=== PATIENT | female | born 1935 | race Caucasian/White ===

== ENCOUNTER 2017-04-28 17:24 | Inpatient (IN) | payer MEDICARE ==
[2017-04-28] MEDS ORDERED: SODIUM CHLORIDE 0.9% 1,000 ML IV ONE (17:28)
--- NOTE | 2017-04-28 17:32 | ED ---
General Adult HPI - General Stated complaint: altered mental status Time Seen by Provider: 04/28/17 17:25 Source: RN notes reviewed - History of Present Illness Initial comments: This is an 82-year-old female whose son found her unresponsive when he came to the house today. Son knows nothing about her past medical history except that she has not had any prescribed medications that she has not seen a doctor in many years. Son states she spoke to him on Tuesday but he has not spoken to or since. He arrived at the house and found her unresponsive state called EMS immediately. According to the project administrator the patient did not speak or respond to anything they were saying to her. When I saw the patient she looked at me and she was able to answer yes or no questions very quietly she stated she was not in any pain she denied any difficulty breathing she denied a headache and she denied knowing why she was in the hospital. Patient denied any injury or trauma. - Related Data Home Medications Medication Instructions Recorded Confirmed No Known Home Medications [No 04/28/17 04/28/17 Known Home Medications] Allergies Allergy/AdvReac Type Severity Reaction Status Date / Time Unable to Assess Allergy Verified 04/28/17 17:57 Review of Systems ROS Statement: Those systems with pertinent positive or pertinent negative responses have been documented in the HPI. ROS Other: All systems not noted in ROS Statement are negative. General Exam - General Exam Comments Initial Comments: GENERAL: She has cachectic looking. Patient speaks extremely softly and very slow to move very lethargic ENT: Neck is soft and supple. No significant lymphadenopathy is noted. Oropharynx is clear. Dry mucous membranes. Neck has full range of motion without eliciting any pain. There is no thyroid enlargement and no masses were felt. EYES: The sclera were anicteric and conjunctiva were pink and moist. Extraocular movements were intact and pupils were equal round and reactive to light. Eyelids were unremarkable. PULMONARY: Unlabored respirations. Good breath sounds bilaterally. No audible rales rhonchi or wheezing was noted. CARDIOVASCULAR: There is a regular rate and rhythm without any murmurs gallops or rubs. ABDOMEN: Soft and nontender with normal bowel sounds. No palpable organomegaly was noted. There is no palpable pulsatile mass. SKIN: Skin is clear with no lesions or rashes and otherwise unremarkable. NEUROLOGIC: Patient is alert and oriented x3. Cranial nerves II through XII are grossly intact. Motor and sensory are also intact. Normal speech, volume and content. Symmetrical smile. Cerebellar exam grossly intact. MUSCULOSKELETAL: Normal extremities with adequate strength and full range of motion. LYMPHATICS: No significant lymphadenopathy is noted PSYCHIATRIC: Unable to assess at this time Course Vital Signs 04/28/17 04/28/17 04/28/17 17:43 18:05 18:41 Temperature 96.8 F L Pulse Rate 107 H 109 H 107 H Respiratory 16 18 Rate Blood Pressure 143/73 157/81 O2 Sat by Pulse 98 Oximetry 04/28/17 04/28/17 19:00 20:00 Temperature 96.8 F L Pulse Rate 105 H 110 H Respiratory 16 Rate Blood Pressure 155/77 O2 Sat by Pulse 99 99 Oximetry Medical Decision Making - Medical Decision Making EKG shows sinus tachycardia at 109 bpm MO interval 226 QRS is 108 QT interval is 276 QTC is 371. Patient shows significant ST segment depression in leads II , III, and F aVF as well as leads V3 V4 V5 and V6 CT of the head shows no acute abnormality. Chest x-ray shows no acute normalities. I spoke with Dr. Waldron she agreed to admit the patient I spoke to the ICU doctor and he agreed to admit the patient as well I wrote admitting orders. I gave the patient potassium because of the low potassium I hydrated the patient with a liter fluid. - Lab Data Result diagrams: 04/28/17 17:55 04/28/17 19:40 Lab Results 04/28/17 04/28/17 04/28/17 Range/Units 17:30 17:30 17:55 WBC (3.8-10.6) k/uL RBC (3.80-5.40) m/uL Hgb (11.4-16.0) gm/dL Hct (34.0-46.0) % MCV (80.0-100.0) fL MCH (25.0-35.0) pg MCHC (31.0-37.0) g/dL RDW (11.5-15.5) % Plt Count (150-450) k/uL Neutrophils % % Lymphocytes % % Monocytes % % Eosinophils % % Basophils % % Neutrophils # (1.3-7.7) k/uL Lymphocytes # (1.0-4.8) k/uL Monocytes # (0-1.0) k/uL Eosinophils # (0-0.7) k/uL Basophils # (0-0.2) k/uL Manual Slide Review Hypochromasia Poikilocytosis Macrocytosis Crenated Cell Fragmented RBCs PT (9.0-12.0) sec INR (<1.2) APTT (22.0-30.0) sec Sample Site ABG pH (7.35-7.45) ABG pCO2 (35-45) mmHg ABG pO2 (83-108) mmHg ABG HCO3 (21-25) mmol/L ABG Total CO2 (19-24) mmol/L ABG O2 Saturation (94-97) % ABG Base Excess mmol/L FiO2 % Sodium (137-145) mmol/L Potassium (3.5-5.1) mmol/L Chloride (98-107) mmol/L Carbon Dioxide (22-30) mmol/L Anion Gap mmol/L BUN (7-17) mg/dL Creatinine (0.52-1.04) mg/dL Est GFR (MDRD) Af Amer (>60 ml/min/1.73 sqM) Est GFR (MDRD) Non-Af (>60 ml/min/1.73 sqM) Glucose (74-99) mg/dL POC Glucose (mg/dL) (75-99) mg/dL POC Glu Garland Maker ID Plasma Lactic Acid Surjit (0.7-2.0) mmol/L Calcium (8.4-10.2) mg/dL Total Bilirubin (0.2-1.3) mg/dL AST (14-36) U/L ALT (9-52) U/L Alkaline Phosphatase (38-126) U/L Total Creatine Kinase 532 H (30-135) U/L CK-MB (CK-2) 11.0 H* (0.0-2.4) ng/mL CK-MB (CK-2) Rel Index 2.1 Troponin I 0.053 H* (0.000-0.034) ng/mL Total Protein (6.3-8.2) g/dL Albumin (3.5-5.0) g/dL Urine Color Light Yellow Urine Appearance Cloudy H (Clear) Urine pH 5.5 (5.0-8.0) Ur Specific [place] 1.009 (1.001-1.035) Urine Protein 2+ H (Negative) Urine Glucose (UA) 2+ H (Negative) Urine Ketones Negative (Negative) Urine Blood Moderate H (Negative) Urine Nitrite Negative (Negative) Urine Bilirubin Negative (Negative) Urine Urobilinogen <2.0 (<2.0) mg/dL Ur Leukocyte Esterase Negative (Negative) Urine Opiates Screen Not Detected (NotDetected) Ur Oxycodone Screen Not Detected (NotDetected) Urine Methadone Screen Not Detected (NotDetected) Ur Propoxyphene Screen Not Detected (NotDetected) Ur Barbiturates Screen Not Detected (NotDetected) U Tricyclic Antidepress Not Detected (NotDetected) Ur Phencyclidine Scrn Not Detected (NotDetected) Ur Amphetamines Screen Not Detected (NotDetected) U Methamphetamines Scrn Not Detected (NotDetected) U Benzodiazepines Scrn Not Detected (NotDetected) Urine Cocaine Screen Not Detected (NotDetected) U Marijuana (THC) Screen Not Detected (NotDetected) 04/28/17 04/28/17 04/28/17 Range/Units 17:55 17:55 17:55 WBC 18.9 H (3.8-10.6) k/uL RBC 4.67 (3.80-5.40) m/uL Hgb 16.4 H (11.4-16.0) gm/dL Hct 48.2 H (34.0-46.0) % MCV 103.4 H (80.0-100.0) fL MCH 35.0 (25.0-35.0) pg MCHC 33.9 (31.0-37.0) g/dL RDW 14.2 (11.5-15.5) % Plt Count 237 (150-450) k/uL Neutrophils % 92 % Lymphocytes % 1 % Monocytes % 5 % Eosinophils % 1 % Basophils % 0 % Neutrophils # 17.3 H (1.3-7.7) k/uL Lymphocytes # 0.3 L (1.0-4.8) k/uL Monocytes # 1.0 (0-1.0) k/uL Eosinophils # 0.2 (0-0.7) k/uL Basophils # 0.0 (0-0.2) k/uL Manual Slide Review Performed Hypochromasia Slight Poikilocytosis Slight Macrocytosis Slight Crenated Cell Present Fragmented RBCs Present PT 10.5 (9.0-12.0) sec INR 1.0 (<1.2) APTT 25.1 (22.0-30.0) sec Sample Site ABG pH (7.35-7.45) ABG pCO2 (35-45) mmHg ABG pO2 (83-108) mmHg ABG HCO3 (21-25) mmol/L ABG Total CO2 (19-24) mmol/L ABG O2 Saturation (94-97) % ABG Base Excess mmol/L FiO2 % Sodium 143 (137-145) mmol/L Potassium 2.0 L* (3.5-5.1) mmol/L Chloride 119 H (98-107) mmol/L Carbon Dioxide <5 L* (22-30) mmol/L Anion Gap mmol/L BUN 97 H* (7-17) mg/dL Creatinine 4.80 H (0.52-1.04) mg/dL Est GFR (MDRD) Af Amer 11 (>60 ml/min/1.73 sqM) Est GFR (MDRD) Non-Af 9 (>60 ml/min/1.73 sqM) Glucose 153 H (74-99) mg/dL POC Glucose (mg/dL) (75-99) mg/dL POC Glu Garland Maker ID Plasma Lactic Acid Surjit (0.7-2.0) mmol/L Calcium 14.8 H* (8.4-10.2) mg/dL Total Bilirubin 0.6 (0.2-1.3) mg/dL AST 54 H (14-36) U/L ALT 92 H (9-52) U/L Alkaline Phosphatase 134 H (38-126) U/L Total Creatine Kinase (30-135) U/L CK-MB (CK-2) (0.0-2.4) ng/mL CK-MB (CK-2) Rel Index Troponin I (0.000-0.034) ng/mL Total Protein 8.5 H (6.3-8.2) g/dL Albumin 4.8 (3.5-5.0) g/dL Urine Color Urine Appearance (Clear) Urine pH (5.0-8.0) Ur Specific [place] (1.001-1.035) Urine Protein (Negative) Urine Glucose (UA) (Negative) Urine Ketones (Negative) Urine Blood (Negative) Urine Nitrite (Negative) Urine Bilirubin (Negative) Urine Urobilinogen (<2.0) mg/dL Ur Leukocyte Esterase (Negative) Urine Opiates Screen (NotDetected) Ur Oxycodone Screen (NotDetected) Urine Methadone Screen (NotDetected) Ur Propoxyphene Screen (NotDetected) Ur Barbiturates Screen (NotDetected) U Tricyclic Antidepress (NotDetected) Ur Phencyclidine Scrn (NotDetected) Ur Amphetamines Screen (NotDetected) U Methamphetamines Scrn (NotDetected) U Benzodiazepines Scrn (NotDetected) Urine Cocaine Screen (NotDetected) U Marijuana (THC) Screen (NotDetected) 04/28/17 04/28/17 04/28/17 Range/Units 17:55 18:01 18:39 WBC (3.8-10.6) k/uL RBC (3.80-5.40) m/uL Hgb (11.4-16.0) gm/dL Hct (34.0-46.0) % MCV (80.0-100.0) fL MCH (25.0-35.0) pg MCHC (31.0-37.0) g/dL RDW (11.5-15.5) % Plt Count (150-450) k/uL Neutrophils % % Lymphocytes % % Monocytes % % Eosinophils % % Basophils % % Neutrophils # (1.3-7.7) k/uL Lymphocytes # (1.0-4.8) k/uL Monocytes # (0-1.0) k/uL Eosinophils # (0-0.7) k/uL Basophils # (0-0.2) k/uL Manual Slide Review Hypochromasia Poikilocytosis Macrocytosis Crenated Cell Fragmented RBCs PT (9.0-12.0) sec INR (<1.2) APTT (22.0-30.0) sec Sample Site rrad ABG pH 7.09 L* (7.35-7.45) ABG pCO2 20 L* (35-45) mmHg ABG pO2 160 H (83-108) mmHg ABG HCO3 6 L* (21-25) mmol/L ABG Total CO2 6 L (19-24) mmol/L ABG O2 Saturation 99.0 H (94-97) % ABG Base Excess -22.0 mmol/L FiO2 28 % Sodium (137-145) mmol/L Potassium (3.5-5.1) mmol/L Chloride (98-107) mmol/L Carbon Dioxide (22-30) mmol/L Anion Gap mmol/L BUN (7-17) mg/dL Creatinine (0.52-1.04) mg/dL Est GFR (MDRD) Af Amer (>60 ml/min/1.73 sqM) Est GFR (MDRD) Non-Af (>60 ml/min/1.73 sqM) Glucose (74-99) mg/dL POC Glucose (mg/dL) 134 H (75-99) mg/dL POC Glu Garland Maker ID [place] Plasma Lactic Acid Surjit 1.8 (0.7-2.0) mmol/L Calcium (8.4-10.2) mg/dL Total Bilirubin (0.2-1.3) mg/dL AST (14-36) U/L ALT (9-52) U/L Alkaline Phosphatase (38-126) U/L Total Creatine Kinase (30-135) U/L CK-MB (CK-2) (0.0-2.4) ng/mL CK-MB (CK-2) Rel Index Troponin I (0.000-0.034) ng/mL Total Protein (6.3-8.2) g/dL Albumin (3.5-5.0) g/dL Urine Color Urine Appearance (Clear) Urine pH (5.0-8.0) Ur Specific [place] (1.001-1.035) Urine Protein (Negative) Urine Glucose (UA) (Negative) Urine Ketones (Negative) Urine Blood (Negative) Urine Nitrite (Negative) Urine Bilirubin (Negative) Urine Urobilinogen (<2.0) mg/dL Ur Leukocyte Esterase (Negative) Urine Opiates Screen (NotDetected) Ur Oxycodone Screen (NotDetected) Urine Methadone Screen (NotDetected) Ur Propoxyphene Screen (NotDetected) Ur Barbiturates Screen (NotDetected) U Tricyclic Antidepress (NotDetected) Ur Phencyclidine Scrn (NotDetected) Ur Amphetamines Screen (NotDetected) U Methamphetamines Scrn (NotDetected) U Benzodiazepines Scrn (NotDetected) Urine Cocaine Screen (NotDetected) U Marijuana (THC) Screen (NotDetected) 04/28/17 Range/Units 19:40 WBC (3.8-10.6) k/uL RBC (3.80-5.40) m/uL Hgb (11.4-16.0) gm/dL Hct (34.0-46.0) % MCV (80.0-100.0) fL MCH (25.0-35.0) pg MCHC (31.0-37.0) g/dL RDW (11.5-15.5) % Plt Count (150-450) k/uL Neutrophils % % Lymphocytes % % Monocytes % % Eosinophils % % Basophils % % Neutrophils # (1.3-7.7) k/uL Lymphocytes # (1.0-4.8) k/uL Monocytes # (0-1.0) k/uL Eosinophils # (0-0.7) k/uL Basophils # (0-0.2) k/uL Manual Slide Review Hypochromasia Poikilocytosis Macrocytosis Crenated Cell Fragmented RBCs PT (9.0-12.0) sec INR (<1.2) APTT (22.0-30.0) sec Sample Site ABG pH (7.35-7.45) ABG pCO2 (35-45) mmHg ABG pO2 (83-108) mmHg ABG HCO3 (21-25) mmol/L ABG Total CO2 (19-24) mmol/L ABG O2 Saturation (94-97) % ABG Base Excess mmol/L FiO2 % Sodium 144 (137-145) mmol/L Potassium 2.0 L* (3.5-5.1) mmol/L Chloride 122 H* (98-107) mmol/L Carbon Dioxide <5 L* (22-30) mmol/L Anion Gap mmol/L BUN 94 H* (7-17) mg/dL Creatinine 5.10 H* (0.52-1.04) mg/dL Est GFR (MDRD) Af Amer 10 (>60 ml/min/1.73 sqM) Est GFR (MDRD) Non-Af 8 (>60 ml/min/1.73 sqM) Glucose 143 H (74-99) mg/dL POC Glucose (mg/dL) (75-99) mg/dL POC Glu Garland Maker ID Plasma Lactic Acid Surjit (0.7-2.0) mmol/L Calcium 13.6 H* (8.4-10.2) mg/dL Total Bilirubin 0.4 (0.2-1.3) mg/dL AST 56 H (14-36) U/L ALT 83 H (9-52) U/L Alkaline Phosphatase 127 H (38-126) U/L Total Creatine Kinase (30-135) U/L CK-MB (CK-2) (0.0-2.4) ng/mL CK-MB (CK-2) Rel Index Troponin I (0.000-0.034) ng/mL Total Protein 7.7 (6.3-8.2) g/dL Albumin 4.3 (3.5-5.0) g/dL Urine Color Urine Appearance (Clear) Urine pH (5.0-8.0) Ur Specific [place] (1.001-1.035) Urine Protein (Negative) Urine Glucose (UA) (Negative) Urine Ketones (Negative) Urine Blood (Negative) Urine Nitrite (Negative) Urine Bilirubin (Negative) Urine Urobilinogen (<2.0) mg/dL Ur Leukocyte Esterase (Negative) Urine Opiates Screen (NotDetected) Ur Oxycodone Screen (NotDetected) Urine Methadone Screen (NotDetected) Ur Propoxyphene Screen (NotDetected) Ur Barbiturates Screen (NotDetected) U Tricyclic Antidepress (NotDetected) Ur Phencyclidine Scrn (NotDetected) Ur Amphetamines Screen (NotDetected) U Methamphetamines Scrn (NotDetected) U Benzodiazepines Scrn (NotDetected) Urine Cocaine Screen (NotDetected) U Marijuana (THC) Screen (NotDetected) Critical Care Time Critical Care Time: Yes Total Critical Care Time: 35 Disposition Clinical Impression: Altered mental status, Acute renal failure, Hypokalemia, Hypercalcemia, Elevated troponin Disposition: ADMITTED IP TO THIS HOSP Referrals: None,Stated [Primary Care Provider] - 1-2 days Time of Disposition: 20:31
[2017-04-28 18:08] LABS: Basophils % (A) 0 %; CH 33.3; CHCM 32.5; Eosinophils # (A) 0.2 k/uL (0-0.7); Eosinophils % (A) 1 %; HCT 48.2 % (34.0-46.0); HDW 3.43; HGB 16.4 gm/dL (11.4-16.0); Hypochromasia Slight; Luc # (Auto) 0.16; Luc % (Auto) 1; Lymphocytes # (A) 0.3 k/uL (1.0-4.8); Lymphocytes % (A) 1 %; MCHC 33.9 g/dL (31.0-37.0); MCV 103.4 fL (80.0-100.0); Macrocytosis Slight; Mean Platelet Volume 7.9; Monocytes % (A) 5 %; Neutrophils # (A) 17.3 k/uL (1.3-7.7); Neutrophils % (A) 92 %; Poikilocytosis Slight; RBC 4.67 m/uL (3.80-5.40); RDW 14.2 % (11.5-15.5); WBC 18.9 k/uL (3.8-10.6); WBC (Perox) 20.71
[2017-04-28 18:14] LABS: ALT 92 U/L (9-52); AST 54 U/L (14-36); Alkaline Phosphatase 134 U/L (38-126); Chloride 119 mmol/L (98-107); Glucose 153 mg/dL (74-99); Sodium 143 mmol/L (137-145); Total Bilirubin 0.6 mg/dL (0.2-1.3); Total Protein 8.5 g/dL (6.3-8.2)
[2017-04-28 18:19] LABS: Appearance,Urine Cloudy (Clear); Bilirubin,Urine Negative (Negative); Glucose,Urine (UA) 2+ (Negative); Ketones,Urine Negative (Negative); Leukocyte Esterase,Urine Negative (Negative); Nitrite,Urine Negative (Negative); PH, Urine 5.5 (5.0-8.0); Particle Count 8893; Protein,Urine 2+ (Negative); Specific Gravity,Urine 1.009 (1.001-1.035); UA Billing (MACRO vs. MICRO) MICRO; Urobilinogen,Urine <2.0 mg/dL (<2.0)
[2017-04-28 18:22] LABS: Glucose,Whole Blood 134 mg/dL (75-99)
[2017-04-28 18:25] LABS: Non-African American GFR(MDRD) 9 (>60 ml/min/1.73 sqM)
[2017-04-28 18:29] LABS: Blood Urea Nitrogen 97 mg/dL (7-17); Carbon Dioxide <5 mmol/L (22-30)
--- NOTE | 2017-04-28 18:36 | CT ---
EXAMINATION TYPE: CT brain wo con DATE OF EXAM: 04/28/2017 COMPARISON: NONE HISTORY: Patient poor historian. Altered mental status. CT DLP: 790.5 mGycm Automated exposure control for dose reduction was used. FINDINGS: There is some cerebral cortical atrophy. There is no mass effect nor midline shift. There is no sign of intracranial hemorrhage. The calvarium is intact. IMPRESSION: MILD ATROPHY. NO ACUTE INTRACRANIAL ABNORMALITY.
--- NOTE | 2017-04-28 18:37 | XR ---
EXAMINATION TYPE: XR chest 2V DATE OF EXAM: 04/28/2017 COMPARISON: NONE HISTORY: Altered mental status TECHNIQUE: Frontal and lateral views of the chest are obtained. FINDINGS: There is no heart failure nor confluent pneumonic infiltrate. There are no hilar masses. C ostophrenic angles are clear. Heart size is normal. There is osteopenia. 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 IMPRESSION: No active cardiopulmonary disease.
[2017-04-28 18:42] LABS: Partial Thromboplastin Time 25.1 sec (22.0-30.0); Prothrombin Time 10.5 sec (9.0-12.0)
[2017-04-28 18:45] LABS: Calcium 14.8 mg/dL (8.4-10.2)
[2017-04-28 18:54] LABS: Troponin I 0.053 ng/mL (0.000-0.034)
[2017-04-28 19:08] LABS: ABG PH 7.09 (7.35-7.45)
[2017-04-28 19:09] LABS: ABG HCO3 6 mmol/L (21-25); ABG PCO2 20 mmHg (35-45); ABG PO2 160 mmHg (83-108); ABG TCO2 6 mmol/L (19-24)
[2017-04-28 19:12] LABS: Crenated RBC Present; Manual Review Performed
[2017-04-28] MEDS ORDERED: LEVOFLOXACIN 750MG-D5W PMX 750 MG in DEXTROSE/WATER 1 150ML.BAG IVPB STA (19:16)
[2017-04-28] MEDS ORDERED: LEVOFLOXACIN 750MG-D5W PMX 750 MG in DEXTROSE/WATER 1 150ML.BAG IVPB SCH (19:30)
[2017-04-28] MEDS: POTASSIUM CHLORIDE 10 MEQ, LIDOCAINE 2% INJ 10 MG in SODIUM CHLORIDE 0.9% 100 ML IVPB SCH ×2 (19:50→21:21)
[2017-04-28] MEDS ORDERED: NALOXONE 0.4 MG/ML 1 ML VIAL IV PRN (19:56)
[2017-04-28 20:17] LABS: ALT 83 U/L (9-52); AST 56 U/L (14-36); Alkaline Phosphatase 127 U/L (38-126); Glucose 143 mg/dL (74-99); Sodium 144 mmol/L (137-145); Total Bilirubin 0.4 mg/dL (0.2-1.3); Total Protein 7.7 g/dL (6.3-8.2)
[2017-04-28 20:19] LABS: Non-African American GFR(MDRD) 8 (>60 ml/min/1.73 sqM)
[2017-04-28 20:21] LABS: Carbon Dioxide <5 mmol/L (22-30); Chloride 122 mmol/L (98-107)
[2017-04-28 20:22] LABS: Blood Urea Nitrogen 94 mg/dL (7-17); Calcium 13.6 mg/dL (8.4-10.2)
[2017-04-28] MEDS ORDERED: SODIUM CHLORIDE 0.9% 1,000 ML IV SCH (20:30)
[2017-04-28 21:03] LABS: Magnesium 3.4 mg/dL (1.6-2.3); Phosphorus 2.8 mg/dL (2.5-4.5)
[2017-04-28 21:08] LABS: Glucose,Whole Blood 142 mg/dL (75-99)
[2017-04-28 21:09] LABS: Basophils % (A) 0 %; CH 33.7; CHCM 33.5; Eosinophils % (A) 0 %; HCT 52.3 % (34.0-46.0); HDW 3.43; HGB 16.8 gm/dL (11.4-16.0); Luc # (Auto) 0.18; Luc % (Auto) 1; Lymphocytes # (A) 0.3 k/uL (1.0-4.8); Lymphocytes % (A) 1 %; MCH 32.6 pg (25.0-35.0); MCHC 32.1 g/dL (31.0-37.0); MCV 101.7 fL (80.0-100.0); Macrocytosis Slight; Mean Platelet Volume 7.9; Monocytes # (A) 1.4 k/uL (0-1.0); Monocytes % (A) 6 %; Neutrophils # (A) 22.1 k/uL (1.3-7.7); Neutrophils % (A) 92 %; Poikilocytosis Slight; RBC 5.14 m/uL (3.80-5.40); RDW 14.6 % (11.5-15.5); WBC (Perox) 25.92
[2017-04-28 21:38] LABS: Crenated RBC Present; Manual Review Performed
--- NOTE | 2017-04-28 22:15 | P.HPIM ---
History of Present Illness H&P Date: 04/28/17 Chief Complaint: Change in mental status 82-year-old female doesn't believe in medicine, does not have a medical doctor and not on any medication but takes many supplements presented to emergency department brought by her son because of severe weakness and change in her mental status. The patient normally lives by herself and able to take care of herself and do all of her activities of daily living but over the past week she has not been eating and drinking well, feeling very weak. Patient denied having any pain when asked. No shortness of breath. No nausea, vomiting or diarrhea. No fevers or chills. Patient takes many many supplements and has been doing that over the last several years. I reviewed the bag of supplements that she takes and I was able to count about 50 bottles of different chemicals and substances including present illness, minerals, vitamins, pancreatic enzymes and many other substances unknown to me. In the emergency department patient was found to have a creatinine of 4.8, potassium of 2. Mentally she was very slow to respond but able to answer most questions. Review of Systems 12 point ROS performed, negative except HPI. Past Medical History Past Medical History: Unable to Obtain Additional Past Medical History / Comment(s): Pt self medicates with homeopathic remedies and vitamins per Son. History of Any Multi-Drug Resistant Organisms: Unobtainable Past Surgical History: Unable to Obtain Past Psychological History: Unable to Obtain Smoking Status: Unknown if ever smoked Past Alcohol Use History: Unable to Obtain Past Drug Use History: Unable to Obtain Medications and Allergies Home Medications Medication Instructions Recorded Confirmed Type Adrenatran 1 tab PO DAILY 04/28/17 04/28/17 History Allerase 1 tab PO DAILY 04/28/17 04/28/17 History B-Cell Formula 1 tab PO DAILY 04/28/17 04/28/17 History Bio-Fcts 1 tab PO DAILY 04/28/17 04/28/17 History Bioavailable Iron 5mg 5 mg PO DAILY 04/28/17 04/28/17 History Biocitrate-Multi Mineral 1 tab PO DAILY 04/28/17 04/28/17 History Bone-Chiara 1 tab PO DAILY 04/28/17 04/28/17 History Yao/Mag 1:1 1 tab PO DAILY 04/28/17 04/28/17 History Cataplex F 1 tab PO DAILY 04/28/17 04/28/17 History Colostrum 1 tab PO DAILY 04/28/17 04/28/17 History Dandelion 1 tab PO DAILY 04/28/17 04/28/17 History Dopa Boost 1 tab PO DAILY 04/28/17 04/28/17 History Glycine 500mg 500 mg PO DAILY 04/28/17 04/28/17 History Grape Seed 1 tab PO DAILY 04/28/17 04/28/17 History Graviola 1 tab PO DAILY 04/28/17 04/28/17 History Hepagen 1 tab PO DAILY 04/28/17 04/28/17 History Hepatropin Pmg 1 tab PO DAILY 04/28/17 04/28/17 History Horse Buxton 1 tab PO DAILY 04/28/17 04/28/17 History Inosine 500mg 500 mg PO DAILY 04/28/17 04/28/17 History L-Citrulline 500mg 500 mg PO DAILY 04/28/17 04/28/17 History L-Glutamin 400mg 400 mg PO DAILY 04/28/17 04/28/17 History L-Glutathione 1 tab PO DAILY 04/28/17 04/28/17 History L-Histidine 500mg 500 mg PO DAILY 04/28/17 04/28/17 History Lacto 1 tab PO DAILY 04/28/17 04/28/17 History Lactoferrin 100mg 100 mg PO DAILY 04/28/17 04/28/17 History Liver Blend Sp-13 1 tab PO DAILY 04/28/17 04/28/17 History Liver Cleanse 1 tab PO DAILY 04/28/17 04/28/17 History Methylsulfonylmethane [MSM] 1,000 mg PO DAILY 04/28/17 04/28/17 History Molybdenum 1 tab PO DAILY 04/28/17 04/28/17 History Monolaurin 300mg 300 mg PO DAILY 04/28/17 04/28/17 History Multi-Gland 1 tab PO DAILY 04/28/17 04/28/17 History Natto-Serrazime 1 tab PO DAILY 04/28/17 04/28/17 History Norival 1 tab PO DAILY 04/28/17 04/28/17 History Nutricillin 1 tab PO DAILY 04/28/17 04/28/17 History Paracidin 1 tab PO DAILY 04/28/17 04/28/17 History Potassium Citrate 99mg 99 mg PO DAILY 04/28/17 04/28/17 History Psorex 120mg 120 mg PO DAILY 04/28/17 04/28/17 History Refluxin 1 tab PO DAILY 04/28/17 04/28/17 History Rna/Dna 100/100 1 tab PO DAILY 04/28/17 04/28/17 History Squarlene 1 tab PO DAILY 04/28/17 04/28/17 History Anny 1 tab PO DAILY 04/28/17 04/28/17 History Tendofit 1 tab PO DAILY 04/28/17 04/28/17 History Thymex 1 tab PO DAILY 04/28/17 04/28/17 History Uristatin 1 tab PO DAILY 04/28/17 04/28/17 History Vitamin B Complex 1 cap PO DAILY 04/28/17 04/28/17 History White Margie Bark 1 tab PO DAILY 04/28/17 04/28/17 History Wobenzym N 1 tab PO DAILY 04/28/17 04/28/17 History [place] 1 tab PO DAILY 04/28/17 04/28/17 History Zinc Picolinate 1 tab PO DAILY 04/28/17 04/28/17 History Allergies Allergy/AdvReac Type Severity Reaction Status Date / Time No Known Allergies Allergy Verified 04/28/17 20:36 Physical Exam Vitals: Vital Signs Temp Pulse Resp BP Pulse Ox 04/28/17 20:00 110 H 99 04/28/17 19:00 96.8 F L 105 H 16 155/77 99 04/28/17 18:41 107 H 18 157/81 04/28/17 18:05 109 H 04/28/17 17:43 96.8 F L 107 H 16 143/73 98 Intake and Output 04/28/17 04/28/17 04/28/17 06:59 14:59 22:59 Intake Total 1000 Balance 1000 Intake: Amount of Fluid Infused ( 1000 ml) Other: Weight 31.751 kg Patient Weight 04/29/17 06:59 Weight 31.751 kg Constitutional: mentally slow, barely conversant,. Eyes: Anicteric sclerae, moist conjunctiva, no lid-lag, PERRLA, ENMT: Extremely dry mucous membranes, Oropharynx clear, no erythema, exudates Neck: Supple, FROM, no masses, or JVD, No carotid bruits, No thyromegaly Lungs: Clear to auscultation, Clear to percussion, Normal respiratory effort, no accessory muscle use Cardiovascular: Heart regular in rate and rhythm, No murmurs, gallops, or rubs, No peripheral edema Abdominal: Soft, tender all over, no guarding, rebound or rigidity, Normoactive bowel sounds, No hepatomegaly, No splenomegaly, No palpable mass Skin: Normal temperature, tone, texture, increased skin turgor, no induration, No subcutaneous nodules, No rash, lesions, No ulcers Extremities: No digital cyanosis, No clubbing, Pedal pulses intact and symmetrical, Radial pulses intact and symmetrical, No calf tenderness Psychiatric: Lethargic but oriented to person, place and time, appropriate affect, intact judgement Neuro: Generally weak, Sensation to light touch grossly present throughout, Cranial nerves II-XII grossly intact, no focal sensory deficits Results CBC & Chem 7: 04/28/17 19:40 04/28/17 19:40 Labs: Abnormal Lab Results - Last 24 Hours (Table) 04/28/17 04/28/17 04/28/17 Range/Units 17:30 17:55 17:55 WBC 18.9 H (3.8-10.6) k/uL Hgb 16.4 H (11.4-16.0) gm/dL Hct 48.2 H (34.0-46.0) % MCV 103.4 H (80.0-100.0) fL Neutrophils # 17.3 H (1.3-7.7) k/uL Lymphocytes # 0.3 L (1.0-4.8) k/uL Monocytes # (0-1.0) k/uL ABG pH (7.35-7.45) ABG pCO2 (35-45) mmHg ABG pO2 (83-108) mmHg ABG HCO3 (21-25) mmol/L ABG Total CO2 (19-24) mmol/L ABG O2 Saturation (94-97) % Potassium (3.5-5.1) mmol/L Chloride (98-107) mmol/L Carbon Dioxide (22-30) mmol/L BUN (7-17) mg/dL Creatinine (0.52-1.04) mg/dL Glucose (74-99) mg/dL POC Glucose (mg/dL) (75-99) mg/dL Calcium (8.4-10.2) mg/dL Magnesium (1.6-2.3) mg/dL AST (14-36) U/L ALT (9-52) U/L Alkaline Phosphatase (38-126) U/L Total Creatine Kinase 532 H (30-135) U/L CK-MB (CK-2) 11.0 H* (0.0-2.4) ng/mL Troponin I 0.053 H* (0.000-0.034) ng/mL Total Protein (6.3-8.2) g/dL Urine Appearance Cloudy H (Clear) Urine Protein 2+ H (Negative) Urine Glucose (UA) 2+ H (Negative) Urine Blood Moderate H (Negative) 04/28/17 04/28/17 04/28/17 Range/Units 17:55 18:01 18:39 WBC (3.8-10.6) k/uL Hgb (11.4-16.0) gm/dL Hct (34.0-46.0) % MCV (80.0-100.0) fL Neutrophils # (1.3-7.7) k/uL Lymphocytes # (1.0-4.8) k/uL Monocytes # (0-1.0) k/uL ABG pH 7.09 L* (7.35-7.45) ABG pCO2 20 L* (35-45) mmHg ABG pO2 160 H (83-108) mmHg ABG HCO3 6 L* (21-25) mmol/L ABG Total CO2 6 L (19-24) mmol/L ABG O2 Saturation 99.0 H (94-97) % Potassium 2.0 L* (3.5-5.1) mmol/L Chloride 119 H (98-107) mmol/L Carbon Dioxide <5 L* (22-30) mmol/L BUN 97 H* (7-17) mg/dL Creatinine 4.80 H (0.52-1.04) mg/dL Glucose 153 H (74-99) mg/dL POC Glucose (mg/dL) 134 H (75-99) mg/dL Calcium 14.8 H* (8.4-10.2) mg/dL Magnesium (1.6-2.3) mg/dL AST 54 H (14-36) U/L ALT 92 H (9-52) U/L Alkaline Phosphatase 134 H (38-126) U/L Total Creatine Kinase (30-135) U/L CK-MB (CK-2) (0.0-2.4) ng/mL Troponin I (0.000-0.034) ng/mL Total Protein 8.5 H (6.3-8.2) g/dL Urine Appearance (Clear) Urine Protein (Negative) Urine Glucose (UA) (Negative) Urine Blood (Negative) 04/28/17 04/28/17 04/28/17 Range/Units 19:40 19:40 21:05 WBC 24.0 H (3.8-10.6) k/uL Hgb 16.8 H (11.4-16.0) gm/dL Hct 52.3 H (34.0-46.0) % MCV 101.7 H (80.0-100.0) fL Neutrophils # 22.1 H (1.3-7.7) k/uL Lymphocytes # 0.3 L (1.0-4.8) k/uL Monocytes # 1.4 H (0-1.0) k/uL ABG pH (7.35-7.45) ABG pCO2 (35-45) mmHg ABG pO2 (83-108) mmHg ABG HCO3 (21-25) mmol/L ABG Total CO2 (19-24) mmol/L ABG O2 Saturation (94-97) % Potassium 2.0 L* (3.5-5.1) mmol/L Chloride 122 H* (98-107) mmol/L Carbon Dioxide <5 L* (22-30) mmol/L BUN 94 H* (7-17) mg/dL Creatinine 5.10 H* (0.52-1.04) mg/dL Glucose 143 H (74-99) mg/dL POC Glucose (mg/dL) 142 H (75-99) mg/dL Calcium 13.6 H* (8.4-10.2) mg/dL Magnesium 3.4 H (1.6-2.3) mg/dL AST 56 H (14-36) U/L ALT 83 H (9-52) U/L Alkaline Phosphatase 127 H (38-126) U/L Total Creatine Kinase (30-135) U/L CK-MB (CK-2) (0.0-2.4) ng/mL Troponin I (0.000-0.034) ng/mL Total Protein (6.3-8.2) g/dL Urine Appearance (Clear) Urine Protein (Negative) Urine Glucose (UA) (Negative) Urine Blood (Negative) Assessment and Plan Plan: #1 Acute renal failure/acute severe metabolic acidosis/acute severe hypokalemia: Likely secondary to toxicity from calcium, vitamin D and many other supplements Discussed with nephrology Dr. Magallanes Stat dialysis, discussed with Dr. Posadas Bicarbonate drip. [place] cath insertion, monitor urine output Hold all supplements and nephrotoxic medications Monitor electrolytes and creatinine frequently #2 leukocytosis No evidence of infection but she will be started on empiric coverage with Levaquin 750 mg IV daily #3 High troponins: Likely secondary to renal failure. Will cycle EKG with no acute changes. #4 DVT prophylaxis: Subcutaneous heparin and SCDs
[2017-04-28] MEDS: DEXTROSE 5% IN WATER 1,000 ML with SODIUM BICARB (1 MEQ/ML) 150 ML IV SCH (22:30)
[2017-04-28 23:21] LABS: Amorphous Sediment,Urine Occasional /hpf; Appearance,Urine Turbid (Clear); Bilirubin,Urine Negative (Negative); Glucose,Urine (UA) 2+ (Negative); Ketones,Urine Negative (Negative); Leukocyte Esterase,Urine Negative (Negative); Nitrite,Urine Negative (Negative); PH, Urine 5.5 (5.0-8.0); Particle Count 30545; Protein,Urine 2+ (Negative); RBC,Urine 2 /hpf (0-5); Specific Gravity,Urine 1.011 (1.001-1.035); Squamous Epithelial Cell,Urine 4 /hpf (0-4); UA Billing (MACRO vs. MICRO) MICRO; Urobilinogen,Urine <2.0 mg/dL (<2.0); WBC,Urine 44 /hpf (0-5)
[2017-04-29] MEDS ORDERED: POTASSIUM CHLORIDE 10 MEQ in WATER FOR INJECTION 1 100ML.BAG IVPB ONE (02:00)
[2017-04-29] MEDS: POTASSIUM CHLORIDE 10 MEQ, LIDOCAINE 2% INJ 10 MG in SODIUM CHLORIDE 0.9% 100 ML IVPB SCH ×2 (02:26→08:54)
[2017-04-29] MEDS: HEPARIN SODIUM,PORCINE 5,000 UNIT/ML 1 ML VIAL SQ SCH ×3 (02:28→16:10)
[2017-04-29 03:23] LABS: Glucose,Whole Blood 147 mg/dL (75-99)
[2017-04-29 03:37] LABS: Basophils % (A) 0 %; CH 34.7; CHCM 36.9; Eosinophils % (A) 0 %; HCT 31.6 % (34.0-46.0); HDW 3.35; Hyperchromasia Slight; Luc % (Auto) 1; Lymphocytes # (A) 0.4 k/uL (1.0-4.8); Lymphocytes % (A) 2 %; MCH 33.5 pg (25.0-35.0); MCHC 35.3 g/dL (31.0-37.0); Mean Platelet Volume 7.6; Monocytes % (A) 5 %; Neutrophils % (A) 92 %; RBC 3.33 m/uL (3.80-5.40); RDW 14.1 % (11.5-15.5); WBC 20.5 k/uL (3.8-10.6); WBC (Perox) 21.79
[2017-04-29 03:41] LABS: HGB 11.2 gm/dL (11.4-16.0)
[2017-04-29 04:34] LABS: Calcium 10.5 mg/dL (8.4-10.2); Magnesium 2.2 mg/dL (1.6-2.3)
[2017-04-29 04:45] LABS: Ionized Calcium 6.2 mg/dL (4.5-5.3)
[2017-04-29 04:46] LABS: Potassium 2.2 mmol/L (3.5-5.1)
[2017-04-29] MEDS ORDERED: POTASSIUM CHLORIDE 10 MEQ in WATER FOR INJECTION 1 100ML.BAG IVPB STA (04:54)
[2017-04-29] MEDS: DEXTROSE 5% IN WATER 1,000 ML with SODIUM BICARB (1 MEQ/ML) 150 ML IV SCH ×2 (07:09→15:45)
[2017-04-29 07:29] LABS: MCV 94.8 fL (80.0-100.0)
--- NOTE | 2017-04-29 08:07 | P.CNPUL ---
History of Present Illness Consult date: 04/29/17 Chief complaint: Mentation, severe dehydration, acute kidney injury History of present illness: This is a 82-year-old female patient, who was brought in to the emergency department by her son after she was found unresponsive at home. Apparently the patient's in February 2017. Since that she's been doing poorly. She hasn't been taking care of herself nor she has been eating appropriately. Her son lives in [facility] came in to check on her and he found unresponsive and he brought her to the hospital. The patient was extremely dehydrated, cachectic,/on bone, with a deep tissue injury and her coccyx probably from laying around and she has chronic ulceration of lower extremities bilaterally. The patient was unresponsive. The patient was hypothermic with a temperature of 92. She had severe metabolic derangement and based on the labs a sodium 140 for a potassium of 2 bicarb of less than 5 BUN of 94 creatinine 5.1 a calcium level of 13.6, she does severely acidotic with a pH of 7.09 with a pCO2 of 20 and pO2 of 160. She was not making any urine output. Lactic acid level is at 1.8. The patient remained actually taking well with a pulse ox of 8% to liters of oxygen nasal cannula. CAT scan of the brain was negative and showed mild atrophy and the chest x-ray showed no acute cardio pulmonary process. The [place] catheter was inserted. A total of 3 80 mL was obtained initially and since then she has produced only 35 mL by mouth overnight the dialysis catheter was inserted and the patient was dialyzed to correct her severe metabolic derangement. She was also warmed externally. She received potassium in order of 60 mEq in her follow-up electrodes from this morning show a potassium up to 2.2, a bicarb up to 17 with anion gap of 11. Creatinine is down to 2.4. Her calcium level is down to 10.5. Right second isn 't elevated at 24. She is more awake yet she is still very somnolent and lethargic. She is and I unable to hold a conversation yet. She is currently on a bicarb drip which is running at 1 50 mL an hour of D5 with 3 A and she has received more than 3 to IV fluids. Troponins were negative with a troponin maxed at 0.053. CPKs at 532. No nausea. No vomiting. No emesis. No bleeding rectally. No hematemesis. Neurologic exam is nonfocal. The patient is moving all 4 extremities without any limitation. Review of Systems The patient is in a very poor status with no medical follow-up at all. She is very cachectic and malnourished and she came in severely dehydrated. She also had the severe metabolic derangement as mentioned above. Apparently she is self remedies herself with homeopathic medications. ROS unobtainable: due to mental status Past Medical History Past Medical History: Unable to Obtain Additional Past Medical History / Comment(s): Pt self medicates with homeopathic remedies and vitamins per Son. History of Any Multi-Drug Resistant Organisms: Unobtainable Past Surgical History: Unable to Obtain Past Psychological History: Unable to Obtain Smoking Status: Unknown if ever smoked Past Alcohol Use History: Unable to Obtain Past Drug Use History: Unable to Obtain Medications and Allergies Home Medications Medication Instructions Recorded Confirmed Type Adrenatran 1 tab PO DAILY 04/28/17 04/28/17 History Allerase 1 tab PO DAILY 04/28/17 04/28/17 History B-Cell Formula 1 tab PO DAILY 04/28/17 04/28/17 History Bio-Fcts 1 tab PO DAILY 04/28/17 04/28/17 History Bioavailable Iron 5mg 5 mg PO DAILY 04/28/17 04/28/17 History Biocitrate-Multi Mineral 1 tab PO DAILY 04/28/17 04/28/17 History Bone-Chiara 1 tab PO DAILY 04/28/17 04/28/17 History Yao/Mag 1:1 1 tab PO DAILY 04/28/17 04/28/17 History Cataplex F 1 tab PO DAILY 04/28/17 04/28/17 History Colostrum 1 tab PO DAILY 04/28/17 04/28/17 History Dandelion 1 tab PO DAILY 04/28/17 04/28/17 History Dopa Boost 1 tab PO DAILY 04/28/17 04/28/17 History Glycine 500mg 500 mg PO DAILY 04/28/17 04/28/17 History Grape Seed 1 tab PO DAILY 04/28/17 04/28/17 History Graviola 1 tab PO DAILY 04/28/17 04/28/17 History Hepagen 1 tab PO DAILY 04/28/17 04/28/17 History Hepatropin Pmg 1 tab PO DAILY 04/28/17 04/28/17 History Horse Gans 1 tab PO DAILY 04/28/17 04/28/17 History Inosine 500mg 500 mg PO DAILY 04/28/17 04/28/17 History L-Citrulline 500mg 500 mg PO DAILY 04/28/17 04/28/17 History L-Glutamin 400mg 400 mg PO DAILY 04/28/17 04/28/17 History L-Glutathione 1 tab PO DAILY 04/28/17 04/28/17 History L-Histidine 500mg 500 mg PO DAILY 04/28/17 04/28/17 History Lacto 1 tab PO DAILY 04/28/17 04/28/17 History Lactoferrin 100mg 100 mg PO DAILY 04/28/17 04/28/17 History Liver Blend Sp-13 1 tab PO DAILY 04/28/17 04/28/17 History Liver Cleanse 1 tab PO DAILY 04/28/17 04/28/17 History Methylsulfonylmethane [MSM] 1,000 mg PO DAILY 04/28/17 04/28/17 History Molybdenum 1 tab PO DAILY 04/28/17 04/28/17 History Monolaurin 300mg 300 mg PO DAILY 04/28/17 04/28/17 History Multi-Gland 1 tab PO DAILY 04/28/17 04/28/17 History Natto-Serrazime 1 tab PO DAILY 04/28/17 04/28/17 History Norival 1 tab PO DAILY 04/28/17 04/28/17 History Nutricillin 1 tab PO DAILY 04/28/17 04/28/17 History Paracidin 1 tab PO DAILY 04/28/17 04/28/17 History Potassium Citrate 99mg 99 mg PO DAILY 04/28/17 04/28/17 History Psorex 120mg 120 mg PO DAILY 04/28/17 04/28/17 History Refluxin 1 tab PO DAILY 04/28/17 04/28/17 History Rna/Dna 100/100 1 tab PO DAILY 04/28/17 04/28/17 History Squarlene 1 tab PO DAILY 04/28/17 04/28/17 History Anny 1 tab PO DAILY 04/28/17 04/28/17 History Tendofit 1 tab PO DAILY 04/28/17 04/28/17 History Thymex 1 tab PO DAILY 04/28/17 04/28/17 History Uristatin 1 tab PO DAILY 04/28/17 04/28/17 History Vitamin B Complex 1 cap PO DAILY 04/28/17 04/28/17 History [place] 1 tab PO DAILY 04/28/17 04/28/17 History Wobenzym N 1 tab PO DAILY 04/28/17 04/28/17 History [place] 1 tab PO DAILY 04/28/17 04/28/17 History Zinc Picolinate 1 tab PO DAILY 04/28/17 04/28/17 History Allergies Allergy/AdvReac Type Severity Reaction Status Date / Time No Known Allergies Allergy Verified 04/28/17 20:36 Physical Exam Vitals: Vital Signs Temp Pulse Resp BP Pulse Ox 04/29/17 06:00 100.3 F H 108 H 18 132/54 99 04/29/17 05:30 113 H 20 133/53 98 04/29/17 05:00 118 H 22 119/53 98 04/29/17 04:30 115 H 24 129/53 98 04/29/17 04:00 100.7 F H 114 H 17 122/60 98 04/29/17 03:45 118 H 14 98 04/29/17 03:30 131 H 22 100/55 98 04/29/17 03:15 126 H 19 106/52 98 04/29/17 03:00 124 H 20 100/49 99 04/29/17 02:45 118 H 14 100/49 98 04/29/17 02:30 131 H 23 121/49 96 04/29/17 02:15 123 H 18 136/63 100 04/29/17 02:00 115 H 14 116/57 100 04/29/17 01:45 127 H 17 101/57 100 04/29/17 01:30 123 H 18 105/58 95 04/29/17 01:15 120 H 13 114/61 99 04/29/17 01:00 121 H 12 111/62 99 04/29/17 00:45 119 H 13 99/55 95 04/29/17 00:30 117 H 14 122/64 98 04/29/17 00:15 108 H 16 134/66 100 04/29/17 00:00 111 H 12 140/64 98 04/28/17 23:45 104 H 30 H 136/62 94 L 04/28/17 23:30 105 H 13 140/62 99 04/28/17 23:15 105 H 21 99/66 100 04/28/17 23:00 104 H 28 H 99/48 98 04/28/17 22:45 116 H 21 148/68 99 04/28/17 22:30 107 H 32 H 148/68 99 04/28/17 22:17 109 H 21 144/68 99 04/28/17 22:15 105 H 26 H 100 04/28/17 22:00 104 H 32 H 149/66 100 04/28/17 21:45 92.7 F L 104 H 25 H 100 04/28/17 21:30 112 H 36 H 135/66 100 04/28/17 21:15 104 H 24 100 04/28/17 20:25 98 04/28/17 20:00 110 H 99 04/28/17 19:00 96.8 F L 105 H 16 155/77 99 04/28/17 18:41 107 H 18 157/81 04/28/17 18:05 109 H 04/28/17 17:43 96.8 F L 107 H 16 143/73 98 Intake and Output 04/28/17 04/29/17 04/29/17 22:59 06:59 14:59 Intake Total 1500 1700 Output Total 380 35 Balance 1120 1665 Intake: IV 500 1600 Dextrose 5% in Water 1, 1200 000 ml @ 150 mls/hr IV . Q7H40M ALEJANDRA with Sodium Bicarb (1 Meq/ml) 150 ml Rx#:[id number] Fluid bolus by dialysis 200 tech Potassium Chloride 10 meq 200 200 In Water For Injection 1 100ml.bag @ 100 mls/hr IVPB ONCE ONE Rx#: [id number] Sodium Chloride 0.9% 1, 300 000 ml @ 150 mls/hr IV . Q6H40M ALEJANDRA Rx#:[id number] Amount of Fluid Infused ( 1000 ml) Intake, IV Titration 100 Amount Potassium Chloride 10 meq 100 In Water For Injection 1 100ml.bag @ 100 mls/hr IVPB ONCE STA Rx#: [id number] Output: Urine 380 35 Other: Weight 40 kg 40.3 kg This is a very thin cachectic female patient who carries a body mass index of 16.3. She weighs a total of 40 kg. She is opening her eyes spontaneously at this point. She is moving all 4 extremities. She occasionally moans and mumbles a few words yet she is not communicating at. Head is atraumatic normocephalic. There is extensive temporal wasting. Neck is supple there is no JVDs no goiter or neck masses. Mucous membranes are extremely dry. No thrush. Lungs sounds are diminished bilaterally. Her chest and rib cage is very much exposed due to her severe muscle atrophy in absence of any subcutaneous fat. Breath sounds are equal and symmetrical. No wheezes or rhonchi.Cardiac exam revealed the PMI to be normally situated and sized. The rhythm was regular and no extrasystoles were noted during several minutes of auscultation. The first and second heart sounds were normal and physiologic splitting of the second heart sound was noted. There were no murmurs, rubs, clicks, or gallops. The patient had a systolic ejection murmur grade 2/6 systolic the precordium.Abdominal exam revealed normal bowel sounds. The abdomen was soft, non-tender, and without masses, organomegaly, or appreciable enlargement of the abdominal aorta. Extremities show chronic ulceration lower extremities bilaterally at that is no open wounds or sores. Lungs are diminished bilaterally. Coccyx show a deep tissue injury which is unstageable at this point. There is erythema on the surface with some limited necrosis at the edges. The area is quite large probably in order of 7 x 5 cm in size. Neurologically, the patient has been moving all 4 extremities pH she withdraws to painful stimuli. There is no apparent cranial nerve deficits at this point. Sensory cannot be accurately assessed. Motor function cannot be assessed. speech cannot be accurately assessed. Results - Laboratory Findings CBC and BMP: 04/29/17 03:18 04/29/17 03:18 ABG ABG pH 7.09 (7.35-7.45) L* 04/28/17 18:39 ABG pCO2 20 mmHg (35-45) L* 04/28/17 18:39 ABG pO2 160 mmHg (83-108) H 04/28/17 18:39 ABG O2 Saturation 99.0 % (94-97) H 04/28/17 18:39 PT/INR, D-dimer PT 10.5 sec (9.0-12.0) 04/28/17 17:55 INR 1.0 (<1.2) 04/28/17 17:55 Abnormal lab findings: Abnormal Labs 04/28/17 04/28/17 04/28/17 17:30 17:55 17:55 WBC 18.9 H RBC Hgb 16.4 H Hct 48.2 H MCV 103.4 H Neutrophils # 17.3 H Lymphocytes # 0.3 L Monocytes # ABG pH ABG pCO2 ABG pO2 ABG HCO3 ABG Total CO2 ABG O2 Saturation Potassium Chloride Carbon Dioxide BUN Creatinine Glucose POC Glucose (mg/dL) Calcium Ionized Calcium [place] Magnesium AST ALT Alkaline Phosphatase Total Creatine Kinase 532 H CK-MB (CK-2) 11.0 H* Troponin I 0.053 H* Total Protein Urine Appearance Cloudy H Urine Protein 2+ H Urine Glucose (UA) 2+ H Urine Blood Moderate H Urine WBC Amorphous Sediment 04/28/17 04/28/17 04/28/17 17:55 18:01 18:39 WBC RBC Hgb Hct MCV Neutrophils # Lymphocytes # Monocytes # ABG pH 7.09 L* ABG pCO2 20 L* ABG pO2 160 H ABG HCO3 6 L* ABG Total CO2 6 L ABG O2 Saturation 99.0 H Potassium 2.0 L* Chloride 119 H Carbon Dioxide <5 L* BUN 97 H* Creatinine 4.80 H Glucose 153 H POC Glucose (mg/dL) 134 H Calcium 14.8 H* Ionized Calcium [place] Magnesium AST 54 H ALT 92 H Alkaline Phosphatase 134 H Total Creatine Kinase CK-MB (CK-2) Troponin I Total Protein 8.5 H Urine Appearance Urine Protein Urine Glucose (UA) Urine Blood Urine WBC Amorphous Sediment 04/28/17 04/28/17 04/28/17 19:40 19:40 21:05 WBC 24.0 H RBC Hgb 16.8 H Hct 52.3 H MCV 101.7 H Neutrophils # 22.1 H Lymphocytes # 0.3 L Monocytes # 1.4 H ABG pH ABG pCO2 ABG pO2 ABG HCO3 ABG Total CO2 ABG O2 Saturation Potassium 2.0 L* Chloride 122 H* Carbon Dioxide <5 L* BUN 94 H* Creatinine 5.10 H* Glucose 143 H POC Glucose (mg/dL) 142 H Calcium 13.6 H* Ionized Calcium [place] Magnesium 3.4 H AST 56 H ALT 83 H Alkaline Phosphatase 127 H Total Creatine Kinase CK-MB (CK-2) Troponin I Total Protein Urine Appearance Urine Protein Urine Glucose (UA) Urine Blood Urine WBC Amorphous Sediment 04/28/17 04/29/17 04/29/17 21:40 03:18 03:18 WBC 20.5 H RBC 3.33 L Hgb 11.2 L D Hct 31.6 L MCV Neutrophils # 19.0 H Lymphocytes # 0.4 L Monocytes # ABG pH ABG pCO2 ABG pO2 ABG HCO3 ABG Total CO2 ABG O2 Saturation Potassium 2.2 L* Chloride 111 H Carbon Dioxide 17 L BUN 49 H Creatinine 2.40 H Glucose 146 H POC Glucose (mg/dL) Calcium 10.5 H Ionized Calcium [place] 6.2 H* Magnesium AST ALT Alkaline Phosphatase Total Creatine Kinase CK-MB (CK-2) Troponin I Total Protein Urine Appearance Turbid H Urine Protein 2+ H Urine Glucose (UA) 2+ H Urine Blood Moderate H Urine WBC 44 H Amorphous Sediment Occasional H 04/29/17 03:19 WBC RBC Hgb Hct MCV Neutrophils # Lymphocytes # Monocytes # ABG pH ABG pCO2 ABG pO2 ABG HCO3 ABG Total CO2 ABG O2 Saturation Potassium Chloride Carbon Dioxide BUN Creatinine Glucose POC Glucose (mg/dL) 147 H Calcium Ionized Calcium [place] Magnesium AST ALT Alkaline Phosphatase Total Creatine Kinase CK-MB (CK-2) Troponin I Total Protein Urine Appearance Urine Protein Urine Glucose (UA) Urine Blood Urine WBC Amorphous Sediment - Diagnostic Findings Chest x-ray: image reviewed Assessment and Plan Plan: Assessment 1 acute kidney injury in setting of severe dehydration and intravascular volume depletion with major metabolic disturbances. Rule out underlying septicemia in addition 2 severe hypokalemia 3 severe non-anion gap metabolic acidosis, being corrected with dialysis 4 acute hypercalcemia probably related to intravascular volume depletion. 5 rhabdomyolysis, mild 6 hypothermia, corrected 7 severe cachexia and malnutrition and anorexia 8 leukocytosis 9 suspected urine tract infection 10 Deep tissue injury to the coccyx 11 encephalopathy secondary to above Plan The patient will be kept in the ICU. Continue the D5 bicarb infusion today to 150 mL an hour. Give the patient 5% albumin/12.5 g. Give the patient on the fourth of normal saline at this point. Fortunately she has not required any pressors. Send urine cultures. blood cultures. She is on empiric antibiotic coverage with Zosyn. Replace electrolytes. Potassium remains low. The repeat potassium is being sent and the replacement be decided accordingly. Dialysis catheter inserted and the patient received her first session of dialysis yesterday. Nephrology is on the case. Monitor the neurologic progression and outcome. Continue subcu heparin. Continue IV Protonix. We'll continue to follow make further recommendation accordingly. Unfortunately her performance and functional status is very poor. Nutritional status is very poor. We'll monitor the electrodes every 4-6 hours and make appropriate adjustments. Underlying malignancy cannot be completely excluded. Time with Patient: Greater than 30
[2017-04-29] MEDS ORDERED: ALBUMIN HUMAN 5% 250 ML in EMPTY BAG 1 BAG IVPB STA (08:10)
--- NOTE | 2017-04-29 08:17 | PCN ---
PROCEDURE NOTE PREOPERATIVE DIAGNOSIS: Acute renal failure. PROCEDURE: Placement of dialysis catheter left femoral approach. This patient was seen in the intensive care unit. The right and left groin were prepped and draped in a sterile manner. 1% lidocaine was infiltrated in the right groin and a micropuncture in the right femoral vein. The micropuncture guide was passed. We could not advance the wire. Several attempts were made. Then we infiltrated 1% Lidocaine in the left groin and micropuncture introduced into the left femoral vein. Micropuncture guidewire was passed and 4 [place] dilator advanced on top of the guidewire. The regular guidewire was passed which went easily and after that, we placed a dilator on the top of the guidewire. Then we placed triple-lumen dialysis catheter. Flushed with heparin, saline and hep-locked and secured with 3-0 silk. Dressing applied. Patient tolerated the procedure well. MMODL / IJN: [id number] /
--- NOTE | 2017-04-29 08:25 | XR ---
EXAMINATION TYPE: XR chest 1V DATE OF EXAM: 04/29/2017 COMPARISON: Prior chest x-ray 04/28/2017 HISTORY: Shortness of breath TECHNIQUE: Single frontal view of the chest is obtained. FINDINGS: There is no focal air space opacity, pleural effusion, or pneumothorax seen. The cardiac silhouette size is stable, heart may be enlarged. There are prominent lung volumes possibly due to u nderlying COPD, overlying cardiac leads. Suspect spinal curvature. Marked arthropathy present within the shoulders. IMPRESSION: Suspect cardiomegaly.
[2017-04-29 08:33] LABS: ABG Base Excess -1.7 mmol/L; ABG HCO3 21 mmol/L (21-25); ABG Oxygen Saturation 99.7 % (94-97); ABG PCO2 24 mmHg (35-45); ABG PH 7.54 (7.35-7.45); ABG PO2 160 mmHg (83-108); ABG TCO2 21 mmol/L (19-24)
[2017-04-29] MEDS: PIPERACILLIN-TAZOBACTAM 3.375 GM in DEXTROSE/WATER 1 50ML.BAG IVPB SCH ×2 (08:57→21:11)
[2017-04-29 09:05] LABS: Ionized Calcium 6.2 mg/dL (4.5-5.3)
[2017-04-29 09:07] LABS: INR 1.2 (<1.2); Partial Thromboplastin Time 32.5 sec (22.0-30.0); Prothrombin Time 12.3 sec (9.0-12.0)
[2017-04-29 09:12] LABS: Magnesium 2.3 mg/dL (1.6-2.3)
--- NOTE | 2017-04-29 09:13 | P.PN ---
Subjective Progress Note Date: 04/29/17 Principal diagnosis: altered mentation Patient is an 82-year-old female with no known past medical history she has not seen a physician in years who presented to the emergency department with altered mentation. She was brought in by her son. In the emergency department she underwent an extensive evaluation. On her initial vital sign she sound be tachycardic with a heart rate of 107. Her initial laboratory analysis was significant for potassium of 2, bicarb of 5, BUN 94, creatinine greater than 90 and a creatinine of 5.1. She was also found to have an elevated calcium and elevated liver enzymes. Her ABG demonstrated a pH of 7.09. I was contacted by the emergency department and suggested starting potassium chloride replacement and IV fluids. Critical care was also consult it. The patient was admitted to ICU. She subsequently received emergent dialysis overnight on 04/28. Patient seen and examined at bedside. She is pleasantly confused. She does not know what she is in the hospital, she is aware that this 2017. She denies any pain, chest pain, shortness breath, or nausea. Objective - Vital Signs Vital signs: Vital Signs Temp 98.1 F 04/29/17 08:00 Pulse 103 H 04/29/17 08:30 Resp 24 04/29/17 08:30 BP 125/52 04/29/17 08:30 Pulse Ox 100 04/29/17 08:30 Intake & Output 04/28/17 04/29/17 04/29/17 18:59 06:59 18:59 Intake Total 3200 1300 Output Total 415 0 Balance 2785 1300 Weight 31.751 kg 40.3 kg Intake: IV 2100 1300 0.9 NACL bolus 1000 Dextrose 5% in Water 1, 1200 300 000 ml @ 150 mls/hr IV . Q7H40M ALEJANDRA with Sodium Bicarb (1 Meq/ml) 150 ml Rx#:[id number] Fluid bolus by dialysis 200 tech Potassium Chloride 10 meq 400 In Water For Injection 1 100ml.bag @ 100 mls/hr IVPB ONCE ONE Rx#: [id number] Sodium Chloride 0.9% 1, 300 000 ml @ 150 mls/hr IV . Q6H40M ALEJANDRA Rx#:[id number] Amount of Fluid Infused ( 1000 ml) Intake, IV Titration 100 Amount Potassium Chloride 10 meq 100 In Water For Injection 1 100ml.bag @ 100 mls/hr IVPB ONCE STA Rx#: [id number] Output: Urine 415 0 - Exam General: Ill appearing, mild distress, appears older than stated age, cachectic, Derm: Bilateral lower extremities with scale and no rashes, no lesions Head: atraumatic, normocephalic, symmetric Eyes: EOMI, no lid lag, anicteric sclera ENT: no post nasal drip, no thrush Mouth: no lip lesion, mucus membranes moist Cardiovascular: S1S2 reg, no murmur, positive posterior tibial pulse bilateral, Lungs: decreased breath sounds bilateral bases, no rhonchi, no rales , no accessory muscle use Abdominal: soft, nontender to palpation, no guarding, no appreciable organomegaly, very dark minimal amounts of urine in [place] catheter bag, left femoral catheter in place Ext: no gross muscle atrophy, no edema, no contractures Neuro: CN II-XI grossly intact, no focal neuro deficits Psych: Awake, pleasantly confused, flat affect - Labs CBC & Chem 7: 04/29/17 03:18 04/29/17 03:18 Labs: Abnormal Lab Results - Last 24 Hours (Table) 04/28/17 04/28/17 04/28/17 Range/Units 17:30 17:55 17:55 WBC 18.9 H (3.8-10.6) k/uL RBC (3.80-5.40) m/uL Hgb 16.4 H (11.4-16.0) gm/dL Hct 48.2 H (34.0-46.0) % MCV 103.4 H (80.0-100.0) fL Neutrophils # 17.3 H (1.3-7.7) k/uL Lymphocytes # 0.3 L (1.0-4.8) k/uL Monocytes # (0-1.0) k/uL PT (9.0-12.0) sec INR (<1.2) APTT (22.0-30.0) sec ABG pH (7.35-7.45) ABG pCO2 (35-45) mmHg ABG pO2 (83-108) mmHg ABG HCO3 (21-25) mmol/L ABG Total CO2 (19-24) mmol/L ABG O2 Saturation (94-97) % Potassium (3.5-5.1) mmol/L Chloride (98-107) mmol/L Carbon Dioxide (22-30) mmol/L BUN (7-17) mg/dL Creatinine (0.52-1.04) mg/dL Glucose (74-99) mg/dL POC Glucose (mg/dL) (75-99) mg/dL Calcium (8.4-10.2) mg/dL Ionized Calcium Carson (4.5-5.3) mg/dL Magnesium (1.6-2.3) mg/dL AST (14-36) U/L ALT (9-52) U/L Alkaline Phosphatase (38-126) U/L Total Creatine Kinase 532 H (30-135) U/L CK-MB (CK-2) 11.0 H* (0.0-2.4) ng/mL Troponin I 0.053 H* (0.000-0.034) ng/mL Total Protein (6.3-8.2) g/dL Urine Appearance Cloudy H (Clear) Urine Protein 2+ H (Negative) Urine Glucose (UA) 2+ H (Negative) Urine Blood Moderate H (Negative) Urine WBC (0-5) /hpf Amorphous Sediment (None) /hpf 04/28/17 04/28/17 04/28/17 Range/Units 17:55 18:01 18:39 WBC (3.8-10.6) k/uL RBC (3.80-5.40) m/uL Hgb (11.4-16.0) gm/dL Hct (34.0-46.0) % MCV (80.0-100.0) fL Neutrophils # (1.3-7.7) k/uL Lymphocytes # (1.0-4.8) k/uL Monocytes # (0-1.0) k/uL PT (9.0-12.0) sec INR (<1.2) APTT (22.0-30.0) sec ABG pH 7.09 L* (7.35-7.45) ABG pCO2 20 L* (35-45) mmHg ABG pO2 160 H (83-108) mmHg ABG HCO3 6 L* (21-25) mmol/L ABG Total CO2 6 L (19-24) mmol/L ABG O2 Saturation 99.0 H (94-97) % Potassium 2.0 L* (3.5-5.1) mmol/L Chloride 119 H (98-107) mmol/L Carbon Dioxide <5 L* (22-30) mmol/L BUN 97 H* (7-17) mg/dL Creatinine 4.80 H (0.52-1.04) mg/dL Glucose 153 H (74-99) mg/dL POC Glucose (mg/dL) 134 H (75-99) mg/dL Calcium 14.8 H* (8.4-10.2) mg/dL Ionized Calcium Carson (4.5-5.3) mg/dL Magnesium (1.6-2.3) mg/dL AST 54 H (14-36) U/L ALT 92 H (9-52) U/L Alkaline Phosphatase 134 H (38-126) U/L Total Creatine Kinase (30-135) U/L CK-MB (CK-2) (0.0-2.4) ng/mL Troponin I (0.000-0.034) ng/mL Total Protein 8.5 H (6.3-8.2) g/dL Urine Appearance (Clear) Urine Protein (Negative) Urine Glucose (UA) (Negative) Urine Blood (Negative) Urine WBC (0-5) /hpf Amorphous Sediment (None) /hpf 04/28/17 04/28/17 04/28/17 Range/Units 19:40 19:40 21:05 WBC 24.0 H (3.8-10.6) k/uL RBC (3.80-5.40) m/uL Hgb 16.8 H (11.4-16.0) gm/dL Hct 52.3 H (34.0-46.0) % MCV 101.7 H (80.0-100.0) fL Neutrophils # 22.1 H (1.3-7.7) k/uL Lymphocytes # 0.3 L (1.0-4.8) k/uL Monocytes # 1.4 H (0-1.0) k/uL PT (9.0-12.0) sec INR (<1.2) APTT (22.0-30.0) sec ABG pH (7.35-7.45) ABG pCO2 (35-45) mmHg ABG pO2 (83-108) mmHg ABG HCO3 (21-25) mmol/L ABG Total CO2 (19-24) mmol/L ABG O2 Saturation (94-97) % Potassium 2.0 L* (3.5-5.1) mmol/L Chloride 122 H* (98-107) mmol/L Carbon Dioxide <5 L* (22-30) mmol/L BUN 94 H* (7-17) mg/dL Creatinine 5.10 H* (0.52-1.04) mg/dL Glucose 143 H (74-99) mg/dL POC Glucose (mg/dL) 142 H (75-99) mg/dL Calcium 13.6 H* (8.4-10.2) mg/dL Ionized Calcium Carson (4.5-5.3) mg/dL Magnesium 3.4 H (1.6-2.3) mg/dL AST 56 H (14-36) U/L ALT 83 H (9-52) U/L Alkaline Phosphatase 127 H (38-126) U/L Total Creatine Kinase (30-135) U/L CK-MB (CK-2) (0.0-2.4) ng/mL Troponin I (0.000-0.034) ng/mL Total Protein (6.3-8.2) g/dL Urine Appearance (Clear) Urine Protein (Negative) Urine Glucose (UA) (Negative) Urine Blood (Negative) Urine WBC (0-5) /hpf Amorphous Sediment (None) /hpf 04/28/17 04/29/17 04/29/17 Range/Units 21:40 03:18 03:18 WBC 20.5 H (3.8-10.6) k/uL RBC 3.33 L (3.80-5.40) m/uL Hgb 11.2 L D (11.4-16.0) gm/dL Hct 31.6 L (34.0-46.0) % MCV (80.0-100.0) fL Neutrophils # 19.0 H (1.3-7.7) k/uL Lymphocytes # 0.4 L (1.0-4.8) k/uL Monocytes # (0-1.0) k/uL PT (9.0-12.0) sec INR (<1.2) APTT (22.0-30.0) sec ABG pH (7.35-7.45) ABG pCO2 (35-45) mmHg ABG pO2 (83-108) mmHg ABG HCO3 (21-25) mmol/L ABG Total CO2 (19-24) mmol/L ABG O2 Saturation (94-97) % Potassium 2.2 L* (3.5-5.1) mmol/L Chloride 111 H (98-107) mmol/L Carbon Dioxide 17 L (22-30) mmol/L BUN 49 H (7-17) mg/dL Creatinine 2.40 H (0.52-1.04) mg/dL Glucose 146 H (74-99) mg/dL POC Glucose (mg/dL) (75-99) mg/dL Calcium 10.5 H (8.4-10.2) mg/dL Ionized Calcium [place] 6.2 H* (4.5-5.3) mg/dL Magnesium (1.6-2.3) mg/dL AST (14-36) U/L ALT (9-52) U/L Alkaline Phosphatase (38-126) U/L Total Creatine Kinase (30-135) U/L CK-MB (CK-2) (0.0-2.4) ng/mL Troponin I (0.000-0.034) ng/mL Total Protein (6.3-8.2) g/dL Urine Appearance Turbid H (Clear) Urine Protein 2+ H (Negative) Urine Glucose (UA) 2+ H (Negative) Urine Blood Moderate H (Negative) Urine WBC 44 H (0-5) /hpf Amorphous Sediment Occasional H (None) /hpf 04/29/17 04/29/17 04/29/17 Range/Units 03:19 08:01 08:01 WBC (3.8-10.6) k/uL RBC (3.80-5.40) m/uL Hgb (11.4-16.0) gm/dL Hct (34.0-46.0) % MCV (80.0-100.0) fL Neutrophils # (1.3-7.7) k/uL Lymphocytes # (1.0-4.8) k/uL Monocytes # (0-1.0) k/uL PT 12.3 H (9.0-12.0) sec INR 1.2 H (<1.2) APTT 32.5 H (22.0-30.0) sec ABG pH (7.35-7.45) ABG pCO2 (35-45) mmHg ABG pO2 (83-108) mmHg ABG HCO3 (21-25) mmol/L ABG Total CO2 (19-24) mmol/L ABG O2 Saturation (94-97) % Potassium (3.5-5.1) mmol/L Chloride (98-107) mmol/L Carbon Dioxide (22-30) mmol/L BUN (7-17) mg/dL Creatinine (0.52-1.04) mg/dL Glucose (74-99) mg/dL POC Glucose (mg/dL) 147 H (75-99) mg/dL Calcium (8.4-10.2) mg/dL Ionized Calcium [place] 6.2 H* (4.5-5.3) mg/dL Magnesium (1.6-2.3) mg/dL AST (14-36) U/L ALT (9-52) U/L Alkaline Phosphatase (38-126) U/L Total Creatine Kinase (30-135) U/L CK-MB (CK-2) (0.0-2.4) ng/mL Troponin I (0.000-0.034) ng/mL Total Protein (6.3-8.2) g/dL Urine Appearance (Clear) Urine Protein (Negative) Urine Glucose (UA) (Negative) Urine Blood (Negative) Urine WBC (0-5) /hpf Amorphous Sediment (None) /hpf 04/29/17 04/29/17 Range/Units 08:01 08:20 WBC (3.8-10.6) k/uL RBC (3.80-5.40) m/uL Hgb (11.4-16.0) gm/dL Hct (34.0-46.0) % MCV (80.0-100.0) fL Neutrophils # (1.3-7.7) k/uL Lymphocytes # (1.0-4.8) k/uL Monocytes # (0-1.0) k/uL PT (9.0-12.0) sec INR (<1.2) APTT (22.0-30.0) sec ABG pH 7.54 H (7.35-7.45) ABG pCO2 24 L (35-45) mmHg ABG pO2 160 H (83-108) mmHg ABG HCO3 (21-25) mmol/L ABG Total CO2 (19-24) mmol/L ABG O2 Saturation 99.7 H (94-97) % Potassium (3.5-5.1) mmol/L Chloride (98-107) mmol/L Carbon Dioxide (22-30) mmol/L BUN (7-17) mg/dL Creatinine (0.52-1.04) mg/dL Glucose (74-99) mg/dL POC Glucose (mg/dL) (75-99) mg/dL Calcium (8.4-10.2) mg/dL Ionized Calcium Carson (4.5-5.3) mg/dL Magnesium (1.6-2.3) mg/dL AST (14-36) U/L ALT (9-52) U/L Alkaline Phosphatase (38-126) U/L Total Creatine Kinase (30-135) U/L CK-MB (CK-2) (0.0-2.4) ng/mL Troponin I 0.096 H* (0.000-0.034) ng/mL Total Protein (6.3-8.2) g/dL Urine Appearance (Clear) Urine Protein (Negative) Urine Glucose (UA) (Negative) Urine Blood (Negative) Urine WBC (0-5) /hpf Amorphous Sediment (None) /hpf Assessment and Plan Plan: Life-threatening hypokalemia -Status post recent placement and emergent dialysis -Await repeat potassium levels -Continue with telemetry Acute renal failure, unknown baseline creatinine -Creatinine greatly improved from yesterday -Status post emergent dialysis -Nephrology recommendations -IV fluids -Avoid additional nephrotoxic agents -Renal ultrasound Non-anion gap metabolic acidosis -Continue with sodium bicarb drip -Likely related to acute renal failure -Repeat ABG reviewed and does show improvement bicarb and overall pH Hypercalcemia -Likely secondary to dehydration, renal failure, and exogenous supplementation -IV fluids -Follow calcium levels -This may be adding to her altered mentation Toxic metabolic encephalopathy secondary to listed above -Supportive care -Treatment as listed above Elevated troponin, likely secondary to acute renal failure -Trend is flat -Check echocardiogram Elevated liver enzymes, likely relating to renal failure versus supplements -Follow CMP -If does not improve in a.m. then consider liver ultrasound SIRS criteria -Undetermined etiology -Chest x-ray appears negative -Urine with possible urinary tract infection, on empiric Zosyn -Urine and blood cultures pending Deep tissue injury to toxic -Frequent turns Severe cachexia and malnutrition -Currently nothing by mouth due to level of confusion -Consult dietitian 1 able to eat again Normocytic anemia -Check B12, iron levels, folic acid DVT prophylaxis: Heparin Discussed with: Nursing, critical care Anticipated discharge: [address]: Likely will need SNF A total of 45 minutes was spent on the care of this complex patient more than 50 % of the time was spent in counseling and care coordination.
[2017-04-29 09:32] LABS: Phosphorus 0.6 mg/dL (2.5-4.5)
[2017-04-29] MEDS: PANTOPRAZOLE 40 MG/10 ML VIAL IV SCH (10:00)
[2017-04-29] MEDS: AMMONIUM LACTATE 12% LOTION 225 GM BTL TOPICAL SCH ×2 (10:00→21:12)
[2017-04-29 10:18] LABS: Calcium 10.4 mg/dL (8.4-10.2); Total Bilirubin 0.7 mg/dL (0.2-1.3); Total Protein 5.2 g/dL (6.3-8.2)
[2017-04-29] MEDS ORDERED: LORazepam 2 MG/ML INJ IV PRN (10:26)
[2017-04-29] MEDS ORDERED: Phosphorus Replacement Protoco 1 EACH MISC MISCELLANE PRN ×2 (10:28→20:07)
[2017-04-29] MEDS: POTASSIUM PHOSPHATE 10 MMOL in SODIUM CHLORIDE 0.9% 100 ML IV SCH ×5 (11:35→22:18)
--- NOTE | 2017-04-29 12:08 | P.NPCON ---
History of Present Illness - Reason for Consult acute renal failure - History of Present Illness Reason for consultation: Acute kidney injury History of present illness: Patient is a 82-year-old female seen in renal consultation for acute kidney injury and electrolyte imbalance. Patient has not seen a physician for several years and does not believe and allopathic medicine. Patient was found unresponsive by her son and was subsequently brought to the hospital. She did lose her in February to see her and has been somewhat depressed. Her oral intake has been poor according to the records. Patient was quite confused and extremely acidotic with a bicarbonate level of less than 5. She was also noted to be extremely hypokalemic and hyper calcemic. Her creatinine was up to 5.1. Unknown as to what her baseline renal function is. She underwent emergent hemodialysis last night for uremia and metabolic control. She is oliguric. She is currently resting in bed. She does not provide much history. She is maintained on isotonic sodium bicarbonate drip running at 150 mL an hour. Hemodynamically she's been stable without the need for vasopressors. In terms of the home medications she was on over 20 different herbal supplements. Vital signs are stable. General: The patient appears lethargic and malnourished. HEENT: Head exam is unremarkable. Neck is without jugular venous distension. LUNGS: Lungs are clear to auscultation and percussion. Breath sounds decreased. HEART: Rate and Rhythm are regular. First and second heart sounds normal. No murmurs, rubs or gallops. ABDOMEN: Abdominal exam reveals normal bowel sounds. Non-tender and non- distended. No evidence of peritonitis. EXTREMITITES: No clubbing, cyanosis, or edema. Past Medical History Past Medical History: Unable to Obtain Additional Past Medical History / Comment(s): Pt self medicates with homeopathic remedies and vitamins per Son. History of Any Multi-Drug Resistant Organisms: Unobtainable Past Surgical History: Unable to Obtain Past Psychological History: Unable to Obtain Smoking Status: Unknown if ever smoked Past Alcohol Use History: Unable to Obtain Past Drug Use History: Unable to Obtain Medications and Allergies Home Medications Medication Instructions Recorded Confirmed Type Adrenatran 1 tab PO DAILY 04/28/17 04/28/17 History Allerase 1 tab PO DAILY 04/28/17 04/28/17 History B-Cell Formula 1 tab PO DAILY 04/28/17 04/28/17 History Bio-Fcts 1 tab PO DAILY 04/28/17 04/28/17 History Bioavailable Iron 5mg 5 mg PO DAILY 04/28/17 04/28/17 History Biocitrate-Multi Mineral 1 tab PO DAILY 04/28/17 04/28/17 History Bone-Chiara 1 tab PO DAILY 04/28/17 04/28/17 History Yao/Mag 1:1 1 tab PO DAILY 04/28/17 04/28/17 History Cataplex F 1 tab PO DAILY 04/28/17 04/28/17 History Colostrum 1 tab PO DAILY 04/28/17 04/28/17 History Dandelion 1 tab PO DAILY 04/28/17 04/28/17 History Dopa Boost 1 tab PO DAILY 04/28/17 04/28/17 History Glycine 500mg 500 mg PO DAILY 04/28/17 04/28/17 History Grape Seed 1 tab PO DAILY 04/28/17 04/28/17 History Graviola 1 tab PO DAILY 04/28/17 04/28/17 History Hepagen 1 tab PO DAILY 04/28/17 04/28/17 History Hepatropin Pmg 1 tab PO DAILY 04/28/17 04/28/17 History Horse [place] 1 tab PO DAILY 04/28/17 04/28/17 History Inosine 500mg 500 mg PO DAILY 04/28/17 04/28/17 History L-Citrulline 500mg 500 mg PO DAILY 04/28/17 04/28/17 History L-Glutamin 400mg 400 mg PO DAILY 04/28/17 04/28/17 History L-Glutathione 1 tab PO DAILY 04/28/17 04/28/17 History L-Histidine 500mg 500 mg PO DAILY 04/28/17 04/28/17 History Lacto 1 tab PO DAILY 04/28/17 04/28/17 History Lactoferrin 100mg 100 mg PO DAILY 04/28/17 04/28/17 History Liver Blend Sp-13 1 tab PO DAILY 04/28/17 04/28/17 History Liver Cleanse 1 tab PO DAILY 04/28/17 04/28/17 History Methylsulfonylmethane [MSM] 1,000 mg PO DAILY 04/28/17 04/28/17 History Molybdenum 1 tab PO DAILY 04/28/17 04/28/17 History Monolaurin 300mg 300 mg PO DAILY 04/28/17 04/28/17 History Multi-Gland 1 tab PO DAILY 04/28/17 04/28/17 History Natto-Serrazime 1 tab PO DAILY 04/28/17 04/28/17 History Norival 1 tab PO DAILY 04/28/17 04/28/17 History Nutricillin 1 tab PO DAILY 04/28/17 04/28/17 History Paracidin 1 tab PO DAILY 04/28/17 04/28/17 History Potassium Citrate 99mg 99 mg PO DAILY 04/28/17 04/28/17 History Psorex 120mg 120 mg PO DAILY 04/28/17 04/28/17 History Refluxin 1 tab PO DAILY 04/28/17 04/28/17 History Rna/Dna 100/100 1 tab PO DAILY 04/28/17 04/28/17 History Squarlene 1 tab PO DAILY 04/28/17 04/28/17 History Anny 1 tab PO DAILY 04/28/17 04/28/17 History Tendofit 1 tab PO DAILY 04/28/17 04/28/17 History Thymex 1 tab PO DAILY 04/28/17 04/28/17 History Uristatin 1 tab PO DAILY 04/28/17 04/28/17 History Vitamin B Complex 1 cap PO DAILY 04/28/17 04/28/17 History [place] 1 tab PO DAILY 04/28/17 04/28/17 History Wobenzym N 1 tab PO DAILY 04/28/17 04/28/17 History [place] 1 tab PO DAILY 04/28/17 04/28/17 History Zinc Picolinate 1 tab PO DAILY 04/28/17 04/28/17 History Allergies Allergy/AdvReac Type Severity Reaction Status Date / Time No Known Allergies Allergy Verified 04/28/17 20:36 Physical Exam Vitals: Vital Signs Temp Pulse Resp BP Pulse Ox 04/29/17 11:30 94 18 120/53 100 04/29/17 11:00 97 23 130/57 99 04/29/17 10:30 88 28 H 129/53 99 04/29/17 10:00 99 21 140/57 100 04/29/17 09:30 98 23 144/54 100 04/29/17 09:00 92 26 H 134/59 100 04/29/17 08:30 103 H 24 125/52 100 04/29/17 08:00 98.1 F 101 H 21 121/56 100 04/29/17 07:30 104 H 19 109/52 100 04/29/17 07:00 104 H 14 124/55 97 04/29/17 06:30 115 H 19 136/55 100 04/29/17 06:00 100.3 F H 108 H 18 132/54 99 04/29/17 05:30 113 H 20 133/53 98 04/29/17 05:00 118 H 22 119/53 98 04/29/17 04:30 115 H 24 129/53 98 04/29/17 04:00 100.7 F H 114 H 17 122/60 98 04/29/17 03:45 118 H 14 98 04/29/17 03:30 131 H 22 100/55 98 04/29/17 03:15 126 H 19 106/52 98 04/29/17 03:00 124 H 20 100/49 99 04/29/17 02:45 118 H 14 100/49 98 04/29/17 02:30 131 H 23 121/49 96 04/29/17 02:15 123 H 18 136/63 100 04/29/17 02:00 115 H 14 116/57 100 04/29/17 01:45 127 H 17 101/57 100 04/29/17 01:30 123 H 18 105/58 95 04/29/17 01:15 120 H 13 114/61 99 04/29/17 01:00 121 H 12 111/62 99 04/29/17 00:45 119 H 13 99/55 95 04/29/17 00:30 117 H 14 122/64 98 04/29/17 00:15 108 H 16 134/66 100 04/29/17 00:00 111 H 12 140/64 98 04/28/17 23:45 104 H 30 H 136/62 94 L 04/28/17 23:30 105 H 13 140/62 99 04/28/17 23:15 105 H 21 99/66 100 04/28/17 23:00 104 H 28 H 99/48 98 04/28/17 22:45 116 H 21 148/68 99 04/28/17 22:30 107 H 32 H 148/68 99 04/28/17 22:17 109 H 21 144/68 99 04/28/17 22:15 105 H 26 H 100 04/28/17 22:00 104 H 32 H 149/66 100 04/28/17 21:45 92.7 F L 104 H 25 H 100 04/28/17 21:30 112 H 36 H 135/66 100 04/28/17 21:15 104 H 24 100 04/28/17 20:25 98 04/28/17 20:00 110 H 99 04/28/17 19:00 96.8 F L 105 H 16 155/77 99 04/28/17 18:41 107 H 18 157/81 04/28/17 18:05 109 H 04/28/17 17:43 96.8 F L 107 H 16 143/73 98 Intake and Output 04/28/17 04/29/17 04/29/17 22:59 06:59 14:59 Intake Total 1500 1700 2000 Output Total 380 35 75 Balance 1120 1665 1925 Intake: IV 500 1600 2000 0.9 NACL bolus 1000 Dextrose 5% in Water 1, 1200 750 000 ml @ 150 mls/hr IV . Q7H40M ALEJANDRA with Sodium Bicarb (1 Meq/ml) 150 ml Rx#:[id number] Fluid bolus by dialysis 200 tech Potassium Chloride 10 meq 200 200 In Water For Injection 1 100ml.bag @ 100 mls/hr IVPB ONCE ONE Rx#: [id number] Sodium Chloride 0.9% 1, 300 000 ml @ 150 mls/hr IV . Q6H40M ALEJANDRA Rx#:[id number] albumin 5% 250 Amount of Fluid Infused ( 1000 ml) Intake, IV Titration 100 Amount Potassium Chloride 10 meq 100 In Water For Injection 1 100ml.bag @ 100 mls/hr IVPB ONCE STA Rx#: [id number] Output: Urine 380 35 75 Other: Weight 40 kg 40.3 kg Results - Lab Results Most recent lab results ABG pH 7.54 (7.35-7.45) H 04/29/17 08:20 ABG pCO2 24 mmHg (35-45) L 04/29/17 08:20 ABG pO2 160 mmHg (83-108) H 04/29/17 08:20 ABG HCO3 21 mmol/L (21-25) 04/29/17 08:20 ABG O2 Saturation 99.7 % (94-97) H 04/29/17 08:20 Calcium 10.4 mg/dL (8.4-10.2) H 04/29/17 08:01 Phosphorus 0.6 mg/dL (2.5-4.5) L* 04/29/17 08:01 Magnesium 2.3 mg/dL (1.6-2.3) 04/29/17 08:01 04/29/17 03:18 04/29/17 08:01 Assessment and Plan Plan: Assessment: #1. Oliguric acute kidney injury secondary to hypercalcemia-induced ATN further worsened with hemodynamic instability and poor oral intake. Rule out interstitial nephritis. Unclear as to what her baseline renal function is. Creatinine was 4.8 on admission and peaked at 5.1. She underwent first treatment of hemodialysis last night. #2. Severe hypokalemia from poor oral intake. Magnesium and replete. #3. Severe hypophosphatemia, again from poor nutritional intake. #4. Severe metabolic acidosis secondary to acute kidney injury. Improved postdialysis. #5. Hypercalcemia secondary to supplementation as well as severe intravascular volume depletion. Rule out primary hyperparathyroidism, MM, vitamin D toxicity. Also possible underlying malignancy. Patient has not seen a physician for several years. Plan: Second treatment of hemodialysis today. Continue with potassium and phosphorus replacement. She is receiving IV potassium phosphate. Continue to monitor renal function and urine output. Avoid nephrotoxic agents and hypotensive episodes. Check urine eosinophils. Check kidney ultrasound. Repeat electrolytes every 4-6 hours. Check PTH, 25 OH vitamin D, 125 vitamin D3, electrophoresis studies and immunofixation. Thank you for the consultation. I will continue to follow the patient with you during her hospital stay.
--- NOTE | 2017-04-29 12:50 | ECHOF ---
Referral Reason:elevated troponin MEASUREMENTS -------- HEIGHT: 157.5 cm WEIGHT: 39.9 kg BP: 128/56 RVIDd: 2.6 cm (< 3.3) IVSd: 1.1 cm (0.6 - 1.1) LVIDd: 2.5 cm (3.9 - 5.3) LVPWd: 1.2 cm (0.6 - 1.1) IVSs: 1.4 cm LVIDs: 1.4 cm LVPWs: 1.3 cm LA Diam: 2.8 cm (2.7 - 3.8) LAESV Index (A-L): 14.17 ml/m Ao Diam: 2.9 cm (2.0 - 3.7) AV Cusp: 2.1 cm (1.5 - 2.6) MV EXCURSION: 15.748 mm (> 18.000) MV EF SLOPE: 22 mm/s (70 - 150) EPSS: 0.3 cm MV E Praveen: 0.77 m/s MV DecT: 252 ms MV A Praveen: 0.83 m/s MV E/A Ratio: 0.93 AV maxP.32 mmHg AV meanP.14 mmHg RAP: 5.00 mmHg RVSP: 28.98 mmHg FINDINGS -------- Sinus rhythm. This was a technically good study. The left ventricular size is normal. Left ventricular wall thickness is normal. Overall left ventricular systolic function is normal with, an EF between 55 - 60 %. The diastolic filling pattern is normal for the age of the patient 8.52. The right ventricle is normal in size and function. Normal LA size by volume 22+/-6 ml/m2. The right atrium is normal in size. There is mild aortic valve sclerosis. There is mild aortic regurgitation. There is trace to mild mitral regurgitation. Mild tricuspid regurgitation present. Right ventricular systolic pressure is normal at < 35 mmHg. The pulmonic valve was not well visualized. The aortic root size is normal. The inferior vena cava is mildly dilated. There is no pericardial effusion. Small Pleural Effusion. CONCLUSIONS -------- 1. Sinus rhythm. 2. There is mild aortic valve sclerosis. 3. There is mild aortic regurgitation. 4. There is trace to mild mitral regurgitation. 5. Mild tricuspid regurgitation present. 6. Right ventricular systolic pressure is normal at < 35 mmHg. 7. The pulmonic valve was not well visualized. 8. The aortic root size is normal. 9. The inferior vena cava is mildly dilated. 10. There is no pericardial effusion. 11. Small Pleural Effusion. 12. This was a technically good study. 13. The left ventricular size is normal. 14. Left ventricular wall thickness is normal. 15. Overall left ventricular systolic function is normal with, an EF between 55 - 60 %. 16. The diastolic filling pattern is normal for the age of the patient 8.52 17. The right ventricle is normal in size and function. 18. Normal LA size by volume 22+/-6 ml/m2. 19. The right atrium is normal in size. S[employer]IOR [employer] LOAN PROCESSOR: Riya Jimenes RDCS
--- NOTE | 2017-04-29 13:26 | US ---
EXAMINATION TYPE: US kidneys/renal and bladder DATE OF EXAM: 04/29/2017 COMPARISON: NONE CLINICAL HISTORY: SHERLYN on CKD. Difficult/limited exam- ICU patient done at bedside. Patient unable to move or roll to assist with exam EXAM MEASUREMENTS: Right Kidney: 11.3 x 4.4 x 5.1 cm Left Kidney: 12.6 x 5.4 x 5.4 cm Prominent renal pyramids are seen bilaterally. Right Kidney: No hydronephrosis or masses seen . No nephrolithiasis. Left Kidney: No hydronephrosis or masses seen . No nephrolithiasis. Bladder: Not visualized-patient has aguirre IMPRESSION: No evidence of hydronephrosis or nephrolithiasis. Unremarkable renal ultrasound. Nondistended urinary bladder secondary to for catheter placement.
--- NOTE | 2017-04-29 15:07 | CDI ---
In responding to this query, please exercise your independent professional judgment. The [facility] Coding Staff and Clinical Documentation Specialists appreciate your assistance in clarifying documentation, maintaining compliance with coding guidelines, accurately documenting patients condition and capturing severity of illness. The fact that a question is asked does not imply that any particular answer is desired or expected. Communication forms are a method of clarifying documentation and are not made part of the Legal Health Record. Thank you in advance for your clarification. Last Revision, May 2015 Kermit Jim [address] [facility] [place] [address] Documentation Clarification Form Date: 04/29/2017 2:56:00 PM From: Cecille Adams RN, CCDS Admit Date: 04/28/2017 7:56:00 PM Patient Name: Keren Elias Visit Number: [id number] Dr. Lilly Waldron Malnutrition has been documented in Pulmonary Consult and Attending progress note . History/Risk Factors: Acute renal failure, toxic metabolic encephalopathy, SIRS, Deep tissue Injury to coccyx, Anemia Clinical Indicators: 04/29 Attending Progress Note: "Severe cachexia and malnutrition" Labs: Albumin: 4.3/27 Total Protein: 7.7/5.2 Current BMI: 16.3 Insufficient energy intake: NPO d/t altered mental status Loss of subcutaneous fat: Dietary Consult: "emaciated underweight" Loss of muscle mass: Dietary Consutl: "visible miscle and fat wasing Treatment: Dietary Consult: Completed 04/29 Supplements: TF recommendations made with caution for re-feeding syndrome Lab monitoring: Daily In your professional opinion, can you please clarify if these findings signify one of the following conditions? Mild Protein-Calorie Malnutrition Moderate Protein-Calorie Malnutrition Severe Protein-Calorie Malnutrition Other condition, please specify Unable to determine Please document in your progress notes and discharge summary in order to capture severity of illness and risk of mortality. Include clinical findings that support your diagnosis. FYI: Press F11 to launch patient chart. REECE
[2017-04-29] MEDS ORDERED: HEPARIN SODIUM 1,000 UN/ML (10ML VL) ONE (17:45)
[2017-04-29] MEDS ORDERED: HEPARIN SODIUM,PORCINE 5,000 UNIT/ML 1 ML VIAL ONE (17:45)
[2017-04-29] MEDS ORDERED: LIDOCAINE 1% INJ 10MG/ML (20 ML MDV) ONE (17:45)
[2017-04-29] MEDS ORDERED: LIDOCAINE/EPINEPHR/TETRACAINE 5 ML BOTTLE TOPICAL ONE (18:44)
[2017-04-29 19:01] LABS: Magnesium 1.7 mg/dL (1.6-2.3); Phosphorus 1.5 mg/dL (2.5-4.5)
[2017-04-29 19:03] LABS: Potassium 2.4 mmol/L (3.5-5.1)
[2017-04-29 19:58] LABS: CH 33.4; CHCM 37.2; HCT 27.3 % (34.0-46.0); HDW 3.32; Hyperchromasia Slight; MCH 31.7 pg (25.0-35.0); MCV 90.5 fL (80.0-100.0); Mean Platelet Volume 6.9; RBC 3.02 m/uL (3.80-5.40); RDW 13.2 % (11.5-15.5); WBC 14.9 k/uL (3.8-10.6)
[2017-04-29 20:00] LABS: HGB 9.6 gm/dL (11.4-16.0)
[2017-04-29] MEDS: OXYMETAZOLINE 0.05% NASL SPRAY 1 SPRAY BOTTLE NASAL SCH (21:05)
[2017-04-29] MEDS: SODIUM CHLORIDE 0.9% 1,000 ML IV SCH (21:08)
[2017-04-30] MEDS: HEPARIN SODIUM,PORCINE 5,000 UNIT/ML 1 ML VIAL SQ SCH ×3 (00:10→16:33)
[2017-04-30] MEDS: POTASSIUM PHOSPHATE 10 MMOL in SODIUM CHLORIDE 0.9% 100 ML IV SCH (00:10)
[2017-04-30] MEDS: POTASSIUM CHLORIDE 20 MEQ in WATER FOR INJECTION 1 100ML.BAG IVPB SCH ×2 (03:10→05:00)
[2017-04-30 05:28] LABS: Basophils % (A) 0 %; CH 33.2; CHCM 36.7; Eosinophils # (A) 0.1 k/uL (0-0.7); Eosinophils % (A) 1 %; HCT 25.5 % (34.0-46.0); HGB 8.9 gm/dL (11.4-16.0); Hyperchromasia Slight; Luc # (Auto) 0.09; Luc % (Auto) 1; Lymphocytes # (A) 0.6 k/uL (1.0-4.8); Lymphocytes % (A) 5 %; MCH 31.8 pg (25.0-35.0); MCV 90.8 fL (80.0-100.0); Mean Platelet Volume 7.2; Monocytes # (A) 0.7 k/uL (0-1.0); Monocytes % (A) 6 %; Neutrophils # (A) 9.4 k/uL (1.3-7.7); Neutrophils % (A) 87 %; RBC 2.81 m/uL (3.80-5.40); RDW 13.2 % (11.5-15.5); WBC 10.8 k/uL (3.8-10.6); WBC (Perox) 10.82
[2017-04-30 05:42] LABS: INR 1.3 (<1.2); Partial Thromboplastin Time 37.4 sec (22.0-30.0); Prothrombin Time 12.4 sec (9.0-12.0)
[2017-04-30] MEDS: SODIUM CHLORIDE 0.9% 1,000 ML IV SCH ×2 (06:21→17:34)
[2017-04-30] MEDS: MAGNESIUM SULFATE-D5W PMX 1 GM in DEXTROSE/WATER 1 100ML.BAG IVPB SCH ×2 (06:21→07:56)
--- NOTE | 2017-04-30 06:58 | XR ---
EXAMINATION TYPE: XR chest 1V DATE OF EXAM: 04/30/2017 HISTORY: Shortness of breath. REFERENCE: Previous study dated 04/29/2017. FINDINGS: Lung volumes are prominent. The heart is enlarged. There are senescent changes in the lungs . There is no pneumonia or edema. Pleural spaces are clear. IMPRESSION: 1. COPD. 2. CARDIOMEGALY.
[2017-04-30 07:14] LABS: Glucose,Whole Blood 115 mg/dL (75-99)
--- NOTE | 2017-04-30 08:31 | P.PN ---
Subjective Progress Note Date: 04/30/17 This is a 82-year-old female patient, who was brought in to the emergency department by her son after she was found unresponsive at home. Apparently the patient's in February 2017. Since that she's been doing poorly. She hasn't been taking care of herself nor she has been eating appropriately. Her son lives in [facility] came in to check on her and he found unresponsive and he brought her to the hospital. The patient was extremely dehydrated, cachectic,/on bone, with a deep tissue injury and her coccyx probably from laying around and she has chronic ulceration of lower extremities bilaterally. The patient was unresponsive. The patient was hypothermic with a temperature of 92. She had severe metabolic derangement and based on the labs a sodium 140 for a potassium of 2 bicarb of less than 5 BUN of 94 creatinine 5.1 a calcium level of 13.6, she does severely acidotic with a pH of 7.09 with a pCO2 of 20 and pO2 of 160. She was not making any urine output. Lactic acid level is at 1.8. The patient remained actually taking well with a pulse ox of 8% to liters of oxygen nasal cannula. CAT scan of the brain was negative and showed mild atrophy and the chest x-ray showed no acute cardio pulmonary process. The Trujillo catheter was inserted. A total of 3 80 mL was obtained initially and since then she has produced only 35 mL by mouth overnight the dialysis catheter was inserted and the patient was dialyzed to correct her severe metabolic derangement. She was also warmed externally. She received potassium in order of 60 mEq in her follow-up electrodes from this morning show a potassium up to 2.2, a bicarb up to 17 with anion gap of 11. Creatinine is down to 2.4. Her calcium level is down to 10.5. Right second isn 't elevated at 24. She is more awake yet she is still very somnolent and lethargic. She is and I unable to hold a conversation yet. She is currently on a bicarb drip which is running at 1 50 mL an hour of D5 with 3 A and she has received more than 3 to IV fluids. Troponins were negative with a troponin maxed at 0.053. CPKs at 532. No nausea. No vomiting. No emesis. No bleeding rectally. No hematemesis. Neurologic exam is nonfocal. The patient is moving all 4 extremities without any limitation. On 04/30/2017 the patient is being seen in the follow-up in the intensive care unit. The patient was aggressively resuscitated IV fluids and currently she is well resuscitated. Her renal function continues to improve in the creatinine is down to 2.9. She is producing adequate urine output at this point. Electrodes imbalance is also being managed. The patient is being replaced with potassium and magnesium in the most recent potassium level is up to 2.4 and a phosphorus at 1.5 and magnesium is at 1.7. The metabolic acidosis completely recovered and the patient's bicarb level is up to 28 and anion gap is at 6. She is moving all 4 extremities without any limitation. No altered mentation. She is also requesting for her breakfast to be provided to her. Significant drop in hemoglobin from 16 down to 8.9. This is essentially dilutional. Note that the patient also had some epistaxis yesterday after an attempted NG tube insertion. Currently she is not having any acute bleeding. Objective - Vital Signs Vital signs: Vital Signs Temp 99.6 F 04/30/17 04:00 Pulse 106 H 04/30/17 07:00 Resp 17 04/30/17 07:00 BP 111/67 04/30/17 07:00 Pulse Ox 97 04/30/17 07:00 Intake & Output 04/29/17 04/30/17 04/30/17 18:59 06:59 18:59 Intake Total 3350 1750 200 Output Total 190 490 Balance 3160 1260 200 Weight 40.3 kg 47 kg Intake: IV 3350 1250 100 0.9 NACL bolus 1000 Dextrose 5% in Water 1, 1800 150 000 ml @ 150 mls/hr IV . Q7H40M ALEJANDRA with Sodium Bicarb (1 Meq/ml) 150 ml Rx#:[id number] Sodium Chloride 0.9% 1, 1100 100 000 ml @ 100 mls/hr IV . Q10H ALEJANDRA Rx#:[id number] albumin 5% 250 potassium phophate 300 Intake, IV Titration 500 100 Amount Magnesium Sulfate-D5w Pmx 100 1 gm In Dextrose/Water 1 100ml.bag @ 100 mls/hr IVPB Q1H ALEJANDRA Rx#: [id number] Potassium Chloride 20 meq 200 In Water For Injection 1 100ml.bag @ 50 mls/hr IVPB Q2HR ALEJANDRA Rx#: [id number] Potassium Phosphate 10 300 mmol In Sodium Chloride 0 .9% 100 ml @ 50 mls/hr IV Q2H ALEJANDRA Rx#:[id number] Output: Urine 190 490 Other: Voiding Method Indwelling Catheter Indwelling Catheter - Exam This is a very thin cachectic female patient who carries a body mass index of 16.3. She weighs a total of 40 kg. She is opening her eyes spontaneously at this point. She is moving all 4 extremities. She occasionally moans and mumbles a few words yet she is not communicating at. Head is atraumatic normocephalic. There is extensive temporal wasting. Neck is supple there is no JVDs no goiter or neck masses. Mucous membranes are extremely dry. No thrush. Lungs sounds are diminished bilaterally. Her chest and rib cage is very much exposed due to her severe muscle atrophy in absence of any subcutaneous fat. Breath sounds are equal and symmetrical. No wheezes or rhonchi.Cardiac exam revealed the PMI to be normally situated and sized. The rhythm was regular and no extrasystoles were noted during several minutes of auscultation. The first and second heart sounds were normal and physiologic splitting of the second heart sound was noted. There were no murmurs, rubs, clicks, or gallops. The patient had a systolic ejection murmur grade 2/6 systolic the precordium.Abdominal exam revealed normal bowel sounds. The abdomen was soft, non-tender, and without masses, organomegaly, or appreciable enlargement of the abdominal aorta. Extremities show chronic ulceration lower extremities bilaterally at that is no open wounds or sores. Lungs are diminished bilaterally. Coccyx show a deep tissue injury which is unstageable at this point. There is erythema on the surface with some limited necrosis at the edges. The area is quite large probably in order of 7 x 5 cm in size. Neurologically, the patient has been moving all 4 extremities pH she withdraws to painful stimuli. There is no apparent cranial nerve deficits at this point. Sensory cannot be accurately assessed. Motor function cannot be assessed. speech cannot be accurately assessed. - Labs CBC & Chem 7: 04/30/17 05:20 04/29/17 18:30 Labs: Abnormal Lab Results - Last 24 Hours (Table) 04/29/17 04/29/17 04/29/17 Range/Units 08:01 08:01 08:01 WBC (3.8-10.6) k/uL RBC (3.80-5.40) m/uL Hgb (11.4-16.0) gm/dL Hct (34.0-46.0) % Plt Count (150-450) k/uL Neutrophils # (1.3-7.7) k/uL Lymphocytes # (1.0-4.8) k/uL PT 12.3 H (9.0-12.0) sec INR 1.2 H (<1.2) APTT 32.5 H (22.0-30.0) sec ABG pH (7.35-7.45) ABG pCO2 (35-45) mmHg ABG pO2 (83-108) mmHg ABG O2 Saturation (94-97) % Potassium (3.5-5.1) mmol/L Chloride (98-107) mmol/L Carbon Dioxide (22-30) mmol/L BUN (7-17) mg/dL Creatinine (0.52-1.04) mg/dL Glucose (74-99) mg/dL POC Glucose (mg/dL) (75-99) mg/dL Calcium (8.4-10.2) mg/dL Ionized Calcium Carson 6.2 H* (4.5-5.3) mg/dL Phosphorus 0.6 L* (2.5-4.5) mg/dL AST (14-36) U/L ALT (9-52) U/L Troponin I 0.096 H* (0.000-0.034) ng/mL Total Protein (6.3-8.2) g/dL Albumin (3.5-5.0) g/dL 04/29/17 04/29/17 04/29/17 Range/Units 08:01 08:20 18:30 WBC (3.8-10.6) k/uL RBC (3.80-5.40) m/uL Hgb (11.4-16.0) gm/dL Hct (34.0-46.0) % Plt Count (150-450) k/uL Neutrophils # (1.3-7.7) k/uL Lymphocytes # (1.0-4.8) k/uL PT (9.0-12.0) sec INR (<1.2) APTT (22.0-30.0) sec ABG pH 7.54 H (7.35-7.45) ABG pCO2 24 L (35-45) mmHg ABG pO2 160 H (83-108) mmHg ABG O2 Saturation 99.7 H (94-97) % Potassium 2.0 L* 2.4 L* (3.5-5.1) mmol/L Chloride 110 H (98-107) mmol/L Carbon Dioxide 20 L (22-30) mmol/L BUN 54 H (7-17) mg/dL Creatinine 2.91 H (0.52-1.04) mg/dL Glucose 122 H (74-99) mg/dL POC Glucose (mg/dL) (75-99) mg/dL Calcium 10.4 H (8.4-10.2) mg/dL Ionized Calcium Carson (4.5-5.3) mg/dL Phosphorus 1.5 L (2.5-4.5) mg/dL AST 72 H (14-36) U/L ALT 61 H (9-52) U/L Troponin I (0.000-0.034) ng/mL Total Protein 5.2 L (6.3-8.2) g/dL Albumin 2.7 L (3.5-5.0) g/dL 04/29/17 04/30/17 04/30/17 Range/Units 19:25 05:20 05:20 WBC 14.9 H 10.8 H (3.8-10.6) k/uL RBC 3.02 L 2.81 L (3.80-5.40) m/uL Hgb 9.6 L D 8.9 L (11.4-16.0) gm/dL Hct 27.3 L 25.5 L (34.0-46.0) % Plt Count 137 L 119 L (150-450) k/uL Neutrophils # 9.4 H (1.3-7.7) k/uL Lymphocytes # 0.6 L (1.0-4.8) k/uL PT 12.4 H (9.0-12.0) sec INR 1.3 H (<1.2) APTT 37.4 H (22.0-30.0) sec ABG pH (7.35-7.45) ABG pCO2 (35-45) mmHg ABG pO2 (83-108) mmHg ABG O2 Saturation (94-97) % Potassium (3.5-5.1) mmol/L Chloride (98-107) mmol/L Carbon Dioxide (22-30) mmol/L BUN (7-17) mg/dL Creatinine (0.52-1.04) mg/dL Glucose (74-99) mg/dL POC Glucose (mg/dL) (75-99) mg/dL Calcium (8.4-10.2) mg/dL Ionized Calcium Carson (4.5-5.3) mg/dL Phosphorus (2.5-4.5) mg/dL AST (14-36) U/L ALT (9-52) U/L Troponin I (0.000-0.034) ng/mL Total Protein (6.3-8.2) g/dL Albumin (3.5-5.0) g/dL 04/30/17 Range/Units 07:13 WBC (3.8-10.6) k/uL RBC (3.80-5.40) m/uL Hgb (11.4-16.0) gm/dL Hct (34.0-46.0) % Plt Count (150-450) k/uL Neutrophils # (1.3-7.7) k/uL Lymphocytes # (1.0-4.8) k/uL PT (9.0-12.0) sec INR (<1.2) APTT (22.0-30.0) sec ABG pH (7.35-7.45) ABG pCO2 (35-45) mmHg ABG pO2 (83-108) mmHg ABG O2 Saturation (94-97) % Potassium (3.5-5.1) mmol/L Chloride (98-107) mmol/L Carbon Dioxide (22-30) mmol/L BUN (7-17) mg/dL Creatinine (0.52-1.04) mg/dL Glucose (74-99) mg/dL POC Glucose (mg/dL) 115 H (75-99) mg/dL Calcium (8.4-10.2) mg/dL Ionized Calcium Carson (4.5-5.3) mg/dL Phosphorus (2.5-4.5) mg/dL AST (14-36) U/L ALT (9-52) U/L Troponin I (0.000-0.034) ng/mL Total Protein (6.3-8.2) g/dL Albumin (3.5-5.0) g/dL Microbiology - Last 24 Hours (Table) 04/28/17 21:40 Urine Culture - Preliminary Urine,Catheterized Assessment and Plan Plan: Assessment 1 acute kidney injury in setting of severe dehydration and intravascular volume depletion with major metabolic disturbances. There is improving and the patient 's creatinine is down to 2.9 and she is producing adequate amount of urine output. She is on normal saline at the rate of 100 mL an hour. 2 severe hypokalemia, replace and the potassium level is up to 2.4 3 severe non-anion gap metabolic acidosis, being corrected with dialysis, recovered and the patient's bicarb is up to 28 4 acute hypercalcemia probably related to intravascular volume depletion. 5 rhabdomyolysis, mild 6 hypothermia, corrected 7 severe cachexia and malnutrition and anorexia 8 leukocytosis, improved 9 suspected urine tract infection 10 Deep tissue injury to the coccyx 11 encephalopathy secondary to above 12 significant drop in hemoglobin, dilutional and there is no evidence of any external bleeding other than some limited epistaxis. Plan The patient will be kept in the ICU. Continue the normal saline infusion. The patient potassium. Replace magnesium. Replace phosphorus. Monitor urine output. No need for dialysis. Advance diet as tolerated. Monitor hemoglobin. We'll continue to follow.
[2017-04-30] MEDS ORDERED: POTASSIUM CHLORIDE ER 20 MEQ TAB.ER PO STA (08:37)
[2017-04-30] MEDS: PANTOPRAZOLE 40 MG/10 ML VIAL IV SCH (08:44)
[2017-04-30] MEDS: AMMONIUM LACTATE 12% LOTION 225 GM BTL TOPICAL SCH ×2 (08:44→21:27)
[2017-04-30] MEDS: PIPERACILLIN-TAZOBACTAM 3.375 GM in DEXTROSE/WATER 1 50ML.BAG IVPB SCH ×2 (09:05→22:46)
--- NOTE | 2017-04-30 09:06 | P.PN ---
Subjective Progress Note Date: 04/30/17 Objective - Vital Signs Vital signs: Vital Signs Temp 99.6 F 04/30/17 04:00 Pulse 106 H 04/30/17 07:00 Resp 17 04/30/17 07:00 BP 111/67 04/30/17 07:00 Pulse Ox 97 04/30/17 07:00 Intake & Output 04/29/17 04/30/17 04/30/17 18:59 06:59 18:59 Intake Total 3350 1750 200 Output Total 190 490 Balance 3160 1260 200 Weight 40.3 kg 47 kg Intake: IV 3350 1250 100 0.9 NACL bolus 1000 Dextrose 5% in Water 1, 1800 150 000 ml @ 150 mls/hr IV . Q7H40M ALEJANDRA with Sodium Bicarb (1 Meq/ml) 150 ml Rx#:[id number] Sodium Chloride 0.9% 1, 1100 100 000 ml @ 100 mls/hr IV . Q10H ALEJANDRA Rx#:[id number] albumin 5% 250 potassium phophate 300 Intake, IV Titration 500 100 Amount Magnesium Sulfate-D5w Pmx 100 1 gm In Dextrose/Water 1 100ml.bag @ 100 mls/hr IVPB Q1H ALEJANDRA Rx#: [id number] Potassium Chloride 20 meq 200 In Water For Injection 1 100ml.bag @ 50 mls/hr IVPB Q2HR ALEJANDRA Rx#: [id number] Potassium Phosphate 10 300 mmol In Sodium Chloride 0 .9% 100 ml @ 50 mls/hr IV Q2H ALEJANDRA Rx#:[id number] Output: Urine 190 490 Other: Voiding Method Indwelling Catheter Indwelling Catheter - Labs CBC & Chem 7: 04/30/17 05:20 04/30/17 10:58 Labs: Abnormal Lab Results - Last 24 Hours (Table) 04/29/17 04/29/17 04/29/17 Range/Units 08:01 08:01 08:01 WBC (3.8-10.6) k/uL RBC (3.80-5.40) m/uL Hgb (11.4-16.0) gm/dL Hct (34.0-46.0) % Plt Count (150-450) k/uL Neutrophils # (1.3-7.7) k/uL Lymphocytes # (1.0-4.8) k/uL PT 12.3 H (9.0-12.0) sec INR 1.2 H (<1.2) APTT 32.5 H (22.0-30.0) sec Potassium 2.0 L* (3.5-5.1) mmol/L Chloride 110 H (98-107) mmol/L Carbon Dioxide 20 L (22-30) mmol/L BUN 54 H (7-17) mg/dL Creatinine 2.91 H (0.52-1.04) mg/dL Glucose 122 H (74-99) mg/dL POC Glucose (mg/dL) (75-99) mg/dL Calcium 10.4 H (8.4-10.2) mg/dL Phosphorus 0.6 L* (2.5-4.5) mg/dL AST 72 H (14-36) U/L ALT 61 H (9-52) U/L Total Protein 5.2 L (6.3-8.2) g/dL Albumin 2.7 L (3.5-5.0) g/dL 04/29/17 04/29/17 04/30/17 Range/Units 18:30 19:25 05:20 WBC 14.9 H 10.8 H (3.8-10.6) k/uL RBC 3.02 L 2.81 L (3.80-5.40) m/uL Hgb 9.6 L D 8.9 L (11.4-16.0) gm/dL Hct 27.3 L 25.5 L (34.0-46.0) % Plt Count 137 L 119 L (150-450) k/uL Neutrophils # 9.4 H (1.3-7.7) k/uL Lymphocytes # 0.6 L (1.0-4.8) k/uL PT (9.0-12.0) sec INR (<1.2) APTT (22.0-30.0) sec Potassium 2.4 L* (3.5-5.1) mmol/L Chloride (98-107) mmol/L Carbon Dioxide (22-30) mmol/L BUN (7-17) mg/dL Creatinine (0.52-1.04) mg/dL Glucose (74-99) mg/dL POC Glucose (mg/dL) (75-99) mg/dL Calcium (8.4-10.2) mg/dL Phosphorus 1.5 L (2.5-4.5) mg/dL AST (14-36) U/L ALT (9-52) U/L Total Protein (6.3-8.2) g/dL Albumin (3.5-5.0) g/dL 04/30/17 04/30/17 Range/Units 05:20 07:13 WBC (3.8-10.6) k/uL RBC (3.80-5.40) m/uL Hgb (11.4-16.0) gm/dL Hct (34.0-46.0) % Plt Count (150-450) k/uL Neutrophils # (1.3-7.7) k/uL Lymphocytes # (1.0-4.8) k/uL PT 12.4 H (9.0-12.0) sec INR 1.3 H (<1.2) APTT 37.4 H (22.0-30.0) sec Potassium (3.5-5.1) mmol/L Chloride (98-107) mmol/L Carbon Dioxide (22-30) mmol/L BUN (7-17) mg/dL Creatinine (0.52-1.04) mg/dL Glucose (74-99) mg/dL POC Glucose (mg/dL) 115 H (75-99) mg/dL Calcium (8.4-10.2) mg/dL Phosphorus (2.5-4.5) mg/dL AST (14-36) U/L ALT (9-52) U/L Total Protein (6.3-8.2) g/dL Albumin (3.5-5.0) g/dL Microbiology - Last 24 Hours (Table) 04/28/17 21:40 Urine Culture - Preliminary Urine,Catheterized
[2017-04-30] MEDS: OXYMETAZOLINE 0.05% NASL SPRAY 1 SPRAY BOTTLE NASAL SCH ×3 (09:18→21:40)
--- NOTE | 2017-04-30 10:29 | P.PN ---
Subjective Patient is seen in follow-up for acute kidney injury. Unclear as to what her baseline renal function is. Creatinine peaked at 5.1 this admission and patient was quite uremic. She was started on hemodialysis and has undergone 2 treatments so far. Her urine output is now in the range of 40-60 mL an hour. She is more awake and alert this morning. She will be started on oral feeds this morning. Denies chest pain or shortness of breath. Vital signs are stable. General: The patient appeared well nourished and normally developed. HEENT: Head exam is unremarkable. Neck is without jugular venous distension. LUNGS: Lungs are clear to auscultation and percussion. Breath sounds decreased. HEART: Rate and Rhythm are regular. First and second heart sounds normal. No murmurs, rubs or gallops. ABDOMEN: Abdominal exam reveals normal bowel sounds. Non-tender and non- distended. No evidence of peritonitis. EXTREMITITES: No clubbing, cyanosis, or edema. Objective - Vital Signs Vital signs: Vital Signs Temp 99.6 F 04/30/17 04:00 Pulse 106 H 04/30/17 07:00 Resp 17 04/30/17 07:00 BP 111/67 04/30/17 07:00 Pulse Ox 97 04/30/17 07:00 Intake & Output 04/29/17 04/30/17 04/30/17 18:59 06:59 18:59 Intake Total 3350 1750 200 Output Total 190 490 Balance 3160 1260 200 Weight 40.3 kg 47 kg Intake: IV 3350 1250 100 0.9 NACL bolus 1000 Dextrose 5% in Water 1, 1800 150 000 ml @ 150 mls/hr IV . Q7H40M ALEJANDRA with Sodium Bicarb (1 Meq/ml) 150 ml Rx#:[id number] Sodium Chloride 0.9% 1, 1100 100 000 ml @ 100 mls/hr IV . Q10H ALEJANDRA Rx#:[id number] albumin 5% 250 potassium phophate 300 Intake, IV Titration 500 100 Amount Magnesium Sulfate-D5w Pmx 100 1 gm In Dextrose/Water 1 100ml.bag @ 100 mls/hr IVPB Q1H ALEJANDRA Rx#: [id number] Potassium Chloride 20 meq 200 In Water For Injection 1 100ml.bag @ 50 mls/hr IVPB Q2HR ALEJANDRA Rx#: [id number] Potassium Phosphate 10 300 mmol In Sodium Chloride 0 .9% 100 ml @ 50 mls/hr IV Q2H [facility] Rx#:[id number] Output: Urine 190 490 Other: Voiding Method Indwelling Catheter Indwelling Catheter - Labs CBC & Chem 7: 04/30/17 05:20 04/29/17 18:30 Labs: Abnormal Lab Results - Last 24 Hours (Table) 04/29/17 04/29/17 04/29/17 Range/Units 08:01 18:30 19:25 WBC 14.9 H (3.8-10.6) k/uL RBC 3.02 L (3.80-5.40) m/uL Hgb 9.6 L D (11.4-16.0) gm/dL Hct 27.3 L (34.0-46.0) % Plt Count 137 L (150-450) k/uL Neutrophils # (1.3-7.7) k/uL Lymphocytes # (1.0-4.8) k/uL PT (9.0-12.0) sec INR (<1.2) APTT (22.0-30.0) sec Potassium 2.0 L* 2.4 L* (3.5-5.1) mmol/L Chloride 110 H (98-107) mmol/L Carbon Dioxide 20 L (22-30) mmol/L BUN 54 H (7-17) mg/dL Creatinine 2.91 H (0.52-1.04) mg/dL Glucose 122 H (74-99) mg/dL POC Glucose (mg/dL) (75-99) mg/dL Calcium 10.4 H (8.4-10.2) mg/dL Phosphorus 1.5 L (2.5-4.5) mg/dL AST 72 H (14-36) U/L ALT 61 H (9-52) U/L Total Protein 5.2 L (6.3-8.2) g/dL Albumin 2.7 L (3.5-5.0) g/dL 04/30/17 04/30/17 04/30/17 Range/Units 05:20 05:20 07:13 WBC 10.8 H (3.8-10.6) k/uL RBC 2.81 L (3.80-5.40) m/uL Hgb 8.9 L (11.4-16.0) gm/dL Hct 25.5 L (34.0-46.0) % Plt Count 119 L (150-450) k/uL Neutrophils # 9.4 H (1.3-7.7) k/uL Lymphocytes # 0.6 L (1.0-4.8) k/uL PT 12.4 H (9.0-12.0) sec INR 1.3 H (<1.2) APTT 37.4 H (22.0-30.0) sec Potassium (3.5-5.1) mmol/L Chloride (98-107) mmol/L Carbon Dioxide (22-30) mmol/L BUN (7-17) mg/dL Creatinine (0.52-1.04) mg/dL Glucose (74-99) mg/dL POC Glucose (mg/dL) 115 H (75-99) mg/dL Calcium (8.4-10.2) mg/dL Phosphorus (2.5-4.5) mg/dL AST (14-36) U/L ALT (9-52) U/L Total Protein (6.3-8.2) g/dL Albumin (3.5-5.0) g/dL Microbiology - Last 24 Hours (Table) 04/29/17 08:01 Blood Culture - Preliminary Blood No Growth after 24 hours 04/28/17 21:40 Urine Culture - Preliminary Urine,Catheterized Assessment and Plan Plan: Assessment: #1. Oliguric - now nonoliguric - acute kidney injury secondary to hypercalcemia -induced ATN further worsened with hemodynamic instability and poor oral intake. Rule out interstitial nephritis - urine eosinophils negative. Unclear as to what her baseline renal function is. Creatinine was 4.8 on admission and peaked at 5.1. No evidence of hydronephrosis.She underwent second treatment of hemodialysis yesterday. #2. Severe hypokalemia from poor oral intake. status post replacement.Magnesium replete. #3. Severe hypophosphatemia, again from poor nutritional intake. Status post replacement. Improved. #4. Severe metabolic acidosis secondary to acute kidney injury. Improved postdialysis. #5. Hypercalcemia secondary to supplementation as well as severe intravascular volume depletion. Rule out primary hyperparathyroidism, MM, vitamin D toxicity. Also possible underlying malignancy. Patient has not seen a physician for several years. #6. Anemia. Rule out iron deficiency. No evidence of active bleeding. Plan: Third treatment of hemodialysis today - I will plan on holding hemodialysis tomorrow and monitor renal function for recovery. Continue with potassium and phosphorus replacement. Continue to monitor renal function and urine output. Avoid nephrotoxic agents and hypotensive episodes. Repeat electrolytes pending at this time. Follow-up PTH, 25 OH vitamin D, 125 vitamin D3, electrophoresis studies and immunofixation. Check iron studies. Continue with normal saline to be run at 100 mL an hour. Encouraged oral intake.
[2017-04-30] MEDS ORDERED: HEPARIN SODIUM,PORCINE 5,000 UNIT/ML 1 ML VIAL ONE (11:45)
[2017-04-30 12:12] LABS: Calcium 7.8 mg/dL (8.4-10.2); Magnesium 2.3 mg/dL (1.6-2.3); Total Bilirubin 0.4 mg/dL (0.2-1.3); Total Protein 4.4 g/dL (6.3-8.2)
[2017-04-30] MEDS ORDERED: Potassium Replacement Protocol 1 EACH MISC MISCELLANE PRN (12:27)
[2017-04-30 12:29] LABS: Glucose,Whole Blood 108 mg/dL (75-99)
[2017-04-30] MEDS: POTASSIUM CHLORIDE ER 20 MEQ TAB.ER PO SCH ×2 (13:12→14:00)
--- NOTE | 2017-04-30 13:29 | P.PN ---
Subjective Progress Note Date: 04/30/17 Principal diagnosis: altered mentation Patient is an 82-year-old female with no known past medical history she has not seen a physician in years who presented to the emergency department with altered mentation. She was brought in by her son. In the emergency department she underwent an extensive evaluation. On her initial vital sign she sound be tachycardic with a heart rate of 107. Her initial laboratory analysis was significant for potassium of 2, bicarb of 5, BUN 94, creatinine greater than 90 and a creatinine of 5.1. She was also found to have an elevated calcium and elevated liver enzymes. Her ABG demonstrated a pH of 7.09. I was contacted by the emergency department and suggested starting potassium chloride replacement and IV fluids. Critical care was also consulted. The patient was admitted to ICU. Nephrology was contacted and she subsequently received emergent dialysis overnight on 04/28. On the morning of 04/29 she was still confused and lethargic. She had began producing minimal amounts of urine. She underwent dialysis the second time on 04/29. An NG tube was attempted to be placed was unsuccessful and the patient subsequently developed epistaxis. Was treated with aspirin, lidocaine, and adrenaline based intranasally. The morning of 04/30 the patient was much improved she was more awake, alert, and responsive. Her epistaxis had resolved. Patient seen and examined at bedside. More awake and alert today. Denies any chest pain, shortness of breath, nausea, vomiting, or diarrhea. Nurse present at bedside. Objective - Vital Signs Vital signs: Vital Signs Temp 97.9 F 04/30/17 12:00 Pulse 101 H 04/30/17 13:00 Resp 19 04/30/17 13:00 BP 127/70 04/30/17 13:00 Pulse Ox 98 04/30/17 13:00 Intake & Output 04/29/17 04/30/17 04/30/17 18:59 06:59 18:59 Intake Total 3350 1750 1070.0 Output Total 190 490 330 Balance 3160 1260 740.0 Weight 40.3 kg 47 kg Intake: IV 3350 1250 700 0.9 NACL bolus 1000 Dextrose 5% in Water 1, 1800 150 000 ml @ 150 mls/hr IV . Q7H40M [facility] with Sodium Bicarb (1 Meq/ml) 150 ml Rx#:[id number] Sodium Chloride 0.9% 1, 1100 700 000 ml @ 100 mls/hr IV . Q10H [facility] Rx#:[id number] albumin 5% 250 potassium phophate 300 Intake, IV Titration 500 150.0 Amount Magnesium Sulfate-D5w Pmx 100 1 gm In Dextrose/Water 1 100ml.bag @ 100 mls/hr IVPB Q1H [facility] Rx#: [id number] Piperacillin-Tazobactam 3 50.0 .375 gm In Dextrose/Water 1 50ml.bag @ 12.5 mls/hr IVPB Q12HR [facility] Rx#: [id number] Potassium Chloride 20 meq 200 In Water For Injection 1 100ml.bag @ 50 mls/hr IVPB Q2HR [facility] Rx#: [id number] Potassium Phosphate 10 300 mmol In Sodium Chloride 0 .9% 100 ml @ 50 mls/hr IV Q2H [facility] Rx#:[id number] Oral 220 Output: Urine 190 490 330 Other: Voiding Method Indwelling Catheter Indwelling Catheter - Exam General: Ill appearing, no distress, appears older than stated age, cachectic, Derm: Bilateral lower extremities with scale and no rashes, no lesions Head: atraumatic, normocephalic, symmetric Eyes: EOMI, no lid lag, anicteric sclera ENT: no post nasal drip, no thrush Mouth: no lip lesion, mucus membranes dry Cardiovascular: S1S2 reg, no murmur, positive posterior tibial pulse bilateral, Lungs: decreased breath sounds bilateral bases, no rhonchi, no rales , no accessory muscle use Abdominal: soft, nontender to palpation, no guarding, no appreciable organomegaly, very dark minimal amounts of urine in [place] catheter bag, left femoral catheter in place Ext: no gross muscle atrophy, no edema, no contractures Neuro: CN II-XI grossly intact, no focal neuro deficits Psych: Awake, alert, flat affect - Labs CBC & Chem 7: 04/30/17 05:20 04/30/17 10:58 Labs: Abnormal Lab Results - Last 24 Hours (Table) 04/29/17 04/29/17 04/30/17 Range/Units 18:30 19:25 05:20 WBC 14.9 H 10.8 H (3.8-10.6) k/uL RBC 3.02 L 2.81 L (3.80-5.40) m/uL Hgb 9.6 L D 8.9 L (11.4-16.0) gm/dL Hct 27.3 L 25.5 L (34.0-46.0) % Plt Count 137 L 119 L (150-450) k/uL Neutrophils # 9.4 H (1.3-7.7) k/uL Lymphocytes # 0.6 L (1.0-4.8) k/uL PT (9.0-12.0) sec INR (<1.2) APTT (22.0-30.0) sec Potassium 2.4 L* (3.5-5.1) mmol/L Chloride (98-107) mmol/L Carbon Dioxide (22-30) mmol/L BUN (7-17) mg/dL Creatinine (0.52-1.04) mg/dL Glucose (74-99) mg/dL POC Glucose (mg/dL) (75-99) mg/dL Calcium (8.4-10.2) mg/dL Phosphorus 1.5 L (2.5-4.5) mg/dL AST (14-36) U/L ALT (9-52) U/L Total Protein (6.3-8.2) g/dL Albumin (3.5-5.0) g/dL 04/30/17 04/30/17 04/30/17 Range/Units 05:20 07:13 10:58 WBC (3.8-10.6) k/uL RBC (3.80-5.40) m/uL Hgb (11.4-16.0) gm/dL Hct (34.0-46.0) % Plt Count (150-450) k/uL Neutrophils # (1.3-7.7) k/uL Lymphocytes # (1.0-4.8) k/uL PT 12.4 H (9.0-12.0) sec INR 1.3 H (<1.2) APTT 37.4 H (22.0-30.0) sec Potassium 3.0 L* (3.5-5.1) mmol/L Chloride 108 H (98-107) mmol/L Carbon Dioxide 20 L (22-30) mmol/L BUN 39 H (7-17) mg/dL Creatinine 2.40 H (0.52-1.04) mg/dL Glucose 122 H (74-99) mg/dL POC Glucose (mg/dL) 115 H (75-99) mg/dL Calcium 7.8 L (8.4-10.2) mg/dL Phosphorus (2.5-4.5) mg/dL AST 66 H (14-36) U/L ALT 58 H (9-52) U/L Total Protein 4.4 L (6.3-8.2) g/dL Albumin 2.3 L (3.5-5.0) g/dL 04/30/17 Range/Units 12:26 WBC (3.8-10.6) k/uL RBC (3.80-5.40) m/uL Hgb (11.4-16.0) gm/dL Hct (34.0-46.0) % Plt Count (150-450) k/uL Neutrophils # (1.3-7.7) k/uL Lymphocytes # (1.0-4.8) k/uL PT (9.0-12.0) sec INR (<1.2) APTT (22.0-30.0) sec Potassium (3.5-5.1) mmol/L Chloride (98-107) mmol/L Carbon Dioxide (22-30) mmol/L BUN (7-17) mg/dL Creatinine (0.52-1.04) mg/dL Glucose (74-99) mg/dL POC Glucose (mg/dL) 108 H (75-99) mg/dL Calcium (8.4-10.2) mg/dL Phosphorus (2.5-4.5) mg/dL AST (14-36) U/L ALT (9-52) U/L Total Protein (6.3-8.2) g/dL Albumin (3.5-5.0) g/dL Microbiology - Last 24 Hours (Table) 04/29/17 08:45 Blood Culture - Preliminary Blood No Growth after 24 hours 04/29/17 08:01 Blood Culture - Preliminary Blood No Growth after 24 hours 04/28/17 21:40 Urine Culture - Preliminary Urine,Catheterized Assessment and Plan Plan: Life-threatening hypokalemia, improving - replacement in progress -Await repeat potassium levels -Continue with telemetry Acute renal failure, unknown baseline creatinine -Status post HD 04/28 and 04/29 - d/w nephro plans for HD again today and then likley a holiday -IV fluids -Avoid additional nephrotoxic agents -Renal ultrasound normal Non-anion gap metabolic acidosis, improved - follow lytes Toxic metabolic encephalopathy, improved -Supportive care -Treatment as listed above Elevated troponin, likely secondary to acute renal failure -Trend is flat -echo within normal limits -no further evaluation necessary Elevated liver enzymes, likely relating to renal failure versus supplements -Follow CMP -If does not improve in a.m. then consider liver ultrasound SIRS criteria, suspect UTI with sepsis -Undetermined etiology -Chest x-ray appears negative -Urine with possible urinary tract infection, on empiric Zosyn -Urine and blood cultures pending Deep tissue injury to toxic -Frequent turns Severe cachexia and severe protein calorie malnutrition -advance diet as tolerated -dietitian recs Normocytic anemia -Check B12, iron levels, folic acid Hypercalcemia, resolved DVT prophylaxis: Heparin Discussed with: Nursing, critical care, nephro Anticipated discharge: 3-[address]: Likely will need SNF A total of 45 minutes was spent on the care of this complex patient more than 50 % of the time was spent in counseling and care coordination.
--- NOTE | 2017-04-30 13:36 | CONS ---
CONSULTATION This is an 82-year-old female. I was consulted urgently for placement of the dialysis catheter. The patient was found at home unresponsive and brought in and she was admitted to the intensive care unit. Patient is acidotic and bicarb level was 5 on arrival. She was also found to be hypercalcemic. Her creatinine was 5.1. She has not been to the doctor for a long time. PHYSICAL EXAMINATION: Patient was seen in the intensive care unit. Head was normocephalic. No jugular distention noted. Lungs were clear on auscultation. Breath sounds were decreased. First and second sounds were normal. Abdomen was soft. Femoral pulses were present. IMPRESSION: Acute on chronic kidney disease with hypercalcemia. PLAN: Placement of dialysis catheter. Risks and complication discussed. MMODL / IJN: [id number] /
[2017-04-30 18:09] LABS: Iron Saturation 17.42 (12.00-45.00)
[2017-04-30 18:17] LABS: Glucose,Whole Blood 102 mg/dL (75-99)
[2017-04-30] MEDS ORDERED: LEVOFLOXACIN 500MG-D5W PMX 500 MG in DEXTROSE/WATER 1 100ML.BAG IVPB SCH (20:00)
[2017-04-30] MEDS: POTASSIUM CHLORIDE 10 MEQ, LIDOCAINE 2% INJ 10 MG in SODIUM CHLORIDE 0.9% 100 ML IV SCH (23:37)
[2017-05-01] MEDS: POTASSIUM CHLORIDE 10 MEQ, LIDOCAINE 2% INJ 10 MG in SODIUM CHLORIDE 0.9% 100 ML IV SCH (01:25)
[2017-05-01] MEDS: HEPARIN SODIUM,PORCINE 5,000 UNIT/ML 1 ML VIAL SQ SCH ×4 (01:26→15:44)
[2017-05-01 02:09] LABS: Glucose,Whole Blood 97 mg/dL (75-99)
[2017-05-01 06:17] LABS: Glucose,Whole Blood 89 mg/dL (75-99)
[2017-05-01 06:20] LABS: Basophils % (A) 0 %; CH 32.7; CHCM 35.2; Eosinophils # (A) 0.1 k/uL (0-0.7); Eosinophils % (A) 1 %; HCT 28.4 % (34.0-46.0); HDW 3.16; HGB 9.6 gm/dL (11.4-16.0); Luc # (Auto) 0.14; Luc % (Auto) 1; Lymphocytes # (A) 0.6 k/uL (1.0-4.8); Lymphocytes % (A) 5 %; MCH 31.6 pg (25.0-35.0); MCHC 33.8 g/dL (31.0-37.0); MCV 93.6 fL (80.0-100.0); Mean Platelet Volume 7.1; Monocytes # (A) 0.8 k/uL (0-1.0); Monocytes % (A) 7 %; Neutrophils # (A) 9.9 k/uL (1.3-7.7); Neutrophils % (A) 86 %; RBC 3.03 m/uL (3.80-5.40); RDW 13.6 % (11.5-15.5); WBC 11.5 k/uL (3.8-10.6); WBC (Perox) 11.43
[2017-05-01 06:22] LABS: INR 1.1 (<1.2); Partial Thromboplastin Time 28.3 sec (22.0-30.0); Prothrombin Time 10.9 sec (9.0-12.0)
[2017-05-01 06:29] LABS: Calcium 8.2 mg/dL (8.4-10.2); Magnesium 1.8 mg/dL (1.6-2.3); Phosphorus 2.6 mg/dL (2.5-4.5); Potassium 3.3 mmol/L (3.5-5.1); Total Bilirubin 0.4 mg/dL (0.2-1.3); Total Protein 4.5 g/dL (6.3-8.2)
[2017-05-01] MEDS: SODIUM CHLORIDE 0.9% 1,000 ML IV SCH ×4 (06:29→14:26)
--- NOTE | 2017-05-01 07:37 | XR ---
EXAMINATION TYPE: XR chest 1V DATE OF EXAM: 05/01/2017 HISTORY: Shortness of breath. REFERENCE: Previous study dated 04/30/2017. FINDINGS: The heart is enlarged. There is some minimal atelectasis at the right lung base. There is m ild vascular congestion without ximena edema. There is some blunting of the left CP angle. IMPRESSION: 1. CARDIOMEGALY. 2. RIGHT BASILAR ATELECTASIS. 3. SMALL, LEFT EFFUSION. 4. VASCULAR CONGESTION WITHOUT XIMENA EDEMA.
[2017-05-01] MEDS ORDERED: POTASSIUM CHLORIDE ER 20 MEQ TAB.ER PO STA (08:58)
[2017-05-01] MEDS ORDERED: POTASSIUM CHLORIDE ER 20 MEQ TAB.ER PO ONE (09:00)
--- NOTE | 2017-05-01 09:04 | P.PN ---
Subjective Patient is seen in follow-up for acute kidney injury. Unclear as to what her baseline renal function is. Creatinine peaked at 5.1 this admission and patient was quite uremic. She was started on hemodialysis and has undergone 3 treatments so far - last treatment on 04/30. Her urine output was in the range of 40-60 mL an hour - [place] is out and she is incontinent. She is awake and alert this morning. She is tolerating oral intake. Denies chest pain or shortness of breath. Vital signs are stable. General: The patient appeared well nourished and normally developed. HEENT: Head exam is unremarkable. Neck is without jugular venous distension. LUNGS: Lungs are clear to auscultation and percussion. Breath sounds decreased. HEART: Rate and Rhythm are regular. First and second heart sounds normal. No murmurs, rubs or gallops. ABDOMEN: Abdominal exam reveals normal bowel sounds. Non-tender and non- distended. No evidence of peritonitis. EXTREMITITES: No clubbing, cyanosis, or edema. Objective - Vital Signs Vital signs: Vital Signs Temp 99.1 F 05/01/17 04:00 Pulse 108 H 05/01/17 04:00 Resp 18 05/01/17 04:00 BP 129/70 05/01/17 04:00 Pulse Ox 94 L 05/01/17 04:00 Intake & Output 04/30/17 05/01/17 05/01/17 18:59 06:59 18:59 Intake Total 1270.0 950 Output Total 830 Balance 440.0 950 Weight 45.5 kg Intake: IV 900 950 Piperacillin-Tazobactam 3 50 .375 gm In Dextrose/Water 1 50ml.bag @ 12.5 mls/hr IVPB Q12HR [facility] Rx#: [id number] Potassium Chloride 10 meq 200 Lidocaine 2% Inj 10 mg In Sodium Chloride 0.9% 100 ml @ 100 mls/hr IV Q1HR [facility] Rx#:[id number] Sodium Chloride 0.9% 1, 900 700 000 ml @ 100 mls/hr IV . Q10H [facility] Rx#:[id number] Intake, IV Titration 150.0 Amount Magnesium Sulfate-D5w Pmx 100 1 gm In Dextrose/Water 1 100ml.bag @ 100 mls/hr IVPB Q1H [facility] Rx#: [id number] Piperacillin-Tazobactam 3 50.0 .375 gm In Dextrose/Water 1 50ml.bag @ 12.5 mls/hr IVPB Q12HR [facility] Rx#: [id number] Oral 220 Output: Urine 830 Other: Voiding Method Indwelling Catheter Diaper # Voids 2 # Bowel Movements 1 - Labs CBC & Chem 7: 05/01/17 05:37 05/01/17 05:37 Labs: Abnormal Lab Results - Last 24 Hours (Table) 04/30/17 04/30/17 04/30/17 Range/Units 10:58 12:26 17:57 WBC (3.8-10.6) k/uL RBC (3.80-5.40) m/uL Hgb (11.4-16.0) gm/dL Hct (34.0-46.0) % Plt Count (150-450) k/uL Neutrophils # (1.3-7.7) k/uL Lymphocytes # (1.0-4.8) k/uL Potassium 3.0 L* (3.5-5.1) mmol/L Chloride 108 H (98-107) mmol/L Carbon Dioxide 20 L (22-30) mmol/L BUN 39 H (7-17) mg/dL Creatinine 2.40 H (0.52-1.04) mg/dL Glucose 122 H (74-99) mg/dL POC Glucose (mg/dL) 108 H 102 H (75-99) mg/dL Calcium 7.8 L (8.4-10.2) mg/dL AST 66 H (14-36) U/L ALT 58 H (9-52) U/L Total Protein 4.4 L (6.3-8.2) g/dL Albumin 2.3 L (3.5-5.0) g/dL 04/30/17 05/01/17 05/01/17 Range/Units 19:00 05:37 05:37 WBC 11.5 H (3.8-10.6) k/uL RBC 3.03 L (3.80-5.40) m/uL Hgb 9.6 L (11.4-16.0) gm/dL Hct 28.4 L (34.0-46.0) % Plt Count 117 L (150-450) k/uL Neutrophils # 9.9 H (1.3-7.7) k/uL Lymphocytes # 0.6 L (1.0-4.8) k/uL Potassium 3.4 L 3.3 L (3.5-5.1) mmol/L Chloride 111 H (98-107) mmol/L Carbon Dioxide (22-30) mmol/L BUN 20 H (7-17) mg/dL Creatinine 2.10 H (0.52-1.04) mg/dL Glucose (74-99) mg/dL POC Glucose (mg/dL) (75-99) mg/dL Calcium 8.2 L (8.4-10.2) mg/dL AST 62 H (14-36) U/L ALT 59 H (9-52) U/L Total Protein 4.5 L (6.3-8.2) g/dL Albumin 2.3 L (3.5-5.0) g/dL Microbiology - Last 24 Hours (Table) 04/28/17 21:40 Urine Culture - Final Urine,Catheterized 04/29/17 08:45 Blood Culture - Preliminary Blood No Growth after 24 hours 04/29/17 08:01 Blood Culture - Preliminary Blood No Growth after 24 hours Assessment and Plan Plan: Assessment: #1. Oliguric - now nonoliguric - acute kidney injury secondary to hypercalcemia -induced ATN further worsened with hemodynamic instability and poor oral intake. Rule out interstitial nephritis - urine eosinophils negative. Unclear as to what her baseline renal function is. Creatinine was 4.8 on admission and peaked at 5.1. No evidence of hydronephrosis. She underwent third treatment of hemodialysis 04/30. #2. Severe hypokalemia from poor oral intake. Status post replacement. Magnesium replete. Improved. #3. Severe hypophosphatemia, again from poor nutritional intake. Status post replacement. Improved. #4. Severe metabolic acidosis secondary to acute kidney injury. Improved postdialysis. #5. Hypercalcemia secondary to supplementation as well as severe intravascular volume depletion. Rule out primary hyperparathyroidism, MM, vitamin D toxicity. Also possible underlying malignancy. Patient has not seen a physician for several years. Resolved. #6. Anemia. Rule out iron deficiency. No evidence of active bleeding. Plan: I will hold hemodialysis today and monitor renal function for recovery. Continue with potassium replacement - 40 meq today. Continue to monitor renal function and urine output. Avoid nephrotoxic agents and hypotensive episodes. Follow-up PTH, 25 OH vitamin D, 125 vitamin D3, electrophoresis studies and immunofixation. F/u iron studies. Decrease normal saline rate to 75 mL an hour. Encouraged oral intake. Repeat electrolytes in AM.
--- NOTE | 2017-05-01 09:12 | P.PN ---
Subjective Progress Note Date: 05/01/17 Principal diagnosis: altered mentation Patient is an 82-year-old female with no known past medical history she has not seen a physician in years who presented to the emergency department with altered mentation. She was brought in by her son. In the emergency department she underwent an extensive evaluation. On her initial vital sign she sound be tachycardic with a heart rate of 107. Her initial laboratory analysis was significant for potassium of 2, bicarb of 5, BUN 94, creatinine greater than 90 and a creatinine of 5.1. She was also found to have an elevated calcium and elevated liver enzymes. Her ABG demonstrated a pH of 7.09. I was contacted by the emergency department and suggested starting potassium chloride replacement and IV fluids. Critical care was also consulted. The patient was admitted to ICU. Nephrology was contacted and she subsequently received emergent dialysis overnight on 04/28. On the morning of 04/29 she was still confused and lethargic. She had began producing minimal amounts of urine. She underwent dialysis the second time on 04/29. An NG tube was attempted to be placed was unsuccessful and the patient subsequently developed epistaxis. Was treated with aspirin, lidocaine, and adrenaline based intranasally. The morning of 04/30 the patient was much improved she was more awake, alert, and responsive. Her epistaxis had resolved. She began having increased diarrhea on 04/30. C. diff was checked and was negative. Patient seen and examined at bedside. Awake and alert. Complains of abdominal cramping and diarrhea. Denies any nausea, vomiting, chest pain, or shortness breath he feels like a her diarrhea is secondary to toxin " running out" of her. She reports that she has been losing strength and having difficulty ambulating at home. I told her that we will have physical therapy and occupational therapy work with her and determine what type of rehab she will need after hospitalization. She understands and is in agreement with being evaluated by them, but feels she would likely be able to return home. I told her we will have to wait for an evaluation to no more, but that it is unlikely. Nurse present at bedside. Objective - Vital Signs Vital signs: Vital Signs Temp 99.1 F 05/01/17 04:00 Pulse 108 H 05/01/17 04:00 Resp 18 05/01/17 04:00 BP 129/70 05/01/17 04:00 Pulse Ox 94 L 05/01/17 04:00 Intake & Output 04/30/17 05/01/17 05/01/17 18:59 06:59 18:59 Intake Total 1270.0 950 Output Total 830 Balance 440.0 950 Weight 45.5 kg Intake: IV 900 950 Piperacillin-Tazobactam 3 50 .375 gm In Dextrose/Water 1 50ml.bag @ 12.5 mls/hr IVPB Q12HR [facility] Rx#: [id number] Potassium Chloride 10 meq 200 Lidocaine 2% Inj 10 mg In Sodium Chloride 0.9% 100 ml @ 100 mls/hr IV Q1HR [facility] Rx#:[id number] Sodium Chloride 0.9% 1, 900 700 000 ml @ 100 mls/hr IV . Q10H [facility] Rx#:[id number] Intake, IV Titration 150.0 Amount Magnesium Sulfate-D5w Pmx 100 1 gm In Dextrose/Water 1 100ml.bag @ 100 mls/hr IVPB Q1H [facility] Rx#: [id number] Piperacillin-Tazobactam 3 50.0 .375 gm In Dextrose/Water 1 50ml.bag @ 12.5 mls/hr IVPB Q12HR [facility] Rx#: [id number] Oral 220 Output: Urine 830 Other: Voiding Method Indwelling Catheter Diaper # Voids 2 # Bowel Movements 1 - Exam General: Non toxic, no distress, appears older than stated age, cachectic, Derm: Bilateral lower extremities with scale and no rashes, no lesions Head: atraumatic, normocephalic, symmetric Eyes: EOMI, no lid lag, anicteric sclera ENT: no post nasal drip, no thrush Mouth: no lip lesion, mucus membranes moist Cardiovascular: S1S2 reg, no murmur, positive posterior tibial pulse bilateral, Lungs: decreased breath sounds bilateral bases, no rhonchi, no rales , no accessory muscle use Abdominal: soft, nontender to palpation, no guarding, no appreciable organomegaly, very dark minimal amounts of urine in [place] catheter bag, left femoral catheter in place Ext: no gross muscle atrophy, no edema, no contractures Neuro: CN II-XI grossly intact, no focal neuro deficits Psych: Awake, alert, flat affect - Labs CBC & Chem 7: 05/01/17 05:37 10/15/17 05:37 Labs: Abnormal Lab Results - Last 24 Hours (Table) 04/30/17 04/30/17 04/30/17 Range/Units 10:58 12:26 17:57 WBC (3.8-10.6) k/uL RBC (3.80-5.40) m/uL Hgb (11.4-16.0) gm/dL Hct (34.0-46.0) % Plt Count (150-450) k/uL Neutrophils # (1.3-7.7) k/uL Lymphocytes # (1.0-4.8) k/uL Potassium 3.0 L* (3.5-5.1) mmol/L Chloride 108 H (98-107) mmol/L Carbon Dioxide 20 L (22-30) mmol/L BUN 39 H (7-17) mg/dL Creatinine 2.40 H (0.52-1.04) mg/dL Glucose 122 H (74-99) mg/dL POC Glucose (mg/dL) 108 H 102 H (75-99) mg/dL Calcium 7.8 L (8.4-10.2) mg/dL AST 66 H (14-36) U/L ALT 58 H (9-52) U/L Total Protein 4.4 L (6.3-8.2) g/dL Albumin 2.3 L (3.5-5.0) g/dL 04/30/17 05/01/17 05/01/17 Range/Units 19:00 05:37 05:37 WBC 11.5 H (3.8-10.6) k/uL RBC 3.03 L (3.80-5.40) m/uL Hgb 9.6 L (11.4-16.0) gm/dL Hct 28.4 L (34.0-46.0) % Plt Count 117 L (150-450) k/uL Neutrophils # 9.9 H (1.3-7.7) k/uL Lymphocytes # 0.6 L (1.0-4.8) k/uL Potassium 3.4 L 3.3 L (3.5-5.1) mmol/L Chloride 111 H (98-107) mmol/L Carbon Dioxide (22-30) mmol/L BUN 20 H (7-17) mg/dL Creatinine 2.10 H (0.52-1.04) mg/dL Glucose (74-99) mg/dL POC Glucose (mg/dL) (75-99) mg/dL Calcium 8.2 L (8.4-10.2) mg/dL AST 62 H (14-36) U/L ALT 59 H (9-52) U/L Total Protein 4.5 L (6.3-8.2) g/dL Albumin 2.3 L (3.5-5.0) g/dL Microbiology - Last 24 Hours (Table) 04/28/17 21:40 Urine Culture - Final Urine,Catheterized 04/29/17 08:45 Blood Culture - Preliminary Blood No Growth after 24 hours 04/29/17 08:01 Blood Culture - Preliminary Blood No Growth after 24 hours Assessment and Plan Plan: Life-threatening hypokalemia, improving - Continue with replacement, following levels -Continue with telemetry Acute renal failure, unknown baseline creatinine -Status post HD 04/28, 04/29, 04/30 - HD holiday today to look for renal function improvement. - d/w nephro -IV fluids -Avoid additional nephrotoxic agents -Renal ultrasound normal Elevated troponin, likely secondary to acute renal failure -Trend is flat -echo within normal limits -no further evaluation necessary Elevated liver enzymes, likely relating to renal failure versus supplements -Follow CMP -liver ultrasound SIRS criteria - may be due to stress of dehydration - Uirine culture negative, continue abx empirically until down trending. -Chest x-ray appears negative -blood cultures negative for 48 hours. Deep tissue injury coccyx, POA - now with skin sloughing, frequent turns -Frequent turns Diarrhea - C diff negative - add probiotic Severe cachexia and severe protein calorie malnutrition -advance diet as tolerated -dietitian recs Normocytic anemia -iron studies still pending. Debility - Likley needs placement - PT/OT consults pending. Hypercalcemia, resolved Non-anion gap metabolic acidosis,resolved Epistasix, resolved Toxic metabolic encephalopathy, resolved DVT prophylaxis: Heparin Discussed with: Nursing, nephro Anticipated discharge: 2-[address]: Likely will need SNF A total of 35 minutes was spent on the care of this complex patient more than 50 % of the time was spent in counseling and care coordination.
[2017-05-01] MEDS: LACTOBACILLUS ACIDOPH & BULGAR 1 EACH PACKET PO SCH ×2 (09:57→20:29)
[2017-05-01] MEDS: PIPERACILLIN-TAZOBACTAM 3.375 GM in DEXTROSE/WATER 1 50ML.BAG IVPB SCH ×2 (09:57→20:29)
[2017-05-01] MEDS: PANTOPRAZOLE 40 MG/10 ML VIAL IV SCH ×2 (09:58→10:11)
[2017-05-01] MEDS: AMMONIUM LACTATE 12% LOTION 225 GM BTL TOPICAL SCH ×2 (09:58→20:29)
[2017-05-01 11:55] LABS: Glucose,Whole Blood 111 mg/dL (75-99)
[2017-05-01 11:56] LABS: Iron Saturation 12.64 (12.00-45.00)
--- NOTE | 2017-05-01 14:28 | P.PN ---
Subjective Progress Note Date: 05/01/17 This is a 82-year-old female patient, who was brought in to the emergency department by her son after she was found unresponsive at home. Apparently the patient's in February 2017. Since that she's been doing poorly. She hasn't been taking care of herself nor she has been eating appropriately. Her son lives in [facility] came in to check on her and he found unresponsive and he brought her to the hospital. The patient was extremely dehydrated, cachectic,/on bone, with a deep tissue injury and her coccyx probably from laying around and she has chronic ulceration of lower extremities bilaterally. The patient was unresponsive. The patient was hypothermic with a temperature of 92. She had severe metabolic derangement and based on the labs a sodium 140 for a potassium of 2 bicarb of less than 5 BUN of 94 creatinine 5.1 a calcium level of 13.6, she does severely acidotic with a pH of 7.09 with a pCO2 of 20 and pO2 of 160. She was not making any urine output. Lactic acid level is at 1.8. The patient remained actually taking well with a pulse ox of 8% to liters of oxygen nasal cannula. CAT scan of the brain was negative and showed mild atrophy and the chest x-ray showed no acute cardio pulmonary process. The [place] catheter was inserted. A total of 3 80 mL was obtained initially and since then she has produced only 35 mL by mouth overnight the dialysis catheter was inserted and the patient was dialyzed to correct her severe metabolic derangement. She was also warmed externally. She received potassium in order of 60 mEq in her follow-up electrodes from this morning show a potassium up to 2.2, a bicarb up to 17 with anion gap of 11. Creatinine is down to 2.4. Her calcium level is down to 10.5. Right second isn 't elevated at 24. She is more awake yet she is still very somnolent and lethargic. She is and I unable to hold a conversation yet. She is currently on a bicarb drip which is running at 1 50 mL an hour of D5 with 3 A and she has received more than 3 to IV fluids. Troponins were negative with a troponin maxed at 0.053. CPKs at 532. No nausea. No vomiting. No emesis. No bleeding rectally. No hematemesis. Neurologic exam is nonfocal. The patient is moving all 4 extremities without any limitation. On 04/30/2017 the patient is being seen in the follow-up in the intensive care unit. The patient was aggressively resuscitated IV fluids and currently she is well resuscitated. Her renal function continues to improve in the creatinine is down to 2.9. She is producing adequate urine output at this point. Electrodes imbalance is also being managed. The patient is being replaced with potassium and magnesium in the most recent potassium level is up to 2.4 and a phosphorus at 1.5 and magnesium is at 1.7. The metabolic acidosis completely recovered and the patient's bicarb level is up to 28 and anion gap is at 6. She is moving all 4 extremities without any limitation. No altered mentation. She is also requesting for her breakfast to be provided to her. Significant drop in hemoglobin from 16 down to 8.9. This is essentially dilutional. Note that the patient also had some epistaxis yesterday after an attempted NG tube insertion. Currently she is not having any acute bleeding. On today's evaluation of 05/01/2017 the patient got moved out of the intensive care unit and the patient is currently on a medical floor. The patient is alert and awake and much more comfortable. She is well resuscitated. She is well-hydrated. She is having occasional abdominal cramping and diarrhea. No nausea or vomiting. No chest pain or shortness of breath. She is weak. She has however much more conscious and alert. There has been significant improvement in her electrolyte balance as all of the electrodes have been replenished and the patient's renal function continues to improve. She feels that she is able to go back home and this is quite docile and she will need further pediatric social worker consultation for discharge planning. Stool for C. diff was negative. Diarrhea has been gradually subsiding. Her current potassium to 3.3. Renal function is gradually improving and is down to 2.1 from a baseline of 5.1. The metabolic acidosis completely recovered in addition. Objective - Vital Signs Vital signs: Vital Signs Temp 98.7 F 05/01/17 08:00 Pulse 108 H 05/01/17 11:45 Resp 16 05/01/17 11:45 BP 141/77 05/01/17 11:45 Pulse Ox 98 05/01/17 11:45 Intake & Output 04/30/17 05/01/1717 18:59 06:59 18:59 Intake Total 1270.0 950 Output Total 830 Balance 440.0 950 Weight 45.5 kg Intake: IV 900 950 Piperacillin-Tazobactam 3 50 .375 gm In Dextrose/Water 1 50ml.bag @ 12.5 mls/hr IVPB Q12HR ALEJANDRA Rx#: [id number] Potassium Chloride 10 meq 200 Lidocaine 2% Inj 10 mg In Sodium Chloride 0.9% 100 ml @ 100 mls/hr IV Q1HR ALEJANDRA Rx#:[id number] Sodium Chloride 0.9% 1, 900 700 000 ml @ 75 mls/hr IV . [id number] ALEJANDRA Rx#:[id number] Intake, IV Titration 150.0 Amount Magnesium Sulfate-D5w Pmx 100 1 gm In Dextrose/Water 1 100ml.bag @ 100 mls/hr IVPB Q1H ALEJANDRA Rx#: [id number] Piperacillin-Tazobactam 3 50.0 .375 gm In Dextrose/Water 1 50ml.bag @ 12.5 mls/hr IVPB Q12HR ALEJANDRA Rx#: [id number] Oral 220 Output: Urine 830 Other: Voiding Method Indwelling Catheter Diaper Diaper # Voids 2 1 # Bowel Movements 1 1 - Exam This is a very thin cachectic female patient who carries a body mass index of 16.3. She weighs a total of 40 kg. She is is awake and she is following commands and answering questions appropriately. Speech is improved and normalized. Head is atraumatic normocephalic. There is extensive temporal wasting. Neck is supple there is no JVDs no goiter or neck masses. Mucous membranes are extremely dry. No thrush. Lungs sounds are diminished bilaterally. Her chest and rib cage is very much exposed due to her severe muscle atrophy in absence of any subcutaneous fat. Breath sounds are equal and symmetrical. No wheezes or rhonchi.Cardiac exam revealed the PMI to be normally situated and sized. The rhythm was regular and no extrasystoles were noted during several minutes of auscultation. The first and second heart sounds were normal and physiologic splitting of the second heart sound was noted. There were no murmurs, rubs, clicks, or gallops. The patient had a systolic ejection murmur grade 2/6 systolic the precordium.Abdominal exam revealed normal bowel sounds. The abdomen was soft, non-tender, and without masses, organomegaly, or appreciable enlargement of the abdominal aorta. Extremities show chronic ulceration lower extremities bilaterally at that is no open wounds or sores. Lungs are diminished bilaterally. Coccyx show a deep tissue injury which is unstageable at this point. There is erythema on the surface with some limited necrosis at the edges. The area is quite large probably in order of 7 x 5 cm in size. Neurologically, awake and alert and conversing and there are no focal neurological deficits. - Labs CBC & Chem 7: 05/01/17 05:37 05/01/17 13:25 Labs: Abnormal Lab Results - Last 24 Hours (Table) 04/30/17 04/30/17 05/01/17 Range/Units 17:57 19:00 05:37 WBC 11.5 H (3.8-10.6) k/uL RBC 3.03 L (3.80-5.40) m/uL Hgb 9.6 L (11.4-16.0) gm/dL Hct 28.4 L (34.0-46.0) % Plt Count 117 L (150-450) k/uL Neutrophils # 9.9 H (1.3-7.7) k/uL Lymphocytes # 0.6 L (1.0-4.8) k/uL Potassium 3.4 L (3.5-5.1) mmol/L Chloride (98-107) mmol/L BUN (7-17) mg/dL Creatinine (0.52-1.04) mg/dL POC Glucose (mg/dL) 102 H (75-99) mg/dL Calcium (8.4-10.2) mg/dL AST (14-36) U/L ALT (9-52) U/L Total Protein (6.3-8.2) g/dL Albumin (3.5-5.0) g/dL 05/01/17 05/01/17 Range/Units 05:37 11:50 WBC (3.8-10.6) k/uL RBC (3.80-5.40) m/uL Hgb (11.4-16.0) gm/dL Hct (34.0-46.0) % Plt Count (150-450) k/uL Neutrophils # (1.3-7.7) k/uL Lymphocytes # (1.0-4.8) k/uL Potassium 3.3 L (3.5-5.1) mmol/L Chloride 111 H (98-107) mmol/L BUN 20 H (7-17) mg/dL Creatinine 2.10 H (0.52-1.04) mg/dL POC Glucose (mg/dL) 111 H (75-99) mg/dL Calcium 8.2 L (8.4-10.2) mg/dL AST 62 H (14-36) U/L ALT 59 H (9-52) U/L Total Protein 4.5 L (6.3-8.2) g/dL Albumin 2.3 L (3.5-5.0) g/dL Microbiology - Last 24 Hours (Table) 04/29/17 08:45 Blood Culture - Preliminary Blood No Growth after 48 hours 04/29/17 08:01 Blood Culture - Preliminary Blood No Growth after 48 hours 04/28/17 21:40 Urine Culture - Final Urine,Catheterized Assessment and Plan Plan: Assessment 1 acute kidney injury in setting of severe dehydration and intravascular volume depletion with major metabolic disturbances. The acute kidney injury is improving and the creatinine is around 2.1 and the electrodes have been noted admission. This is likely an ATN related to hemodynamic instability and diminished oral intake. Doubt any chronic form of renal failure. The patient underwent third dialysis treatment on 04/30/2017 and no plans for further dialysis. 2 severe hypokalemia, replace and the potassium level is up to 3.3 3 severe non-anion gap metabolic acidosis, being corrected with dialysis, recovered 4 acute hypercalcemia probably related to intravascular volume depletion. 5 rhabdomyolysis, mild 6 hypothermia, corrected 7 severe cachexia and malnutrition and anorexia 8 leukocytosis, improved 9 suspected urine tract infection 10 Deep tissue injury to the coccyx 11 encephalopathy secondary to above 12 significant drop in hemoglobin, dilutional and there is no evidence of any external bleeding other than some limited epistaxis. The hemoglobin is stable for now. Plan The patient has already moved out of the intensive care unit. Renal function is improving. Electrodes have been replenished. She has had fluid resuscitation. She is increasing her oral intake. Neurologically she is much more alert and awake. Discharge planning is in progress. Social work consultation. Likely needs placement. The os is currently on hold. Avoid nephrotoxic agents. Monitor with nephrology. We'll follow.
[2017-05-01 18:08] LABS: Glucose,Whole Blood 138 mg/dL (75-99)
[2017-05-02 00:01] LABS: Glucose,Whole Blood 130 mg/dL (75-99)
[2017-05-02 05:58] LABS: Glucose,Whole Blood 118 mg/dL (75-99)
[2017-05-02] MEDS: SODIUM CHLORIDE 0.9% 1,000 ML IV SCH ×2 (06:50→17:49)
[2017-05-02 07:33] LABS: INR 1.1 (<1.2); Partial Thromboplastin Time 25.8 sec (22.0-30.0); Prothrombin Time 10.6 sec (9.0-12.0)
[2017-05-02 07:36] LABS: Basophils % (A) 0 %; CHCM 33.8; Eosinophils # (A) 0.1 k/uL (0-0.7); Eosinophils % (A) 1 %; HDW 3.05; HGB 9.4 gm/dL (11.4-16.0); Luc # (Auto) 0.17; Luc % (Auto) 1; Lymphocytes # (A) 0.8 k/uL (1.0-4.8); Lymphocytes % (A) 6 %; MCH 32.1 pg (25.0-35.0); MCHC 33.6 g/dL (31.0-37.0); MCV 95.6 fL (80.0-100.0); Mean Platelet Volume 7.5; Monocytes # (A) 0.7 k/uL (0-1.0); Monocytes % (A) 6 %; Neutrophils # (A) 11.1 k/uL (1.3-7.7); Neutrophils % (A) 86 %; RBC 2.93 m/uL (3.80-5.40); RDW 13.8 % (11.5-15.5); WBC 12.9 k/uL (3.8-10.6); WBC (Perox) 13.06
[2017-05-02 07:40] LABS: Calcium 8.5 mg/dL (8.4-10.2); Magnesium 1.7 mg/dL (1.6-2.3); Phosphorus 2.6 mg/dL (2.5-4.5); Potassium 3.5 mmol/L (3.5-5.1); Total Bilirubin 0.3 mg/dL (0.2-1.3); Total Protein 4.6 g/dL (6.3-8.2)
[2017-05-02] MEDS ORDERED: POTASSIUM CHLORIDE ER 20 MEQ TAB.ER PO STA (08:00)
[2017-05-02] MEDS ORDERED: SODIUM FERRIC GLUCONAT-SUCROSE 125 MG in SODIUM CHLORIDE 0.9% 100 ML IVPB SCH (09:00)
[2017-05-02] MEDS: HEPARIN SODIUM,PORCINE 5,000 UNIT/ML 1 ML VIAL SQ SCH ×3 (09:12→23:23)
[2017-05-02] MEDS: LACTOBACILLUS ACIDOPH & BULGAR 1 EACH PACKET PO SCH ×2 (09:13→21:06)
[2017-05-02] MEDS: PANTOPRAZOLE 40 MG/10 ML VIAL IV SCH (09:13)
[2017-05-02] MEDS: AMMONIUM LACTATE 12% LOTION 225 GM BTL TOPICAL SCH ×2 (09:13→21:06)
[2017-05-02] MEDS: PIPERACILLIN-TAZOBACTAM 3.375 GM in DEXTROSE/WATER 1 50ML.BAG IVPB SCH ×2 (09:15→21:06)
--- NOTE | 2017-05-02 09:18 | US ---
EXAMINATION TYPE: US liver DATE OF EXAM: 05/02/2017 COMPARISON: NONE CLINICAL HISTORY: 82-year-old female elevated liver enzymes. TECHNIQUE: Multiple sonographic images of the right upper quadrant are obtained. FINDINGS: Liver Length: 13.4 cm Gallbladder Wall: 0.2 cm CBD: 0.4 cm Right Kidney: 12.3 x 5.0 x 6.2 cm Pancreas: visualized portions appear wnl Liver: Normal homogeneous echotexture. There is a lobulated cyst measuring 2.4 cm anteriorly. Gallbladder: no evidence of stones. No wall thickening or abnormal distention. Evidence for sonographic Combs's sign: no CBD: wnl Right Kidney: Slightly echogenic appearance to the cortex. No hydronephrosis. There is a right pleural effusion and mild perihepatic ascites. IMPRESSION: 1. Right pleural effusion and mild perihepatic ascites. 2. Increased cortical echogenicity. Nonspecific finding which can be seen in the setting of acute/chr onic glomerulonephritis, nephrosclerosis, and ATN. Clinically correlate. 3. Lobulated 2.4 cm cyst in the anterior liver.
--- NOTE | 2017-05-02 09:39 | P.PN ---
Subjective Patient is seen in follow-up for acute kidney injury. Unclear as to what her baseline renal function is. Creatinine peaked at 5.1 this admission and patient was quite uremic. She was started on hemodialysis and has undergone 3 treatments so far - last treatment on 04/30. Her urine output was in the range of 40-60 mL an hour - Aguirre is out and she is incontinent. She is awake and alert this morning. She is tolerating oral intake. Denies chest pain or shortness of breath. She has been requiring straight catheterization for urinary retention. Vital signs are stable. General: The patient appeared well nourished and normally developed. HEENT: Head exam is unremarkable. Neck is without jugular venous distension. LUNGS: Lungs are clear to auscultation and percussion. Breath sounds decreased. HEART: Rate and Rhythm are regular. First and second heart sounds normal. No murmurs, rubs or gallops. ABDOMEN: Abdominal exam reveals normal bowel sounds. Non-tender and non- distended. No evidence of peritonitis. EXTREMITITES: No clubbing, cyanosis, or edema. Objective - Vital Signs Vital signs: Vital Signs Temp 98.8 F 05/02/17 08:00 Pulse 110 H 05/02/17 08:00 Resp 18 05/02/17 04:00 BP 141/75 05/02/17 08:00 Pulse Ox 97 05/02/17 08:00 Intake & Output 05/01/17 05/02/17 05/02/17 18:59 06:59 18:59 Intake Total 650 Balance 650 Weight 50.5 kg Intake: IV 650 Piperacillin-Tazobactam 3 50 .375 gm In Dextrose/Water 1 50ml.bag @ 12.5 mls/hr IVPB Q12HR ALEJANDRA Rx#: [id number] Sodium Chloride 0.9% 1, 600 000 ml @ 75 mls/hr IV . [id number] ALEJANDRA Rx#:[id number] Other: Voiding Method Diaper Diaper # Voids 2 6 # Bowel Movements 1 - Labs CBC & Chem 7: 05/02/17 06:48 05/02/17 06:45 Labs: Abnormal Lab Results - Last 24 Hours (Table) 04/29/17 04/30/17 05/01/17 Range/Units 14:22 10:26 05:37 WBC (3.8-10.6) k/uL RBC (3.80-5.40) m/uL Hgb (11.4-16.0) gm/dL Hct (34.0-46.0) % Plt Count (150-450) k/uL Neutrophils # (1.3-7.7) k/uL Lymphocytes # (1.0-4.8) k/uL Chloride (98-107) mmol/L Carbon Dioxide (22-30) mmol/L BUN (7-17) mg/dL Creatinine (0.52-1.04) mg/dL POC Glucose (mg/dL) (75-99) mg/dL Iron 31 L 22 L (50-170) ug/dL TIBC 178 L 174 L (228-460) ug/dL Ferritin 349.3 H 323.0 H (10.0-291.0) ng/mL AST (14-36) U/L Total Protein (6.3-8.2) g/dL Total Protein (PEP) 4.8 L (6.2-8.2) g/dL Albumin (3.5-5.0) g/dL Vitamin D 25-Hydroxy 26.6 L (30.0-100.0) ng/mL Stool Occult Blood (Negative) 05/01/17 05/01/17 05/01/17 Range/Units 11:50 18:05 23:57 WBC (3.8-10.6) k/uL RBC (3.80-5.40) m/uL Hgb (11.4-16.0) gm/dL Hct (34.0-46.0) % Plt Count (150-450) k/uL Neutrophils # (1.3-7.7) k/uL Lymphocytes # (1.0-4.8) k/uL Chloride (98-107) mmol/L Carbon Dioxide (22-30) mmol/L BUN (7-17) mg/dL Creatinine (0.52-1.04) mg/dL POC Glucose (mg/dL) 111 H 138 H 130 H (75-99) mg/dL Iron (50-170) ug/dL TIBC (228-460) ug/dL Ferritin (10.0-291.0) ng/mL AST (14-36) U/L Total Protein (6.3-8.2) g/dL Total Protein (PEP) (6.2-8.2) g/dL Albumin (3.5-5.0) g/dL Vitamin D 25-Hydroxy (30.0-100.0) ng/mL Stool Occult Blood (Negative) 05/02/17 05/02/17 05/02/17 Range/Units 04:26 05:52 06:45 WBC (3.8-10.6) k/uL RBC (3.80-5.40) m/uL Hgb (11.4-16.0) gm/dL Hct (34.0-46.0) % Plt Count (150-450) k/uL Neutrophils # (1.3-7.7) k/uL Lymphocytes # (1.0-4.8) k/uL Chloride 113 H (98-107) mmol/L Carbon Dioxide 21 L (22-30) mmol/L BUN 30 H (7-17) mg/dL Creatinine 3.15 H (0.52-1.04) mg/dL POC Glucose (mg/dL) 118 H (75-99) mg/dL Iron (50-170) ug/dL TIBC (228-460) ug/dL Ferritin (10.0-291.0) ng/mL AST 42 H (14-36) U/L Total Protein 4.6 L (6.3-8.2) g/dL Total Protein (PEP) (6.2-8.2) g/dL Albumin 2.3 L (3.5-5.0) g/dL Vitamin D 25-Hydroxy (30.0-100.0) ng/mL Stool Occult Blood Positive H (Negative) 05/02/17 Range/Units 06:48 WBC 12.9 H (3.8-10.6) k/uL RBC 2.93 L (3.80-5.40) m/uL Hgb 9.4 L (11.4-16.0) gm/dL Hct 28.0 L (34.0-46.0) % Plt Count 109 L (150-450) k/uL Neutrophils # 11.1 H (1.3-7.7) k/uL Lymphocytes # 0.8 L (1.0-4.8) k/uL Chloride (98-107) mmol/L Carbon Dioxide (22-30) mmol/L BUN (7-17) mg/dL Creatinine (0.52-1.04) mg/dL POC Glucose (mg/dL) (75-99) mg/dL Iron (50-170) ug/dL TIBC (228-460) ug/dL Ferritin (10.0-291.0) ng/mL AST (14-36) U/L Total Protein (6.3-8.2) g/dL Total Protein (PEP) (6.2-8.2) g/dL Albumin (3.5-5.0) g/dL Vitamin D 25-Hydroxy (30.0-100.0) ng/mL Stool Occult Blood (Negative) Microbiology - Last 24 Hours (Table) 04/29/17 08:45 Blood Culture - Preliminary Blood No Growth after 48 hours 04/29/17 08:01 Blood Culture - Preliminary Blood No Growth after 48 hours Assessment and Plan Plan: Assessment: #1. Oliguric - now nonoliguric - acute kidney injury secondary to hypercalcemia -induced ATN further worsened with hemodynamic instability and poor oral intake. Rule out interstitial nephritis - urine eosinophils negative. Unclear as to what her baseline renal function is. Creatinine was 4.8 on admission and peaked at 5.1. No evidence of hydronephrosis. She underwent third treatment of hemodialysis 04/30. Creatinine today is elevated at 3.15. #2. Severe hypokalemia from poor oral intake. Status post replacement. Magnesium replete. Improved. #3. Severe hypophosphatemia, again from poor nutritional intake. Status post replacement. Improved. #4. Severe metabolic acidosis secondary to acute kidney injury. Improved postdialysis. #5. Hypercalcemia secondary to supplementation as well as severe intravascular volume depletion. Rule out primary hyperparathyroidism, MM, vitamin D toxicity. Also possible underlying malignancy. Patient has not seen a physician for several years. Resolved. Vit D 26, PTH 48. #6. Anemia. Iron deficiency noted. No evidence of active bleeding. #7. Urinary retention. Plan: I will hold hemodialysis today and monitor renal function for recovery. Continue with potassium replacement - 40 meq today. Continue to monitor renal function and urine output - insert aguirre catheter. Avoid nephrotoxic agents and hypotensive episodes. Follow-up 125 vitamin D3, electrophoresis studies and immunofixation. Ferrlicit 125 mg x 3 doses - first dose today. Decrease normal saline rate to 75 mL an hour. Encouraged oral intake. Repeat electrolytes in AM.
--- NOTE | 2017-05-02 09:56 | CONS ---
DATE OF CONSULTATION: 05/02/2017 This is an 82-year-old female, she has been admitted to intensive care unit. I was consulted for urgent placement of dialysis catheter. She came with acute renal failure with metabolic acidosis and severe hypokalemia. Patient also had a high leukocytosis and high troponin. Patient was seen in the Intensive care Unit. She was very restless. Neck is supple. Chest is clear to auscultation. Abdomen is soft, nontender. Femoral pulses were palpable. PLAN: Placement of the dialysis catheter. The risks and complications discussed. MMODL / IJN: [id number] / MTDD
--- NOTE | 2017-05-02 11:32 | P.PN ---
Subjective Progress Note Date: 05/02/17 Principal diagnosis: Acute kidney injury, intravascular volume depletion, dehydration, and major metabolic disturbances. Including hypokalemia, severe non-anion gap metabolic acidosis, and hypercalcemia. This is a 82-year-old female patient, who was brought in to the emergency department by her son after she was found unresponsive at home. Apparently the patient's in February 2017. Since that she's been doing poorly. She hasn't been taking care of herself nor she has been eating appropriately. Her son lives in [facility] [place] came in to check on her and he found unresponsive and he brought her to the hospital. The patient was extremely dehydrated, cachectic,/on bone, with a deep tissue injury and her coccyx probably from laying around and she has chronic ulceration of lower extremities bilaterally. The patient was unresponsive. The patient was hypothermic with a temperature of 92. She had severe metabolic derangement and based on the labs a sodium 140 for a potassium of 2 bicarb of less than 5 BUN of 94 creatinine 5.1 a calcium level of 13.6, she does severely acidotic with a pH of 7.09 with a pCO2 of 20 and pO2 of 160. She was not making any urine output. Lactic acid level is at 1.8. The patient remained actually taking well with a pulse ox of 8% to liters of oxygen nasal cannula. CAT scan of the brain was negative and showed mild atrophy and the chest x-ray showed no acute cardio pulmonary process. The Trujillo catheter was inserted. A total of 3 80 mL was obtained initially and since then she has produced only 35 mL by mouth overnight the dialysis catheter was inserted and the patient was dialyzed to correct her severe metabolic derangement. She was also warmed externally. She received potassium in order of 60 mEq in her follow-up electrodes from this morning show a potassium up to 2.2, a bicarb up to 17 with anion gap of 11. Creatinine is down to 2.4. Her calcium level is down to 10.5. Right second isn 't elevated at 24. She is more awake yet she is still very somnolent and lethargic. She is and I unable to hold a conversation yet. She is currently on a bicarb drip which is running at 1 50 mL an hour of D5 with 3 A and she has received more than 3 to IV fluids. Troponins were negative with a troponin maxed at 0.053. CPKs at 532. No nausea. No vomiting. No emesis. No bleeding rectally. No hematemesis. Neurologic exam is nonfocal. The patient is moving all 4 extremities without any limitation. On 04/30/2017 the patient is being seen in the follow-up in the intensive care unit. The patient was aggressively resuscitated IV fluids and currently she is well resuscitated. Her renal function continues to improve in the creatinine is down to 2.9. She is producing adequate urine output at this point. Electrodes imbalance is also being managed. The patient is being replaced with potassium and magnesium in the most recent potassium level is up to 2.4 and a phosphorus at 1.5 and magnesium is at 1.7. The metabolic acidosis completely recovered and the patient's bicarb level is up to 28 and anion gap is at 6. She is moving all 4 extremities without any limitation. No altered mentation. She is also requesting for her breakfast to be provided to her. Significant drop in hemoglobin from 16 down to 8.9. This is essentially dilutional. Note that the patient also had some epistaxis yesterday after an attempted NG tube insertion. Currently she is not having any acute bleeding. On today's evaluation of 05/01/2017 the patient got moved out of the intensive care unit and the patient is currently on a medical floor. The patient is alert and awake and much more comfortable. She is well resuscitated. She is well-hydrated. She is having occasional abdominal cramping and diarrhea. No nausea or vomiting. No chest pain or shortness of breath. She is weak. She has however much more conscious and alert. There has been significant improvement in her electrolyte balance as all of the electrodes have been replenished and the patient's renal function continues to improve. She feels that she is able to go back home and this is quite docile and she will need further social services manager consultation for discharge planning. Stool for C. diff was negative. Diarrhea has been gradually subsiding. Her current potassium to 3.3. Renal function is gradually improving and is down to 2.1 from a baseline of 5.1. The metabolic acidosis completely recovered in addition. On 05/02/2017, patient was seen on selective, she seems to be doing much better , well-hydrated, asymptomatic, denies any nausea vomiting abdominal cramps, denies any chest pain, even her weakness seems to be a bit improved. Workup for C. difficile colitis was negative. Labs were reviewed CBC showed WBC count of 12.9 hemoglobin of 9.4 electrolytes are normal BUN is 30 creatinine is 3.15. This is much better comparing to presenting creatinine of 5.10 on admission. Objective - Vital Signs Vital signs: Vital Signs Temp 98.8 F 05/02/17 08:00 Pulse 110 H 05/02/17 08:00 Resp 18 05/02/17 04:00 BP 141/75 05/02/17 08:00 Pulse Ox 97 05/02/17 08:00 Intake & Output 05/01/17 05/02/17 05/02/17 18:59 06:59 18:59 Intake Total 650 Balance 650 Weight 50.5 kg Intake: IV 650 Piperacillin-Tazobactam 3 50 .375 gm In Dextrose/Water 1 50ml.bag @ 12.5 mls/hr IVPB Q12HR [facility] Rx#: [id number] Sodium Chloride 0.9% 1, 600 000 ml @ 75 mls/hr IV . [id number] [facility] Rx#:[id number] Other: Voiding Method Diaper Diaper # Voids 2 6 # Bowel Movements 1 - Exam Physical Exam: Revealed an 82-year-old female, cachectic,, awake and in no form of respiratory distress. Head: Normocephalic, atraumatic, temporal wasting was noted, HEENT:[Neck is supple.] [No neck masses.] [No thyromegaly.] [No JVD.] Chest: [Clear throughout, no crackles, no rhonchi, no wheezes.] Cardiac Exam: [Normal S1 and S2, no S3 gallop, 2/6 systolic murmur throughout the precordium.] Abdomen: [Soft, nontender, no megaly, no rebound, no guarding, normal bowel sounds.] Extremities: [No clubbing, no edema, no cyanosis.] Neurological Exam: [No focal neurologic deficit.] Muscular skeletal: No limitations in range of motion, adequate muscle strength bilaterally symmetrical. Psychiatric: Normal mood and affect, and normal mental status examination. Skin: Erythema and necrosis noted at the coccygeal area, measuring 75 cm nonsustainable. - Labs CBC & Chem 7: 05/02/17 06:48 05/02/17 06:45 Labs: Abnormal Lab Results - Last 24 Hours (Table) 04/29/17 04/30/17 05/01/17 Range/Units 14:22 10:26 05:37 WBC (3.8-10.6) k/uL RBC (3.80-5.40) m/uL Hgb (11.4-16.0) gm/dL Hct (34.0-46.0) % Plt Count (150-450) k/uL Neutrophils # (1.3-7.7) k/uL Lymphocytes # (1.0-4.8) k/uL Chloride (98-107) mmol/L Carbon Dioxide (22-30) mmol/L BUN (7-17) mg/dL Creatinine (0.52-1.04) mg/dL POC Glucose (mg/dL) (75-99) mg/dL Iron 31 L 22 L (50-170) ug/dL TIBC 178 L 174 L (228-460) ug/dL Ferritin 349.3 H 323.0 H (10.0-291.0) ng/mL AST (14-36) U/L Total Protein (6.3-8.2) g/dL Total Protein (PEP) 4.8 L (6.2-8.2) g/dL Albumin (3.5-5.0) g/dL Vitamin D 25-Hydroxy 26.6 L (30.0-100.0) ng/mL Stool Occult Blood (Negative) 05/01/17 05/01/17 05/01/17 Range/Units 11:50 18:05 23:57 WBC (3.8-10.6) k/uL RBC (3.80-5.40) m/uL Hgb (11.4-16.0) gm/dL Hct (34.0-46.0) % Plt Count (150-450) k/uL Neutrophils # (1.3-7.7) k/uL Lymphocytes # (1.0-4.8) k/uL Chloride (98-107) mmol/L Carbon Dioxide (22-30) mmol/L BUN (7-17) mg/dL Creatinine (0.52-1.04) mg/dL POC Glucose (mg/dL) 111 H 138 H 130 H (75-99) mg/dL Iron (50-170) ug/dL TIBC (228-460) ug/dL Ferritin (10.0-291.0) ng/mL AST (14-36) U/L Total Protein (6.3-8.2) g/dL Total Protein (PEP) (6.2-8.2) g/dL Albumin (3.5-5.0) g/dL Vitamin D 25-Hydroxy (30.0-100.0) ng/mL Stool Occult Blood (Negative) 05/02/17 05/02/17 05/02/17 Range/Units 04:26 05:52 06:45 WBC (3.8-10.6) k/uL RBC (3.80-5.40) m/uL Hgb (11.4-16.0) gm/dL Hct (34.0-46.0) % Plt Count (150-450) k/uL Neutrophils # (1.3-7.7) k/uL Lymphocytes # (1.0-4.8) k/uL Chloride 113 H (98-107) mmol/L Carbon Dioxide 21 L (22-30) mmol/L BUN 30 H (7-17) mg/dL Creatinine 3.15 H (0.52-1.04) mg/dL POC Glucose (mg/dL) 118 H (75-99) mg/dL Iron (50-170) ug/dL TIBC (228-460) ug/dL Ferritin (10.0-291.0) ng/mL AST 42 H (14-36) U/L Total Protein 4.6 L (6.3-8.2) g/dL Total Protein (PEP) (6.2-8.2) g/dL Albumin 2.3 L (3.5-5.0) g/dL Vitamin D 25-Hydroxy (30.0-100.0) ng/mL Stool Occult Blood Positive H (Negative) 05/02/17 Range/Units 06:48 WBC 12.9 H (3.8-10.6) k/uL RBC 2.93 L (3.80-5.40) m/uL Hgb 9.4 L (11.4-16.0) gm/dL Hct 28.0 L (34.0-46.0) % Plt Count 109 L (150-450) k/uL Neutrophils # 11.1 H (1.3-7.7) k/uL Lymphocytes # 0.8 L (1.0-4.8) k/uL Chloride (98-107) mmol/L Carbon Dioxide (22-30) mmol/L BUN (7-17) mg/dL Creatinine (0.52-1.04) mg/dL POC Glucose (mg/dL) (75-99) mg/dL Iron (50-170) ug/dL TIBC (228-460) ug/dL Ferritin (10.0-291.0) ng/mL AST (14-36) U/L Total Protein (6.3-8.2) g/dL Total Protein (PEP) (6.2-8.2) g/dL Albumin (3.5-5.0) g/dL Vitamin D 25-Hydroxy (30.0-100.0) ng/mL Stool Occult Blood (Negative) Microbiology - Last 24 Hours (Table) 04/29/17 08:45 Blood Culture - Preliminary Blood No Growth after 72 hours 04/29/17 08:01 Blood Culture - Preliminary Blood No Growth after 72 hours Assessment and Plan Plan: 1 acute kidney injury in setting of severe dehydration and intravascular volume depletion with major metabolic disturbances. The acute kidney injury is improving and the creatinine is around 2.1 and the electrodes have been noted admission. This is likely an ATN related to hemodynamic instability and diminished oral intake. Doubt any chronic form of renal failure. The patient underwent third dialysis treatment on 04/30/2017 and no plans for further dialysis. 2 severe hypokalemia, replace and the potassium level is up to 3.5 3 severe non-anion gap metabolic acidosis, being corrected with dialysis, recovered 4 acute hypercalcemia probably related to intravascular volume depletion. 5 rhabdomyolysis, mild 6 hypothermia, corrected 7 severe cachexia and malnutrition and anorexia, severe protein calorie malnutrition 8 leukocytosis, improved 9 suspected urine tract infection 10 Deep tissue injury to the coccyx 11 encephalopathy secondary to above 12 significant drop in hemoglobin, dilutional and there is no evidence of any external bleeding other than some limited epistaxis. The hemoglobin is stable for now. Recommendation: Continue present treatment plan as outlined by nephrology regarding her renal failure, discharge planning is in progress, patient may benefit from referral to rehab. Patient will have to be cleared by nephrology before final discharge planning. We'll continue to follow. Time with Patient: Less than 30
[2017-05-02 11:34] LABS: Glucose,Whole Blood 141 mg/dL (75-99)
[2017-05-02 12:54] LABS: Amorphous Sediment,Urine Rare /hpf; Appearance,Urine Clear (Clear); Bilirubin,Urine Negative (Negative); Glucose,Urine (UA) 3+ (Negative); Ketones,Urine Negative (Negative); Leukocyte Esterase,Urine Negative (Negative); Nitrite,Urine Negative (Negative); Particle Count 1622; Protein,Urine 2+ (Negative); RBC,Urine 2 /hpf (0-5); Specific Gravity,Urine 1.006 (1.001-1.035); UA Billing (MACRO vs. MICRO) MICRO; Urobilinogen,Urine <2.0 mg/dL (<2.0); WBC,Urine 2 /hpf (0-5)
--- NOTE | 2017-05-02 13:48 | P.PN ---
Subjective Progress Note Date: 05/02/17 Principal diagnosis: patient is seen and examined in follow up for SHERLYN, anemia, and electrolytes imbalance 82-year-old female with no significant past medical history presented due to altered mental status was found to have severe electrolyte derangements requiring urgent hemodialysis. Patient seen and examined today she feels better alert oriented to place person and situation denies any chest pain or trouble breathing reports some loose stools dark in color otherwise denies any nausea vomiting trouble breathing or coughing fevers or chills. She is eager to go home and hoping that she will be able to go home once stable. she could not comment on her urine output as she wears diapers due to urinary incontinence Objective - Vital Signs Vital signs: Vital Signs Temp 98.8 F 05/02/17 08:00 Pulse 110 H 05/02/17 08:00 Resp 18 05/02/17 04:00 BP 141/75 05/02/17 08:00 Pulse Ox 97 05/02/17 08:00 Intake & Output 05/01/17 05/02/17 05/02/17 18:59 06:59 18:59 Intake Total 650 450 Balance 650 450 Weight 50.5 kg Intake: IV 650 450 Piperacillin-Tazobactam 3 50 50 .375 gm In Dextrose/Water 1 50ml.bag @ 12.5 mls/hr IVPB Q12HR [facility] Rx#: [id number] Sodium Chloride 0.9% 1, 600 400 000 ml @ 75 mls/hr IV . [id number] [facility] Rx#:[id number] Other: Voiding Method Diaper Diaper # Voids 2 6 # Bowel Movements 1 - Exam Constitutional: vital signs stable, Not in acute distress, pleasant, conversant Lungs: Clear to auscultation bilaterally, normal respiratory effort no use of accessory muscles Cardiovascular: Regular rate and rhythm, no murmurs, no gallops, no rubs, no peripheral edema Gastrointestinal: Soft, no tenderness to palpation, no palpable hepatosplenomegally, bowel sounds positive, no abdominal wall hernias, urinary incontinence wearing diapers Extremities: No digital cyanosis or clubbing or ischemia, peripheral pulses palpable and equal over bilateral radial arteries and dorsalis pedis artery, no calf muscle tenderness Psych: Alert, oriented to place, person and time, flat affect Neuro: Cranial nerves II-XII grossly intact, no focal sensory deficits to touch - Labs CBC & Chem 7: 05/02/17 06:48 05/02/17 06:45 Labs: Abnormal Lab Results - Last 24 Hours (Table) 04/29/17 04/30/17 05/01/17 Range/Units 14:22 10:26 05:37 WBC (3.8-10.6) k/uL RBC (3.80-5.40) m/uL Hgb (11.4-16.0) gm/dL Hct (34.0-46.0) % Plt Count (150-450) k/uL Neutrophils # (1.3-7.7) k/uL Lymphocytes # (1.0-4.8) k/uL Chloride (98-107) mmol/L Carbon Dioxide (22-30) mmol/L BUN (7-17) mg/dL Creatinine (0.52-1.04) mg/dL POC Glucose (mg/dL) (75-99) mg/dL Iron 31 L 22 L (50-170) ug/dL TIBC 178 L 174 L (228-460) ug/dL Ferritin 349.3 H 323.0 H (10.0-291.0) ng/mL AST (14-36) U/L Total Protein (6.3-8.2) g/dL Total Protein (PEP) 4.8 L (6.2-8.2) g/dL Albumin (3.5-5.0) g/dL Vitamin D 25-Hydroxy 26.6 L (30.0-100.0) ng/mL Urine Protein (Negative) Urine Glucose (UA) (Negative) Urine Blood (Negative) Amorphous Sediment (None) /hpf U Random Total Protein (<12) mg/dL Stool Occult Blood (Negative) 05/01/17 05/01/17 05/02/17 Range/Units 18:05 23:57 04:26 WBC (3.8-10.6) k/uL RBC (3.80-5.40) m/uL Hgb (11.4-16.0) gm/dL Hct (34.0-46.0) % Plt Count (150-450) k/uL Neutrophils # (1.3-7.7) k/uL Lymphocytes # (1.0-4.8) k/uL Chloride (98-107) mmol/L Carbon Dioxide (22-30) mmol/L BUN (7-17) mg/dL Creatinine (0.52-1.04) mg/dL POC Glucose (mg/dL) 138 H 130 H (75-99) mg/dL Iron (50-170) ug/dL TIBC (228-460) ug/dL Ferritin (10.0-291.0) ng/mL AST (14-36) U/L Total Protein (6.3-8.2) g/dL Total Protein (PEP) (6.2-8.2) g/dL Albumin (3.5-5.0) g/dL Vitamin D 25-Hydroxy (30.0-100.0) ng/mL Urine Protein (Negative) Urine Glucose (UA) (Negative) Urine Blood (Negative) Amorphous Sediment (None) /hpf U Random Total Protein (<12) mg/dL Stool Occult Blood Positive H (Negative) 05/02/17 05/02/17 05/02/17 Range/Units 05:52 06:45 06:48 WBC 12.9 H (3.8-10.6) k/uL RBC 2.93 L (3.80-5.40) m/uL Hgb 9.4 L (11.4-16.0) gm/dL Hct 28.0 L (34.0-46.0) % Plt Count 109 L (150-450) k/uL Neutrophils # 11.1 H (1.3-7.7) k/uL Lymphocytes # 0.8 L (1.0-4.8) k/uL Chloride 113 H (98-107) mmol/L Carbon Dioxide 21 L (22-30) mmol/L BUN 30 H (7-17) mg/dL Creatinine 3.15 H (0.52-1.04) mg/dL POC Glucose (mg/dL) 118 H (75-99) mg/dL Iron (50-170) ug/dL TIBC (228-460) ug/dL Ferritin (10.0-291.0) ng/mL AST 42 H (14-36) U/L Total Protein 4.6 L (6.3-8.2) g/dL Total Protein (PEP) (6.2-8.2) g/dL Albumin 2.3 L (3.5-5.0) g/dL Vitamin D 25-Hydroxy (30.0-100.0) ng/mL Urine Protein (Negative) Urine Glucose (UA) (Negative) Urine Blood (Negative) Amorphous Sediment (None) /hpf U Random Total Protein (<12) mg/dL Stool Occult Blood (Negative) 05/02/17 05/02/17 05/02/17 Range/Units 11:28 12:25 12:25 WBC (3.8-10.6) k/uL RBC (3.80-5.40) m/uL Hgb (11.4-16.0) gm/dL Hct (34.0-46.0) % Plt Count (150-450) k/uL Neutrophils # (1.3-7.7) k/uL Lymphocytes # (1.0-4.8) k/uL Chloride (98-107) mmol/L Carbon Dioxide (22-30) mmol/L BUN (7-17) mg/dL Creatinine (0.52-1.04) mg/dL POC Glucose (mg/dL) 141 H (75-99) mg/dL Iron (50-170) ug/dL TIBC (228-460) ug/dL Ferritin (10.0-291.0) ng/mL AST (14-36) U/L Total Protein (6.3-8.2) g/dL Total Protein (PEP) (6.2-8.2) g/dL Albumin (3.5-5.0) g/dL Vitamin D 25-Hydroxy (30.0-100.0) ng/mL Urine Protein 2+ H (Negative) Urine Glucose (UA) 3+ H (Negative) Urine Blood Small H (Negative) Amorphous Sediment Rare H (None) /hpf U Random Total Protein 100 H (<12) mg/dL Stool Occult Blood (Negative) Microbiology - Last 24 Hours (Table) 04/29/17 08:45 Blood Culture - Preliminary Blood No Growth after 72 hours 04/29/17 08:01 Blood Culture - Preliminary Blood No Growth after 72 hours Assessment and Plan (1) Acute renal failure Narrative/Plan: possibly secondary to dehydration and patient taking multiple supplements at home Patient required urgent dialysis due to uremia now improving Nephrology is following holding off hemodialysis today to monitor renal function and clinical progression pending further recommendations Status: Acute (2) Acute metabolic encephalopathy Narrative/Plan: due to severe metabolic derangements and uremia Now resolved postdialysis Status: Resolved (3) Diarrhea Narrative/Plan: patient reports loose bowel movement dark in color Occult blood testing was positive C. diff negative GI consulted Status: Acute (4) Anemia Narrative/Plan: possible chronic GI bleeding Await GI input Iron replacement IV per nephro Monitor hemoglobin currently stable Status: Chronic (5) Debility Narrative/Plan: due to advanced age and possible underlying dementia Physical therapy evaluation possibly patient will require placement at rehab Status: Acute (6) Hypercalcemia Status: Resolved (7) Hypokalemia Status: Resolved Plan: discharge planning pending nephrology clearance Continue close monitoring of renal function and hemoglobin and urine output GI complaints regarding anemia and positive occult blood testing Hemoglobin electrophoresis rule out underlying multiple myeloma CODE STATUS no code DVT prophylaxis: heparin subcutaneous Discussed with: Patient, RN Anticipated discharge: 48-[address]: subacute rehab
[2017-05-02] MEDS: SODIUM FERRIC GLUCONAT-SUCROSE 125 MG in SODIUM CHLORIDE 0.9% 100 ML IVPB SCH (15:11)
[2017-05-02 17:07] LABS: Glucose,Whole Blood 119 mg/dL (75-99)
[2017-05-03 01:14] LABS: Glucose,Whole Blood 110 mg/dL (75-99)
[2017-05-03 06:11] LABS: Glucose,Whole Blood 184 mg/dL (75-99)
[2017-05-03] MEDS: SODIUM CHLORIDE 0.9% 1,000 ML IV SCH ×2 (06:15→15:13)
[2017-05-03 07:07] LABS: Partial Thromboplastin Time 26.8 sec (22.0-30.0); Prothrombin Time 10.3 sec (9.0-12.0)
[2017-05-03 07:17] LABS: Basophils % (A) 0 %; CH 31.9; CHCM 31.9; Calcium 8.6 mg/dL (8.4-10.2); Eosinophils # (A) 0.2 k/uL (0-0.7); Eosinophils % (A) 1 %; HCT 31.6 % (34.0-46.0); HDW 2.88; Luc # (Auto) 0.19; Luc % (Auto) 2; Lymphocytes # (A) 0.7 k/uL (1.0-4.8); Lymphocytes % (A) 6 %; MCH 31.9 pg (25.0-35.0); MCHC 31.6 g/dL (31.0-37.0); Macrocytosis Slight; Magnesium 1.6 mg/dL (1.6-2.3); Mean Platelet Volume 7.3; Monocytes # (A) 0.8 k/uL (0-1.0); Monocytes % (A) 7 %; Neutrophils # (A) 9.8 k/uL (1.3-7.7); Neutrophils % (A) 84 %; Phosphorus 2.4 mg/dL (2.5-4.5); RBC 3.13 m/uL (3.80-5.40); RDW 13.6 % (11.5-15.5); Total Bilirubin 0.3 mg/dL (0.2-1.3); Total Protein 4.7 g/dL (6.3-8.2); WBC 11.7 k/uL (3.8-10.6); WBC (Perox) 11.72
[2017-05-03] MEDS: LACTOBACILLUS ACIDOPH & BULGAR 1 EACH PACKET PO SCH ×2 (09:15→21:07)
[2017-05-03] MEDS: PANTOPRAZOLE 40 MG/10 ML VIAL IV SCH (09:16)
[2017-05-03] MEDS: AMMONIUM LACTATE 12% LOTION 225 GM BTL TOPICAL SCH (09:17)
[2017-05-03] MEDS: HEPARIN SODIUM,PORCINE 5,000 UNIT/ML 1 ML VIAL SQ SCH ×2 (09:21→15:11)
[2017-05-03] MEDS: PIPERACILLIN-TAZOBACTAM 3.375 GM in DEXTROSE/WATER 1 50ML.BAG IVPB SCH ×2 (09:22→21:07)
--- NOTE | 2017-05-03 09:56 | P.PN ---
Subjective Patient is seen in follow-up for acute kidney injury. Unclear as to what her baseline renal function is. Creatinine peaked at 5.1 this admission and patient was quite uremic. She was started on hemodialysis and has undergone 3 treatments so far - last treatment on 04/30. Her urine output is documented as over 2-1/2 L in the last 24 hours. She has a Trujillo catheter. She is awake and alert this morning. She is tolerating oral intake. Denies chest pain or shortness of breath. Creatinine is up at 3.43 today. Vital signs are stable. General: The patient appeared well nourished and normally developed. HEENT: Head exam is unremarkable. Neck is without jugular venous distension. LUNGS: Lungs are clear to auscultation and percussion. Breath sounds decreased. HEART: Rate and Rhythm are regular. First and second heart sounds normal. No murmurs, rubs or gallops. ABDOMEN: Abdominal exam reveals normal bowel sounds. Non-tender and non- distended. No evidence of peritonitis. EXTREMITITES: No clubbing, cyanosis, or edema. Chronic skin discoloration noted. Some skin peeling noted as well. No obvious drainage. Objective - Vital Signs Vital signs: Vital Signs Temp 98.9 F 05/03/17 08:00 Pulse 120 H 05/03/17 08:00 Resp 18 05/03/17 08:00 BP 133/70 05/03/17 08:00 Pulse Ox 97 05/03/17 08:00 Intake & Output 05/02/17 05/03/17 05/03/17 18:59 06:59 18:59 Intake Total 930 840 200 Output Total 2800 Balance 930 -1960 200 Weight 50.5 kg 49 kg Intake: IV 450 600 Piperacillin-Tazobactam 3 50 .375 gm In Dextrose/Water 1 50ml.bag @ 12.5 mls/hr IVPB Q12HR [facility] Rx#: [id number] Sodium Chloride 0.9% 1, 400 600 000 ml @ 75 mls/hr IV . [id number] [facility] Rx#:[id number] Oral 480 240 200 Output: Urine 2800 Uretheral (Trujillo) 900 Other: Voiding Method Indwelling Catheter - Labs CBC & Chem 7: 05/03/17 06:36 05/03/17 06:36 Labs: Abnormal Lab Results - Last 24 Hours (Table) 05/02/17 05/02/17 05/02/17 Range/Units 11:28 12:25 12:25 WBC (3.8-10.6) k/uL RBC (3.80-5.40) m/uL Hgb (11.4-16.0) gm/dL Hct (34.0-46.0) % MCV (80.0-100.0) fL Plt Count (150-450) k/uL Neutrophils # (1.3-7.7) k/uL Lymphocytes # (1.0-4.8) k/uL Chloride (98-107) mmol/L Carbon Dioxide (22-30) mmol/L BUN (7-17) mg/dL Creatinine (0.52-1.04) mg/dL Glucose (74-99) mg/dL POC Glucose (mg/dL) 141 H (75-99) mg/dL Phosphorus (2.5-4.5) mg/dL Total Protein (6.3-8.2) g/dL Albumin (3.5-5.0) g/dL Urine Protein 2+ H (Negative) Urine Glucose (UA) 3+ H (Negative) Urine Blood Small H (Negative) Amorphous Sediment Rare H (None) /hpf U Random Total Protein 100 H (<12) mg/dL 05/02/17 05/03/17 05/03/17 Range/Units 16:58 01:00 06:06 WBC (3.8-10.6) k/uL RBC (3.80-5.40) m/uL Hgb (11.4-16.0) gm/dL Hct (34.0-46.0) % MCV (80.0-100.0) fL Plt Count (150-450) k/uL Neutrophils # (1.3-7.7) k/uL Lymphocytes # (1.0-4.8) k/uL Chloride (98-107) mmol/L Carbon Dioxide (22-30) mmol/L BUN (7-17) mg/dL Creatinine (0.52-1.04) mg/dL Glucose (74-99) mg/dL POC Glucose (mg/dL) 119 H 110 H 184 H (75-99) mg/dL Phosphorus (2.5-4.5) mg/dL Total Protein (6.3-8.2) g/dL Albumin (3.5-5.0) g/dL Urine Protein (Negative) Urine Glucose (UA) (Negative) Urine Blood (Negative) Amorphous Sediment (None) /hpf U Random Total Protein (<12) mg/dL 05/03/17 05/03/17 Range/Units 06:36 06:36 WBC 11.7 H (3.8-10.6) k/uL RBC 3.13 L (3.80-5.40) m/uL Hgb 10.0 L (11.4-16.0) gm/dL Hct 31.6 L (34.0-46.0) % MCV 101.0 H D (80.0-100.0) fL Plt Count 117 L (150-450) k/uL Neutrophils # 9.8 H (1.3-7.7) k/uL Lymphocytes # 0.7 L (1.0-4.8) k/uL Chloride 113 H (98-107) mmol/L Carbon Dioxide 18 L (22-30) mmol/L BUN 32 H (7-17) mg/dL Creatinine 3.43 H (0.52-1.04) mg/dL Glucose 115 H (74-99) mg/dL POC Glucose (mg/dL) (75-99) mg/dL Phosphorus 2.4 L (2.5-4.5) mg/dL Total Protein 4.7 L (6.3-8.2) g/dL Albumin 2.3 L (3.5-5.0) g/dL Urine Protein (Negative) Urine Glucose (UA) (Negative) Urine Blood (Negative) Amorphous Sediment (None) /hpf U Random Total Protein (<12) mg/dL Microbiology - Last 24 Hours (Table) 04/29/17 08:45 Blood Culture - Preliminary Blood No Growth after 72 hours 04/29/17 08:01 Blood Culture - Preliminary Blood No Growth after 72 hours Assessment and Plan Plan: Assessment: #1. Oliguric - now nonoliguric - acute kidney injury secondary to hypercalcemia -induced ATN further worsened with hemodynamic instability and poor oral intake. Rule out interstitial nephritis - urine eosinophils negative. Unclear as to what her baseline renal function is. Creatinine was 4.8 on admission and peaked at 5.1. No evidence of hydronephrosis. She underwent third treatment of hemodialysis 04/30. Creatinine today is elevated at 3.43. 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 #2. Severe hypokalemia from poor oral intake. Status post replacement. Magnesium replete. Improved. #3. Severe hypophosphatemia, again from poor nutritional intake. Status post replacement. Improved. #4. Severe metabolic acidosis secondary to acute kidney injury. Improved postdialysis. #5. Hypercalcemia secondary to supplementation as well as severe intravascular volume depletion. Rule out primary hyperparathyroidism, MM, vitamin D toxicity. Also possible underlying malignancy. Patient has not seen a physician for several years. Resolved. Vit D 26, PTH 48, 1,25 D3 42. #6. Anemia. Iron deficiency noted. No evidence of active bleeding. #7. Urinary retention status post Trujillo catheter placement. Plan: I will hold hemodialysis today and monitor renal function for recovery. Continue to monitor renal function and urine output. Avoid nephrotoxic agents and hypotensive episodes. Follow-up electrophoresis studies and immunofixation. Ferrlicit 125 mg x 3 doses - second dose today. Continue normal saline rate at 75 mL an hour. Encouraged oral intake. Add oral sodium bicarbonate 650 mg twice daily. Add Neutra-Phos. Repeat electrolytes in AM. Check serologic workup due to concern for glomerulonephritis. I also discussed the potential need for renal biopsy for definitive diagnosis. She is refusing at this time.
[2017-05-03] MEDS: SODIUM BICARBONATE TAB 650 MG TAB PO SCH ×2 (11:15→21:07)
[2017-05-03] MEDS: POTAS-SOD-PHOS 278-164-250 MG 1 EACH PACKET PO SCH ×3 (11:16→21:07)
--- NOTE | 2017-05-03 11:44 | P.CONS ---
History of Present Illness - Reason for Consult Consult date: 05/03/17 Positive Hemoccult melena Requesting physician: Jessica Delgado - History of Present Illness 82-year-old female admitted with mental status changes weakness acute renal failure requiring dialysis. She has a past medical history of taking multiple [id number] herbal supplements. Consultation requested for positive Hemoccult stool and possible melena. No history of GI bleed. No history of colonoscopy or EGD. She denies overt bleeding such as hematemesis hematochezia melena, however, she has had a few loose stools that appear "dark" but would not quantify as black. Admission hemoglobin 16.4 presently 10.0. No blood transfusions. INR 1.0. MCV 90-101. Platelet 117-151. Iron saturation 12%. Iron 22. Denies abdominal pain. No fevers. T-max 100.7 on 04/29/2017. No history of alcoholism. No excessive consumption of aspirin or NSAIDs. Review of Systems Constitutional: Denies fever, chills, sweats, weight gain, or loss. HEENT: Negative for migraines, blurred vision or loss, earaches, drainage, tinnitus, oral mucosal lesions, dysphagia, or odynophagia. CARDIAC: Negative for chest pain, arrhythmias, or palpitation. RESPIRATORY: Negative for shortness of breath, hemoptysis, cough, or sputum production. GI: See HPI for pertinent findings. : Negative for hematuria, urgency, frequency, polyuria, or dysuria. GYNc: Denies possibility of . Negative vaginal discharge. MUSCULOSKELETAL: Negative for muscle aches, swelling, arthritis, and arthralgias. NEUROLOGIC: Negative for stroke or TIA. ENDOCRINE: Negative for thyroid problems. SKIN: Negative for rash or itching. PSYCHIATRIC: Negative history for depression and anxiety All systems: negative (See HPI) Past Medical History Past Medical History: Unable to Obtain Additional Past Medical History / Comment(s): Pt self medicates with homeopathic remedies and vitamins per Son. History of Any Multi-Drug Resistant Organisms: Unobtainable Past Surgical History: Unable to Obtain Past Psychological History: Unable to Obtain Smoking Status: Unknown if ever smoked Past Alcohol Use History: Unable to Obtain Past Drug Use History: Unable to Obtain Medications and Allergies Home Medications Medication Instructions Recorded Confirmed Type Adrenatran 1 tab PO DAILY 04/28/17 04/28/17 History Allerase 1 tab PO DAILY 04/28/17 04/28/17 History B-Cell Formula 1 tab PO DAILY 04/28/17 04/28/17 History Bio-Fcts 1 tab PO DAILY 04/28/17 04/28/17 History Bioavailable Iron 5mg 5 mg PO DAILY 04/28/17 04/28/17 History Biocitrate-Multi Mineral 1 tab PO DAILY 04/28/17 04/28/17 History Bone-Chiara 1 tab PO DAILY 04/28/17 04/28/17 History Yao/Mag 1:1 1 tab PO DAILY 04/28/17 04/28/17 History Cataplex F 1 tab PO DAILY 04/28/17 04/28/17 History Colostrum 1 tab PO DAILY 04/28/17 04/28/17 History Dandelion 1 tab PO DAILY 04/28/17 04/28/17 History Dopa Boost 1 tab PO DAILY 04/28/17 04/28/17 History Glycine 500mg 500 mg PO DAILY 04/28/17 04/28/17 History Grape Seed 1 tab PO DAILY 04/28/17 04/28/17 History Graviola 1 tab PO DAILY 04/28/17 04/28/17 History Hepagen 1 tab PO DAILY 04/28/17 04/28/17 History Hepatropin Pmg 1 tab PO DAILY 04/28/17 04/28/17 History Horse [place] 1 tab PO DAILY 04/28/17 04/28/17 History Inosine 500mg 500 mg PO DAILY 04/28/17 04/28/17 History L-Citrulline 500mg 500 mg PO DAILY 04/28/17 04/28/17 History L-Glutamin 400mg 400 mg PO DAILY 04/28/17 04/28/17 History L-Glutathione 1 tab PO DAILY 04/28/17 04/28/17 History L-Histidine 500mg 500 mg PO DAILY 04/28/17 04/28/17 History Lacto 1 tab PO DAILY 04/28/17 04/28/17 History Lactoferrin 100mg 100 mg PO DAILY 04/28/17 04/28/17 History Liver Blend Sp-13 1 tab PO DAILY 04/28/17 04/28/17 History Liver Cleanse 1 tab PO DAILY 04/28/17 04/28/17 History Methylsulfonylmethane [MSM] 1,000 mg PO DAILY 04/28/17 04/28/17 History Molybdenum 1 tab PO DAILY 04/28/17 04/28/17 History Monolaurin 300mg 300 mg PO DAILY 04/28/17 04/28/17 History Multi-Gland 1 tab PO DAILY 04/28/17 04/28/17 History Natto-Serrazime 1 tab PO DAILY 04/28/17 04/28/17 History Norival 1 tab PO DAILY 04/28/17 04/28/17 History Nutricillin 1 tab PO DAILY 04/28/17 04/28/17 History Paracidin 1 tab PO DAILY 04/28/17 04/28/17 History Potassium Citrate 99mg 99 mg PO DAILY 04/28/17 04/28/17 History Psorex 120mg 120 mg PO DAILY 04/28/17 04/28/17 History Refluxin 1 tab PO DAILY 04/28/17 04/28/17 History Rna/Dna 100/100 1 tab PO DAILY 04/28/17 04/28/17 History Squarlene 1 tab PO DAILY 04/28/17 04/28/17 History Anny 1 tab PO DAILY 04/28/17 04/28/17 History Tendofit 1 tab PO DAILY 04/28/17 04/28/17 History Thymex 1 tab PO DAILY 04/28/17 04/28/17 History Uristatin 1 tab PO DAILY 04/28/17 04/28/17 History Vitamin B Complex 1 cap PO DAILY 04/28/17 04/28/17 History [place] Bark 1 tab PO DAILY 04/28/17 04/28/17 History Wobenzym N 1 tab PO DAILY 04/28/17 04/28/17 History [place] 1 tab PO DAILY 04/28/17 04/28/17 History Zinc Picolinate 1 tab PO DAILY 04/28/17 04/28/17 History Allergies Allergy/AdvReac Type Severity Reaction Status Date / Time No Known Allergies Allergy Verified 04/28/17 20:36 Physical Exam Vitals: Vital Signs Temp Pulse Pulse Pulse Resp BP Pulse Ox 05/03/17 08:00 98.9 F 117 H 18 133/70 97 05/03/17 04:00 99.2 F 111 H 18 148/80 98 05/03/17 00:00 98.1 F 115 H 115 H 18 157/76 97 05/02/17 20:00 100.3 F H 117 H 18 133/74 97 05/02/17 16:00 115 H 139/68 94 L 05/02/17 12:00 119 H 119 H 139/69 97 Intake and Output 05/02/17 05/03/17 05/03/17 22:59 06:59 14:59 Intake Total 240 600 200 Output Total 1100 1700 Balance -860 -1100 200 Intake: IV 600 Sodium Chloride 0.9% 1, 600 000 ml @ 75 mls/hr IV . [id number] [facility] Rx#:[id number] Oral 240 200 Output: Urine 1100 1700 Uretheral ([place]) 600 300 Other: Voiding Method Indwelling Catheter Indwelling Catheter Indwelling Catheter Weight 49 kg General appearance: The patient is alert, oriented, in no acute distress. HET: Head is normocephalic and atraumatic. Pupils are equal and reactive. Oropharynx is clear without lesions. Neck: Supple without lymphadenopathy. Trachea midline. Heart: S1 S2. Regular rate and rhythm. Lungs: No crackles or wheezes are heard. Abdomen: Soft, nontender, nondistended with bowel sounds. No peritoneal signs. No palpable organomegaly or masses. Extremities: Normal skin color and turgor. No cyanosis, rash, ulceration, clubbing, or edema. Radial and pedal pulses are 2/4 bilaterally. Neurological: No focal deficits. Strength and sensation are grossly intact. Results CBC & Chem 7: 05/03/17 06:36 05/03/17 06:36 Labs: Abnormal Lab Results - Last 24 Hours (Table) 05/02/17 05/02/17 05/02/17 Range/Units 12:25 12:25 16:58 WBC (3.8-10.6) k/uL RBC (3.80-5.40) m/uL Hgb (11.4-16.0) gm/dL Hct (34.0-46.0) % MCV (80.0-100.0) fL Plt Count (150-450) k/uL Neutrophils # (1.3-7.7) k/uL Lymphocytes # (1.0-4.8) k/uL Chloride (98-107) mmol/L Carbon Dioxide (22-30) mmol/L BUN (7-17) mg/dL Creatinine (0.52-1.04) mg/dL Glucose (74-99) mg/dL POC Glucose (mg/dL) 119 H (75-99) mg/dL Phosphorus (2.5-4.5) mg/dL Total Protein (6.3-8.2) g/dL Albumin (3.5-5.0) g/dL Urine Protein 2+ H (Negative) Urine Glucose (UA) 3+ H (Negative) Urine Blood Small H (Negative) Amorphous Sediment Rare H (None) /hpf U Random Total Protein 100 H (<12) mg/dL 05/03/17 05/03/17 05/03/17 Range/Units 01:00 06:06 06:36 WBC 11.7 H (3.8-10.6) k/uL RBC 3.13 L (3.80-5.40) m/uL Hgb 10.0 L (11.4-16.0) gm/dL Hct 31.6 L (34.0-46.0) % MCV 101.0 H D (80.0-100.0) fL Plt Count 117 L (150-450) k/uL Neutrophils # 9.8 H (1.3-7.7) k/uL Lymphocytes # 0.7 L (1.0-4.8) k/uL Chloride (98-107) mmol/L Carbon Dioxide (22-30) mmol/L BUN (7-17) mg/dL Creatinine (0.52-1.04) mg/dL Glucose (74-99) mg/dL POC Glucose (mg/dL) 110 H 184 H (75-99) mg/dL Phosphorus (2.5-4.5) mg/dL Total Protein (6.3-8.2) g/dL Albumin (3.5-5.0) g/dL Urine Protein (Negative) Urine Glucose (UA) (Negative) Urine Blood (Negative) Amorphous Sediment (None) /hpf U Random Total Protein (<12) mg/dL 05/03/17 Range/Units 06:36 WBC (3.8-10.6) k/uL RBC (3.80-5.40) m/uL Hgb (11.4-16.0) gm/dL Hct (34.0-46.0) % MCV (80.0-100.0) fL Plt Count (150-450) k/uL Neutrophils # (1.3-7.7) k/uL Lymphocytes # (1.0-4.8) k/uL Chloride 113 H (98-107) mmol/L Carbon Dioxide 18 L (22-30) mmol/L BUN 32 H (7-17) mg/dL Creatinine 3.43 H (0.52-1.04) mg/dL Glucose 115 H (74-99) mg/dL POC Glucose (mg/dL) (75-99) mg/dL Phosphorus 2.4 L (2.5-4.5) mg/dL Total Protein 4.7 L (6.3-8.2) g/dL Albumin 2.3 L (3.5-5.0) g/dL Urine Protein (Negative) Urine Glucose (UA) (Negative) Urine Blood (Negative) Amorphous Sediment (None) /hpf U Random Total Protein (<12) mg/dL Microbiology - Last 24 Hours (Table) 04/29/17 08:45 Blood Culture - Preliminary Blood No Growth after 96 hours 04/29/17 08:01 Blood Culture - Preliminary Blood No Growth after 96 hours Assessment and Plan (1) Stool guaiac positive Narrative/Plan: Possible GI bleed patient denies overt bleeding such as hematemesis hematochezia melena Status: Acute (2) Anemia Narrative/Plan: Iron Deficiency noted no evidence of overt active bleeding component of acute blood loss anemia cannot be entirely excluded. Status: Acute (3) Acute renal failure Status: Acute Plan: 1. Continue GI prophylaxis. Inpatient versus outpatient EGD colonoscopy recommended and discussed for evaluation of positive Hemoccult stool and anemia evaluation however she is refusing EGD colonoscopy evaluation. Observe for overt bleeding. CBC monitoring. We'll continue to follow with you. Thank you for this kind referral and the opportunity to participate in the care of your patient. This consultation was discussed with Dr. Cruz. The impression and plan of care have been directed as dictated.
[2017-05-03 12:01] LABS: Glucose,Whole Blood 143 mg/dL (75-99)
--- NOTE | 2017-05-03 12:03 | P.PN ---
Subjective Progress Note Date: 05/03/17 Principal diagnosis: Acute kidney injury, intravascular volume depletion, dehydration, and major metabolic disturbances. Including hypokalemia, severe non-anion gap metabolic acidosis, and hypercalcemia. This is a 82-year-old female patient, who was brought in to the emergency department by her son after she was found unresponsive at home. Apparently the patient's in February 2017. Since that she's been doing poorly. She hasn't been taking care of herself nor she has been eating appropriately. Her son lives in [facility] came in to check on her and he found unresponsive and he brought her to the hospital. The patient was extremely dehydrated, cachectic,/on bone, with a deep tissue injury and her coccyx probably from laying around and she has chronic ulceration of lower extremities bilaterally. The patient was unresponsive. The patient was hypothermic with a temperature of 92. She had severe metabolic derangement and based on the labs a sodium 140 for a potassium of 2 bicarb of less than 5 BUN of 94 creatinine 5.1 a calcium level of 13.6, she does severely acidotic with a pH of 7.09 with a pCO2 of 20 and pO2 of 160. She was not making any urine output. Lactic acid level is at 1.8. The patient remained actually taking well with a pulse ox of 8% to liters of oxygen nasal cannula. CAT scan of the brain was negative and showed mild atrophy and the chest x-ray showed no acute cardio pulmonary process. The [place] catheter was inserted. A total of 3 80 mL was obtained initially and since then she has produced only 35 mL by mouth overnight the dialysis catheter was inserted and the patient was dialyzed to correct her severe metabolic derangement. She was also warmed externally. She received potassium in order of 60 mEq in her follow-up electrodes from this morning show a potassium up to 2.2, a bicarb up to 17 with anion gap of 11. Creatinine is down to 2.4. Her calcium level is down to 10.5. Right second isn 't elevated at 24. She is more awake yet she is still very somnolent and lethargic. She is and I unable to hold a conversation yet. She is currently on a bicarb drip which is running at 1 50 mL an hour of D5 with 3 A and she has received more than 3 to IV fluids. Troponins were negative with a troponin maxed at 0.053. CPKs at 532. No nausea. No vomiting. No emesis. No bleeding rectally. No hematemesis. Neurologic exam is nonfocal. The patient is moving all 4 extremities without any limitation. On 04/30/2017 the patient is being seen in the follow-up in the intensive care unit. The patient was aggressively resuscitated IV fluids and currently she is well resuscitated. Her renal function continues to improve in the creatinine is down to 2.9. She is producing adequate urine output at this point. Electrodes imbalance is also being managed. The patient is being replaced with potassium and magnesium in the most recent potassium level is up to 2.4 and a phosphorus at 1.5 and magnesium is at 1.7. The metabolic acidosis completely recovered and the patient's bicarb level is up to 28 and anion gap is at 6. She is moving all 4 extremities without any limitation. No altered mentation. She is also requesting for her breakfast to be provided to her. Significant drop in hemoglobin from 16 down to 8.9. This is essentially dilutional. Note that the patient also had some epistaxis yesterday after an attempted NG tube insertion. Currently she is not having any acute bleeding. On today's evaluation of 05/01/2017 the patient got moved out of the intensive care unit and the patient is currently on a medical floor. The patient is alert and awake and much more comfortable. She is well resuscitated. She is well-hydrated. She is having occasional abdominal cramping and diarrhea. No nausea or vomiting. No chest pain or shortness of breath. She is weak. She has however much more conscious and alert. There has been significant improvement in her electrolyte balance as all of the electrodes have been replenished and the patient's renal function continues to improve. She feels that she is able to go back home and this is quite docile and she will need further director social service consultation for discharge planning. Stool for C. diff was negative. Diarrhea has been gradually subsiding. Her current potassium to 3.3. Renal function is gradually improving and is down to 2.1 from a baseline of 5.1. The metabolic acidosis completely recovered in addition. On 05/02/2017, patient was seen on selective, she seems to be doing much better , well-hydrated, asymptomatic, denies any nausea vomiting abdominal cramps, denies any chest pain, even her weakness seems to be a bit improved. Workup for C. difficile colitis was negative. Labs were reviewed CBC showed WBC count of 12.9 hemoglobin of 9.4 electrolytes are normal BUN is 30 creatinine is 3.15. This is much better comparing to presenting creatinine of 5.10 on admission. The patient was seen again today 05/03/2017 in follow-up on the selective care unit. She is currently awake and alert in no acute distress. She is sitting up in the chair at the bedside. She denies any shortness of breath, cough or congestion. No chest pain, palpitations lightheadedness or dizziness. She has undergone 3 hemodialysis treatments this admission for acute renal failure. Her current creatinine is 3.43. Nephrology is on the case. There are concerns regarding possible glomerulonephritis secondary to multiple herbal supplements in the outpatient setting. She is also being evaluated by GI services for her anemia and positive stool for occult blood. Current hemoglobin 10.0. Objective - Vital Signs Vital signs: Vital Signs Temp 98.2 F 05/03/17 11:35 Pulse 111 H 05/03/17 11:36 Resp 18 05/03/17 11:35 BP 140/70 05/03/17 11:35 Pulse Ox 98 05/03/17 11:35 Intake & Output 05/02/17 05/03/17 05/03/17 18:59 06:59 18:59 Intake Total 930 840 200 Output Total 2800 Balance 930 -1960 200 Weight 50.5 kg 49 kg Intake: IV 450 600 Piperacillin-Tazobactam 3 50 .375 gm In Dextrose/Water 1 50ml.bag @ 12.5 mls/hr IVPB Q12HR [facility] Rx#: [id number] Sodium Chloride 0.9% 1, 400 600 000 ml @ 75 mls/hr IV . [id number] [facility] Rx#:[id number] Oral 480 240 200 Output: Urine 2800 Uretheral ([place]) 900 Other: Voiding Method Indwelling Catheter Indwelling Catheter - Exam GENERAL EXAM: Alert, comfortable in no apparent distress. HEAD: Normocephalic. EYES: Normal reaction of pupils, equal size. NOSE: Clear with pink turbinates. THROAT: No erythema or exudates. NECK: No masses, no JVD. CHEST: No chest wall deformity. LUNGS: Equal air entry with no crackles, wheeze, rhonchi or dullness. CVS: S1 and S2 normal with an audible systolic murmur, regular rhythm. ABDOMEN: No hepatosplenomegaly, normal bowel sounds, no guarding or rigidity. SPINE: No scoliosis or deformity SKIN: Erythema and necrosis in the coccygeal area. CENTRAL NERVOUS SYSTEM: No focal deficits, tone is normal in all 4 extremities. EXTREMITIES: There is no peripheral edema. No clubbing, no cyanosis. Peripheral pulses are intact. - Labs CBC & Chem 7: 05/03/17 06:36 05/03/17 06:36 Labs: Abnormal Lab Results - Last 24 Hours (Table) 05/02/17 05/02/17 05/02/17 Range/Units 12:25 12:25 16:58 WBC (3.8-10.6) k/uL RBC (3.80-5.40) m/uL Hgb (11.4-16.0) gm/dL Hct (34.0-46.0) % MCV (80.0-100.0) fL Plt Count (150-450) k/uL Neutrophils # (1.3-7.7) k/uL Lymphocytes # (1.0-4.8) k/uL Chloride (98-107) mmol/L Carbon Dioxide (22-30) mmol/L BUN (7-17) mg/dL Creatinine (0.52-1.04) mg/dL Glucose (74-99) mg/dL POC Glucose (mg/dL) 119 H (75-99) mg/dL Phosphorus (2.5-4.5) mg/dL Total Protein (6.3-8.2) g/dL Albumin (3.5-5.0) g/dL Urine Protein 2+ H (Negative) Urine Glucose (UA) 3+ H (Negative) Urine Blood Small H (Negative) Amorphous Sediment Rare H (None) /hpf U Random Total Protein 100 H (<12) mg/dL 05/03/17 05/03/17 05/03/17 Range/Units 01:00 06:06 06:36 WBC 11.7 H (3.8-10.6) k/uL RBC 3.13 L (3.80-5.40) m/uL Hgb 10.0 L (11.4-16.0) gm/dL Hct 31.6 L (34.0-46.0) % MCV 101.0 H D (80.0-100.0) fL Plt Count 117 L (150-450) k/uL Neutrophils # 9.8 H (1.3-7.7) k/uL Lymphocytes # 0.7 L (1.0-4.8) k/uL Chloride (98-107) mmol/L Carbon Dioxide (22-30) mmol/L BUN (7-17) mg/dL Creatinine (0.52-1.04) mg/dL Glucose (74-99) mg/dL POC Glucose (mg/dL) 110 H 184 H (75-99) mg/dL Phosphorus (2.5-4.5) mg/dL Total Protein (6.3-8.2) g/dL Albumin (3.5-5.0) g/dL Urine Protein (Negative) Urine Glucose (UA) (Negative) Urine Blood (Negative) Amorphous Sediment (None) /hpf U Random Total Protein (<12) mg/dL 05/03/17 Range/Units 06:36 WBC (3.8-10.6) k/uL RBC (3.80-5.40) m/uL Hgb (11.4-16.0) gm/dL Hct (34.0-46.0) % MCV (80.0-100.0) fL Plt Count (150-450) k/uL Neutrophils # (1.3-7.7) k/uL Lymphocytes # (1.0-4.8) k/uL Chloride 113 H (98-107) mmol/L Carbon Dioxide 18 L (22-30) mmol/L BUN 32 H (7-17) mg/dL Creatinine 3.43 H (0.52-1.04) mg/dL Glucose 115 H (74-99) mg/dL POC Glucose (mg/dL) (75-99) mg/dL Phosphorus 2.4 L (2.5-4.5) mg/dL Total Protein 4.7 L (6.3-8.2) g/dL Albumin 2.3 L (3.5-5.0) g/dL Urine Protein (Negative) Urine Glucose (UA) (Negative) Urine Blood (Negative) Amorphous Sediment (None) /hpf U Random Total Protein (<12) mg/dL Microbiology - Last 24 Hours (Table) 04/29/17 08:45 Blood Culture - Preliminary Blood No Growth after 96 hours 04/29/17 08:01 Blood Culture - Preliminary Blood No Growth after 96 hours Assessment and Plan Plan: Impression: 1 acute kidney injury in setting of severe dehydration and intravascular volume depletion with major metabolic disturbances. The patient underwent third dialysis treatment on 04/30/2017 and no plans for further dialysis. Current creatinine 3.43. There is some concern regarding possible glomerulonephritis secondary to multiple herbal vitamins in the outpatient setting. 2 severe hypokalemia, replace and the potassium level is up to 4.0 3 severe non-anion gap metabolic acidosis, being corrected with dialysis, recovered 4 acute hypercalcemia probably related to intravascular volume depletion.. Current calcium 8.6. 5 rhabdomyolysis, mild 6 hypothermia, corrected 7 severe cachexia and malnutrition and anorexia, severe protein calorie malnutrition 8 leukocytosis, improved 9 suspected urine tract infection, urine culture no growth. 10 Deep tissue injury to the coccyx 11 encephalopathy secondary to above 12 significant drop in hemoglobin, dilutional and there is no evidence of any external bleeding other than some limited epistaxis. The hemoglobin is stable for now currently at 10.0. Plan: The patient was seen and evaluated by Dr. Heller. She is currently stable from the pulmonary and critical care standpoint. She is maintaining good O2 saturations in the 90s on room air. She's been hemodynamically stable. Gastroenterology services has been initiated based on the drop in hemoglobin and stool for occult blood positive. Nephrology continues to follow in regards to the acute renal failure. We will continue to follow. I, the cosigning physician, have performed a history and physical examination on the patient. Lung sounds are clear. Maintaining good O2 saturations in the 90s on room air. I have discussed the assessment and plan of care with my nurse practitioner, Tonya Araya. I attest the above documented note as dictated by her.
[2017-05-03] MEDS: SODIUM FERRIC GLUCONAT-SUCROSE 125 MG in SODIUM CHLORIDE 0.9% 100 ML IVPB SCH (14:57)
[2017-05-03 16:35] LABS: ANA w/Reflex to Titer NEGATIVE (NEGATIVE)
--- NOTE | 2017-05-03 16:41 | P.PN ---
Subjective Progress Note Date: 05/03/17 Principal diagnosis: patient is seen and examined in follow up for SHERLYN, anemia, and electrolytes imbalance 82-year-old female with no significant past medical history presented due to altered mental status was found to have severe electrolyte derangements requiring urgent hemodialysis. She received three sessions, and now nephrology is recommending waitful watch to monitor for renal function progression, she is making good urine output now. Patient seen and examined, she is declining to have any invasive testing, like renal biopsy or endoscopy. otherwise, she feels well, has good appetite, denies any chest pain or trouble breathing. Objective - Vital Signs Vital signs: Vital Signs Temp 98.2 F 05/03/17 11:35 Pulse 111 H 05/03/17 11:36 Resp 18 05/03/17 11:35 BP 140/70 05/03/17 11:35 Pulse Ox 98 05/03/17 11:35 Intake & Output 05/02/17 05/03/17 05/03/17 18:59 06:59 18:59 Intake Total 288 228 7720 Output Total 2800 Balance 930 -1960 1358 Weight 50.5 kg 49 kg Intake: IV 450 600 Piperacillin-Tazobactam 3 50 .375 gm In Dextrose/Water 1 50ml.bag @ 12.5 mls/hr IVPB Q12HR ALEJANDRA Rx#: [id number] Sodium Chloride 0.9% 1, 400 600 000 ml @ 75 mls/hr IV . [id number] ALEJANDRA Rx#:[id number] Intake, IV Titration 600 Amount Piperacillin-Tazobactam 3 50 .375 gm In Dextrose/Water 1 50ml.bag @ 12.5 mls/hr IVPB Q12HR ALEJANDRA Rx#: [id number] Sodium Chloride 0.9% 1, 450 000 ml @ 75 mls/hr IV . [id number] ALEJANDRA Rx#:[id number] Sodium Ferric Gluconat- 100 Sucrose 125 mg In Sodium Chloride 0.9% 100 ml @ 100 mls/hr IVPB DAILY@ 1300 ALEJANDRA Rx#:[id number] Oral 480 240 758 Output: Urine 2800 Uretheral ([place]) 900 Other: Voiding Method Indwelling Catheter Indwelling Catheter - Exam Constitutional: vital signs stable, Not in acute distress, pleasant, conversant Lungs: Clear to auscultation bilaterally, no wheezing Cardiovascular: Regular rate and rhythm, no murmurs, no gallops, no rubs, no peripheral edema Gastrointestinal: Soft, no tenderness to palpation, bowel sounds positive, no abdominal wall hernias, urinary incontinence wearing diapers Extremities: No digital cyanosis or clubbing or ischemia, peripheral pulses palpable and equal over bilateral radial arteries and dorsalis pedis artery, no calf muscle tenderness, left groin access site unremarkable Psych: Alert, oriented to place, person and time, flat affect - Labs CBC & Chem 7: 05/03/17 06:36 05/03/17 06:36 Labs: Abnormal Lab Results - Last 24 Hours (Table) 04/29/17 05/02/17 05/03/17 Range/Units 14:22 16:58 01:00 WBC (3.8-10.6) k/uL RBC (3.80-5.40) m/uL Hgb (11.4-16.0) gm/dL Hct (34.0-46.0) % MCV (80.0-100.0) fL Plt Count (150-450) k/uL Neutrophils # (1.3-7.7) k/uL Lymphocytes # (1.0-4.8) k/uL Chloride (98-107) mmol/L Carbon Dioxide (22-30) mmol/L BUN (7-17) mg/dL Creatinine (0.52-1.04) mg/dL Glucose (74-99) mg/dL POC Glucose (mg/dL) 119 H 110 H (75-99) mg/dL Phosphorus (2.5-4.5) mg/dL Total Protein (6.3-8.2) g/dL Total Protein (PEP) (6.2-8.2) g/dL Albumin (3.5-5.0) g/dL Albumin (PEP) 3.20 L (3.80-4.90) g/dL Zlpqg-5-Kpdvqrknn 0.42 L (0.60-1.00) g/dL Beta Globulins 0.43 L (0.60-1.30) g/dL Gamma Globulins 0.60 L (0.70-1.50) g/dL 05/03/17 05/03/17 05/03/17 Range/Units 06:06 06:36 06:36 WBC 11.7 H (3.8-10.6) k/uL RBC 3.13 L (3.80-5.40) m/uL Hgb 10.0 L (11.4-16.0) gm/dL Hct 31.6 L (34.0-46.0) % MCV 101.0 H D (80.0-100.0) fL Plt Count 117 L (150-450) k/uL Neutrophils # 9.8 H (1.3-7.7) k/uL Lymphocytes # 0.7 L (1.0-4.8) k/uL Chloride 113 H (98-107) mmol/L Carbon Dioxide 18 L (22-30) mmol/L BUN 32 H (7-17) mg/dL Creatinine 3.43 H (0.52-1.04) mg/dL Glucose 115 H (74-99) mg/dL POC Glucose (mg/dL) 184 H (75-99) mg/dL Phosphorus 2.4 L (2.5-4.5) mg/dL Total Protein 4.7 L (6.3-8.2) g/dL Total Protein (PEP) (6.2-8.2) g/dL Albumin 2.3 L (3.5-5.0) g/dL Albumin (PEP) (3.80-4.90) g/dL Tuiux-2-Ywgjzuhuj (0.60-1.00) g/dL Beta Globulins (0.60-1.30) g/dL Gamma Globulins (0.70-1.50) g/dL 05/03/17 05/03/17 Range/Units 09:22 11:50 WBC (3.8-10.6) k/uL RBC (3.80-5.40) m/uL Hgb (11.4-16.0) gm/dL Hct (34.0-46.0) % MCV (80.0-100.0) fL Plt Count (150-450) k/uL Neutrophils # (1.3-7.7) k/uL Lymphocytes # (1.0-4.8) k/uL Chloride (98-107) mmol/L Carbon Dioxide (22-30) mmol/L BUN (7-17) mg/dL Creatinine (0.52-1.04) mg/dL Glucose (74-99) mg/dL POC Glucose (mg/dL) 143 H (75-99) mg/dL Phosphorus (2.5-4.5) mg/dL Total Protein (6.3-8.2) g/dL Total Protein (PEP) 4.6 L (6.2-8.2) g/dL Albumin (3.5-5.0) g/dL Albumin (PEP) (3.80-4.90) g/dL Hxgcy-6-Hrtgpwdgg (0.60-1.00) g/dL Beta Globulins (0.60-1.30) g/dL Gamma Globulins (0.70-1.50) g/dL Microbiology - Last 24 Hours (Table) 04/29/17 08:45 Blood Culture - Preliminary Blood No Growth after 96 hours 04/29/17 08:01 Blood Culture - Preliminary Blood No Growth after 96 hours Assessment and Plan (1) Acute renal failure Narrative/Plan: possibly secondary to dehydration and patient taking multiple supplements at home Patient required urgent dialysis due to uremia Nephrology is following holding off hemodialysis today to monitor renal function and clinical progression pending further recommendations patient declined renal biopsy and possible need for usp dialysis setup Current Visit: Yes Status: Acute Code(s): N17.9 - ACUTE KIDNEY FAILURE, UNSPECIFIED SNOMED Code(s): 65534101 (2) Acute metabolic encephalopathy Narrative/Plan: due to severe metabolic derangements and uremia Now resolved post dialysis Current Visit: Yes Status: Resolved Code(s): G93.41 - METABOLIC ENCEPHALOPATHY SNOMED Code(s): 12055644 (3) Diarrhea Narrative/Plan: patient reports loose bowel movement dark in color Occult blood testing was positive C. diff negative GI recommending endoscopy which patient is declining hemoglobin stable today Current Visit: Yes Status: Acute Code(s): R19.7 - DIARRHEA, UNSPECIFIED SNOMED Code(s): 03903166 (4) Anemia Narrative/Plan: possible chronic GI bleeding GI recommending endoscopy (patient declining) hemoglobin stable and slightly improving today Iron replacement IV per nephro Current Visit: Yes Status: Chronic Code(s): D64.9 - ANEMIA, UNSPECIFIED SNOMED Code(s): 740579345 (5) Debility Narrative/Plan: due to advanced age and possible underlying dementia Physical therapy evaluation possibly patient will require placement at rehab Current Visit: Yes Status: Acute Code(s): R53.81 - OTHER MALAISE SNOMED Code(s): 39249777 (6) Hypercalcemia Current Visit: Yes Status: Resolved Code(s): E83.52 - HYPERCALCEMIA SNOMED Code(s): 47866141 (7) Hypokalemia Current Visit: Yes Status: Resolved Code(s): E87.6 - HYPOKALEMIA SNOMED Code(s): 71650766 Plan: discharge planning pending nephrology clearance Continue close monitoring of renal function and hemoglobin and urine output, patient might possibly require usp dialysis which she is declining at this point patient also declined renal biposy GI complaints regarding anemia and positive occult blood testing, she declined endoscopy Protein electrophoresis showing no monoclonal gammopathy, otherwise hypoproteinemia Psych consult due to patient declining different elements of care. CODE STATUS no code DVT prophylaxis: heparin subcutaneous Discussed with: Patient, RN, nephrology, GI Anticipated discharge: [address]: subacute rehab
[2017-05-03 17:58] LABS: Glucose,Whole Blood 164 mg/dL (75-99)
[2017-05-04 00:01] LABS: Glucose,Whole Blood 114 mg/dL (75-99)
[2017-05-04] MEDS: AMMONIUM LACTATE 12% LOTION 225 GM BTL TOPICAL SCH ×3 (00:06→20:47)
[2017-05-04] MEDS: HEPARIN SODIUM,PORCINE 5,000 UNIT/ML 1 ML VIAL SQ SCH ×5 (00:06→20:51)
[2017-05-04 05:55] LABS: Glucose,Whole Blood 91 mg/dL (75-99)
[2017-05-04 06:24] LABS: CH 31.8; CHCM 31.9; HCT 27.7 % (34.0-46.0); HDW 2.76; HGB 8.7 gm/dL (11.4-16.0); MCH 31.6 pg (25.0-35.0); MCHC 31.4 g/dL (31.0-37.0); MCV 100.6 fL (80.0-100.0); Mean Platelet Volume 7.3; RBC 2.76 m/uL (3.80-5.40); RDW 13.7 % (11.5-15.5); WBC 11.9 k/uL (3.8-10.6)
[2017-05-04 06:32] LABS: Calcium 8.2 mg/dL (8.4-10.2); Magnesium 1.5 mg/dL (1.6-2.3); Phosphorus 3.4 mg/dL (2.5-4.5); Potassium 3.6 mmol/L (3.5-5.1); Total Bilirubin 0.2 mg/dL (0.2-1.3); Total Protein 4.3 g/dL (6.3-8.2)
[2017-05-04 06:45] LABS: Partial Thromboplastin Time 29.9 sec (22.0-30.0); Prothrombin Time 10.4 sec (9.0-12.0)
[2017-05-04 06:54] LABS: Complement Total (CH50) 71 U/mL (42 - 95)
[2017-05-04] MEDS: SODIUM CHLORIDE 0.9% 1,000 ML IV SCH ×4 (06:57→20:50)
[2017-05-04] MEDS: PANTOPRAZOLE 40 MG/10 ML VIAL IV SCH (08:29)
[2017-05-04] MEDS: POTAS-SOD-PHOS 278-164-250 MG 1 EACH PACKET PO SCH ×3 (08:30→20:40)
[2017-05-04] MEDS: LACTOBACILLUS ACIDOPH & BULGAR 1 EACH PACKET PO SCH ×2 (08:30→20:40)
[2017-05-04] MEDS: SODIUM BICARBONATE TAB 650 MG TAB PO SCH ×2 (08:31→20:40)
[2017-05-04] MEDS: PIPERACILLIN-TAZOBACTAM 3.375 GM in DEXTROSE/WATER 1 50ML.BAG IVPB SCH (08:44)
[2017-05-04] MEDS ORDERED: POTASSIUM CHLORIDE ER 20 MEQ TAB.ER PO STA (09:49)
--- NOTE | 2017-05-04 09:52 | P.PN ---
Subjective Patient is seen in follow-up for acute kidney injury. Unclear as to what her baseline renal function is. Creatinine peaked at 5.1 this admission and patient was quite uremic. She was started on hemodialysis and has undergone 3 treatments so far - last treatment on 04/30. Her urine output is documented as over 1.2 L in the last 24 hours. She has a [place] catheter. She is awake and alert this morning. She is tolerating oral intake. Denies chest pain or shortness of breath. Creatinine is up to 3.5 today. Vital signs are stable. General: The patient appeared well nourished and normally developed. HEENT: Head exam is unremarkable. Neck is without jugular venous distension. LUNGS: Lungs are clear to auscultation and percussion. Breath sounds decreased. HEART: Rate and Rhythm are regular. First and second heart sounds normal. No murmurs, rubs or gallops. ABDOMEN: Abdominal exam reveals normal bowel sounds. Non-tender and non- distended. No evidence of peritonitis. EXTREMITITES: No clubbing, cyanosis, or edema. Chronic skin discoloration noted. Some skin peeling noted as well. No obvious drainage. Objective - Vital Signs Vital signs: Vital Signs Temp 99.7 F H 05/04/17 00:00 Pulse 118 H 05/04/17 00:00 Resp 16 05/04/17 00:00 BP 130/64 05/04/17 00:00 Pulse Ox 96 05/04/17 00:00 Intake & Output 05/03/17 05/04/17 05/04/17 18:59 06:59 18:59 Intake Total 1478 240 Output Total 550 700 Balance 928 -700 240 Weight 53.5 kg Intake: Intake, IV Titration 600 Amount Piperacillin-Tazobactam 3 50 .375 gm In Dextrose/Water 1 50ml.bag @ 12.5 mls/hr IVPB Q12HR ALEJANDRA Rx#: [id number] Sodium Chloride 0.9% 1, 450 000 ml @ 75 mls/hr IV . [id number] ALEJANDRA Rx#:[id number] Sodium Ferric Gluconat- 100 Sucrose 125 mg In Sodium Chloride 0.9% 100 ml @ 100 mls/hr IVPB DAILY@ 1300 ALEJANDRA Rx#:[id number] Oral 878 240 Output: Urine 550 700 Other: Voiding Method Indwelling Catheter Indwelling Catheter # Bowel Movements 1 - Labs CBC & Chem 7: 05/04/17 05:55 05/04/17 05:55 Labs: Abnormal Lab Results - Last 24 Hours (Table) 04/29/17 05/03/17 05/03/17 Range/Units 14:22 09:22 11:50 WBC (3.8-10.6) k/uL RBC (3.80-5.40) m/uL Hgb (11.4-16.0) gm/dL Hct (34.0-46.0) % MCV (80.0-100.0) fL Plt Count (150-450) k/uL Chloride (98-107) mmol/L Carbon Dioxide (22-30) mmol/L BUN (7-17) mg/dL Creatinine (0.52-1.04) mg/dL POC Glucose (mg/dL) 143 H (75-99) mg/dL Calcium (8.4-10.2) mg/dL Magnesium (1.6-2.3) mg/dL Total Protein (6.3-8.2) g/dL Total Protein (PEP) 4.6 L (6.2-8.2) g/dL Albumin (3.5-5.0) g/dL Albumin (PEP) 3.20 L (3.80-4.90) g/dL Ruffk-8-Gtjqvuebn 0.42 L (0.60-1.00) g/dL Beta Globulins 0.43 L (0.60-1.30) g/dL Gamma Globulins 0.60 L (0.70-1.50) g/dL 05/03/17 05/03/17 05/04/17 Range/Units 17:54 23:59 05:55 WBC (3.8-10.6) k/uL RBC (3.80-5.40) m/uL Hgb (11.4-16.0) gm/dL Hct (34.0-46.0) % MCV (80.0-100.0) fL Plt Count (150-450) k/uL Chloride 112 H (98-107) mmol/L Carbon Dioxide 18 L (22-30) mmol/L BUN 33 H (7-17) mg/dL Creatinine 3.50 H (0.52-1.04) mg/dL POC Glucose (mg/dL) 164 H 114 H (75-99) mg/dL Calcium 8.2 L (8.4-10.2) mg/dL Magnesium 1.5 L (1.6-2.3) mg/dL Total Protein 4.3 L (6.3-8.2) g/dL Total Protein (PEP) (6.2-8.2) g/dL Albumin 2.1 L (3.5-5.0) g/dL Albumin (PEP) (3.80-4.90) g/dL Warfo-1-Cadubrwso (0.60-1.00) g/dL Beta Globulins (0.60-1.30) g/dL Gamma Globulins (0.70-1.50) g/dL 05/04/17 Range/Units 05:55 WBC 11.9 H (3.8-10.6) k/uL RBC 2.76 L (3.80-5.40) m/uL Hgb 8.7 L (11.4-16.0) gm/dL Hct 27.7 L (34.0-46.0) % MCV 100.6 H (80.0-100.0) fL Plt Count 132 L (150-450) k/uL Chloride (98-107) mmol/L Carbon Dioxide (22-30) mmol/L BUN (7-17) mg/dL Creatinine (0.52-1.04) mg/dL POC Glucose (mg/dL) (75-99) mg/dL Calcium (8.4-10.2) mg/dL Magnesium (1.6-2.3) mg/dL Total Protein (6.3-8.2) g/dL Total Protein (PEP) (6.2-8.2) g/dL Albumin (3.5-5.0) g/dL Albumin (PEP) (3.80-4.90) g/dL Zxzzu-0-Nphyfcisi (0.60-1.00) g/dL Beta Globulins (0.60-1.30) g/dL Gamma Globulins (0.70-1.50) g/dL Microbiology - Last 24 Hours (Table) 04/29/17 08:45 Blood Culture - Preliminary Blood No Growth after 96 hours 04/29/17 08:01 Blood Culture - Preliminary Blood No Growth after 96 hours Assessment and Plan Plan: Assessment: #1. Oliguric - now nonoliguric - acute kidney injury secondary to hypercalcemia -induced ATN further worsened with hemodynamic instability and poor oral intake. Rule out interstitial nephritis - urine eosinophils negative. Unclear as to what her baseline renal function is. Creatinine was 4.8 on admission and peaked at 5.1. No evidence of hydronephrosis. She underwent third treatment of hemodialysis 04/30. Creatinine today is elevated at 3.5. 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 #2. Severe hypokalemia from poor oral intake. Status post replacement. Improved. #3. Severe hypophosphatemia, again from poor nutritional intake. Status post replacement. Improved. #4. Severe metabolic acidosis secondary to acute kidney injury. #5. Hypercalcemia secondary to supplementation as well as severe intravascular volume depletion. Rule out primary hyperparathyroidism, MM, vitamin D toxicity. Also possible underlying malignancy. Patient has not seen a physician for several years. Resolved. Vit D 26, PTH 48, 1,25 D3 42, no evidence of myeloma. #6. Anemia. Iron deficiency noted. No evidence of active bleeding. #7. Urinary retention status post [place] catheter placement. Plan: I will hold hemodialysis today and monitor renal function for recovery. Continue to monitor renal function and urine output. Avoid nephrotoxic agents and hypotensive episodes. Ferrlicit 125 mg x 3 doses - thrid dose today. Continue normal saline - decrease rate to 50 cc/hr. Encouraged oral intake. Increase oral sodium bicarbonate to 1300 mg twice daily. Continue Neutra-Phos. Repeat electrolytes in AM. Check serologic workup due to concern for glomerulonephritis - SPEP/Urine IF, hep panel, VALERY negative. I also discussed the potential need for renal biopsy for definitive diagnosis. She is refusing at this time. Replace potassium. 40 mEq today. Replace magnesium. 2 g IV today.
--- NOTE | 2017-05-04 11:11 | P.PN ---
Subjective Progress Note Date: 05/04/17 Principal diagnosis: patient is seen and examined in follow up for SHERLYN, anemia, and electrolytes imbalance 82-year-old female with no significant past medical history presented due to altered mental status was found to have severe electrolyte derangements requiring urgent hemodialysis. She received three sessions, and now nephrology is recommending waitful watch to monitor for renal function progression, she is making good urine output now. Patient seen and examined, today she is agreeable to have outpatient HD if needed. otherwise continued to refuse any other further workup including ( renal biopsy, cardiac workup for tachycardia including 2 D Echo, or any GI workup with endoscopy). I discussed with her the findings of sinus tachycardia, and the risk of heart failure if this continues to be untreated, and recommended to have an echocardiogram to be done and then possibly to add some medications. She clearly verbalized understanding of her current tachycardia and the consequences if left untreated, yet, refused any further workup even if non-invasive, and refused adding more medications. She indicated that she does not want more medications to be added, Period. She is feeling better, reports good appetite, denies any GI bleeding. denies any trouble breathing or chest pain Objective - Vital Signs Vital signs: Vital Signs Temp 99.7 F H 05/04/17 00:00 Pulse 118 H 05/04/17 00:00 Resp 16 05/04/17 00:00 BP 130/64 05/04/17 00:00 Pulse Ox 96 05/04/17 00:00 Intake & Output 05/03/17 05/04/17 05/04/17 18:59 06:59 18:59 Intake Total 1478 Output Total 550 700 Balance 928 -700 Weight 53.5 kg Intake: Intake, IV Titration 600 Amount Piperacillin-Tazobactam 3 50 .375 gm In Dextrose/Water 1 50ml.bag @ 12.5 mls/hr IVPB Q12HR ALEJANDRA Rx#: [id number] Sodium Chloride 0.9% 1, 450 000 ml @ 75 mls/hr IV . [id number] ALEJANDRA Rx#:[id number] Sodium Ferric Gluconat- 100 Sucrose 125 mg In Sodium Chloride 0.9% 100 ml @ 100 mls/hr IVPB DAILY@ 1300 ALEJANDRA Rx#:[id number] Oral 878 Output: Urine 550 700 Other: Voiding Method Indwelling Catheter Indwelling Catheter # Bowel Movements 1 - Exam Constitutional: vital signs stable, Not in acute distress, pleasant, conversant Lungs: Clear to auscultation bilaterally, no wheezing , no rales , no crackles Cardiovascular: Tachycardia, no murmurs, no gallops, no rubs, no peripheral edema Gastrointestinal: Soft, no tenderness to palpation, bowel sounds positive, left giancarlo in place, no tenderness to palpation no erythema of surrounding skin , aguirre cath in place Extremities: No digital cyanosis or clubbing or ischemia, peripheral pulses palpable and equal over bilateral radial arteries and dorsalis pedis artery, no calf muscle tenderness, chronic dermatitis bilateral legs Psych: Alert, oriented to place, person and time - Labs CBC & Chem 7: 05/04/17 05:55 05/04/17 05:55 Labs: Abnormal Lab Results - Last 24 Hours (Table) 04/29/17 05/03/17 05/03/17 Range/Units 14:22 09:22 11:50 WBC (3.8-10.6) k/uL RBC (3.80-5.40) m/uL Hgb (11.4-16.0) gm/dL Hct (34.0-46.0) % MCV (80.0-100.0) fL Plt Count (150-450) k/uL Chloride (98-107) mmol/L Carbon Dioxide (22-30) mmol/L BUN (7-17) mg/dL Creatinine (0.52-1.04) mg/dL POC Glucose (mg/dL) 143 H (75-99) mg/dL Calcium (8.4-10.2) mg/dL Magnesium (1.6-2.3) mg/dL Total Protein (6.3-8.2) g/dL Total Protein (PEP) 4.6 L (6.2-8.2) g/dL Albumin (3.5-5.0) g/dL Albumin (PEP) 3.20 L (3.80-4.90) g/dL Nytsd-0-Zsnjqirrr 0.42 L (0.60-1.00) g/dL Beta Globulins 0.43 L (0.60-1.30) g/dL Gamma Globulins 0.60 L (0.70-1.50) g/dL 05/03/17 05/03/17 05/04/17 Range/Units 17:54 23:59 05:55 WBC (3.8-10.6) k/uL RBC (3.80-5.40) m/uL Hgb (11.4-16.0) gm/dL Hct (34.0-46.0) % MCV (80.0-100.0) fL Plt Count (150-450) k/uL Chloride 112 H (98-107) mmol/L Carbon Dioxide 18 L (22-30) mmol/L BUN 33 H (7-17) mg/dL Creatinine 3.50 H (0.52-1.04) mg/dL POC Glucose (mg/dL) 164 H 114 H (75-99) mg/dL Calcium 8.2 L (8.4-10.2) mg/dL Magnesium 1.5 L (1.6-2.3) mg/dL Total Protein 4.3 L (6.3-8.2) g/dL Total Protein (PEP) (6.2-8.2) g/dL Albumin 2.1 L (3.5-5.0) g/dL Albumin (PEP) (3.80-4.90) g/dL Snsvm-5-Jhhpafpbr (0.60-1.00) g/dL Beta Globulins (0.60-1.30) g/dL Gamma Globulins (0.70-1.50) g/dL 05/04/17 Range/Units 05:55 WBC 11.9 H (3.8-10.6) k/uL RBC 2.76 L (3.80-5.40) m/uL Hgb 8.7 L (11.4-16.0) gm/dL Hct 27.7 L (34.0-46.0) % MCV 100.6 H (80.0-100.0) fL Plt Count 132 L (150-450) k/uL Chloride (98-107) mmol/L Carbon Dioxide (22-30) mmol/L BUN (7-17) mg/dL Creatinine (0.52-1.04) mg/dL POC Glucose (mg/dL) (75-99) mg/dL Calcium (8.4-10.2) mg/dL Magnesium (1.6-2.3) mg/dL Total Protein (6.3-8.2) g/dL Total Protein (PEP) (6.2-8.2) g/dL Albumin (3.5-5.0) g/dL Albumin (PEP) (3.80-4.90) g/dL Dcoup-2-Yhztmrmiz (0.60-1.00) g/dL Beta Globulins (0.60-1.30) g/dL Gamma Globulins (0.70-1.50) g/dL Microbiology - Last 24 Hours (Table) 04/29/17 08:45 Blood Culture - Preliminary Blood No Growth after 96 hours 04/29/17 08:01 Blood Culture - Preliminary Blood No Growth after 96 hours Assessment and Plan (1) Acute renal failure Narrative/Plan: non-oliguric now possibly secondary to dehydration and patient taking multiple supplements at home Patient required urgent dialysis due to uremia Nephrology is following holding off hemodialysis for now to monitor renal function and clinical progression pending further recommendations patient declined renal biopsy Agrees to [facility] dialysis if needed good urine output now replace electrolytes Mg, K per nephro recs access site for HD is left groin giancarlo line workup thus far negative for VALERY, Hep , MM. Complenent C3/C4 pending Current Visit: Yes Status: Acute Code(s): N17.9 - ACUTE KIDNEY FAILURE, UNSPECIFIED SNOMED Code(s): 93025928 (2) Tachycardia Narrative/Plan: EKG shows sinus tachy TSH unremarkable patient refusing further workup, including but not limited to, 2 D echo she is eventually refusing any medications if needed She verbalized understanding of possiblity of serious illness driving this tachycardia and consequences like heart failure. Yet, continues to refuse further testing and treatment Current Visit: Yes Status: Acute Code(s): R00.0 - TACHYCARDIA, UNSPECIFIED SNOMED Code(s): 6330151 (3) Acute metabolic encephalopathy Narrative/Plan: due to severe metabolic derangements and uremia Now resolved post dialysis Current Visit: Yes Status: Resolved Code(s): G93.41 - METABOLIC ENCEPHALOPATHY SNOMED Code(s): 13072132 (4) Diarrhea Narrative/Plan: patient reports loose bowel movement dark in color, but not anymore Occult blood testing was positive C. diff negative GI recommending endoscopy which patient is declining hemoglobin stable Current Visit: Yes Status: Acute Code(s): R19.7 - DIARRHEA, UNSPECIFIED SNOMED Code(s): 20921409 (5) Anemia Narrative/Plan: possible chronic GI bleeding , FOBT positive GI recommending endoscopy (patient declining), underlying malignancy could not be ruled out hemoglobin fluctuating , patient denies any GI bleeding at this point Iron replacement IV per nephro PPI Current Visit: Yes Status: Chronic Code(s): D64.9 - ANEMIA, UNSPECIFIED SNOMED Code(s): 741556715 (6) Debility Narrative/Plan: due to advanced age and possible underlying dementia Physical therapy evaluation possibly patient will require placement at rehab Current Visit: Yes Status: Acute Code(s): R53.81 - OTHER MALAISE SNOMED Code(s): 74451567 (7) Hypercalcemia Current Visit: Yes Status: Resolved Code(s): E83.52 - HYPERCALCEMIA SNOMED Code(s): 54180762 (8) Hypokalemia Current Visit: Yes Status: Resolved Code(s): E87.6 - HYPOKALEMIA SNOMED Code(s): 57427773 (9) Deep tissue injury Narrative/Plan: Present on admission, continue with local wound care Current Visit: Yes Status: Acute Code(s): T14.8XXA - SNOMED Code(s): 378276421 (10) Protein-calorie malnutrition, severe Narrative/Plan: encourage PO intake dietry evaluation performed Current Visit: Yes Status: Acute Code(s): E43 - UNSPECIFIED SEVERE PROTEIN- CALORIE MALNUTRITION SNOMED Code(s): 012606391 Plan: DVT prophylaxis: Heparin SC TID Placement , pending nephrology clearance, possibly in 48-72 hours
--- NOTE | 2017-05-04 11:41 | P.PN ---
Subjective Progress Note Date: 05/04/17 Principal diagnosis: Acute kidney injury, intravascular volume depletion, dehydration, and major metabolic disturbances. Including hypokalemia, severe non-anion gap metabolic acidosis, and hypercalcemia. This is a 82-year-old female patient, who was brought in to the emergency department by her son after she was found unresponsive at home. Apparently the patient's in February 2017. Since that she's been doing poorly. She hasn't been taking care of herself nor she has been eating appropriately. Her son lives in [facility] came in to check on her and he found unresponsive and he brought her to the hospital. The patient was extremely dehydrated, cachectic,/on bone, with a deep tissue injury and her coccyx probably from laying around and she has chronic ulceration of lower extremities bilaterally. The patient was unresponsive. The patient was hypothermic with a temperature of 92. She had severe metabolic derangement and based on the labs a sodium 140 for a potassium of 2 bicarb of less than 5 BUN of 94 creatinine 5.1 a calcium level of 13.6, she does severely acidotic with a pH of 7.09 with a pCO2 of 20 and pO2 of 160. She was not making any urine output. Lactic acid level is at 1.8. The patient remained actually taking well with a pulse ox of 8% to liters of oxygen nasal cannula. CAT scan of the brain was negative and showed mild atrophy and the chest x-ray showed no acute cardio pulmonary process. The [place] catheter was inserted. A total of 3 80 mL was obtained initially and since then she has produced only 35 mL by mouth overnight the dialysis catheter was inserted and the patient was dialyzed to correct her severe metabolic derangement. She was also warmed externally. She received potassium in order of 60 mEq in her follow-up electrodes from this morning show a potassium up to 2.2, a bicarb up to 17 with anion gap of 11. Creatinine is down to 2.4. Her calcium level is down to 10.5. Right second isn 't elevated at 24. She is more awake yet she is still very somnolent and lethargic. She is and I unable to hold a conversation yet. She is currently on a bicarb drip which is running at 1 50 mL an hour of D5 with 3 A and she has received more than 3 to IV fluids. Troponins were negative with a troponin maxed at 0.053. CPKs at 532. No nausea. No vomiting. No emesis. No bleeding rectally. No hematemesis. Neurologic exam is nonfocal. The patient is moving all 4 extremities without any limitation. On 04/30/2017 the patient is being seen in the follow-up in the intensive care unit. The patient was aggressively resuscitated IV fluids and currently she is well resuscitated. Her renal function continues to improve in the creatinine is down to 2.9. She is producing adequate urine output at this point. Electrodes imbalance is also being managed. The patient is being replaced with potassium and magnesium in the most recent potassium level is up to 2.4 and a phosphorus at 1.5 and magnesium is at 1.7. The metabolic acidosis completely recovered and the patient's bicarb level is up to 28 and anion gap is at 6. She is moving all 4 extremities without any limitation. No altered mentation. She is also requesting for her breakfast to be provided to her. Significant drop in hemoglobin from 16 down to 8.9. This is essentially dilutional. Note that the patient also had some epistaxis yesterday after an attempted NG tube insertion. Currently she is not having any acute bleeding. On today's evaluation of 05/01/2017 the patient got moved out of the intensive care unit and the patient is currently on a medical floor. The patient is alert and awake and much more comfortable. She is well resuscitated. She is well-hydrated. She is having occasional abdominal cramping and diarrhea. No nausea or vomiting. No chest pain or shortness of breath. She is weak. She has however much more conscious and alert. There has been significant improvement in her electrolyte balance as all of the electrodes have been replenished and the patient's renal function continues to improve. She feels that she is able to go back home and this is quite docile and she will need further social worker health services consultation for discharge planning. Stool for C. diff was negative. Diarrhea has been gradually subsiding. Her current potassium to 3.3. Renal function is gradually improving and is down to 2.1 from a baseline of 5.1. The metabolic acidosis completely recovered in addition. On 05/02/2017, patient was seen on selective, she seems to be doing much better , well-hydrated, asymptomatic, denies any nausea vomiting abdominal cramps, denies any chest pain, even her weakness seems to be a bit improved. Workup for C. difficile colitis was negative. Labs were reviewed CBC showed WBC count of 12.9 hemoglobin of 9.4 electrolytes are normal BUN is 30 creatinine is 3.15. This is much better comparing to presenting creatinine of 5.10 on admission. The patient was seen again today 05/03/2017 in follow-up on the selective care unit. She is currently awake and alert in no acute distress. She is sitting up in the chair at the bedside. She denies any shortness of breath, cough or congestion. No chest pain, palpitations lightheadedness or dizziness. She has undergone 3 hemodialysis treatments this admission for acute renal failure. Her current creatinine is 3.43. Nephrology is on the case. There are concerns regarding possible glomerulonephritis secondary to multiple herbal supplements in the outpatient setting. She is also being evaluated by GI services for her anemia and positive stool for occult blood. Current hemoglobin 10.0. The patient is seen again today 05/04/2017 in follow-up on the selective care unit. She remains awake and alert in no acute distress. No pulmonary complaints. She is maintaining O2 saturations in the upper 90s on room air. She's been hemodynamically stable. Current temperature 99.3. Blood and urine cultures reveal no growth. White count 11.9. Hemoglobin 8.7. Objective - Vital Signs Vital signs: Vital Signs Temp 99.3 F 05/04/17 08:00 Pulse 114 H 05/04/17 08:00 Resp 20 05/04/17 08:00 BP 130/65 05/04/17 08:00 Pulse Ox 96 05/04/17 09:46 Intake & Output 05/03/17 05/04/17 05/04/17 18:59 06:59 18:59 Intake Total 1478 240 Output Total 772 174 1598 Balance 928 700 -760 Weight 53.5 kg Intake: Intake, IV Titration 600 Amount Piperacillin-Tazobactam 3 50 .375 gm In Dextrose/Water 1 50ml.bag @ 12.5 mls/hr IVPB Q12HR ALEJANDRA Rx#: [id number] Sodium Chloride 0.9% 1, 450 000 ml @ 75 mls/hr IV . [id number] ALEJANDRA Rx#:[id number] Sodium Ferric Gluconat- 100 Sucrose 125 mg In Sodium Chloride 0.9% 100 ml @ 100 mls/hr IVPB DAILY@ 1300 [facility] Rx#:[id number] Oral 878 240 Output: Urine 910 723 0598 Other: Voiding Method Indwelling Catheter Indwelling Catheter Indwelling Catheter # Voids 1 # Bowel Movements 1 1 - Exam GENERAL EXAM: Alert, comfortable in no apparent distress. HEAD: Normocephalic. EYES: Normal reaction of pupils, equal size. NOSE: Clear with pink turbinates. THROAT: No erythema or exudates. NECK: No masses, no JVD. CHEST: No chest wall deformity. LUNGS: Equal air entry with no crackles, wheeze, rhonchi or dullness. CVS: S1 and S2 normal with an audible systolic murmur, regular rhythm. ABDOMEN: No hepatosplenomegaly, normal bowel sounds, no guarding or rigidity. SPINE: No scoliosis or deformity SKIN: Erythema and necrosis in the coccygeal area. CENTRAL NERVOUS SYSTEM: No focal deficits, tone is normal in all 4 extremities. EXTREMITIES: There is no peripheral edema. No clubbing, no cyanosis. Peripheral pulses are intact. - Labs CBC & Chem 7: 05/04/17 05:55 05/04/17 05:55 Labs: Abnormal Lab Results - Last 24 Hours (Table) 04/29/17 05/03/17 05/03/17 Range/Units 14:22 09:22 11:50 WBC (3.8-10.6) k/uL RBC (3.80-5.40) m/uL Hgb (11.4-16.0) gm/dL Hct (34.0-46.0) % MCV (80.0-100.0) fL Plt Count (150-450) k/uL Chloride (98-107) mmol/L Carbon Dioxide (22-30) mmol/L BUN (7-17) mg/dL Creatinine (0.52-1.04) mg/dL POC Glucose (mg/dL) 143 H (75-99) mg/dL Calcium (8.4-10.2) mg/dL Magnesium (1.6-2.3) mg/dL Total Protein (6.3-8.2) g/dL Total Protein (PEP) 4.6 L (6.2-8.2) g/dL Albumin (3.5-5.0) g/dL Albumin (PEP) 3.20 L (3.80-4.90) g/dL Qkkiu-0-Nunfddtsz 0.42 L (0.60-1.00) g/dL Beta Globulins 0.43 L (0.60-1.30) g/dL Gamma Globulins 0.60 L (0.70-1.50) g/dL 05/03/17 05/03/17 05/04/17 Range/Units 17:54 23:59 05:55 WBC (3.8-10.6) k/uL RBC (3.80-5.40) m/uL Hgb (11.4-16.0) gm/dL Hct (34.0-46.0) % MCV (80.0-100.0) fL Plt Count (150-450) k/uL Chloride 112 H (98-107) mmol/L Carbon Dioxide 18 L (22-30) mmol/L BUN 33 H (7-17) mg/dL Creatinine 3.50 H (0.52-1.04) mg/dL POC Glucose (mg/dL) 164 H 114 H (75-99) mg/dL Calcium 8.2 L (8.4-10.2) mg/dL Magnesium 1.5 L (1.6-2.3) mg/dL Total Protein 4.3 L (6.3-8.2) g/dL Total Protein (PEP) (6.2-8.2) g/dL Albumin 2.1 L (3.5-5.0) g/dL Albumin (PEP) (3.80-4.90) g/dL Mljou-3-Bjaqwtdet (0.60-1.00) g/dL Beta Globulins (0.60-1.30) g/dL Gamma Globulins (0.70-1.50) g/dL 05/04/17 Range/Units 05:55 WBC 11.9 H (3.8-10.6) k/uL RBC 2.76 L (3.80-5.40) m/uL Hgb 8.7 L (11.4-16.0) gm/dL Hct 27.7 L (34.0-46.0) % MCV 100.6 H (80.0-100.0) fL Plt Count 132 L (150-450) k/uL Chloride (98-107) mmol/L Carbon Dioxide (22-30) mmol/L BUN (7-17) mg/dL Creatinine (0.52-1.04) mg/dL POC Glucose (mg/dL) (75-99) mg/dL Calcium (8.4-10.2) mg/dL Magnesium (1.6-2.3) mg/dL Total Protein (6.3-8.2) g/dL Total Protein (PEP) (6.2-8.2) g/dL Albumin (3.5-5.0) g/dL Albumin (PEP) (3.80-4.90) g/dL Nrimw-3-Mgsylvtpd (0.60-1.00) g/dL Beta Globulins (0.60-1.30) g/dL Gamma Globulins (0.70-1.50) g/dL Microbiology - Last 24 Hours (Table) 04/29/17 08:45 Blood Culture - Preliminary Blood No Growth after 120 hours 04/29/17 08:01 Blood Culture - Preliminary Blood No Growth after 120 hours Assessment and Plan Plan: Impression: 1 acute kidney injury in setting of severe dehydration and intravascular volume depletion with major metabolic disturbances. The patient underwent third dialysis treatment on 04/30/2017 and no plans for further dialysis. Current creatinine 3.50. There is some concern regarding possible glomerulonephritis secondary to multiple herbal vitamins in the outpatient setting. 2 severe hypokalemia, replace and the potassium level is up to 3.6 3 severe non-anion gap metabolic acidosis, being corrected with dialysis, recovered 4 acute hypercalcemia probably related to intravascular volume depletion.. Current calcium 8.2. 5 rhabdomyolysis, mild 6 hypothermia, corrected 7 severe cachexia and malnutrition and anorexia, severe protein calorie malnutrition 8 leukocytosis, improved 9 suspected urine tract infection, urine culture no growth. 10 Deep tissue injury to the coccyx 11 encephalopathy secondary to above 12 significant drop in hemoglobin, dilutional and there is no evidence of any external bleeding other than some limited epistaxis. The hemoglobin is stable for now currently at 8.7. Plan: The patient was seen and evaluated by Dr. Heller. She is maintaining good O2 saturations in the 90s on room air. Gastroenterology services are following regarding the drop in hemoglobin and stool for occult blood positive. Nephrology continues to follow in regards to the acute renal failure. We will continue to follow. I, the cosigning physician, have performed a history and physical examination on the patient. Lung sounds are clear. Maintaining good O2 saturations in the 90s on room air. I have discussed the assessment and plan of care with my nurse practitioner, Tonya Araya. I attest the above documented note as dictated by her.
[2017-05-04] MEDS: MAGNESIUM SULFATE-D5W PMX 1 GM in DEXTROSE/WATER 1 100ML.BAG IVPB SCH ×2 (11:52→15:09)
[2017-05-04 12:34] LABS: Glucose,Whole Blood 98 mg/dL (75-99)
[2017-05-04] MEDS: SODIUM FERRIC GLUCONAT-SUCROSE 125 MG in SODIUM CHLORIDE 0.9% 100 ML IVPB SCH (13:48)
[2017-05-04 14:37] LABS: C-ANCA <1:20 Titer (<1:20); P-ANCA <1:20 Titer (<1:20)
[2017-05-04] MEDS: PANTOPRAZOLE 40 MG TABLET PO SCH (16:49)
[2017-05-04 17:17] LABS: Glucose,Whole Blood 123 mg/dL (75-99)
[2017-05-04] MEDS ORDERED: HYDROcodone/APAP 5-325MG 1 EACH TAB PO PRN (17:31)
[2017-05-04 20:47] LABS: Glucose,Whole Blood 108 mg/dL (75-99)
[2017-05-04 21:09] VITALS: RESP 16
--- NOTE | 2017-05-04 22:52 | P.CN ---
Psychiatric Consult - . Consult date: 05/04/17 Consult:: VITALS: Temp 98.3 F 05/04/17 15:43 Pulse 117 H 05/04/17 15:43 Resp 20 05/04/17 15:43 BP 126/74 05/04/17 15:43 Pulse Ox 97 05/04/17 15:43 LABS: WBC 11.9 k/uL (3.8-10.6) H 05/04/17 05:55 RBC 2.76 m/uL (3.80-5.40) L 05/04/17 05:55 Hgb 8.7 gm/dL (11.4-16.0) L 05/04/17 05:55 Hct 27.7 % (34.0-46.0) L 05/04/17 05:55 MCV 100.6 fL (80.0-100.0) H 05/04/17 05:55 MCH 31.6 pg (25.0-35.0) 05/04/17 05:55 MCHC 31.4 g/dL (31.0-37.0) 05/04/17 05:55 RDW 13.7 % (11.5-15.5) 05/04/17 05:55 Plt Count 132 k/uL (150-450) L 05/04/17 05:55 Neutrophils % 84 % 05/03/17 06:36 Lymphocytes % 6 % 05/03/17 06:36 Monocytes % 7 % 05/03/17 06:36 Eosinophils % 1 % 05/03/17 06:36 Basophils % 0 % 05/03/17 06:36 Neutrophils # 9.8 k/uL (1.3-7.7) H 05/03/17 06:36 Lymphocytes # 0.7 k/uL (1.0-4.8) L 05/03/17 06:36 Monocytes # 0.8 k/uL (0-1.0) 05/03/17 06:36 Eosinophils # 0.2 k/uL (0-0.7) 05/03/17 06:36 Basophils # 0.0 k/uL (0-0.2) 05/03/17 06:36 Manual Slide Review Performed 04/28/17 19:40 Hypochromasia Slight 04/28/17 17:55 Hyperchromasia Slight 04/30/17 05:20 Poikilocytosis Slight 04/28/17 19:40 Macrocytosis Slight 05/03/17 06:36 Crenated Cell Present 04/28/17 19:40 Fragmented RBCs Present 04/28/17 19:40 PT 10.4 sec (9.0-12.0) 05/04/17 05:55 INR 1.0 (<1.2) 05/04/17 05:55 APTT 29.9 sec (22.0-30.0) 05/04/17 05:55 Sample Site LRAD 04/29/17 08:20 ABG pH 7.54 (7.35-7.45) H 04/29/17 08:20 ABG pCO2 24 mmHg (35-45) L 04/29/17 08:20 ABG pO2 160 mmHg (83-108) H 04/29/17 08:20 ABG HCO3 21 mmol/L (21-25) 04/29/17 08:20 ABG Total CO2 21 mmol/L (19-24) 04/29/17 08:20 ABG O2 Saturation 99.7 % (94-97) H 04/29/17 08:20 ABG Base Excess -1.7 mmol/L 04/29/17 08:20 FiO2 24 % 04/29/17 08:20 Sodium 137 mmol/L (137-145) 05/04/17 05:55 Potassium 3.6 mmol/L (3.5-5.1) 05/04/17 05:55 Chloride 112 mmol/L (98-107) H 05/04/17 05:55 Carbon Dioxide 18 mmol/L (22-30) L 05/04/17 05:55 Anion Gap 7 mmol/L 05/04/17 05:55 BUN 33 mg/dL (7-17) H 05/04/17 05:55 Creatinine 3.50 mg/dL (0.52-1.04) H 05/04/17 05:55 Est GFR (MDRD) Af Amer 15 (>60 ml/min/1.73 sqM) 05/04/17 05:55 Est GFR (MDRD) Non-Af 13 (>60 ml/min/1.73 sqM) 05/04/17 05:55 Glucose 92 mg/dL (74-99) 05/04/17 05:55 POC Glucose (mg/dL) 123 mg/dL (75-99) H 05/04/17 17:14 POC Glu Info Print Press Operator ID Katharina Miller 05/04/17 17:14 Plasma Lactic Acid Surjit 1.5 mmol/L (0.7-2.0) 04/29/17 03:18 Calcium 8.2 mg/dL (8.4-10.2) L 05/04/17 05:55 Ionized Calcium [place] 6.2 mg/dL (4.5-5.3) H* 04/29/17 08:01 Phosphorus 3.4 mg/dL (2.5-4.5) 05/04/17 05:55 Magnesium 1.5 mg/dL (1.6-2.3) L 05/04/17 05:55 Iron 22 ug/dL (50-170) L 05/01/17 05:37 TIBC 174 ug/dL (228-460) L 05/01/17 05:37 Iron Saturation 12.64 (12.00-45.00) 05/01/17 05:37 Ferritin 323.0 ng/mL (10.0-291.0) H 05/01/17 05:37 Total Bilirubin 0.2 mg/dL (0.2-1.3) 05/04/17 05:55 AST 28 U/L (14-36) 05/04/17 05:55 ALT 45 U/L (9-52) 05/04/17 05:55 Alkaline Phosphatase 60 U/L (38-126) 05/04/17 05:55 Total Creatine Kinase 532 U/L (30-135) H 04/28/17 17:55 CK-MB (CK-2) 11.0 ng/mL (0.0-2.4) H* 04/28/17 17:55 CK-MB (CK-2) Rel Index 2.1 04/28/17 17:55 Troponin I 0.096 ng/mL (0.000-0.034) H* 04/29/17 08:01 Total Protein 4.3 g/dL (6.3-8.2) L 05/04/17 05:55 Total Protein (PEP) 4.6 g/dL (6.2-8.2) L 05/03/17 09:22 Albumin 2.1 g/dL (3.5-5.0) L 05/04/17 05:55 Albumin (PEP) 3.20 g/dL (3.80-4.90) L 04/29/17 14:22 Auwde-3-Sfplwywmt 0.15 g/dL (0.10-0.40) 04/29/17 14:22 Lfzue-1-Jwldecjon 0.42 g/dL (0.60-1.00) L 04/29/17 14:22 Beta Globulins 0.43 g/dL (0.60-1.30) L 04/29/17 14:22 Gamma Globulins 0.60 g/dL (0.70-1.50) L 04/29/17 14:22 PEP Interpretation SEE NOTE 04/29/17 14:22 Vitamin D 25-Hydroxy 26.6 ng/mL (30.0-100.0) L 04/29/17 14:22 Vit D 1,25-Dihydroxy 42 pg/mL (20 - 79) 04/29/17 08:01 TSH 0.953 mIU/L (0.465-4.680) 05/03/17 06:36 PTH Intact 48.4 pg/mL (14.0-72.0) 04/29/17 14:22 Urine Color Light Yellow 05/02/17 12:25 Urine Appearance Clear (Clear) 05/02/17 12:25 Urine pH 8.0 (5.0-8.0) 05/02/17 12:25 Ur Specific [place] 1.006 (1.001-1.035) 05/02/17 12:25 Urine Protein 2+ (Negative) H 05/02/17 12:25 Urine Glucose (UA) 3+ (Negative) H 05/02/17 12:25 Urine Ketones Negative (Negative) 05/02/17 12:25 Urine Blood Small (Negative) H 05/02/17 12:25 Urine Nitrite Negative (Negative) 05/02/17 12:25 Urine Bilirubin Negative (Negative) 05/02/17 12:25 Urine Urobilinogen <2.0 mg/dL (<2.0) 05/02/17 12:25 Ur Leukocyte Esterase Negative (Negative) 05/02/17 12:25 Urine RBC 2 /hpf (0-5) 05/02/17 12:25 Urine WBC 2 /hpf (0-5) 05/02/17 12:25 Ur Squamous Epith Cells 4 /hpf (0-4) 04/28/17 21:40 Amorphous Sediment Rare /hpf (None) H 05/02/17 12:25 Urine Eosinophils 0 % 04/29/17 12:09 Ur Random Creatinine 21.8 mg/dL 05/02/17 12:25 U Random Total Protein 100 mg/dL (<12) H 05/02/17 12:25 Stool Occult Blood Positive (Negative) H 05/02/17 04:26 Urine Opiates Screen Not Detected (NotDetected) 04/28/17 17:30 Ur Oxycodone Screen Not Detected (NotDetected) 04/28/17 17:30 Urine Methadone Screen Not Detected (NotDetected) 04/28/17 17:30 Ur Propoxyphene Screen Not Detected (NotDetected) 04/28/17 17:30 Ur Barbiturates Screen Not Detected (NotDetected) 04/28/17 17:30 U Tricyclic Antidepress Not Detected (NotDetected) 04/28/17 17:30 Ur Phencyclidine Scrn Not Detected (NotDetected) 04/28/17 17:30 Ur Amphetamines Screen Not Detected (NotDetected) 04/28/17 17:30 U Methamphetamines Scrn Not Detected (NotDetected) 04/28/17 17:30 U Benzodiazepines Scrn Not Detected (NotDetected) 04/28/17 17:30 Urine Cocaine Screen Not Detected (NotDetected) 04/28/17 17:30 U Marijuana (THC) Screen Not Detected (NotDetected) 04/28/17 17:30 Serum PRAVEENA Interpret SEE NOTE 04/29/17 14:22 Urine Immunofixation SEE NOTE 04/29/17 12:09 VALERY Screen NEGATIVE (NEGATIVE) 05/03/17 09:22 c-ANCA <1:20 Titer (<1:20) 05/03/17 09:22 p-ANCA <1:20 Titer (<1:20) 05/03/17 09:22 Tot Complement (CH50) 71 U/mL (42 - 95) 05/03/17 09:22 C. difficile (EIA) Intrp Negative (Negative) 05/01/17 08:57 Hepatitis A IgM Ab Non-Reactive (Non-Reactive) 05/03/17 09:22 Hep Bs Antigen Non-Reactive (Non-Reactive) 05/03/17 09:22 Hep B Core IgM Ab Non-Reactive (Non-Reactive) 05/03/17 09:22 Hep C IgG Ab Non-Reactive (Non-Reactive) 05/03/17 09:22 REASON FOR CONSULTATION: "patient refusing certain elements of care" HPI: Patient is an 82 year old female brought in to the emergency department by her son after she was found unresponsive at home. The patient had reported not been taking care of herself or eating properly since the of her in February 2017. Patient presented dehydrated, cachectic, deep tissue injury on her coccyx, and chronic ulcerations on her bilateral LEs. The patient had a severe metabolic derangement, hypothermic with a temperature of 92o F. After several days of intensive hemodynamic stabilization and dialysis, patient is now awake, alert, fully oriented to all three spheres. As her inpatient care progressed, patient has begun to refuse various recommended procedures (renal biopsy, 2 D Echo, GI endoscopy) and medication therapy. Psychiatry was consulted due to patient refusing said elements of care and to assess patients medical decision making capacity. Patient states that she was born in the [facility] where everyone was a devout Moravian. She reports being devoutly shinto her entire life and she states that it is her shinto belief that synthetic medications or invasive medical procedures that violate and defile the sanctity of the holy druze are impermissible. Patient then pulls out her Bible and quotes several passages. Patient takes many prompts and some redirection, but eventually is able to state the following: She is able to verbalize that she understands why her current IP team wants her to have said procedures in basic terms; she is able to state her reason for declining consent. She is able to state that she understands the consequences of not having such procedures including an increased risk of debility or . And she is able to state that due to her shinto beliefs, which patient concedes may be somewhat outside of Catholics norms regarding medical treatment is [id number] part of her personal belief system and based upon them has made the choice to decline. At this time, patient denies symptoms of depression; she denies any past history of a remote or recent rip or hypomania. She denies SI/HI/AVH. PSYCHIATRIC HISTORY: denies PMH: denies HOME MEDICATIONS: 3 Medication Instructions Recorded Confirmed Adrenatran 1 tab PO DAILY 04/28/17 04/28/17 Allerase 1 tab PO DAILY 04/28/17 04/28/17 B-Cell Formula 1 tab PO DAILY 04/28/17 04/28/17 Bio-Fcts 1 tab PO DAILY 04/28/17 04/28/17 Bioavailable Iron 5mg 5 mg PO DAILY 04/28/17 04/28/17 Biocitrate-Multi Mineral 1 tab PO DAILY 04/28/17 04/28/17 Bone-Chiara 1 tab PO DAILY 04/28/17 04/28/17 Yao/Mag 1:1 1 tab PO DAILY 04/28/17 04/28/17 Cataplex F 1 tab PO DAILY 04/28/17 04/28/17 Colostrum 1 tab PO DAILY 04/28/17 04/28/17 Dandelion 1 tab PO DAILY 04/28/17 04/28/17 Dopa Boost 1 tab PO DAILY 04/28/17 04/28/17 Glycine 500mg 500 mg PO DAILY 04/28/17 04/28/17 Grape Seed 1 tab PO DAILY 04/28/17 04/28/17 Graviola 1 tab PO DAILY 04/28/17 04/28/17 Hepagen 1 tab PO DAILY 04/28/17 04/28/17 Hepatropin Pmg 1 tab PO DAILY 04/28/17 04/28/17 Horse [place] 1 tab PO DAILY 04/28/17 04/28/17 Inosine 500mg 500 mg PO DAILY 04/28/17 04/28/17 L-Citrulline 500mg 500 mg PO DAILY 04/28/17 04/28/17 L-Glutamin 400mg 400 mg PO DAILY 04/28/17 04/28/17 L-Glutathione 1 tab PO DAILY 04/28/17 04/28/17 L-Histidine 500mg 500 mg PO DAILY 04/28/17 04/28/17 Lacto 1 tab PO DAILY 04/28/17 04/28/17 Lactoferrin 100mg 100 mg PO DAILY 04/28/17 04/28/17 Liver Blend Sp-13 1 tab PO DAILY 04/28/17 04/28/17 Liver Cleanse 1 tab PO DAILY 04/28/17 04/28/17 Methylsulfonylmethane [MSM] 1,000 mg PO DAILY 04/28/17 04/28/17 Molybdenum 1 tab PO DAILY 04/28/17 04/28/17 Monolaurin 300mg 300 mg PO DAILY 04/28/17 04/28/17 Multi-Gland 1 tab PO DAILY 04/28/17 04/28/17 Natto-Serrazime 1 tab PO DAILY 04/28/17 04/28/17 Norival 1 tab PO DAILY 04/28/17 04/28/17 Nutricillin 1 tab PO DAILY 04/28/17 04/28/17 Paracidin 1 tab PO DAILY 04/28/17 04/28/17 Potassium Citrate 99mg 99 mg PO DAILY 04/28/17 04/28/17 Psorex 120mg 120 mg PO DAILY 04/28/17 04/28/17 Refluxin 1 tab PO DAILY 04/28/17 04/28/17 Rna/Dna 100/100 1 tab PO DAILY 04/28/17 04/28/17 Squarlene 1 tab PO DAILY 04/28/17 04/28/17 Anny 1 tab PO DAILY 04/28/17 04/28/17 Tendofit 1 tab PO DAILY 04/28/17 04/28/17 Thymex 1 tab PO DAILY 04/28/17 04/28/17 Uristatin 1 tab PO DAILY 04/28/17 04/28/17 Vitamin B Complex 1 cap PO DAILY 04/28/17 04/28/17 [place] Bark 1 tab PO DAILY 04/28/17 04/28/17 Wobenzym N 1 tab PO DAILY 04/28/17 04/28/17 [place] 1 tab PO DAILY 04/28/17 04/28/17 Zinc Picolinate 1 tab PO DAILY 04/28/17 04/28/17 ALLERGIES: 3 Allergy/AdvReac Type Severity Reaction Status Date / Time No Known Allergies Allergy Verified 04/28/17 20:36 SURGICAL HISTORY: denies CHEMICAL DEPENDENCY HISTORY: denies FAMILY HISTORY: denies SOCIAL HISTORY: 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 with assistance from family and neighbors : no rastafarian: Moravian access to firearms: no sexual orientation: heterosexual, , in February of 2017 safety at home: yes STRENGTHS/WEAKNESSES: spiritual wellbeing, co-morbid medical illnesses MENTAL STATUS EXAM: Appearance: alert, well groomed, appears stated age Behavior: no psychomotor agitation or psychomotor retardation, no abnormal movements, fair eye contact Attitude: cooperative Speech: normal rate, rhythm, fluency, articulation, volume, and prosody; primary language: Angolan Mood: euthymic Affect: congruent, reactive Thought processes: linear at times somewhat circumstantial Thought content: patient does not appear to be responding to internal stimuli; patient denies auditory and visual hallucinations, no delusions appreciated Insight: fair Judgment: fair Cognitive: oriented to all 3 spheres, average intelligence Assessment and Plan (1) Complicated bereavement Narrative/Plan: Offered and declined psychotropic medications for symptomatic treatment of bereavement (anxiety, insomnia, mood) Offered and declined outpatient referral to psychotherapy for bereavement, group counseling, and support groups Given that the patient has been by all accounts independently living with her up until his in February of 2017 and reportedly practicing her herblore/holistic supplementation for over 10 years with no reported episodes of overdose or toxicity, it is probable that patient accidentally overdosed on her rather extreme regimen which she admitted to recently increasing to cope with her feelings of loss, anxiety, and grief over her . Patient is able to endorse this possibility although she is skeptical. She believes God is with her in this matter, but she will concede there is the possibility that some of her herbs may have been contaminated, , inert, etc. Thus she is able to process and rationalize alternative explanations despite her devout shinto beliefs. Said shinto convictions can be considered part of her core belief system and do not qualify as being labeled "delusions." Current Visit: Yes Status: Acute Code(s): F43.29 - ADJUSTMENT DISORDER WITH OTHER SYMPTOMS; Z63.4 - DISAPPEARANCE AND OF FAMILY MEMBER SNOMED Code(s ): 052095675 Plan: Patient has decision making medical capacity and able to consent or decline medical treatment at this time Offered and declined psychotropic medications for symptomatic treatment of bereavement (anxiety, insomnia, mood) Offered and declined outpatient referral to psychotherapy for bereavement, group counseling, and support groups If patient was shown a video of what a 2-D echo actually is she may be agreeable; she did have an ultrasound of her liver on 05/02/2017 with no documented objection to such Does not meet criteria for involuntary psychiatric admission Psychiatry will sign off, please feel free to contact if you have further questions or concerns ~ Tariq Baltazar DO [phone] (pager) Time with Patient: Greater than 30
[2017-05-05 05:44] LABS: Glucose,Whole Blood 91 mg/dL (75-99)
[2017-05-05 06:17] LABS: CH 31.7; CHCM 31.9; HCT 28.3 % (34.0-46.0); HDW 2.68; HGB 8.9 gm/dL (11.4-16.0); MCH 31.4 pg (25.0-35.0); MCHC 31.3 g/dL (31.0-37.0); MCV 100.4 fL (80.0-100.0); Mean Platelet Volume 7.2; RBC 2.82 m/uL (3.80-5.40); RDW 13.5 % (11.5-15.5); WBC 11.4 k/uL (3.8-10.6)
[2017-05-05] MEDS: PANTOPRAZOLE 40 MG TABLET PO SCH ×2 (06:22→18:38)
[2017-05-05 06:34] LABS: Calcium 8.2 mg/dL (8.4-10.2); Potassium 4.2 mmol/L (3.5-5.1)
[2017-05-05] MEDS: HEPARIN SODIUM,PORCINE 5,000 UNIT/ML 1 ML VIAL SQ SCH ×3 (08:06→20:32)
[2017-05-05] MEDS: AMMONIUM LACTATE 12% LOTION 225 GM BTL TOPICAL SCH ×2 (09:17→20:31)
[2017-05-05] MEDS: LACTOBACILLUS ACIDOPH & BULGAR 1 EACH PACKET PO SCH ×2 (09:19→20:27)
[2017-05-05] MEDS: SODIUM BICARBONATE TAB 650 MG TAB PO SCH ×2 (09:20→20:27)
[2017-05-05] MEDS: POTAS-SOD-PHOS 278-164-250 MG 1 EACH PACKET PO SCH ×3 (09:20→20:27)
[2017-05-05] MEDS ORDERED: DARBEPOETIN ALFA 40 MCG/0.4 ML SYRINGE SQ SCH (10:00)
--- NOTE | 2017-05-05 10:05 | P.PN ---
Subjective Patient is seen in follow-up for acute kidney injury. Unclear as to what her baseline renal function is. Creatinine peaked at 5.1 this admission and patient was quite uremic. She was started on hemodialysis and has undergone 3 treatments so far - last treatment on 04/30. Her urine output is documented as over 2.5 L in the last 24 hours. She has a Trujillo catheter. She is awake and alert this morning. She is tolerating oral intake. Denies chest pain or shortness of breath. Creatinine is stable at 3.5 today. Vital signs are stable. General: The patient appeared well nourished and normally developed. HEENT: Head exam is unremarkable. Neck is without jugular venous distension. LUNGS: Lungs are clear to auscultation and percussion. Breath sounds decreased. HEART: Rate and Rhythm are regular. First and second heart sounds normal. No murmurs, rubs or gallops. ABDOMEN: Abdominal exam reveals normal bowel sounds. Non-tender and non- distended. No evidence of peritonitis. EXTREMITITES: No clubbing, cyanosis, or edema. Chronic skin discoloration noted. Some skin peeling noted as well. No obvious drainage. Objective - Vital Signs Vital signs: Vital Signs Temp 99.4 F 05/05/17 04:00 Pulse 108 H 05/05/17 04:00 Resp 16 05/05/17 04:00 BP 125/69 05/05/17 04:00 Pulse Ox 96 05/05/17 04:00 Intake & Output 05/04/17 05/05/17 05/05/17 18:59 06:59 18:59 Intake Total 1470 800 120 Output Total 1650 850 Balance -180 -50 120 Weight 53 kg Intake: IV 750 800 Magnesium Sulfate-D5w Pmx 200 1 gm In Dextrose/Water 1 100ml.bag @ 100 mls/hr IVPB Q1H ALEJANDRA Rx#: [id number] Piperacillin-Tazobactam 3 50 .375 gm In Dextrose/Water 1 50ml.bag @ 12.5 mls/hr IVPB Q12HR ALEJANDRA Rx#: [id number] Sodium Chloride 0.9% 1, 400 800 000 ml @ 50 mls/hr IV . Q20H ALEJANDRA Rx#:[id number] Sodium Ferric Gluconat- 100 Sucrose 125 mg In Sodium Chloride 0.9% 100 ml @ 100 mls/hr IVPB DAILY@ 1300 ALEJANRDA Rx#:[id number] Oral 720 120 Output: Urine 1650 850 Other: Voiding Method Indwelling Catheter Indwelling Catheter # Voids 1 # Bowel Movements 1 1 - Labs CBC & Chem 7: 05/05/17 05:33 05/05/17 05:33 Labs: Abnormal Lab Results - Last 24 Hours (Table) 05/03/17 05/04/17 05/04/17 Range/Units 09:22 17:14 20:46 WBC (3.8-10.6) k/uL RBC (3.80-5.40) m/uL Hgb (11.4-16.0) gm/dL Hct (34.0-46.0) % MCV (80.0-100.0) fL Plt Count (150-450) k/uL Chloride (98-107) mmol/L Carbon Dioxide (22-30) mmol/L BUN (7-17) mg/dL Creatinine (0.52-1.04) mg/dL POC Glucose (mg/dL) 123 H 108 H (75-99) mg/dL Calcium (8.4-10.2) mg/dL Albumin (PEP) 2.59 L (3.80-4.90) g/dL Beta Globulins 0.56 L (0.60-1.30) g/dL Gamma Globulins 0.59 L (0.70-1.50) g/dL 05/05/17 05/05/17 Range/Units 05:33 05:33 WBC 11.4 H (3.8-10.6) k/uL RBC 2.82 L (3.80-5.40) m/uL Hgb 8.9 L (11.4-16.0) gm/dL Hct 28.3 L (34.0-46.0) % MCV 100.4 H (80.0-100.0) fL Plt Count 148 L (150-450) k/uL Chloride 113 H (98-107) mmol/L Carbon Dioxide 17 L (22-30) mmol/L BUN 32 H (7-17) mg/dL Creatinine 3.53 H (0.52-1.04) mg/dL POC Glucose (mg/dL) (75-99) mg/dL Calcium 8.2 L (8.4-10.2) mg/dL Albumin (PEP) (3.80-4.90) g/dL Beta Globulins (0.60-1.30) g/dL Gamma Globulins (0.70-1.50) g/dL Microbiology - Last 24 Hours (Table) 04/29/17 08:45 Blood Culture - Preliminary Blood No Growth after 120 hours 04/29/17 08:01 Blood Culture - Preliminary Blood No Growth after 120 hours Assessment and Plan Plan: Assessment: #1. Oliguric - now nonoliguric - acute kidney injury secondary to hypercalcemia -induced ATN further worsened with hemodynamic instability and poor oral intake. Rule out interstitial nephritis - urine eosinophils negative. Unclear as to what her baseline renal function is. Creatinine was 4.8 on admission and peaked at 5.1. No evidence of hydronephrosis. She underwent third treatment of hemodialysis 04/30. Creatinine today is stable at 3.5. 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 Serologic workup negative. #2. Severe hypokalemia from poor oral intake. Status post replacement. Improved. #3. Severe hypophosphatemia, again from poor nutritional intake. Status post replacement. Improved. #4. Severe metabolic acidosis secondary to acute kidney injury. #5. Hypercalcemia secondary to supplementation as well as severe intravascular volume depletion. Rule out primary hyperparathyroidism, MM, vitamin D toxicity. Also possible underlying malignancy. Patient has not seen a physician for several years. Resolved. Vit D 26, PTH 48, 1,25 D3 42, no evidence of myeloma. #6. Anemia. Iron deficiency noted. No evidence of active bleeding. S/p IV iron. #7. Urinary retention status post Rtujillo catheter placement. Plan: I will continue to hold hemodialysis and monitor renal function for recovery. Continue to monitor renal function and urine output. Avoid nephrotoxic agents and hypotensive episodes. Continue normal saline at 50 cc/hr. Encouraged oral intake. Maintain oral sodium bicarbonate to 1300 mg twice daily. Continue Neutra-Phos for now. Repeat electrolytes in AM, incl Mg and phos. I also discussed the potential need for renal biopsy for definitive diagnosis. She is refusing at this time. D/c giancarlo catheter.
--- NOTE | 2017-05-05 11:34 | P.DS ---
Providers Date of admission: 04/28/17 19:56 Attending physician: Lilly Waldron DO Consults: 04/28/17 19:59 Consult Physician Urgent Consulting Provider: Anderson Montaño Consult Reason/Comments: Critical care management Do you want consulting provider notified?: Yes 04/28/17 20:02 Consult Physician Urgent Consulting Provider: Anabell Rico Consult Reason/Comments: Acute renal failure Do you want consulting provider notified?: Yes 04/28/17 20:36 Consult Physician Urgent Consulting Provider: Davidson Magallanes Consult Reason/Comments: renal failure Do you want consulting provider notified?: Yes 04/28/17 21:46 Consult Physician Stat Consulting Provider: Kyle Schulz Consult Reason/Comments: temp dialysis cath placement Do you want consulting provider notified?: Yes 05/03/17 16:24 Consult Physician Routine Consulting Provider: Mary Fernandez Consult Reason/Comments: patient refusing certain elements of care Do you want consulting provider notified?: Yes Primary care physician: Stated None - Discharge Diagnosis(es) (1) Acute renal failure non-oliguric now possibly secondary to dehydration and patient taking multiple supplements at home Patient required urgent dialysis due to uremia she received 3 sessions Nephrology is following holding off hemodialysis for now to monitor renal function and clinical progression patient declined renal biopsy 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 good urine output now replace electrolytes Mg, K per nephro recs workup thus far negative for VALERY, Hepatitis , MM, SLE Current Visit: Yes Status: Acute (2) Tachycardia Current Visit: Yes Status: Acute (3) Acute metabolic encephalopathy Current Visit: Yes Status: Resolved (4) Diarrhea Current Visit: Yes Status: Resolved (5) Anemia possible chronic GI bleeding , FOBT positive GI recommending endoscopy (patient declining), underlying malignancy could not be ruled out hemoglobin fluctuating , patient denies any GI bleeding at this point s/p Iron replacement IV PPI Current Visit: Yes Status: Chronic (6) Debility Current Visit: Yes Status: Acute (7) Hypercalcemia Current Visit: Yes Status: Resolved (8) Hypokalemia Current Visit: Yes Status: Resolved (9) Deep tissue injury Current Visit: Yes Status: Acute (10) Protein-calorie malnutrition, severe Current Visit: Yes Status: Acute Hospital Course: 82-year-old female with no significant past medical history presented due to altered mental status was found to have severe electrolyte derangements requiring urgent hemodialysis. She received three sessions, and now nephrology is recommending waitful watch to monitor for renal function progression, she is making good urine output now. Patient seen and examined, today she is agreeable to have outpatient HD if needed. otherwise continued to refuse any other further workup including ( renal biopsy, cardiac workup for tachycardia including 2 D Echo, or any GI workup with endoscopy). I discussed with her the findings of sinus tachycardia, and the risk of heart failure if this continues to be untreated, and recommended to have an echocardiogram to be done and then possibly to add some medications. She clearly verbalized understanding of her current tachycardia and the consequences if left untreated, yet, refused any further workup even if non-invasive, and refused adding more medications. She indicated that she does not want more medications to be added, Period. Exhaustive workup for acute kidney injury was done including connective tissue disease inflammatory disorders and causes of glomerulonephritis everything resulted back negative Anemia with positive occult blood test, patient evaluated by GI however she declined endoscopy. Labs showed iron deficiency which was replaced with IV iron infusion. Continue with by mouth iron upon discharge Sinus tachycardia, TSH was unremarkable, otherwise patient declined further testing including but not limited to 2-D echo of the heart. She also mentioned that she would refuse to add any further medications. Patient was evaluated by psychiatry, and deemed her incompetent to make her own decisions based on her own believes. Patient was seen and examined on day of discharge, denies any chest pain or trouble breathing, denies any fevers or chills nausea or vomiting. She is tolerating by mouth intake. Constitutional: vital signs stable, Not in acute distress, pleasant, conversant Lungs: Clear to auscultation bilaterally, no use of accessory respiratory muscles Cardiovascular: Tachycardia, no murmurs, no gallops, no rubs, no peripheral edema Gastrointestinal: Soft, no tenderness to palpation, bowel sounds positive, left giancarlo line in place, no tenderness to palpation no erythema of surrounding skin , aguirre cath in place Extremities: No digital cyanosis or clubbing or ischemia, no calf muscle tenderness, chronic dermatitis bilateral lower third of legs Psych: Alert, oriented to place, person and time Case discussed with nephrology, cleared her for discharge no immediate plans for further dialysis Recommending to obtain a basic metabolic panel on Wednesday 05/09 Patient will be discharged to subacute rehab Patient again expressed no interest in further investigations understanding the consequences of tachycardia and possible need for endoscopy due to her low hemoglobin however continues to decline and only agreeable to dialysis if needed. Aguirre cath to remain in place due to urinary retention to avoid worsening her renal function , this should be evaluated again as outpatient with urology with urodynamic studies of urinary bladder 40 minutes were spent discharging this patient, and more than 50% of the time was spent in counseling the patient and family and in coordinating care. Patient Condition at Discharge: Stable Plan - Discharge Summary New Discharge Prescriptions: New Ammonium Lactate Lotion [Lac-Hydrin 12% Lotion] 1 applic TOPICAL BID applic Darbepoetin Adriano [Aranesp] 40 mcg SQ Q7D syringe Heparin Sodium,Porcine [Heparin Sodium] 5,000 unit SQ Q8HR vial Lactobacillus Acidoph & Bulgar [Lactinex] 1 each PO BID packet Pantoprazole [Protonix] 40 mg PO AC-BID tablet.dr [id number] 278-164-250 mg [Neutra-Phos Packet] 1 each PO TID packet Sodium Bicarbonate Tab 1,300 mg PO BID tab Discontinued Hepatropin Pmg 1 tab PO DAILY Multi-Gland 1 tab PO DAILY Methylsulfonylmethane [MSM] 1,000 mg PO DAILY Dopa Boost 1 tab PO DAILY Nutricillin 1 tab PO DAILY Cataplex F 1 tab PO DAILY Psorex 120mg 120 mg PO DAILY Potassium Citrate 99mg 99 mg PO DAILY Rna/Dna 100/100 1 tab PO DAILY Bioavailable Iron 5mg 5 mg PO DAILY Liver Blend Sp-13 1 tab PO DAILY L-Glutathione 1 tab PO DAILY Glycine 500mg 500 mg PO DAILY Biocitrate-Multi Mineral 1 tab PO DAILY Refluxin 1 tab PO DAILY Adrenatran 1 tab PO DAILY [place] 1 tab PO DAILY [place] 1 tab PO DAILY Yao/Mag 1:1 1 tab PO DAILY [place] 1 tab PO DAILY Uristatin 1 tab PO DAILY Graviola 1 tab PO DAILY Dandelion 1 tab PO DAILY Squarlene 1 tab PO DAILY Paracidin 1 tab PO DAILY Anny 1 tab PO DAILY Monolaurin 300mg 300 mg PO DAILY L-Histidine 500mg 500 mg PO DAILY B-Cell Formula 1 tab PO DAILY Natto-Serrazime 1 tab PO DAILY Lactoferrin 100mg 100 mg PO DAILY Lacto 1 tab PO DAILY Zinc Picolinate 1 tab PO DAILY Grape Seed 1 tab PO DAILY Colostrum 1 tab PO DAILY Wobenzym N 1 tab PO DAILY Tendofit 1 tab PO DAILY Molybdenum 1 tab PO DAILY Liver Cleanse 1 tab PO DAILY L-Citrulline 500mg 500 mg PO DAILY Vitamin B Complex 1 cap PO DAILY Thymex 1 tab PO DAILY Norival 1 tab PO DAILY L-Glutamin 400mg 400 mg PO DAILY Inosine 500mg 500 mg PO DAILY Bone-Chiara 1 tab PO DAILY Bio-Fcts 1 tab PO DAILY Allerase 1 tab PO DAILY Hepagen 1 tab PO DAILY Discharge Medication List Ammonium Lactate Lotion [Lac-Hydrin 12% Lotion] 1 applic TOPICAL BID applic [Rx] Darbepoetin Adriano [Aranesp] 40 mcg SQ Q7D syringe 05/05/17 [Rx] Heparin Sodium,Porcine [Heparin Sodium] 5,000 unit SQ Q8HR vial 05/05/17 [Rx] Lactobacillus Acidoph & Bulgar [Lactinex] 1 each PO BID packet 05/05/17 [Rx] Pantoprazole [Protonix] 40 mg PO AC-BID tablet. 05/05/17 [Rx] Ytgvh-Hhs-Oduk 278-164-250 mg [Neutra-Phos Packet] 1 each PO TID packet [Rx] Sodium Bicarbonate Tab 1,300 mg PO BID tab 05/05/17 [Rx] Follow up Appointment(s)/Referral(s): Jose Cruz MD [STAFF PHYSICIAN] - 1 Week None,Stated [Primary Care Provider] - 1-2 days Davidson Mgaallanes DO [STAFF PHYSICIAN] - 1 Week Ambulatory/Diagnostic Orders: Basic Metabolic Panel [LAB.AMB] Time Frame: 05/09/17, Location: Determined By Patient Patient Instructions/Handouts: Acute Kidney Injury (DC), Hypokalemia (DC), Tachycardia (GEN) Activity/Diet/Wound Care/Special Instructions: diet as tolerated activity as tolerated Discharge Disposition: TRANSFER TO SNF/ECF Pending Studies Pending Results: removal of dialysis catheter by vascular surgery prior to discharge
[2017-05-05 12:05] LABS: Glucose,Whole Blood 96 mg/dL (75-99)
[2017-05-05 14:22] VITALS: BMI 21.3
[2017-05-05] MEDS: SODIUM FERRIC GLUCONAT-SUCROSE 125 MG in SODIUM CHLORIDE 0.9% 100 ML IVPB SCH (14:46)
--- NOTE | 2017-05-05 15:04 | P.PN ---
Subjective Progress Note Date: 05/05/17 Principal diagnosis: patient is seen and examined in follow up for SHERLYN, anemia, and electrolytes imbalance 82-year-old female with no significant past medical history presented due to altered mental status was found to have severe electrolyte derangements requiring urgent hemodialysis. She received three sessions, and now nephrology is recommending waitful watch to monitor for renal function progression, she is making good urine output now. Patient seen and examined, today she is agreeable to have outpatient HD if needed. otherwise continued to refuse any other further workup including ( renal biopsy, cardiac workup for tachycardia including 2 D Echo, or any GI workup with endoscopy). I discussed with her the findings of sinus tachycardia, and the risk of heart failure if this continues to be untreated, and recommended to have an echocardiogram to be done and then possibly to add some medications. She clearly verbalized understanding of her current tachycardia and the consequences if left untreated, yet, refused any further workup even if non-invasive, and refused adding more medications. She indicated that she does not want more medications to be added, Period. Patient seen and examined, she is doing well, no new complaints, denies any chest pain, or SOB, she is tolerating diet, denies any nausea or vomiting. I discussed with nephorology who cleared her for discharge Objective - Vital Signs Vital signs: Vital Signs Temp 99.4 F 05/05/17 04:00 Pulse 108 H 05/05/17 04:00 Resp 16 05/05/17 04:00 BP 125/69 05/05/17 04:00 Pulse Ox 96 05/05/17 04:00 Intake & Output 05/04/17 05/05/17 05/05/17 18:59 06:59 18:59 Intake Total 1470 800 480 Output Total 1650 850 Balance -180 -50 480 Weight 53 kg 53 kg Intake: IV 750 800 Magnesium Sulfate-D5w Pmx 200 1 gm In Dextrose/Water 1 100ml.bag @ 100 mls/hr IVPB Q1H ALEJANDRA Rx#: [id number] Piperacillin-Tazobactam 3 50 .375 gm In Dextrose/Water 1 50ml.bag @ 12.5 mls/hr IVPB Q12HR ALEJANDRA Rx#: [id number] Sodium Chloride 0.9% 1, 400 800 000 ml @ 50 mls/hr IV . Q20H ALEJANDRA Rx#:[id number] Sodium Ferric Gluconat- 100 Sucrose 125 mg In Sodium Chloride 0.9% 100 ml @ 100 mls/hr IVPB DAILY@ 1300 [facility] Rx#:[id number] Oral 720 480 Output: Urine 1650 850 Other: Voiding Method Indwelling Catheter Indwelling Catheter # Voids 1 # Bowel Movements 1 1 - Exam Constitutional: vital signs stable, Not in acute distress, pleasant, conversant Lungs: Clear to auscultation bilaterally, good breath sounds Cardiovascular: Tachycardia, no murmurs, no gallops, no rubs, no peripheral edema Gastrointestinal: Soft, no tenderness to palpation, bowel sounds positive, left trialysis line in place, no tenderness to palpation no erythema of surrounding skin , aguirre cath in place Extremities: No digital cyanosis or clubbing or ischemia, chronic dermatitis bilateral legs, no tenderness to palpation of the calf muscles bilaterally Psych: Alert, oriented to place, person and time - Labs CBC & Chem 7: 05/05/17 05:33 05/05/17 05:33 Labs: Abnormal Lab Results - Last 24 Hours (Table) 05/03/17 05/04/17 05/04/17 Range/Units 09:22 17:14 20:46 WBC (3.8-10.6) k/uL RBC (3.80-5.40) m/uL Hgb (11.4-16.0) gm/dL Hct (34.0-46.0) % MCV (80.0-100.0) fL Plt Count (150-450) k/uL Chloride (98-107) mmol/L Carbon Dioxide (22-30) mmol/L BUN (7-17) mg/dL Creatinine (0.52-1.04) mg/dL POC Glucose (mg/dL) 123 H 108 H (75-99) mg/dL Calcium (8.4-10.2) mg/dL Albumin (PEP) 2.59 L (3.80-4.90) g/dL Beta Globulins 0.56 L (0.60-1.30) g/dL Gamma Globulins 0.59 L (0.70-1.50) g/dL 05/05/17 05/05/17 Range/Units 05:33 05:33 WBC 11.4 H (3.8-10.6) k/uL RBC 2.82 L (3.80-5.40) m/uL Hgb 8.9 L (11.4-16.0) gm/dL Hct 28.3 L (34.0-46.0) % MCV 100.4 H (80.0-100.0) fL Plt Count 148 L (150-450) k/uL Chloride 113 H (98-107) mmol/L Carbon Dioxide 17 L (22-30) mmol/L BUN 32 H (7-17) mg/dL Creatinine 3.53 H (0.52-1.04) mg/dL POC Glucose (mg/dL) (75-99) mg/dL Calcium 8.2 L (8.4-10.2) mg/dL Albumin (PEP) (3.80-4.90) g/dL Beta Globulins (0.60-1.30) g/dL Gamma Globulins (0.70-1.50) g/dL Microbiology - Last 24 Hours (Table) 04/29/17 08:45 Blood Culture - Final Blood No Growth after 144 hours 04/29/17 08:01 Blood Culture - Final Blood No Growth after 144 hours Assessment and Plan (1) Acute renal failure Narrative/Plan: non-oliguric now possibly secondary to dehydration and patient taking multiple supplements at home Patient required urgent dialysis due to uremia , last session 04/30 patient declined renal biopsy access site for HD is left groin giancarlo line workup thus far negative for VALERY, Hep , MM, lupus Current Visit: Yes Status: Acute Code(s): N17.9 - ACUTE KIDNEY FAILURE, UNSPECIFIED SNOMED Code(s): 55152708 (2) Tachycardia Current Visit: Yes Status: Acute Code(s): R00.0 - TACHYCARDIA, UNSPECIFIED SNOMED Code(s): 4548396 (3) Acute metabolic encephalopathy Current Visit: Yes Status: Resolved Code(s): G93.41 - METABOLIC ENCEPHALOPATHY SNOMED Code(s): 90380387 (4) Diarrhea Current Visit: Yes Status: Resolved Code(s): R19.7 - DIARRHEA, UNSPECIFIED SNOMED Code(s): 28475966 (5) Anemia Current Visit: Yes Status: Chronic Code(s): D64.9 - ANEMIA, UNSPECIFIED SNOMED Code(s): 008550764 (6) Debility Current Visit: Yes Status: Acute Code(s): R53.81 - OTHER MALAISE SNOMED Code(s): 39132640 (7) Hypercalcemia Current Visit: Yes Status: Resolved Code(s): E83.52 - HYPERCALCEMIA SNOMED Code(s): 89228842 (8) Hypokalemia Current Visit: Yes Status: Resolved Code(s): E87.6 - HYPOKALEMIA SNOMED Code(s): 10324494 (9) Deep tissue injury Narrative/Plan: Present on admission, continue with local wound care Current Visit: Yes Status: Acute Code(s): T14.8XXA - SNOMED Code(s): 147973358 (10) Protein-calorie malnutrition, severe Narrative/Plan: encourage PO intake dietry evaluation performed Current Visit: Yes Status: Acute Code(s): E43 - UNSPECIFIED SEVERE PROTEIN- CALORIE MALNUTRITION SNOMED Code(s): 835647962 Plan: Nephrology cleared patient for discharge vascular surgery to remove the left groin dialysis line no plans for immediate HD anymore, close follow up required, patient making good urine output. nephorology will decided regarding any future HD based on her follow up continues to refuse workup for Gi bleeding and/or tachycardia psychiatry evaluated the patient , and deemed her competent to make her own medical decisions, which at times are based on her own beliefs urinary retention, remove aguirre cath and follow up with bladder scan [id number], intermittent straight cath as needed, if continues to retain urine , then will reinsert the aguirre cath awaiting insurance authorization for placement , discharge orders are in pending SNF approval DVT prophylaxis: Heparin SC TID
[2017-05-05] MEDS: SODIUM CHLORIDE 0.9% 1,000 ML IV SCH (16:36)
[2017-05-05 16:49] LABS: Glucose,Whole Blood 104 mg/dL (75-99)
[2017-05-05 21:19] LABS: Glucose,Whole Blood 116 mg/dL (75-99)
[2017-05-06] MEDS: PANTOPRAZOLE 40 MG TABLET PO SCH (07:39)
[2017-05-06] MEDS: SODIUM BICARBONATE TAB 650 MG TAB PO SCH (07:40)
[2017-05-06] MEDS: POTAS-SOD-PHOS 278-164-250 MG 1 EACH PACKET PO SCH (07:40)
[2017-05-06] MEDS: HEPARIN SODIUM,PORCINE 5,000 UNIT/ML 1 ML VIAL SQ SCH ×2 (07:40→13:45)
[2017-05-06] MEDS: LACTOBACILLUS ACIDOPH & BULGAR 1 EACH PACKET PO SCH (07:40)
[2017-05-06 07:50] LABS: Glucose,Whole Blood 85 mg/dL (75-99)
[2017-05-06 07:56] VITALS: BP 133/68; PULSE 105; TEMP 97.2
[2017-05-06 09:02] LABS: Calcium 8.2 mg/dL (8.4-10.2); Magnesium 1.6 mg/dL (1.6-2.3)
[2017-05-06] MEDS: AMMONIUM LACTATE 12% LOTION 225 GM BTL TOPICAL SCH (10:12)
[2017-05-06] MEDS: SODIUM CHLORIDE 0.9% 1,000 ML IV SCH (10:51)
--- NOTE | 2017-05-06 12:06 | P.GSCN ---
History of Present Illness Consult date: 05/06/17 Reason for Consult: Removal of hemodialysis catheter History of present illness: This 82-year-old female who's had a temporary hemodialysis catheter placed by Dr. Schulz. Dr. Schulz is out of town. His coverage is not able to come to the hospital today for removal of her hemodialysis catheter. Past Medical History Past Medical History: Unable to Obtain Additional Past Medical History / Comment(s): Pt self medicates with homeopathic remedies and vitamins per Son. History of Any Multi-Drug Resistant Organisms: Unobtainable Past Surgical History: Unable to Obtain Past Psychological History: Unable to Obtain Smoking Status: Unknown if ever smoked Past Alcohol Use History: Unable to Obtain Past Drug Use History: Unable to Obtain Medications and Allergies Home Medications Medication Instructions Recorded Confirmed Type Ammonium Lactate Lotion 1 applic TOPICAL BID applic 05/05/17 Rx [Lac-Hydrin 12% Lotion] Darbepoetin Adriano [Aranesp] 40 mcg SQ Q7D syringe 05/05/17 Rx Ferrous Sulfate [Iron (65 MG 325 mg PO BID #60 tab 05/05/17 Rx Elemental)] Heparin Sodium,Porcine [Heparin 5,000 unit SQ Q8HR vial 05/05/17 Rx Sodium] Lactobacillus Acidoph & Bulgar 1 each PO BID packet 05/05/17 Rx [Lactinex] Pantoprazole [Protonix] 40 mg PO AC-BID tablet. 05/05/17 Rx Krzce-Gsv-Aghq 278-164-250 mg 1 each PO TID packet 05/05/17 Rx [Neutra-Phos Packet] Sodium Bicarbonate Tab 1,300 mg PO BID tab 05/05/17 Rx Allergies Allergy/AdvReac Type Severity Reaction Status Date / Time No Known Allergies Allergy Verified 04/28/17 20:36 Surgical - Exam Vital Signs Temp Pulse Resp BP Pulse Ox 96.8 F L 107 H 16 143/73 98 04/28/17 17:43 04/28/17 17:43 04/28/17 17:43 04/28/17 17:43 04/28/17 17:43 - General well developed, no distress - Eyes PERRL - ENT Hemodialysis catheter normal pinna - Respiratory normal expansion - Cardiovascular Rhythm: regular - Abdomen Abdomen: soft, non tender Results - Labs 05/05/17 05:33 05/06/17 08:05 Abnormal Lab Results - Last 24 Hours (Table) 05/05/17 05/05/17 05/06/17 Range/Units 16:40 21:17 08:05 Chloride 111 H (98-107) mmol/L Carbon Dioxide 16 L (22-30) mmol/L BUN 33 H (7-17) mg/dL Creatinine 3.43 H (0.52-1.04) mg/dL POC Glucose (mg/dL) 104 H 116 H (75-99) mg/dL Calcium 8.2 L (8.4-10.2) mg/dL Phosphorus 5.0 H (2.5-4.5) mg/dL Microbiology - Last 24 Hours (Table) 04/29/17 08:45 Blood Culture - Final Blood No Growth after 144 hours 04/29/17 08:01 Blood Culture - Final Blood No Growth after 144 hours Diabetes panel 05/06/17 Range/Units 08:05 Sodium 138 (137-145) mmol/L Potassium 4.0 (3.5-5.1) mmol/L Chloride 111 H (98-107) mmol/L Carbon Dioxide 16 L (22-30) mmol/L BUN 33 H (7-17) mg/dL Creatinine 3.43 H (0.52-1.04) mg/dL Glucose 91 (74-99) mg/dL Calcium 8.2 L (8.4-10.2) mg/dL Calcium panel 05/06/17 Range/Units 08:05 Calcium 8.2 L (8.4-10.2) mg/dL Phosphorus 5.0 H (2.5-4.5) mg/dL Pituitary panel 05/06/17 Range/Units 08:05 Sodium 138 (137-145) mmol/L Potassium 4.0 (3.5-5.1) mmol/L Chloride 111 H (98-107) mmol/L Carbon Dioxide 16 L (22-30) mmol/L BUN 33 H (7-17) mg/dL Creatinine 3.43 H (0.52-1.04) mg/dL Glucose 91 (74-99) mg/dL Calcium 8.2 L (8.4-10.2) mg/dL Adrenal panel 05/06/17 Range/Units 08:05 Sodium 138 (137-145) mmol/L Potassium 4.0 (3.5-5.1) mmol/L Chloride 111 H (98-107) mmol/L Carbon Dioxide 16 L (22-30) mmol/L BUN 33 H (7-17) mg/dL Creatinine 3.43 H (0.52-1.04) mg/dL Glucose 91 (74-99) mg/dL Calcium 8.2 L (8.4-10.2) mg/dL Assessment and Plan Assessment: Temporary hemodialysis catheter. We'll remove hemodialysis catheter.
--- NOTE | 2017-05-06 12:54 | PCN ---
PROCEDURE NOTE DATE OF PROCEDURE: 05/06/2017. PROCEDURE: Removal of right femoral hemodialysis catheter. PREOP DIAGNOSIS: Renal failure. POSTOP DIAGNOSIS: Renal failure. SURGEON: Dr. Shelley. FOOD AND BEVERAGE MANAGER: None. ANESTHESIA: None. PROCEDURE: Patient was placed in bed in supine position. The stay sutures holding the catheter in place were cut and then the catheter was withdrawn. Direct pressure was held over the femoral vein. Pressure was held for 10 minutes. The patient has sterile dressing applied. Patient tolerated well the patient. MMODL / IJN: [id number] /
--- NOTE | 2017-05-06 13:49 | P.PN ---
Subjective Patient is seen in follow-up for acute kidney injury. Unclear as to what her baseline renal function is. Creatinine peaked at 5.1 this admission and patient was quite uremic. She was started on hemodialysis and has undergone 3 treatments so far - last treatment on 04/30. She is nonoliguric. Truj[place] catheter as well as the Ashish catheter has been discontinued. Oral intake is good. Creatinine is little better at 3.43 today. Vital signs are stable. General: The patient appeared well nourished and normally developed. HEENT: Head exam is unremarkable. Neck is without jugular venous distension. LUNGS: Lungs are clear to auscultation and percussion. Breath sounds decreased. HEART: Rate and Rhythm are regular. First and second heart sounds normal. No murmurs, rubs or gallops. ABDOMEN: Abdominal exam reveals normal bowel sounds. Non-tender and non- distended. No evidence of peritonitis. EXTREMITITES: No clubbing, cyanosis, or edema. Chronic skin discoloration noted. Some skin peeling noted as well. No obvious drainage. Objective - Vital Signs Vital signs: Vital Signs Temp 97.2 F L 05/06/17 07:00 Pulse 105 H 05/06/17 07:00 Resp 16 05/06/17 07:00 BP 133/68 05/06/17 07:00 Pulse Ox 96 05/06/17 07:00 Intake & Output 05/05/17 05/06/17 05/06/17 18:59 06:59 18:59 Intake Total 580 400 Output Total 550 Balance 30 400 Weight 53 kg Intake: IV 100 400 Sodium Ferric Gluconat- 100 Sucrose 125 mg In Sodium Chloride 0.9% 100 ml @ 100 mls/hr IVPB DAILY@ 1300 [facility] Rx#:[id number] potassium phophate 400 Oral 480 Output: Urine 550 Other: Voiding Method Indwelling Catheter Diaper Incontinent # Voids 1 # Bowel Movements 1 - Labs CBC & Chem 7: 05/05/17 05:33 05/06/17 08:05 Labs: Abnormal Lab Results - Last 24 Hours (Table) 05/05/17 05/05/17 05/06/17 Range/Units 16:40 21:17 08:05 Chloride 111 H (98-107) mmol/L Carbon Dioxide 16 L (22-30) mmol/L BUN 33 H (7-17) mg/dL Creatinine 3.43 H (0.52-1.04) mg/dL POC Glucose (mg/dL) 104 H 116 H (75-99) mg/dL Calcium 8.2 L (8.4-10.2) mg/dL Phosphorus 5.0 H (2.5-4.5) mg/dL Microbiology - Last 24 Hours (Table) 04/29/17 08:45 Blood Culture - Final Blood No Growth after 144 hours 04/29/17 08:01 Blood Culture - Final Blood No Growth after 144 hours Assessment and Plan Plan: Assessment: #1. Oliguric - now nonoliguric - acute kidney injury secondary to hypercalcemia -induced ATN further worsened with hemodynamic instability and poor oral intake. Rule out interstitial nephritis - urine eosinophils negative. Unclear as to what her baseline renal function is. Creatinine was 4.8 on admission and peaked at 5.1. No evidence of hydronephrosis. She underwent third treatment of hemodialysis 04/30. Creatinine today is a little improved to 3.43. 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 Serologic workup negative. #2. Severe hypokalemia from poor oral intake. Status post replacement. Improved. #3. Severe hypophosphatemia, again from poor nutritional intake. Status post replacement. Improved. #4. Severe metabolic acidosis secondary to acute kidney injury and IV fluids. Expect improvement once fluids are discontinued. #5. Hypercalcemia secondary to supplementation as well as severe intravascular volume depletion. Rule out primary hyperparathyroidism, MM, vitamin D toxicity. Also possible underlying malignancy. Patient has not seen a physician for several years. Resolved. Vit D 26, PTH 48, 1,25 D3 42, no evidence of myeloma. #6. Anemia. Iron deficiency noted. No evidence of active bleeding. S/p IV iron. #7. Urinary retention status post Trujillo catheter placement and removal. Plan: I will continue to hold hemodialysis and monitor renal function for recovery. Continue to monitor renal function and urine output. Avoid nephrotoxic agents and hypotensive episodes. Hep-Lock IV fluids. Encouraged oral intake. Maintain oral sodium bicarbonate 1300 mg twice daily. Discontinue Neutra-Phos. I also discussed the potential need for renal biopsy for definitive diagnosis. She is refusing at this time. Potential discharge today. She will need to get a repeat basic metabolic panel checked within 2-3 days of discharge and follow-up as an outpatient in the next 1-2 weeks.
== END 2017-05-06 15:00 | DRG 682 ==
LOC: EC 17:24 → MERGE 19:56 → 6ICU 19:56 → 6SEL 04-30 18:14 → 4MS4W 05-06 03:07
PROVIDERS: ADMIT Internal Medicine; ATTEND Internal Medicine
PROC: 5A1D70Z Performance of Urinary Filtration, Intermittent, Less than 6 Hours Per Day (ICD-10-PCS; principal; 2017-04-29)
PROC: 06HN33Z Insertion of Infusion Device into Left Femoral Vein, Percutaneous Approach (ICD-10-PCS; 2017-04-29)
PROC: 06PYX3Z Removal of Infusion Device from Lower Vein, External Approach (ICD-10-PCS; 2017-05-06)
DX: N17.0 Acute kidney failure with tubular necrosis (principal); E43 Unspecified severe protein-calorie malnutrition; G93.41 Metabolic encephalopathy; E87.2 Acidosis; M62.82 Rhabdomyolysis; R65.10 Systemic inflammatory response syndrome (SIRS) of non-infectious origin without acute organ dysfunction; K92.2 Gastrointestinal hemorrhage, unspecified; R64 Cachexia; K92.1 Melena; Z68.1 Body mass index [BMI] 19.9 or less, adult; E86.0 Dehydration; E83.39 Other disorders of phosphorus metabolism; E83.52 Hypercalcemia; F43.21 Adjustment disorder with depressed mood; D72.829 Elevated white blood cell count, unspecified; E87.6 Hypokalemia; R04.0 Epistaxis; R32 Unspecified urinary incontinence; R19.7 Diarrhea, unspecified; R74.8 Abnormal levels of other serum enzymes; R33.9 Retention of urine, unspecified; D50.0 Iron deficiency anemia secondary to blood loss (chronic); R68.0 Hypothermia, not associated with low environmental temperature; S30.0XXA Contusion of lower back and pelvis, initial encounter; Z79.899 Other long term (current) drug therapy
CPT/HCPCS: 36415; 36600; 70450; 71010; 71020; 76705; 76770; 80048; 80051; 80053; 80074; 80306; 81001; 82272; 82306; 82330; 82550; 82553; 82570; 82652; 82728; 82805; 83519; 83540; 83550; 83605; 83735; 83970; 84100; 84132; 84156; 84165; 84443; 84484; 85025; 85027; 85610; 85730; 86038; 86160; 86162; 86255; 86334; 86335; 87040; 87086; 87205; 87324; 90935; 93005; 93306; 96361; 96365; 99291

== ENCOUNTER 2017-07-18 17:25 | Inpatient (IN) | payer MEDICARE ==
--- NOTE | 2017-07-18 17:44 | ED ---
Recheck HPI - General Chief Complaint: Recheck/Abnormal Lab/Rx Stated Complaint: abnormal labs Time Seen by Provider: 07/18/17 17:25 Source: patient, EMS Mode of arrival: EMS Limitations: no limitations - History of Present Illness Initial Comments: This 82-year-old female was sent here from a local group home with reports of a low sodium level. Work was done shows sodium 119. Patient had no symptoms such as fevers chills nausea vomiting sweats she reports no complaints at this time. - Related Data Home Medications Medication Instructions Recorded Confirmed Acetaminophen [Tylenol 8 Hour] 1,300 mg PO Q4H PRN 07/18/17 07/18/17 Demeclocycline HCl 300 mg PO BID 07/18/17 07/18/17 Dimethicone/Zinc Oxide [Inzo Zinc 1 applic TOPICAL DAILY PRN 07/18/17 07/18/17 Oxide Barrier Cream] Heparin Sodium,Porcine [Heparin 5,000 unit SQ Q8HR@0600,1400,2200 07/18/1707/18 Sodium] Lactobacillus Acidophilus 1 tab PO BID 07/18/17 07/18/17 [Acidophilus] Metolazone [Zaroxolyn] 2.5 mg PO MOWEFR 07/18/17 07/18/17 Potassium Chloride [K-Tab ER] 10 meq PO BID 07/18/17 07/18/17 Vits A and D/White Pet/Lanolin [A 1 applic TOPICAL Q12H 07/18/17 07/18/17 and D Ointment] Allergies Allergy/AdvReac Type Severity Reaction Status Date / Time No Known Allergies Allergy Verified 07/18/17 18:13 Review of Systems ROS Statement: Those systems with pertinent positive or pertinent negative responses have been documented in the HPI. ROS Other: All systems not noted in ROS Statement are negative. Past Medical History Past Medical History: Unable to Obtain Additional Past Medical History / Comment(s): Pt self medicates with homeopathic remedies and vitamins per Son. History of Any Multi-Drug Resistant Organisms: Unobtainable Past Surgical History: Unable to Obtain Past Psychological History: Unable to Obtain Smoking Status: Unknown if ever smoked Past Alcohol Use History: Unable to Obtain Past Drug Use History: Unable to Obtain General Exam - General Exam Comments Initial Comments: This is a well-developed asthenic appearing female she is awake alert oriented 3 Limitations: no limitations General appearance: alert, in no apparent distress Head exam: Present: atraumatic, normocephalic, normal inspection Eye exam: Present: normal appearance, PERRL, EOMI. Absent: scleral icterus, conjunctival injection, periorbital swelling ENT exam: Present: normal exam, mucous membranes moist Neck exam: Present: normal inspection. Absent: tenderness, meningismus, lymphadenopathy Respiratory exam: Present: normal lung sounds bilaterally. Absent: respiratory distress, wheezes, rales, rhonchi, stridor Cardiovascular Exam: Present: normal rhythm, tachycardia, normal heart sounds. Absent: systolic murmur, diastolic murmur, rubs, gallop, clicks GI/Abdominal exam: Present: soft, normal bowel sounds. Absent: distended, tenderness, guarding, rebound, rigid Extremities exam: Present: normal inspection, full ROM, normal capillary refill. Absent: tenderness, pedal edema, joint swelling, calf tenderness Back exam: Present: normal inspection Neurological exam: Present: alert, oriented X3, CN II-XII intact Psychiatric exam: Present: normal affect, normal mood Skin exam: Present: warm, dry, intact, normal color. Absent: rash Course Vital Signs 07/18/17 17:31 Temperature 97.0 F L Pulse Rate 110 H Respiratory 18 Rate Blood Pressure 118/67 O2 Sat by Pulse 95 Oximetry Medical Decision Making - Medical Decision Making I did discuss the findings with Dr. Malave patient will be admitted for IV hydration and evaluation by nephrology. - Lab Data Result diagrams: 07/18/17 18:05 07/18/17 18:05 Lab Results 07/18/17 07/18/17 Range/Units 18:05 18:05 WBC 20.2 H (3.8-10.6) k/uL RBC 4.42 (3.80-5.40) m/uL Hgb 13.1 (11.4-16.0) gm/dL Hct 40.5 (34.0-46.0) % MCV 91.7 (80.0-100.0) fL MCH 29.8 (25.0-35.0) pg MCHC 32.5 (31.0-37.0) g/dL RDW 13.3 (11.5-15.5) % Plt Count 744 H (150-450) k/uL Neutrophils % 92 % Lymphocytes % 4 % Monocytes % 3 % Eosinophils % 0 % Basophils % 0 % Neutrophils # 18.6 H (1.3-7.7) k/uL Lymphocytes # 0.8 L (1.0-4.8) k/uL Monocytes # 0.6 (0-1.0) k/uL Eosinophils # 0.1 (0-0.7) k/uL Basophils # 0.1 (0-0.2) k/uL Sodium 123 L (137-145) mmol/L Potassium 4.8 (3.5-5.1) mmol/L Chloride 86 L (98-107) mmol/L Carbon Dioxide 21 L (22-30) mmol/L Anion Gap 16 mmol/L BUN 94 H* (7-17) mg/dL Creatinine 1.48 H (0.52-1.04) mg/dL Est GFR (MDRD) Af Amer 41 (>60 ml/min/1.73 sqM) Est GFR (MDRD) Non-Af 34 (>60 ml/min/1.73 sqM) Glucose 122 H (74-99) mg/dL Calcium 10.7 H (8.4-10.2) mg/dL Magnesium 2.5 H (1.6-2.3) mg/dL Total Bilirubin 0.6 (0.2-1.3) mg/dL AST 32 (14-36) U/L ALT 30 (9-52) U/L Alkaline Phosphatase 136 H (38-126) U/L Total Protein 7.8 (6.3-8.2) g/dL Albumin 4.0 (3.5-5.0) g/dL - EKG Data -: EKG Interpreted by Nh EKG shows normal: sinus rhythm (Sinus tachycardia rate of 107. Interval 174 QRS duration 86 QT since QTC of 318/424 5:No acute ST-T wave changes) Disposition Clinical Impression: Hyponatremia, Renal insufficiency syndrome Disposition: ADMITTED IP TO THIS HOSP Condition: Stable Referrals: Chandni Braun MD [Primary Care Provider] - 1-2 days
[2017-07-18 18:20] LABS: Basophils # (A) 0.1 k/uL (0-0.2); Basophils % (A) 0 %; Eosinophils # (A) 0.1 k/uL (0-0.7); Eosinophils % (A) 0 %; HCT 40.5 % (34.0-46.0); HGB 13.1 gm/dL (11.4-16.0); Lymphocytes # (A) 0.8 k/uL (1.0-4.8); Lymphocytes % (A) 4 %; MCH 29.8 pg (25.0-35.0); MCHC 32.5 g/dL (31.0-37.0); MCV 91.7 fL (80.0-100.0); Mean Platelet Volume 6.3; Monocytes # (A) 0.6 k/uL (0-1.0); Monocytes % (A) 3 %; Neutrophils # (A) 18.6 k/uL (1.3-7.7); Neutrophils % (A) 92 %; Platelet Count 744 k/uL (150-450); RBC 4.42 m/uL (3.80-5.40); RDW 13.3 % (11.5-15.5); WBC 20.2 k/uL (3.8-10.6)
[2017-07-18 18:29] LABS: Calcium 10.7 mg/dL (8.4-10.2); Magnesium 2.5 mg/dL (1.6-2.3); Potassium 4.8 mmol/L (3.5-5.1); Total Bilirubin 0.6 mg/dL (0.2-1.3); Total Protein 7.8 g/dL (6.3-8.2)
[2017-07-18] MEDS ORDERED: NALOXONE 0.4 MG/ML 1 ML VIAL IV PRN (19:22)
[2017-07-18] MEDS ORDERED: ZINC OXIDE 20% OINT 28.4 GM TUBE TOPICAL PRN (19:25)
[2017-07-18] MEDS ORDERED: METOLAZONE 2.5 MG TAB PO SCH (19:30)
[2017-07-18 20:37] VITALS: BMI 20.7
[2017-07-18] MEDS: SODIUM CHLORIDE 0.9% 1,000 ML IV SCH (22:17)
[2017-07-18] MEDS: DEMECLOCYCLINE 150 MG TAB PO SCH (22:17)
[2017-07-18] MEDS: HEPARIN SODIUM,PORCINE 5,000 UNIT/ML 1 ML VIAL SQ SCH (22:17)
[2017-07-18] MEDS: LACTOBACILLUS ACIDOPH & BULGAR 1 EACH PACKET PO SCH (22:17)
[2017-07-18] MEDS: VITS A & D-WHITE PET-LANOLIN 5 GM OINT.PACK TOPICAL SCH (22:17)
[2017-07-18] MEDS: ACETAMINOPHEN TAB 325 MG TAB PO PRN (23:03)
[2017-07-19] MEDS: HEPARIN SODIUM,PORCINE 5,000 UNIT/ML 1 ML VIAL SQ SCH ×3 (06:03→21:46)
[2017-07-19] MEDS: DEMECLOCYCLINE 150 MG TAB PO SCH ×2 (07:43→21:46)
[2017-07-19] MEDS: LACTOBACILLUS ACIDOPH & BULGAR 1 EACH PACKET PO SCH ×2 (07:43→21:46)
[2017-07-19] MEDS: SODIUM CHLORIDE 0.9% 1,000 ML IV SCH ×4 (07:43→17:19)
[2017-07-19] MEDS: VITS A & D-WHITE PET-LANOLIN 5 GM OINT.PACK TOPICAL SCH ×2 (07:44→21:46)
[2017-07-19] MEDS ORDERED: SODIUM CHLORIDE 0.9% 1,000 ML IV ONE (08:23)
[2017-07-19 09:16] LABS: Calcium 10.2 mg/dL (8.4-10.2); Potassium 4.2 mmol/L (3.5-5.1)
[2017-07-19 09:21] LABS: Basophils % (A) 0 %; Eosinophils % (A) 0 %; HCT 35.7 % (34.0-46.0); HGB 11.7 gm/dL (11.4-16.0); Lymphocytes # (A) 0.8 k/uL (1.0-4.8); Lymphocytes % (A) 6 %; MCH 29.7 pg (25.0-35.0); MCHC 32.7 g/dL (31.0-37.0); MCV 90.6 fL (80.0-100.0); Mean Platelet Volume 6.6; Monocytes # (A) 0.6 k/uL (0-1.0); Monocytes % (A) 4 %; Neutrophils # (A) 12.9 k/uL (1.3-7.7); Neutrophils % (A) 90 %; Platelet Count 717 k/uL (150-450); RBC 3.94 m/uL (3.80-5.40); RDW 13.5 % (11.5-15.5); WBC 14.5 k/uL (3.8-10.6)
[2017-07-19] MEDS: SODIUM CHLORIDE TAB 1 GM TAB PO SCH ×2 (12:12→21:46)
--- NOTE | 2017-07-19 15:34 | CONS ---
CONSULTATION REASON FOR CONSULT: Hyponatremia and renal failure. HISTORY OF PRESENT ILLNESS: The patient is an 82-year-old female who was admitted to the hospital with the low sodium level of 123. She is currently refusing any IV fluids and her repeat sodium has gone down to 121 at 1 o'clock this afternoon. The patient has been drinking free water and I have advised her to hold off on the free water intake as it will worsen the hyponatremia. I asked her if she will take the sodium chloride tablets and she is in agreement. Therefore, we will start her on sodium chloride tabs. Her creatinine on admission was 1.48 and it is now 1.16. Hypokalemia for which patient is maintained on potassium supplementation. I do see that she is on Zaroxolyn for lower extremity swelling. She has chronic lower extremity cellulitis. The patient is not able to give me her past medical history, but I do see she is on demeclocycline therefore I am not sure if she has had low sodium levels before. Going back into the computer, I see a sodium level of 138 on 05/06/2017, so this appears to be new. The patient denies any significant pain. SOCIAL HISTORY: Negative for smoking, drug abuse or alcohol abuse. MEDICATIONS: Medications at home included potassium, demeclocycline, Zinc, Tylenol, Zaroxolyn. ALLERGIES: None. EXAMINATION: Patient is currently comfortable, awake. She is not in any acute distress. Blood pressure is 88/56, heart rate 118 per minute. She is afebrile. Examination of the heart: S1, S2. Examination lungs: Bilateral breath sounds are heard. Abdomen is soft, nontender. Examination lower extremities shows bilateral extremities to be wrapped. I discussed with the nurse and apparently they have chronic skin changes with superficial open wound which does not seem to be draining much. DIRECTOR [employer]POR[employer] COMPLIANCE exam is grossly intact. LABS SHOW: Sodium 124, potassium 4.2, repeat sodium was 121, BUN 73, serum creatinine 1.16, hemoglobin 11.7 g/dL. ASSESSMENT: 1. Hypovolemic hyponatremia. Random urine sodium will be ordered along with urine osmolality. At this time patient is reluctant to take normal saline in the IV. I have advised her to stop the free water intake which will worsen the sodium and we will start her on sodium chloride tabs. We can also give her broth as her blood pressure was noted to be low at 88 mmHg for systolic. 2. Mild hypercalcemia secondary to acute kidney injury, currently improved. 3. Chronic skin changes bilateral lower extremities. We will repeat another sodium level this evening and I will talk to her son as well. Thank you for this consultation. We will continue to follow the patient with you during her hospitalization. MMODL / IJN: [id number] /
--- NOTE | 2017-07-19 16:33 | P.HPIM ---
History of Present Illness H&P Date: 07/19/17 This is an 82-year-old patient of Dr. Braun at [facility] with sees a homeopathic doctor. Presents with abnormal labs including a sodium of 119, repeat sodium 123 in the ER. Evaluated in the a.m. refuses any kind of intervention including IV fluids. Patient was seen last in April for acute kidney injury for which patient was briefly on hemodialysis and then sent home on Zaroxolyn. Patient does not want any IV fluids or any evaluation for cardiac failure or kidney failure. Patient is willing to drink water orally and was advised to drink water along with sodium tablets. Vitals includes 88/56 blood pressure, tachycardic, respiratory rate 16 saturating well on room air. Patient continues to drop her blood pressure with a repeat blood pressure 77/46 with tachycardia cardia persistent. Pool Installer evaluated the patient and recommended IV fluids which patient continues to refuse. Labs suggest active of dehydration including BUN of 90. Patient is evaluated in April 2017 for failure to thrive after passing off her . Patient is a [place] and has mandaen beliefs that prohibit her to use IV medication or artificial care. She was evaluated by psychiatrist for bereavement and was found to have a good decision-making capacity. Echocardiogram done during that admission was negative for any heart failure or valvular abnormality with ejection fraction of 50-55%. Review of Systems Constitutional: Reports anorexia, Denies chills, Denies fever, Denies lethargy, Denies malaise, Denies poor appetite Eyes: denies blurred vision, denies diplopia Ears, nose, mouth and throat: Denies dysphagia, Denies headache, Denies hoarseness, Denies nasal discharge, Denies swelling in throat, Denies sore throat Cardiovascular: Reports edema, Reports leg edema, Reports rapid heart beat, Denies shortness of breath Respiratory: Denies congestion, Denies cough with sputum, Denies home oxygen Gastrointestinal: Denies abdominal pain, Denies BRBPR, Denies change in bowel habits Genitourinary: Denies dysuria, Denies incomplete emptying, Denies urinary frequency Musculoskeletal: Denies frequent falls, Denies limitation of motion, Denies morning stiffness, Denies neck pain Integumentary: Denies rash, Denies sores Neurological: Denies change in speech, Denies lack of coordination, Denies loss of vision, Denies motor disturbance, Denies paralysis Psychiatric: Denies anxiety, Denies mood swings Past Medical History Past Medical History: Unable to Obtain, Renal Disease Additional Past Medical History / Comment(s): Pt self medicates with homeopathic remedies and vitamins per Son. LUMBEE left ear History of Any Multi-Drug Resistant Organisms: None Reported, Unobtainable Past Surgical History: Unable to Obtain Past Anesthesia/Blood Transfusion Reactions: No Reported Reaction, Unable to Obtain Past Psychological History: Unable to Obtain Smoking Status: Never smoker Past Alcohol Use History: None Reported Additional Past Alcohol Use History / Comment(s): Patient is a life-long non- smoker but exposed to second-hand with her . Past Drug Use History: None Reported Medications and Allergies Home Medications Medication Instructions Recorded Confirmed Type Acetaminophen [Tylenol 8 Hour] 1,300 mg PO Q4H PRN 07/18/17 07/18/17 History Demeclocycline HCl 300 mg PO BID 07/18/17 07/18/17 History Dimethicone/Zinc Oxide [Inzo Zinc 1 applic TOPICAL DAILY PRN 07/18/17 07/18/17 History Oxide Barrier Cream] Heparin Sodium,Porcine [Heparin 5,000 unit SQ Q8HR@0600,1400,2200 07/18/1707/18 History Sodium] Lactobacillus Acidophilus 1 tab PO BID 07/18/17 07/18/17 History [Acidophilus] Metolazone [Zaroxolyn] 2.5 mg PO MOWEFR 07/18/17 07/18/17 History Potassium Chloride [K-Tab ER] 10 meq PO BID 07/18/17 07/18/17 History Vits A and D/White Pet/Lanolin [A 1 applic TOPICAL Q12H 07/18/17 07/18/17 History and D Ointment] Allergies Allergy/AdvReac Type Severity Reaction Status Date / Time No Known Allergies Allergy Verified 07/18/17 18:13 Physical Exam Vitals: Vital Signs Temp Pulse Pulse Resp BP BP Pulse Ox 07/19/17 07:00 97.7 F 118 H 18 88/56 97 07/18/17 20:15 97.1 F L 113 H 18 120/64 99 07/18/17 19:38 97.1 F L 07/18/17 19:18 111 H 18 92/54 98 07/18/17 17:31 97.0 F L 110 H 18 118/67 95 Intake and Output 07/18/17 07/19/17 07/19/17 22:59 06:59 14:59 Intake Total 240 150 Balance 240 150 Intake: Oral 240 150 Other: Voiding Method Toilet Toilet Bedside Commode Bedside Commode # Voids 1 2 Weight 56.699 kg - Constitutional General appearance: no acute distress, thin - EENT Eyes: EOMI, PERRLA, no photophobia Ears: bilateral: normal - Neck Neck: no lymphadenopathy, normal ROM, no rigidity Carotids: bilateral: upstroke normal Thyroid: bilateral: normal size - Respiratory Respiratory: bilateral: CTA - Cardiovascular Rhythm: regular Heart sounds: normal: S1, S2 Abnormal Heart Sounds: no systolic murmur, no diastolic murmur, no click leg Peripheral Edema: bilateral: 3+ - Gastrointestinal General gastrointestinal: no distended, soft, no tenderness - Neurologic Neurologic: CNII-XII intact - Musculoskeletal Musculoskeletal: no generalized weakness, strength equal bilaterally - Psychiatric Psychiatric: A&O x's 3, appropriate affect Results CBC & Chem 7: 07/19/17 08:38 07/19/17 13:10 Labs: Abnormal Lab Results - Last 24 Hours (Table) 07/18/17 07/18/17 07/19/17 Range/Units 18:05 18:05 08:38 WBC 20.2 H (3.8-10.6) k/uL Plt Count 744 H (150-450) k/uL Neutrophils # 18.6 H (1.3-7.7) k/uL Lymphocytes # 0.8 L (1.0-4.8) k/uL Sodium 123 L 124 L (137-145) mmol/L Chloride 86 L 92 L (98-107) mmol/L Carbon Dioxide 21 L 19 L (22-30) mmol/L BUN 94 H* 73 H (7-17) mg/dL Creatinine 1.48 H 1.16 H (0.52-1.04) mg/dL Glucose 122 H 117 H (74-99) mg/dL Calcium 10.7 H (8.4-10.2) mg/dL Magnesium 2.5 H (1.6-2.3) mg/dL Alkaline Phosphatase 136 H (38-126) U/L 07/19/17 Range/Units 08:38 WBC 14.5 H (3.8-10.6) k/uL Plt Count 717 H (150-450) k/uL Neutrophils # 12.9 H (1.3-7.7) k/uL Lymphocytes # 0.8 L (1.0-4.8) k/uL Sodium (137-145) mmol/L Chloride (98-107) mmol/L Carbon Dioxide (22-30) mmol/L BUN (7-17) mg/dL Creatinine (0.52-1.04) mg/dL Glucose (74-99) mg/dL Calcium (8.4-10.2) mg/dL Magnesium (1.6-2.3) mg/dL Alkaline Phosphatase (38-126) U/L Thrombosis Risk Factor Assmnt - DVT/VTE Prophylaxis DVT/VTE Prophylaxis: Mechanical Prophylaxis ordered - Choose All That Apply Any of the Below Risk Factors Present?: Yes Each Factor Represents 1 point: Swollen legs (current) Other Risk Factors: Yes Each Risk Factor Represents 3 Points: Age 75 years or older Thrombosis Risk Factor Assessment Total Risk Factor Score: 4 Thrombosis Risk Factor Assessment Level: Moderate Risk Assessment and Plan Plan: #1 Acute renal failure secondary to acute tubular necrosis from hypovolemia overlying chronic kidney disease, was briefly on hemodialysis in the past admission - Patient refusing all treatment, IV fluids recommended that patient would not allow -Continue oral sodium tablets as recommended by corrective therapist along with fluid -Continue sodium checks used every 4 hours - Increased BUN and creatinine likely secondary to hypovolemia - Cardiorenal syndrome unlikely as patient had a normal ejection fraction with no wall or valvular abnormality in April 2017 - Hold Zaroxolyn, hold any homeopathic medications, hold all supplements #2 leukocytosis No evidence of infection, likely secondary to dehydration #3 lower extremity pedal edema secondary to venous stasis. Echo from April 2017 negative for any heart failure #4 DVT prophylaxis with SCDs, patient refuses heparin #5 disposition likely discharge to [facility] once stabilized #6 CODE STATUS full code, patient's family updated on patient's condition.
[2017-07-19] MEDS ORDERED: SODIUM CHLORIDE 0.9% 250 ML IV ONE (16:40)
[2017-07-19] MEDS: ACETAMINOPHEN TAB 325 MG TAB PO PRN (23:41)
[2017-07-20] MEDS: HEPARIN SODIUM,PORCINE 5,000 UNIT/ML 1 ML VIAL SQ SCH ×3 (06:27→20:00)
[2017-07-20] MEDS: SODIUM CHLORIDE TAB 1 GM TAB PO SCH ×2 (07:39→20:00)
[2017-07-20] MEDS: DEMECLOCYCLINE 150 MG TAB PO SCH (08:49)
[2017-07-20] MEDS: LACTOBACILLUS ACIDOPH & BULGAR 1 EACH PACKET PO SCH ×2 (08:49→20:01)
[2017-07-20] MEDS: VITS A & D-WHITE PET-LANOLIN 5 GM OINT.PACK TOPICAL SCH ×2 (08:50→20:01)
[2017-07-20 09:55] LABS: Sodium 128 mmol/L (137-145)
[2017-07-20 12:08] LABS: Anion Gap 11 mmol/L; Blood Urea Nitrogen 52 mg/dL (7-17); Calcium 9.5 mg/dL (8.4-10.2); Carbon Dioxide 21 mmol/L (22-30); Chloride 96 mmol/L (98-107); Glucose 140 mg/dL (74-99)
[2017-07-20] MEDS ORDERED: Potassium Replacement Protocol 1 EACH MISC MISCELLANE PRN (13:01)
--- NOTE | 2017-07-20 13:27 | P.PN ---
Subjective Progress Note Date: 07/20/17 This is an 82-year-old patient of Dr. Braun at [facility] with sees a homeopathic doctor. Presents with abnormal labs including a sodium of 119, repeat sodium 123 in the ER. Evaluated in the a.m. refuses any kind of intervention including IV fluids. Patient was seen last in April for acute kidney injury for which patient was briefly on hemodialysis and then sent home on Zaroxolyn. Patient does not want any IV fluids or any evaluation for cardiac failure or kidney failure. Patient is willing to drink water orally and was advised to drink water along with sodium tablets. Vitals includes 88/56 blood pressure, tachycardic, respiratory rate 16 saturating well on room air. Patient continues to drop her blood pressure with a repeat blood pressure 77/46 with tachycardia cardia persistent. Window And Door Installer evaluated the patient and recommended IV fluids which patient continues to refuse. Labs suggest active of dehydration including BUN of 90. Patient is evaluated in April 2017 for failure to thrive after passing off her . Patient is a upper [place]hetto and has bahai beliefs that prohibit her to use IV medication or artificial care. She was evaluated by psychiatrist for bereavement and was found to have a good decision-making capacity. Echocardiogram done during that admission was negative for any heart failure or valvular abnormality with ejection fraction of 50-55%. 07/20: Patient was seen by Dr. Rico and placed on a sodium chloride tablet 1 twice daily, IV fluids 0.9 normal saline at 70 mL per hour which patient did agree to. Repeat sodium this morning is 128. Potassium will be replaced. Objective - Vital Signs Vital signs: Vital Signs Temp 97.4 F L 07/20/17 07:00 Pulse 119 H 07/20/17 09:22 Resp 18 07/20/17 07:00 BP 94/43 07/20/17 09:22 Pulse Ox 100 07/20/17 07:00 Intake & Output 07/19/17 07/20/17 07/20/17 18:59 06:59 18:59 Intake Total 770 Balance 770 Intake: Intake, IV Titration 770 Amount Sodium Chloride 0.9% 1, 770 000 ml @ 70 mls/hr IV . [id number] [facility] Rx#:[id number] Other: Voiding Method Toilet Toilet Toilet Bedside Commode Bedside Commode Bedside Commode # Voids 2 2 - Exam General appearance: no acute distress, thin - EENT Eyes: EOMI, PERRLA, no photophobia Ears: bilateral: normal - Neck Neck: no lymphadenopathy, normal ROM, no rigidity Carotids: bilateral: upstroke normal Thyroid: bilateral: normal size - Respiratory Respiratory: bilateral: CTA - Cardiovascular Rhythm: regular Heart sounds: normal: S1, S2 Abnormal Heart Sounds: no systolic murmur, no diastolic murmur, no click leg Peripheral Edema: bilateral: 3+ - Gastrointestinal General gastrointestinal: no distended, soft, no tenderness - Neurologic Neurologic: CNII-XII intact - Musculoskeletal Musculoskeletal: no generalized weakness, strength equal bilaterally - Psychiatric Psychiatric: A&O x's 3, appropriate affect - Labs CBC & Chem 7: 07/19/17 08:38 07/20/17 09:31 Labs: Abnormal Lab Results - Last 24 Hours (Table) 07/19/17 07/19/17 07/19/17 Range/Units 13:10 17:02 19:28 Sodium 121 L 121 L (137-145) mmol/L Ur Random Sodium <5 L (30-90) mmol/L 07/19/17 07/20/17 07/20/17 Range/Units 21:02 01:34 05:26 Sodium 123 L 125 L 125 L (137-145) mmol/L Ur Random Sodium (30-90) mmol/L Assessment and Plan Plan: 1 Acute renal failure secondary to acute tubular necrosis from hypovolemic hyponatremia overlying chronic kidney disease, was briefly on hemodialysis in the past admission -Continue oral sodium tablets as recommended by shooter helper along with fluid -Continue sodium checks used every 8 hours - Increased BUN and creatinine likely secondary to hypovolemia - Cardiorenal syndrome unlikely as patient had a normal ejection fraction with no wall or valvular abnormality in April 2017 - Hold Zaroxolyn, hold any homeopathic medications, hold all supplements #2 leukocytosis No evidence of infection, likely secondary to dehydration #3 lower extremity edema secondary to venous stasis. Echo from April 2017 negative for any heart failure #4 DVT prophylaxis with SCDs, patient refuses heparin #5 disposition likely discharge to [facility] once stabilized #6 CODE STATUS full code, patient's family updated on patient's condition. Impression and plan of care have been directed as dictated by the signing physician. Angelica Estrada nurse practitioner acting as scribe for signing physician.
[2017-07-20] MEDS: POTASSIUM CHLORIDE 10 MEQ, LIDOCAINE 2% INJ 10 MG in SODIUM CHLORIDE 0.9% 100 ML IV SCH ×2 (14:45→15:56)
[2017-07-20] MEDS: SODIUM CHLORIDE 0.9% 1,000 ML IV SCH ×2 (14:56→20:02)
--- NOTE | 2017-07-20 16:44 | PN ---
PROGRESS NOTE Patient is seen for followup for hyponatremia. Last night, she was quite hypotensive with a systolic blood pressure in the 70s and the patient finally agreed for normal saline which was started at 70 mL an hour last night. Her blood pressure has improved with systolic about 90-100 mmHg. Patient's serum sodium level has also improved to 128 mEq/L. Her creatinine on admission was 1.48 and it is down to 1.01 now. The patient is also maintained on sodium chloride tabs as she stated that she was not willing to start normal saline. Urine osmolality was 575, however, random urine sodium was very low, suggestive of hypovolemia. EXAMINATION: Blood pressure is 101/51, heart rate 117 per minute. Patient is afebrile. Examination of lower extremities shows edema with chronic skin changes bilaterally. Legs are wrapped. LUNGS: Clear. Abdomen is soft, nontender. HEART: Sounds are heard. DROP BOARD WORKER exam is grossly intact. LAB: Show sodium 128, potassium 3.0, BUN 52, serum creatinine 1.01. ASSESSMENT: 1. Hypovolemic hyponatremia, maintained on normal saline which we will continue for now. The patient is advised to decrease her free water intake. 2. Hypokalemia, being replaced. 3. Acute kidney injury, prerenal, currently improved. 4. 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 PLAN: Continue with saline for now. Continue to monitor serum sodium levels. MMODL / IJN: [id number] /
[2017-07-20 19:03] LABS: Potassium 3.8 mmol/L (3.5-5.1)
[2017-07-21] MEDS: HEPARIN SODIUM,PORCINE 5,000 UNIT/ML 1 ML VIAL SQ SCH ×3 (05:09→20:19)
[2017-07-21] MEDS: VITS A & D-WHITE PET-LANOLIN 5 GM OINT.PACK TOPICAL SCH ×2 (07:33→20:18)
[2017-07-21] MEDS: LACTOBACILLUS ACIDOPH & BULGAR 1 EACH PACKET PO SCH ×2 (07:33→20:18)
[2017-07-21] MEDS: SODIUM CHLORIDE TAB 1 GM TAB PO SCH ×2 (07:35→20:18)
[2017-07-21] MEDS: SODIUM CHLORIDE 0.9% 1,000 ML IV SCH (08:41)
--- NOTE | 2017-07-21 10:36 | P.DS ---
Providers Date of admission: 07/18/17 19:21 Expected date of discharge: 07/21/17 Attending physician: Radha Malave MD Consults: 07/18/17 19:23 Consult Physician Routine Consulting Provider: Anabell Rico Consult Reason/Comments: Renal insufficiency, hyponatremia Do you want consulting provider notified?: Yes Primary care physician: Chandni Braun [facility] Course: This is an 82-year-old patient of Dr. Braun at [facility] with sees a homeopathic doctor. Presents with abnormal labs including a sodium of 119, repeat sodium 123 in the ER. Evaluated in the a.m. refuses any kind of intervention including IV fluids. Patient was seen last in April for acute kidney injury for which patient was briefly on hemodialysis and then sent home on Zaroxolyn. Patient does not want any IV fluids or any evaluation for cardiac failure or kidney failure. Patient is willing to drink water orally and was advised to drink water along with sodium tablets. Vitals includes 88/56 blood pressure, tachycardic, respiratory rate 16 saturating well on room air. Patient continues to drop her blood pressure with a repeat blood pressure 77/46 with tachycardia cardia persistent. Software Test And Validation Engineer evaluated the patient and recommended IV fluids which patient continues to refuse. Labs suggest active of dehydration including BUN of 90. Patient is evaluated in April 2017 for failure to thrive after passing off her . Patient is a [place] Ghetto and has caodaism beliefs that prohibit her to use IV medication or artificial care. She was evaluated by psychiatrist for bereavement and was found to have a good decision-making capacity. Echocardiogram done during that admission was negative for any heart failure or valvular abnormality with ejection fraction of 50-55%. 07/20: Patient was seen by Dr. Rico and placed on a sodium chloride tablet 1 twice daily, IV fluids 0.9 normal saline at 70 mL per hour which patient did agree to. Repeat sodium this morning is 128. Potassium will be replaced. 07/21: Sodium this morning is 134 and repeat potassium yesterday afternoon was 3.8. BUN is 52 and creatinine 1.01. Patient is stable for discharge to [facility]. Family have chosen [facility] in [place] versus returning to [place]. Social work and case management are making arrangements. Patient will be discharged today in stable condition. Repeat lab work on Tuesday. Discharge diagnoses: 1 Acute renal failure secondary to acute tubular necrosis from hypovolemic hyponatremia overlying chronic kidney disease stage III 2 leukocytosis secondary to dehydration 3 lower extremity edema secondary to venous stasis. Discharge plan: [facility] in [place] Impression and plan of care have been directed as dictated by the signing physician. Angelica Estrada nurse practitioner acting as scribe for signing physician. Patient Condition at Discharge: Good Plan - Discharge Summary New Discharge Prescriptions: New Sodium Chloride Tab 1 gm PO BID tab Continue Vits A and D/White Pet/Lanolin [A and D Ointment] 1 applic TOPICAL Q12H Lactobacillus Acidophilus [Acidophilus] 1 tab PO BID Demeclocycline HCl 300 mg PO BID Heparin Sodium,Porcine [Heparin Sodium] 5,000 unit SQ Q8HR@0600,1400,2200 Acetaminophen [Tylenol 8 Hour] 1,300 mg PO Q4H PRN PRN Reason: Pain Potassium Chloride [K-Tab ER] 10 meq PO BID Dimethicone/Zinc Oxide [Inzo Zinc Oxide Barrier Cream] 1 applic TOPICAL DAILY PRN PRN Reason: incontinence Discontinued Metolazone [Zaroxolyn] 2.5 mg PO MOWEFR Discharge Medication List Acetaminophen [Tylenol 8 Hour] 1,300 mg PO Q4H PRN 07/18/17 [History] Demeclocycline HCl 300 mg PO BID 07/18/17 [History] Dimethicone/Zinc Oxide [Inzo Zinc Oxide Barrier Cream] 1 applic TOPICAL DAILY PRN 07/18/17 [History] Heparin Sodium,Porcine [Heparin Sodium] 5,000 unit SQ Q8HR@0600,1400,2200 [History] Lactobacillus Acidophilus [Acidophilus] 1 tab PO BID 07/18/17 [History] Potassium Chloride [K-Tab ER] 10 meq PO BID 07/18/17 [History] Vits A and D/White Pet/Lanolin [A and D Ointment] 1 applic TOPICAL Q12H [History] Sodium Chloride Tab 1 gm PO BID tab 07/21/17 [Rx] Follow up Appointment(s)/Referral(s): Chandni Braun MD [Primary Care Provider] - 1 Week (at [facility]) Ambulatory/Diagnostic Orders: Basic Metabolic Panel [LAB.AMB] Location: Determined By Patient Discharge Disposition: TRANSFER TO SNF/ECF
--- NOTE | 2017-07-21 14:02 | P.PN ---
Subjective Patient is seen in follow-up for hyponatremia and acute kidney injury. Sodium level is up to 134 this morning. She is currently maintained on normal saline. Her oral intake is good. Her creatinine is around 1.01 today. She has no active complaints at this time. She scheduled to be discharged today. Vital signs are stable. General: The patient appeared well nourished and normally developed. HEENT: Head exam is unremarkable. Neck is without jugular venous distension. LUNGS: Lungs are clear to auscultation and percussion. Breath sounds decreased. HEART: Rate and Rhythm are regular. First and second heart sounds normal. No murmurs, rubs or gallops. ABDOMEN: Abdominal exam reveals normal bowel sounds. Non-tender and non- distended. No evidence of peritonitis. EXTREMITITES: 1+ edema. Lower extremities wrapped. Objective - Vital Signs Vital signs: Vital Signs Temp 97.9 F 07/21/17 07:00 Pulse 97 07/21/17 07:00 Resp 16 07/21/17 07:00 BP 92/54 07/21/17 07:00 Pulse Ox 96 07/21/17 07:00 Intake & Output 07/20/17 07/21/17 07/21/17 18:59 06:59 18:59 Intake Total 1150 Balance 1150 Intake: Intake, IV Titration 560 Amount Sodium Chloride 0.9% 1, 560 000 ml @ 70 mls/hr IV . [id number] [facility] Rx#:[id number] Oral 590 Other: Voiding Method Toilet Toilet Toilet Bedside Commode Bedside Commode Bedside Commode # Voids 1 3 - Labs CBC & Chem 7: 07/19/17 08:38 07/21/17 01:53 Labs: Abnormal Lab Results - Last 24 Hours (Table) 07/20/17 07/20/17 07/21/17 Range/Units 13:42 18:36 01:53 Sodium 129 L 130 L 134 L (137-145) mmol/L Assessment and Plan Plan: Assessment: #1. Hypovolemic hyponatremia improving with normal saline. Sodium level up to 134 this morning. #2. Hypokalemia status post replacement. Improved. #3. Acute kidney injury mostly prerenal. Improved with IV hydration. #4. Chronic kidney disease stage III secondary to nephrosclerosis. Patient was also taking multiple supplements which are also likely to be a contributor factor. Plan: Continue with normal saline for now. I advised her to maintain her fluid intake to 50-60 ounces per day. Avoid nephrotoxic agents and hypotensive episodes. Potential discharge today. She will need to follow-up as an outpatient in the next 2 weeks.
[2017-07-22] MEDS: HEPARIN SODIUM,PORCINE 5,000 UNIT/ML 1 ML VIAL SQ SCH ×3 (06:09→21:45)
[2017-07-22] MEDS: LACTOBACILLUS ACIDOPH & BULGAR 1 EACH PACKET PO SCH ×2 (07:27→20:45)
[2017-07-22] MEDS: SODIUM CHLORIDE TAB 1 GM TAB PO SCH ×2 (07:27→20:45)
[2017-07-22] MEDS: VITS A & D-WHITE PET-LANOLIN 5 GM OINT.PACK TOPICAL SCH ×2 (07:28→20:45)
[2017-07-22] MEDS: SODIUM CHLORIDE 0.9% 1,000 ML IV SCH (10:52)
--- NOTE | 2017-07-22 14:04 | P.PN ---
Subjective Progress Note Date: 07/22/17 This is an 82-year-old patient of Dr. Braun at [facility] with sees a homeopathic doctor. Presents with abnormal labs including a sodium of 119, repeat sodium 123 in the ER. Evaluated in the a.m. refuses any kind of intervention including IV fluids. Patient was seen last in April for acute kidney injury for which patient was briefly on hemodialysis and then sent home on Zaroxolyn. Patient does not want any IV fluids or any evaluation for cardiac failure or kidney failure. Patient is willing to drink water orally and was advised to drink water along with sodium tablets. Vitals includes 88/56 blood pressure, tachycardic, respiratory rate 16 saturating well on room air. Patient continues to drop her blood pressure with a repeat blood pressure 77/46 with tachycardia cardia persistent. Ingredient Handler evaluated the patient and recommended IV fluids which patient continues to refuse. Labs suggest active of dehydration including BUN of 90. Patient is evaluated in April 2017 for failure to thrive after passing off her . Patient is a [place]hetto and has christian beliefs that prohibit her to use IV medication or artificial care. She was evaluated by psychiatrist for bereavement and was found to have a good decision-making capacity. Echocardiogram done during that admission was negative for any heart failure or valvular abnormality with ejection fraction of 50-55%. 07/20: Patient was seen by Dr. Rico and placed on a sodium chloride tablet 1 twice daily, IV fluids 0.9 normal saline at 70 mL per hour which patient did agree to. Repeat sodium this morning is 128. Potassium will be replaced. 07/21: Sodium this morning is 134 and repeat potassium yesterday afternoon was 3.8. BUN is 52 and creatinine 1.01. Patient is stable for discharge to [facility]. Family have chosen [facility] in [place] versus returning to [place]. Social work and case management are making arrangements. Patient will be discharged today in stable condition. Repeat lab work on Tuesday. 07/22: As of 2 PM on Tuesday, we continue to wait for authorization from patient's insurance company. Repeat labs will be ordered for tomorrow in case authorization does not get completed. Patient denies any new complaints. There is been no nausea or vomiting, no diarrhea. Objective - Vital Signs Vital signs: Vital Signs Temp 97.9 F 07/22/17 07:00 Pulse 99 07/22/17 07:00 Resp 16 07/22/17 07:00 BP 105/59 07/22/17 07:00 Pulse Ox 98 07/22/17 07:00 Intake & Output 07/21/17 07/22/17 07/22/17 18:59 06:59 18:59 Intake Total 560 1250 Balance 560 1250 Intake: Intake, IV Titration 560 840 Amount Sodium Chloride 0.9% 1, 560 840 000 ml @ 70 mls/hr IV . [id number] [facility] Rx#:[id number] Oral 410 Other: Voiding Method Toilet Toilet Toilet Bedside Commode Bedside Commode # Voids 1 1 2 - Exam General appearance: no acute distress, thin - EENT Eyes: EOMI, PERRLA, no photophobia Ears: bilateral: normal - Neck Neck: no lymphadenopathy, normal ROM, no rigidity Carotids: bilateral: upstroke normal Thyroid: bilateral: normal size - Respiratory Respiratory: bilateral: CTA - Cardiovascular Rhythm: regular Heart sounds: normal: S1, S2 Abnormal Heart Sounds: no systolic murmur, no diastolic murmur, no click leg Peripheral Edema: bilateral: 3+ - Gastrointestinal General gastrointestinal: no distended, soft, no tenderness - Neurologic Neurologic: CNII-XII intact - Musculoskeletal Musculoskeletal: no generalized weakness, strength equal bilaterally - Psychiatric Psychiatric: A&O x's 3, appropriate affect - Labs CBC & Chem 7: 07/19/17 08:38 07/21/17 01:53 Assessment and Plan Plan: 1 Acute renal failure secondary to acute tubular necrosis from hypovolemic hyponatremia overlying chronic kidney disease, was briefly on hemodialysis in the past admission -Continue oral sodium tablets as recommended by supervisor cook room along with fluid - Hold Zaroxolyn, hold any homeopathic medications, hold all supplements #2 leukocytosis No evidence of infection, likely secondary to dehydration #3 lower extremity edema secondary to venous stasis. Echo from April 2017 negative for any heart failure #4 DVT prophylaxis with SCDs, patient refuses heparin #5 discharge plan: [facility] in [place] once insurance authorization is obtained #6 CODE STATUS full code Impression and plan of care have been directed as dictated by the signing physician. Angelica Estrada nurse practitioner acting as scribe for signing physician.
--- NOTE | 2017-07-22 18:55 | PN ---
PROGRESS NOTE Patient is seen for followup for hyponatremia. Currently maintained on normal saline. The sodium is 134. Blood pressure is also improved. Patient has significant edema in her lower extremity. She denies any shortness of breath. On examination, blood pressure is 105/59, heart rate 99 per minute. Patient is afebrile. Examination of the heart: S1, S2. Examination lungs: Decreased breath sounds at bases. Abdomen is soft. Examination of lower extremities: Edema 2 to 3+ with chronic skin changes and weeping noted. LAB: Show sodium 134 yesterday. No sodium from today. ASSESSMENT: Hypovolemic hyponatremia, currently improved with normal saline. However, patient has significant edema. I will discontinue the saline for now. The patient is also maintained on sodium chloride tabs and depending on the sodium I will further decrease or discontinue the sodium chloride tablets. This patient is advised regarding avoiding significant free water intake and increase protein intake. MMODL / IJN: [id number] /
[2017-07-23] MEDS: HEPARIN SODIUM,PORCINE 5,000 UNIT/ML 1 ML VIAL SQ SCH ×3 (05:24→21:48)
[2017-07-23 07:28] LABS: Anion Gap 4 mmol/L; Blood Urea Nitrogen 12 mg/dL (7-17); Calcium 8.9 mg/dL (8.4-10.2); Carbon Dioxide 25 mmol/L (22-30); Chloride 107 mmol/L (98-107); Glucose 88 mg/dL (74-99); Sodium 136 mmol/L (137-145)
[2017-07-23 07:34] LABS: Potassium 2.8 mmol/L (3.5-5.1)
[2017-07-23] MEDS ORDERED: Potassium Replacement Protocol 1 EACH MISC MISCELLANE PRN (08:01)
--- NOTE | 2017-07-23 08:42 | P.PN ---
Subjective Patient is seen in follow-up for hyponatremia and acute kidney injury. Sodium level is up to 136 this morning. She is currently maintained on normal saline and sodium chloride tablets. Her oral intake is good. Her creatinine is down to 0.64 today. She has no active complaints at this time except for swelling in her legs. Vital signs are stable. General: The patient appeared well nourished and normally developed. HEENT: Head exam is unremarkable. Neck is without jugular venous distension. LUNGS: Lungs are clear to auscultation and percussion. Breath sounds decreased. HEART: Rate and Rhythm are regular. First and second heart sounds normal. No murmurs, rubs or gallops. ABDOMEN: Abdominal exam reveals normal bowel sounds. Non-tender and non- distended. No evidence of peritonitis. EXTREMITITES: 1+ edema. Lower extremities wrapped. Objective - Vital Signs Vital signs: Vital Signs Temp 98 F 07/22/17 23:00 Pulse 108 H 07/22/17 23:00 Resp 16 07/22/17 23:00 BP 96/51 07/22/17 23:00 Pulse Ox 91 L 07/22/17 23:00 Intake & Output 07/22/17 07/23/17 07/23/17 18:59 06:59 18:59 Intake Total 1250 1100 Balance 1250 1100 Weight 56.699 kg Intake: Intake, IV Titration 840 560 Amount Sodium Chloride 0.9% 1, 840 560 000 ml @ 70 mls/hr IV . [id number] [facility] Rx#:[id number] Oral 410 540 Other: Voiding Method Toilet Toilet # Voids 2 1 - Labs CBC & Chem 7: 07/19/17 08:38 07/23/17 06:50 Labs: Abnormal Lab Results - Last 24 Hours (Table) 07/23/17 Range/Units 06:50 Sodium 136 L (137-145) mmol/L Potassium 2.8 L* (3.5-5.1) mmol/L Assessment and Plan Plan: Assessment: #1. Hypovolemic hyponatremia improving with normal saline. Sodium level up to 136 this morning. #2. Hypokalemia currently being replaced. Rule out magnesium deficiency. #3. Acute kidney injury mostly prerenal. Resolved. #4. Lower extremity edema. Plan: Hep-Lock IV fluids. I advised her to restrict her fluid intake to 50-60 ounces per day. Avoid nephrotoxic agents and hypotensive episodes. Continue salt tablets for now. If sodium level remained stable, will taper the dose. Check magnesium level. Potassium being replaced.
[2017-07-23] MEDS: POTASSIUM CHLORIDE 10 MEQ in WATER FOR INJECTION 1 100ML.BAG IVPB SCH ×3 (08:59→11:59)
[2017-07-23] MEDS: LACTOBACILLUS ACIDOPH & BULGAR 1 EACH PACKET PO SCH ×2 (09:00→21:49)
[2017-07-23] MEDS: POTASSIUM CHLORIDE ER 20 MEQ TAB.ER PO SCH ×3 (09:00→11:59)
[2017-07-23] MEDS: VITS A & D-WHITE PET-LANOLIN 5 GM OINT.PACK TOPICAL SCH ×2 (09:01→21:48)
[2017-07-23] MEDS: SODIUM CHLORIDE TAB 1 GM TAB PO SCH ×2 (09:01→21:49)
--- NOTE | 2017-07-23 11:32 | P.PN ---
Subjective Progress Note Date: 07/23/17 patient continued to be hemodynamically stable sitting at the bedside eating her breakfast this morning no major events reported by nursing staff potassium was low and replaced this morning Objective - Vital Signs Vital signs: Vital Signs Temp 97.8 F 07/23/17 07:00 Pulse 98 07/23/17 07:00 Resp 18 07/23/17 07:00 BP 122/57 07/23/17 07:00 Pulse Ox 97 07/23/17 07:00 Intake & Output 07/22/17 07/23/17 07/23/17 18:59 06:59 18:59 Intake Total 1250 1100 Balance 1250 1100 Weight 56.699 kg Intake: Intake, IV Titration 840 560 Amount Sodium Chloride 0.9% 1, 840 560 000 ml @ 70 mls/hr IV . [id number] [facility] Rx#:[id number] Oral 410 540 Other: Voiding Method Toilet Toilet # Voids 2 1 - Exam lungs clear to auscultation bilaterally Heart normal S1-S2 Abdomen soft with tenderness plus plus hospital for quadrant Skin no new rash Psych alert and oriented following commands - Labs CBC & Chem 7: 07/19/17 08:38 07/23/17 06:50 Labs: Abnormal Lab Results - Last 24 Hours (Table) 07/23/17 Range/Units 06:50 Sodium 136 L (137-145) mmol/L Potassium 2.8 L* (3.5-5.1) mmol/L Assessment and Plan Assessment: 1. Acute renal failure secondary to ATN. 2. Dehydration. 3. Acute hypokalemia. 4. Chronic lower extremity edema with venous stasis. 5. Serial debility and deconditioning. Discharge planning to the long-term was plan Discussed with nephrology current electrolytes and we will recommend repeating electrolytes in 2-3 days at the long-term. Patient is stable from the medical standpoint for discharge plan discussed with the nursing staff and the patient at the bedside
[2017-07-24] MEDS: HEPARIN SODIUM,PORCINE 5,000 UNIT/ML 1 ML VIAL SQ SCH ×3 (05:19→22:17)
[2017-07-24 08:26] LABS: Anion Gap 3 mmol/L; Blood Urea Nitrogen 11 mg/dL (7-17); Calcium 9.3 mg/dL (8.4-10.2); Carbon Dioxide 26 mmol/L (22-30); Chloride 108 mmol/L (98-107); Glucose 85 mg/dL (74-99); Potassium 3.6 mmol/L (3.5-5.1); Sodium 137 mmol/L (137-145)
[2017-07-24] MEDS: SODIUM CHLORIDE TAB 1 GM TAB PO SCH (08:26)
[2017-07-24] MEDS: VITS A & D-WHITE PET-LANOLIN 5 GM OINT.PACK TOPICAL SCH ×2 (08:27→22:17)
[2017-07-24] MEDS: LACTOBACILLUS ACIDOPH & BULGAR 1 EACH PACKET PO SCH ×2 (08:27→22:17)
[2017-07-24] MEDS ORDERED: POTASSIUM CHLORIDE ER 20 MEQ TAB.ER PO STA (09:58)
--- NOTE | 2017-07-24 10:00 | P.PN ---
Subjective Patient is seen in follow-up for hyponatremia and acute kidney injury. Sodium level is up to 137 this morning. She is currently maintained on sodium chloride tablets. Normal saline was discontinued yesterday. Her oral intake is good. Renal injury has resolved GFR is at baseline. She has no active complaints at this time except for swelling in her legs. Vital signs are stable. General: The patient appeared well nourished and normally developed. HEENT: Head exam is unremarkable. Neck is without jugular venous distension. LUNGS: Lungs are clear to auscultation and percussion. Breath sounds decreased. HEART: Rate and Rhythm are regular. First and second heart sounds normal. No murmurs, rubs or gallops. ABDOMEN: Abdominal exam reveals normal bowel sounds. Non-tender and non- distended. No evidence of peritonitis. EXTREMITITES: 1+ edema. Lower extremities wrapped. Objective - Vital Signs Vital signs: Vital Signs Temp 98.0 F 07/23/17 23:00 Pulse 113 H 07/24/17 08:00 Resp 16 07/24/17 08:00 BP 105/55 07/23/17 23:00 Pulse Ox 95 07/23/17 23:00 Intake & Output 07/23/17 07/24/17 07/24/17 18:59 06:59 18:59 Intake Total 320 1130 Balance 320 1130 Weight 56.699 kg Intake: Intake, IV Titration 320 Amount Potassium Chloride 10 meq 300 In Water For Injection 1 100ml.bag @ 100 mls/hr IVPB Q1H ALEJANDRA Rx#: [id number] Sodium Chloride 0.9% 1, 20 000 ml @ 70 mls/hr IV . [id number] ALEJANDRA Rx#:[id number] Oral 1130 Other: Voiding Method Toilet Toilet Toilet # Voids 1 2 1 # Bowel Movements 1 - Labs CBC & Chem 7: 07/19/17 08:38 07/24/17 07:37 Labs: Abnormal Lab Results - Last 24 Hours (Table) 07/24/17 Range/Units 07:37 Chloride 108 H (98-107) mmol/L Assessment and Plan Plan: Assessment: #1. Hypovolemic hyponatremia improved with normal saline. Sodium level up to 137 this morning. #2. Hypokalemia status post replacement. Improved. #3. Acute kidney injury mostly prerenal. Resolved. #4. Lower extremity edema. Plan: Remains off IV fluids. I advised her to restrict her fluid intake to 50-60 ounces per day. Avoid nephrotoxic agents and hypotensive episodes. I will decrease salt tabs to once daily. Replace potassium. 40 mEq today. Awaits discharge. Repeat basic metabolic panel to be checked within 2-3 days of discharge. She will need to follow-up as outpatient in the next 2 weeks.
--- NOTE | 2017-07-24 15:34 | P.PN ---
Subjective Progress Note Date: 07/24/17 Patient is denying chest pain, shortness breath, nausea, vomiting, dumping, dizziness or dysuria no major events reported by nursing staff. Objective - Vital Signs Vital signs: Vital Signs Temp 98.2 F 07/24/17 07:00 Pulse 113 H 07/24/17 08:00 Resp 16 07/24/17 08:00 BP 107/53 07/24/17 07:00 Pulse Ox 97 07/24/17 07:00 Intake & Output 07/23/17 07/24/17 07/24/17 18:59 06:59 18:59 Intake Total 320 1130 640 Balance 320 1130 640 Weight 56.699 kg Intake: Intake, IV Titration 320 Amount Potassium Chloride 10 meq 300 In Water For Injection 1 100ml.bag @ 100 mls/hr IVPB Q1H ALEJANDRA Rx#: [id number] Sodium Chloride 0.9% 1, 20 000 ml @ 70 mls/hr IV . [id number] ALEJANDRA Rx#:[id number] Oral 1130 640 Other: Voiding Method Toilet Toilet Toilet # Voids 1 2 1 # Bowel Movements 1 - Exam Lungs clear to auscultation bilaterally Heart normal S1-S2 Abdomen soft alternates [facility] for quadrant Skin no new rash Psych alert and oriented following commands No deficit - Labs CBC & Chem 7: 07/19/17 08:38 07/24/17 07:37 Labs: Abnormal Lab Results - Last 24 Hours (Table) 07/24/17 Range/Units 07:37 Chloride 108 H (98-107) mmol/L Assessment and Plan Assessment: 1. Acute renal failure secondary to ATN. 2. Dehydration. 3. Acute hypokalemia. 4. Chronic lower extremity edema with venous stasis. 5. Serial debility and deconditioning. Discharge planning to the detention was plan Would continue monitoring HER lites and replace potassium in the morning if indicated. Patient is stable from the medical standpoint for discharge plan discussed with the nursing staff and the patient at the bedside
[2017-07-25] MEDS: ACETAMINOPHEN TAB 325 MG TAB PO PRN (01:55)
[2017-07-25] MEDS: HEPARIN SODIUM,PORCINE 5,000 UNIT/ML 1 ML VIAL SQ SCH ×3 (05:22→20:06)
[2017-07-25] MEDS: LACTOBACILLUS ACIDOPH & BULGAR 1 EACH PACKET PO SCH ×2 (07:08→20:06)
[2017-07-25] MEDS: SODIUM CHLORIDE TAB 1 GM TAB PO SCH (07:10)
[2017-07-25 08:36] LABS: Anion Gap 7 mmol/L; Blood Urea Nitrogen 10 mg/dL (7-17); Calcium 8.9 mg/dL (8.4-10.2); Carbon Dioxide 24 mmol/L (22-30); Chloride 107 mmol/L (98-107); Glucose 83 mg/dL (74-99); Magnesium 1.5 mg/dL (1.6-2.3); Potassium 3.9 mmol/L (3.5-5.1); Sodium 138 mmol/L (137-145)
[2017-07-25] MEDS: VITS A & D-WHITE PET-LANOLIN 5 GM OINT.PACK TOPICAL SCH ×2 (08:37→20:06)
[2017-07-25] MEDS: MAGNESIUM OXIDE 400 MG TAB PO SCH (13:27)
[2017-07-26] MEDS: ACETAMINOPHEN TAB 325 MG TAB PO PRN (05:13)
[2017-07-26] MEDS: HEPARIN SODIUM,PORCINE 5,000 UNIT/ML 1 ML VIAL SQ SCH (05:15)
[2017-07-26] MEDS: LACTOBACILLUS ACIDOPH & BULGAR 1 EACH PACKET PO SCH (07:31)
[2017-07-26] MEDS: MAGNESIUM OXIDE 400 MG TAB PO SCH (07:31)
[2017-07-26] MEDS: VITS A & D-WHITE PET-LANOLIN 5 GM OINT.PACK TOPICAL SCH (07:32)
[2017-07-26] MEDS: SODIUM CHLORIDE TAB 1 GM TAB PO SCH (07:32)
[2017-07-26 08:05] VITALS: BP 114/55; PULSE 117; RESP 16; TEMP 97.9
--- NOTE | 2017-07-26 08:22 | P.PN ---
Subjective Progress Note Date: 07/25/17 This is an 82-year-old patient of Dr. Braun at [facility] with sees a homeopathic doctor. Presents with abnormal labs including a sodium of 119, repeat sodium 123 in the ER. Evaluated in the a.m. refuses any kind of intervention including IV fluids. Patient was seen last in April for acute kidney injury for which patient was briefly on hemodialysis and then sent home on Zaroxolyn. Patient does not want any IV fluids or any evaluation for cardiac failure or kidney failure. Patient is willing to drink water orally and was advised to drink water along with sodium tablets. Vitals includes 88/56 blood pressure, tachycardic, respiratory rate 16 saturating well on room air. Patient continues to drop her blood pressure with a repeat blood pressure 77/46 with tachycardia cardia persistent. Slab Worker evaluated the patient and recommended IV fluids which patient continues to refuse. Labs suggest active of dehydration including BUN of 90. Patient is evaluated in April 2017 for failure to thrive after passing off her . Patient is a [place] Ghetto and has spiritism beliefs that prohibit her to use IV medication or artificial care. She was evaluated by psychiatrist for bereavement and was found to have a good decision-making capacity. Echocardiogram done during that admission was negative for any heart failure or valvular abnormality with ejection fraction of 50-55%. 07/20: Patient was seen by Dr. Rico and placed on a sodium chloride tablet 1 twice daily, IV fluids 0.9 normal saline at 70 mL per hour which patient did agree to. Repeat sodium this morning is 128. Potassium will be replaced. 07/21: Sodium this morning is 134 and repeat potassium yesterday afternoon was 3.8. BUN is 52 and creatinine 1.01. Patient is stable for discharge to [facility]. Family have chosen [facility] in [place] versus returning to [place]. Social work and case management are making arrangements. Patient will be discharged today in stable condition. Repeat lab work on Tuesday. 07/22: As of 2 PM on Tuesday, we continue to wait for authorization from patient's insurance company. Repeat labs will be ordered for tomorrow in case authorization does not get completed. Patient denies any new complaints. There is been no nausea or vomiting, no diarrhea. 07/25: Patient waited over the weekend for authorization from her insurance company for subacute rehab. Patient has had no significant events. She does refuse to elevate her legs and it has been a challenge for nursing to make her take her medications are prescribed. Magnesium has been replaced. Sodium and potassium are normal. Objective - Vital Signs Vital signs: Vital Signs Temp 97.9 F 07/25/17 07:00 Pulse 106 H 07/25/17 07:00 Resp 18 07/25/17 07:00 BP 102/53 07/25/17 07:00 Pulse Ox 94 L 07/25/17 07:00 Intake & Output 07/24/17 07/25/17 07/25/17 18:59 06:59 18:59 Intake Total 880 320 Balance 880 320 Weight 56.699 kg Intake: Oral 880 320 Other: Voiding Method Toilet Toilet # Voids 1 1 # Bowel Movements 1 - Exam General appearance: no acute distress, thin - EENT Eyes: EOMI, PERRLA, no photophobia Ears: bilateral: normal - Neck Neck: no lymphadenopathy, normal ROM, no rigidity Carotids: bilateral: upstroke normal Thyroid: bilateral: normal size - Respiratory Respiratory: bilateral: CTA - Cardiovascular Rhythm: regular Heart sounds: normal: S1, S2 Abnormal Heart Sounds: no systolic murmur, no diastolic murmur, no click leg Peripheral Edema: bilateral: 3+ - Gastrointestinal General gastrointestinal: no distended, soft, no tenderness - Neurologic Neurologic: CNII-XII intact - Musculoskeletal Musculoskeletal: no generalized weakness, strength equal bilaterally - Psychiatric Psychiatric: A&O x's 3, appropriate affect - Labs CBC & Chem 7: 07/19/17 08:38 07/25/17 07:43 Assessment and Plan Plan: 1 Acute renal failure secondary to acute tubular necrosis from hypovolemic hyponatremia overlying chronic kidney disease, was briefly on hemodialysis in the past admission -Continue oral sodium tablets as recommended by commercial analyst along with fluid - Hold Zaroxolyn, hold any homeopathic medications, hold all supplements #2 leukocytosis No evidence of infection, likely secondary to dehydration #3 lower extremity edema secondary to venous stasis. Echo from April 2017 negative for any heart failure #4 DVT prophylaxis with SCDs, patient refuses heparin #5 discharge plan: [facility] in [place] once insurance authorization is obtained #6 CODE STATUS full code Impression and plan of care have been directed as dictated by the signing physician. Angelica Convery nurse practitioner acting as scribe for signing physician.
--- NOTE | 2017-07-26 08:24 | P.DS ---
Providers Date of admission: 07/18/17 19:21 Expected date of discharge: 07/26/17 Attending physician: Radha Malvae MD Consults: 07/18/17 19:23 Consult Physician Routine Consulting Provider: Anabell Rico Consult Reason/Comments: Renal insufficiency, hyponatremia Do you want consulting provider notified?: Yes Primary care physician: Chandni Braun [facility] Course: This is an 82-year-old patient of Dr. Braun at [facility] with sees a homeopathic doctor. Presents with abnormal labs including a sodium of 119, repeat sodium 123 in the ER. Evaluated in the a.m. refuses any kind of intervention including IV fluids. Patient was seen last in April for acute kidney injury for which patient was briefly on hemodialysis and then sent home on Zaroxolyn. Patient does not want any IV fluids or any evaluation for cardiac failure or kidney failure. Patient is willing to drink water orally and was advised to drink water along with sodium tablets. Vitals includes 88/56 blood pressure, tachycardic, respiratory rate 16 saturating well on room air. Patient continues to drop her blood pressure with a repeat blood pressure 77/46 with tachycardia cardia persistent. Director Diversity evaluated the patient and recommended IV fluids which patient continues to refuse. Labs suggest active of dehydration including BUN of 90. Patient is evaluated in April 2017 for failure to thrive after passing off her . Patient is a [place] Ghetto and has scientology beliefs that prohibit her to use IV medication or artificial care. She was evaluated by psychiatrist for bereavement and was found to have a good decision-making capacity. Echocardiogram done during that admission was negative for any heart failure or valvular abnormality with ejection fraction of 50-55%. 07/20: Patient was seen by Dr. Rico and placed on a sodium chloride tablet 1 twice daily, IV fluids 0.9 normal saline at 70 mL per hour which patient did agree to. Repeat sodium this morning is 128. Potassium will be replaced. 07/21: Sodium this morning is 134 and repeat potassium yesterday afternoon was 3.8. BUN is 52 and creatinine 1.01. Patient is stable for discharge to [facility]. Family have chosen [facility] in [place] versus returning to [place]. Social work and case management are making arrangements. Patient will be discharged today in stable condition. Repeat lab work on Tuesday. 07/22: As of 2 PM on Tuesday, we continue to wait for authorization from patient's insurance company. Repeat labs will be ordered for tomorrow in case authorization does not get completed. Patient denies any new complaints. There is been no nausea or vomiting, no diarrhea. 07/25: Patient waited over the weekend for authorization from her insurance company for subacute rehab. Patient has had no significant events. She does refuse to elevate her legs and it has been a challenge for nursing to make her take her medications are prescribed. Magnesium has been replaced. Sodium and potassium are normal. BUN is 10 with creatinine 0.6. 07/26: Authorization has been obtained from her insurance company. Patient will be discharged to [facility] today in stable condition. Note that the demeclocycline has been discontinued off her home medications since previous discharge summary was completed. Discharge diagnoses: 1 Acute renal failure secondary to acute tubular necrosis from hypovolemic hyponatremia overlying chronic kidney disease stage III 2 leukocytosis secondary to dehydration 3 lower extremity edema secondary to venous stasis. Discharge plan: [facility] in [place] Impression and plan of care have been directed as dictated by the signing physician. Angelica Estrada nurse practitioner acting as scribe for signing physician. Patient Condition at Discharge: Good Plan - Discharge Summary New Discharge Prescriptions: New Sodium Chloride Tab 1 gm PO BID tab Continue Vits A and D/White Pet/Lanolin [A and D Ointment] 1 applic TOPICAL Q12H Lactobacillus Acidophilus [Acidophilus] 1 tab PO BID Heparin Sodium,Porcine [Heparin Sodium] 5,000 unit SQ Q8HR@0600,1400,2200 Acetaminophen [Tylenol 8 Hour] 1,300 mg PO Q4H PRN PRN Reason: Pain Potassium Chloride [K-Tab ER] 10 meq PO BID Dimethicone/Zinc Oxide [Inzo Zinc Oxide Barrier Cream] 1 applic TOPICAL DAILY PRN PRN Reason: incontinence Discontinued Metolazone [Zaroxolyn] 2.5 mg PO MOWEFR Demeclocycline HCl 300 mg PO BID Discharge Medication List Acetaminophen [Tylenol 8 Hour] 1,300 mg PO Q4H PRN 07/18/17 [History] Dimethicone/Zinc Oxide [Inzo Zinc Oxide Barrier Cream] 1 applic TOPICAL DAILY PRN 07/18/17 [History] Heparin Sodium,Porcine [Heparin Sodium] 5,000 unit SQ Q8HR@0600,1400,2200 [History] Lactobacillus Acidophilus [Acidophilus] 1 tab PO BID 07/18/17 [History] Potassium Chloride [K-Tab ER] 10 meq PO BID 07/18/17 [History] Vits A and D/White Pet/Lanolin [A and D Ointment] 1 applic TOPICAL Q12H [History] Sodium Chloride Tab 1 gm PO BID tab 07/21/17 [Rx] Follow up Appointment(s)/Referral(s): Chandni Braun MD [Primary Care Provider] - 1 Week (at [facility]) Ambulatory/Diagnostic Orders: Basic Metabolic Panel [LAB.AMB] Location: Determined By Patient Patient Instructions/Handouts: Hyponatremia (DC), Altered Mental Status (GEN), Hemoccult Test (GEN) Discharge Disposition: TRANSFER TO SNF/ECF
== END 2017-07-26 11:40 | DRG 640 ==
LOC: EC 17:25 → 5MS5E 19:21
PROVIDERS: ADMIT Internal Medicine; ATTEND Internal Medicine
DX: E87.1 Hypo-osmolality and hyponatremia (principal); N17.0 Acute kidney failure with tubular necrosis; L03.119 Cellulitis of unspecified part of limb; E86.0 Dehydration; E83.52 Hypercalcemia; E86.1 Hypovolemia; I12.9 Hypertensive chronic kidney disease with stage 1 through stage 4 chronic kidney disease, or unspecified chronic kidney disease; N18.3 Chronic kidney disease, stage 3 (moderate); I87.8 Other specified disorders of veins; R60.0 Localized edema; Z77.22 Contact with and (suspected) exposure to environmental tobacco smoke (acute) (chronic); E87.6 Hypokalemia; Z79.899 Other long term (current) drug therapy
CPT/HCPCS: 36415; 80048; 80053; 83605; 83735; 83935; 84132; 84295; 84300; 85025; 93005; 99285

== ENCOUNTER 2024-09-15 10:34 | Inpatient (IN) | payer MEDICARE ==
--- NOTE | 2024-09-15 10:47 | ED ---
General Adult HPI - General Chief complaint: Arrhythmia/Palpitations Stated complaint: Stemi Time Seen by Provider: 09/15/24 10:34 Source: patient, EMS Mode of arrival: EMS Limitations: no limitations - History of Present Illness Initial comments: This is an 89-year-old female who presents to the emergency department because she called EMS because her foot was bleeding and quite a bit of blood was lost. Patient states she does not see a doctor. Patient did not complain of any chest pain but states she feels very weak. According to EMS they looked at the EKG and it showed STEMI in the lateral leads and they called ahead to us and we called overhead 15 minutes prior to the patient's arrival. Patient currently just feels very tired but has no complaints of chest pain. Patient denies any fever chills. Patient denies being on any blood thinners. The bleeding is stopped. Patient also stated that she was having quite a bit of diarrhea today. Patient states the bleeding started about 6 AM - Related Data Home Medications Medication Instructions Recorded Confirmed Ascorbic Acid [Vitamin C] 500 mg PO TID-W/MEALS 09/15/24 09/15/24 B5- Pantothenic Acid 250mg 1 tab PO HS 09/15/24 09/15/24 Bio-3b-G Supplement 3 tab PO DAILY 09/15/24 09/15/24 Ca+Mag Plus Supplement 3 tab PO DAILY 09/15/24 09/15/24 Gammanol Forte Supplement 1 tab PO TID-W/MEALS 09/15/24 09/15/24 Pyridoxine [Vitamin B-6] 50 mg PO DAILY 09/15/24 09/15/24 Allergies Allergy/AdvReac Type Severity Reaction Status Date / Time No Known Allergies Allergy Verified 09/15/24 12:37 Review of Systems ROS Statement: Those systems with pertinent positive or pertinent negative responses have been documented in the HPI. ROS Other: All systems not noted in ROS Statement are negative. Past Medical History Past Medical History: Renal Disease Additional Past Medical History / Comment(s): Pt self medicates with homeopathic remedies and vitamins per Son. [place] left ear. acute renal failure, required temporary dialysis History of Any Multi-Drug Resistant Organisms: None Reported, Unobtainable Past Surgical History: Unable to Obtain Past Anesthesia/Blood Transfusion Reactions: No Reported Reaction, Unable to Obtain Past Psychological History: Unable to Obtain Past Alcohol Use History: None Reported Past Drug Use History: None Reported General Exam - General Exam Comments Initial Comments: GENERAL: Patient is well-developed and well-nourished. Patient is nontoxic and well- hydrated and is in mild distress. ENT: Neck is soft and supple. No significant lymphadenopathy is noted. Oropharynx is clear. Moist mucous membranes. Neck has full range of motion without eliciting any pain. EYES: The sclera were anicteric and conjunctiva is pale. Extraocular movements were intact and pupils were equal round and reactive to light. Eyelids were unremarkable. PULMONARY: Unlabored respirations. Good breath sounds bilaterally. No audible rales rhonchi or wheezing was noted. CARDIOVASCULAR: There is a regular rate and rhythm without any murmurs gallops or rubs. ABDOMEN: Soft and nontender with normal bowel sounds. SKIN: Patient is very pale NEUROLOGIC: Patient is alert and oriented x3. Cranial nerves II through XII are grossly intact. Motor and sensory are also intact. Normal speech, volume and content. Symmetrical smile. MUSCULOSKELETAL: Normal extremities with adequate strength and full range of motion. LYMPHATICS: No significant lymphadenopathy is noted PSYCHIATRIC: Normal psychiatric evaluation. Limitations: no limitations Course Vital Signs 09/15/24 09/15/24 09/15/24 10:36 11:03 11:16 Temperature 97.3 F L 97.3 F L 97.3 F L Pulse Rate 88 70 73 Respiratory 18 18 18 Rate Blood Pressure 78/60 89/44 89/49 O2 Sat by Pulse 92 L 100 100 Oximetry 09/15/24 09/15/24 09/15/24 11:36 11:40 12:56 Temperature 97.4 F L Pulse Rate 71 65 82 Respiratory 18 18 18 Rate Blood Pressure 87/53 94/47 92/51 O2 Sat by Pulse 100 100 100 Oximetry 09/15/24 09/15/24 13:10 13:48 Temperature 97.4 F L Pulse Rate 62 63 Respiratory 18 18 Rate Blood Pressure 90/51 106/56 O2 Sat by Pulse 100 100 Oximetry Medical Decision Making - Medical Decision Making EKG is interpreted by myself but EKG shows sinus rhythm at 88 bpm IA was under 64 QRS is 88 QT interval 355 QTc is 401. Patient's EKG show ST segment elevation in leads I and aVL as well as precordial leads V4, V5, V6. A repeat EKG was done it was interpreted by myself. EKG shows a sinus rhythm at 72 bpm IA interval is 183 QRS is 93 QT interval 399 QTc is 425. Patient's EKG continues to show ST segment elevation in V5 and V6 Was pt. sent in by a medical professional or institution (JAVON Patterson, SUPPORT ENGINEER, urgent care, hospital, or alf...) When possible be specific @ -No Did you speak to anyone other than the patient for history (EMS, parent, family, police, friend...)? What history was obtained from this source @ -No Did you review nursing and triage notes (agree or disagree)? Why? @ -I reviewed and agree with nursing and triage notes Were old charts reviewed (outside hosp., previous admission, EMS record, old EKG, old radiological studies, urgent care reports/EKG's, alf records)? Report findings @ -No old charts were reviewed Differential Diagnosis? @ -Differential Dyspnea: Coronary syndrome, arrhythmia, tamponade, asthma, COPD, pulmonary embolism, pneumonia, pneumothorax, pulmonary effusion, anaphylaxis, diabetic ketoacidosis, flailed chest, pulmonary contusion, diaphragmatic rupture, anemia, neuromuscular, this is not meant to be an all-inclusive list. EKG interpreted by me (3pts min.). @ -As above X-rays interpreted by me (1pt min.). @ -Chest x-ray shows no acute abnormality CT interpreted by me (1pt min.). @ -None done U/S interpreted by me (1pt. min.). @ -None done What testing was considered but not performed or refused? (CT, X-rays, U/S, labs)? Why? @ -None What meds were considered but not given or refused? Why? @ -None Did you discuss the management of the patient with other professionals (professionals i.e. JAVON Patterson, SUPPORT ENGINEER, lab, RT, psych nurse, social sciences professor, active directory administrator, teacher, special weapons unit officer, rn case management)? Give summary @ -Patient had ST segment elevation and route to the hospital and a STEMI was called 15 minutes prior to the patient's arrival. Patient's EKG showed ST segment elevation on our immediate EKG which showed ST segment elevation in V5 V6. Patient also had quite a bit of bleeding from her right foot which is stopped at this point. Patient looked very anemic conjunctiva were pale so 1 unit of blood was ordered. Dr. Spencer came down and saw the patient immediately and determined that there was not stable for the patient to go to the [place] [facility] at this time because her blood pressure was slightly low and the patient looks so anemic. Patient was asymptomatic for chest pain at this time but did feel little bit short of breath. No heparin was given secondary to the fact she was bleeding so profusely earlier. Patient was given aspirin and route to the hospital. Was smoking cessation discussed for >3mins.? @ -No Was critical care preformed (if so, how long)? @ -35 minutes Were there social determinants of health that impacted care today? How? (Homelessness, low income, unemployed, alcoholism, drug addiction, transportation, low edu. Level, literacy, decrease access to med. care, fci, rehab)? @ -No Was there de-escalation of care discussed even if they declined (Discuss DNR or withdrawal of care, Hospice)? DNR status @ -No What co-morbidities impacted this encounter? (DM, HTN, Smoking, COPD, CAD, Cancer, CVA, ARF, Chemo, Hep., AIDS, mental health diagnosis, sleep apnea, morbid obesity)? @ -None Was patient admitted / discharged? Hospital course, mention meds given and route, prescriptions, significant lab abnormalities, going to OR and other pertinent info. @ -See above patient will be admitted to [facility] with a cardiology consult Undiagnosed new problem with uncertain prognosis? @ -No Drug Therapy requiring intensive monitoring for toxicity (Heparin, Nitro, In sulin, Cardizem)? @ -No Were any procedures done? @ -No Diagnosis/symptom? @ -Non-STEMI Acute, or Chronic, or Acute on Chronic? @ -Acute Uncomplicated (without systemic symptoms) or Complicated (systemic symptoms)? @ -Comp Side effects of treatment? @ -Needed Exacerbation, Progression, or Severe Exacerbation? @ -No Poses a threat to life or bodily function? How? (Chest pain, [place], [place], pneumonia, PE, COPD, DKA, ARF, appy, cholecystitis, CVA, Diverticulitis, Homicidal, Suicidal, threat to staff... and all critical care pts) @ -Yes this could lead to an [place] and endorgan dysfunction Diagnosis/symptom? @ -Anemia Acute, or Chronic, or Acute on Chronic? @ -Acute Uncomplicated (without systemic symptoms) or Complicated (systemic symptoms)? @ -Complicated Side effects of treatment? @ -None Exacerbation, Progression, or Severe Exacerbation] @ -No Poses a threat to life or bodily function? @ -Yes this can lead to hypoxia and endorgan dysfunction - Lab Data Result diagrams: 09/15/24 10:59 09/15/24 10:59 Lab Results 09/15/24 09/15/24 09/15/24 Range/Units 10:58 10:58 10:59 WBC 14.2 H (3.8-10.6) k/uL RBC 2.87 L (3.80-5.40) m/uL Hgb 9.3 L (11.4-16.0) gm/dL Hct 29.3 L (34.0-46.0) % MCV 102.0 H (80.0-100.0) fL MCH 32.3 (25.0-35.0) pg MCHC 31.7 (31.0-37.0) g/dL RDW 12.4 (11.5-15.5) % Plt Count 238 (150-450) k/uL MPV 7.3 Neutrophils % 90 % Lymphocytes % 5 % Monocytes % 4 % Eosinophils % 0 % Basophils % 0 % Neutrophils # 12.8 H (1.3-7.7) k/uL Lymphocytes # 0.7 L (1.0-4.8) k/uL Monocytes # 0.6 (0-1.0) k/uL Eosinophils # 0.1 (0-0.7) k/uL Basophils # 0.0 (0-0.2) k/uL Hypochromasia Slight PT (10.0-12.5) sec INR (<1.2) APTT (22.0-30.0) sec Sodium (137-145) mmol/L Potassium (3.5-5.1) mmol/L Chloride (98-107) mmol/L Carbon Dioxide (22-30) mmol/L Anion Gap mmol/L BUN (7-17) mg/dL Creatinine (0.52-1.04) mg/dL Est GFR (CKD-EPI)AfAm (>60 ml/min/1.73 sqM) Est GFR (CKD-EPI)NonAf (>60 ml/min/1.73 sqM) Glucose (74-99) mg/dL Calcium (8.4-10.2) mg/dL Magnesium (1.6-2.3) mg/dL Total Bilirubin (0.2-1.3) mg/dL AST (14-36) U/L ALT (4-34) U/L Alkaline Phosphatase (38-126) U/L Troponin I (0.000-0.034) ng/mL Total Protein (6.3-8.2) g/dL Albumin (3.5-5.0) g/dL Blood Type A Positive Blood Type Confirm A Positive Blood Type Recheck No Previous Record Bld Type Recheck Status CABO Indicated Antibody Screen NEGATIVE Crossmatch See Detail Spec Expiration Date 09/18/2024 - 235709/15/24 09/15/24 09/15/24 Range/Units 10:59 10:59 10:59 WBC (3.8-10.6) k/uL RBC (3.80-5.40) m/uL Hgb (11.4-16.0) gm/dL Hct (34.0-46.0) % MCV (80.0-100.0) fL MCH (25.0-35.0) pg MCHC (31.0-37.0) g/dL RDW (11.5-15.5) % Plt Count (150-450) k/uL MPV Neutrophils % % Lymphocytes % % Monocytes % % Eosinophils % % Basophils % % Neutrophils # (1.3-7.7) k/uL Lymphocytes # (1.0-4.8) k/uL Monocytes # (0-1.0) k/uL Eosinophils # (0-0.7) k/uL Basophils # (0-0.2) k/uL Hypochromasia PT 11.0 (10.0-12.5) sec INR 1.0 (<1.2) APTT 19.0 L (22.0-30.0) sec Sodium 139 (137-145) mmol/L Potassium 3.6 (3.5-5.1) mmol/L Chloride 111 H (98-107) mmol/L Carbon Dioxide 17 L (22-30) mmol/L Anion Gap 11 mmol/L BUN 23 H (7-17) mg/dL Creatinine 0.60 (0.52-1.04) mg/dL Est GFR (CKD-EPI)AfAm >90 (>60 ml/min/1.73 sqM) Est GFR (CKD-EPI)NonAf 82 (>60 ml/min/1.73 sqM) Glucose 211 H (74-99) mg/dL Calcium 9.1 (8.4-10.2) mg/dL Magnesium 2.3 (1.6-2.3) mg/dL Total Bilirubin 0.9 (0.2-1.3) mg/dL AST 28 (14-36) U/L ALT 22 (4-34) U/L Alkaline Phosphatase 43 (38-126) U/L Troponin I 0.963 H* (0.000-0.034) ng/mL Total Protein 5.2 L (6.3-8.2) g/dL Albumin 3.0 L (3.5-5.0) g/dL Blood Type Blood Type Confirm Blood Type Recheck Bld Type Recheck Status Antibody Screen Crossmatch Spec Expiration Date Disposition Clinical Impression: Anemia, NSTEMI (non-ST elevated myocardial infarction) Disposition: ADMITTED IP TO THIS HOSP Referrals: Chandni Braun MD [Primary Care Provider] - 1-2 days Time of Disposition: 14:13
--- NOTE | 2024-09-15 10:51 | XR ---
EXAMINATION TYPE: XR chest 1V DATE OF EXAM: 09/15/2024 10:47 AM COMPARISON: Multiple radiographs, with the most recent on 05/01/2017 TECHNIQUE: XR chest 1V Frontal view of the chest. CLINICAL INDICATION:Female, 89 years old with history of Chest Pain; FINDINGS: Lungs/Pleura: There is no evidence of pleural effusion, focal consolidation, or pneumothorax. Hyperi nflation. Chronic senescent parenchymal change. Pulmonary vascularity: Unremarkable. Heart/mediastinum: Cardiomediastinal silhouette is enlarged and stable. Atherosclerotic calcificatio ns are seen in the aorta. Musculoskeletal: No acute osseous pathology. Scoliotic curvature of the thoracolumbar spine. Bilatera l shoulder arthropathy. IMPRESSION: 1. No acute pulmonary disease/process. 2. COPD changes. [facility], , 09/15/2024 10:49 AM
[2024-09-15 11:13] LABS: Basophils % (A) 0 %; Eosinophils # (A) 0.1 k/uL (0-0.7); Eosinophils % (A) 0 %; HCT 29.3 % (34.0-46.0); HGB 9.3 gm/dL (11.4-16.0); Hypochromasia Slight; Lymphocytes # (A) 0.7 k/uL (1.0-4.8); Lymphocytes % (A) 5 %; MCH 32.3 pg (25.0-35.0); MCHC 31.7 g/dL (31.0-37.0); Mean Platelet Volume 7.3; Monocytes # (A) 0.6 k/uL (0-1.0); Monocytes % (A) 4 %; Neutrophils # (A) 12.8 k/uL (1.3-7.7); Neutrophils % (A) 90 %; Platelet Count 238 k/uL (150-450); RBC 2.87 m/uL (3.80-5.40); RDW 12.4 % (11.5-15.5); WBC 14.2 k/uL (3.8-10.6)
[2024-09-15 11:49] LABS: ALT 22 U/L (4-34); AST 28 U/L (14-36); African American GFR (CKD) >90 (>60 ml/min/1.73 sqM); Alkaline Phosphatase 43 U/L (38-126); Anion Gap 11 mmol/L; Blood Urea Nitrogen 23 mg/dL (7-17); Calcium 9.1 mg/dL (8.4-10.2); Carbon Dioxide 17 mmol/L (22-30); Chloride 111 mmol/L (98-107); Glucose 211 mg/dL (74-99); Magnesium 2.3 mg/dL (1.6-2.3); Non-African American GFR(CKD) 82 (>60 ml/min/1.73 sqM); Potassium 3.6 mmol/L (3.5-5.1); Sodium 139 mmol/L (137-145); Total Bilirubin 0.9 mg/dL (0.2-1.3); Total Protein 5.2 g/dL (6.3-8.2)
[2024-09-15] MEDS: HYDROCORTISONE SUCCINATE 100 MG/2 ML VIAL IV STA (12:04)
--- NOTE | 2024-09-15 14:00 | P.CRDCN ---
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 We were called to NSTEMI. EMS was called to her home due to bleeding that was coming from her ankle area. The EKG was concerning for ST CHETAN in the lateral leads and STEMI alert was called overhead. Patient denies having any concerns for chest pain. She states she feels tired. No shortness of breath. No lightheadedness or dizziness. She did apparently have a fall at home. She states she has had diarrhea but not any blackness or tarriness to the stool. She usually ambulates with a walker. Patient was found to be afebrile, heart rate 88, blood pressure 78/60, pulse ox 92% on room air. -EKG: Sinus rhythm with ST elevation in leads I, aVL, V4, V5, V6. -Chest x-ray: No acute pulmonary disease. COPD. -Laboratory studies: WBC 14.2, hemoglobin 9.3. Sodium 139, potassium 3.6, BUN 23 and creatinine 0.6. Troponin 0.963. -Home cardiac medications: None -Echocardiogram performed in 2017 revealed EF of 55 to 60%, mild aortic valve sclerosis with mild aortic regurgitation. Mild mitral regurgitation. Mild tricuspid regurgitation. Review Of Systems: At the time of my exam: CONSTITUTIONAL: Denies fever or chills. HEENT: Denies blurred vision, vision changes, or eye pain. Denies hemoptysis CARDIOVASCULAR: Denies chest pain. Denies orthopnea. Denies PND. Denies palpitations RESPIRATORY: Denies shortness of breath. GASTROINTESTINAL: Denies abdominal pain. Denies nausea or vomiting. HEMATOLOGIC: Denies bleeding disorders. GENITOURINARY: Denies any blood in urine. SKIN: Denies puritis. Denies rash. Physical examination: Gen: This is an 89-year-old frail cachectic appearing female in no acute respiratory distress. VS: reviewed HEENT: Head is atraumatic, normocephalic. Pupils equal, round. Sclerae is anict vivek. NECK: Supple. No JVD. LUNGS: Clear to auscultation. No wheezes or rhonchi. No intercostal r etractions. HEART: Regular rate and rhythm. Systolic murmur. ABDOMEN: Soft No tenderness. EXTREMITIES: No pedal edema. No calf tenderness. Dried blood bilateral lower extremities and hands. NEUROLOGICAL: Patient is awake, alert and oriented x3. Assessment: ST elevated CA most likely secondary to anemia Acute blood loss Hypotension Fall at home Patient reported weak adrenals Plan: Resume patient's home cardiac medications Add Solu-Cortef 100 mg Obtain 2-D echocardiogram and Doppler study to assess cardiac structure and function Transfuse as indicated No aggressive ischemic cardiac workup at this time due to other medical issues ongoing. If patient develops anginal pain, this will be reconsidered. Further recommendations to follow based upon clinical course Thank you kindly for this consultation. Nurse practitioner note has been reviewed, I agree with documented findings and plan of care. Patient was seen and examined. Past Medical History Past Medical History: Renal Disease Additional Past Medical History / Comment(s): Pt self medicates with homeopathic remedies and vitamins per Son. [place] left ear. acute renal failure, required temporary dialysis History of Any Multi-Drug Resistant Organisms: None Reported, Unobtainable Past Surgical History: Unable to Obtain Past Anesthesia/Blood Transfusion Reactions: No Reported Reaction, Unable to Obtain Past Psychological History: Unable to Obtain Past Alcohol Use History: None Reported Past Drug Use History: None Reported Medications and Allergies Home Medications Medication Instructions Recorded Confirmed Type Ascorbic Acid [Vitamin C] 500 mg PO TID-W/MEALS 09/15/24 09/15/24 History B5- Pantothenic Acid 250mg 1 tab PO HS 09/15/24 09/15/24 History Bio-3b-G Supplement 3 tab PO DAILY 09/15/24 09/15/24 History Ca+Mag Plus Supplement 3 tab PO DAILY 09/15/24 09/15/24 History Gammanol Forte Supplement 1 tab PO TID-W/MEALS 09/15/24 09/15/24 History Pyridoxine [Vitamin B-6] 50 mg PO DAILY 09/15/24 09/15/24 History Allergies Allergy/AdvReac Type Severity Reaction Status Date / Time No Known Allergies Allergy Verified 09/15/24 12:37 Physical Exam Vitals: Vital Signs Temp Pulse Resp BP Pulse Ox 09/15/24 10:36 97.3 F L 88 18 78/60 92 L Intake and Output 09/14/24 09/15/24 09/15/24 22:59 06:59 14:59 Other: Weight 54.431 kg Results 09/15/24 10:59 09/15/24 10:59 Intake and Output 09/14/24 09/15/24 09/15/24 22:59 06:59 14:59 Other: Weight 54.431 kg Patient Weight 09/16/24 06:59 Weight 54.431 kg
[2024-09-15] MEDS ORDERED: NITROGLYCERIN SL TABS 0.4 MG TAB SUBLINGUAL PRN (14:14)
[2024-09-15 14:51] LABS: Basophils % (A) 0 %; Eosinophils % (A) 0 %; HCT 31.1 % (34.0-46.0); HGB 10.2 gm/dL (11.4-16.0); Lymphocytes # (A) 0.4 k/uL (1.0-4.8); Lymphocytes % (A) 3 %; MCH 32.4 pg (25.0-35.0); MCHC 32.9 g/dL (31.0-37.0); MCV 98.5 fL (80.0-100.0); Mean Platelet Volume 7.1; Monocytes # (A) 0.7 k/uL (0-1.0); Monocytes % (A) 6 %; Neutrophils # (A) 11.5 k/uL (1.3-7.7); Neutrophils % (A) 91 %; Platelet Count 154 k/uL (150-450); RBC 3.16 m/uL (3.80-5.40); RDW 12.9 % (11.5-15.5); WBC 12.7 k/uL (3.8-10.6)
[2024-09-15 20:14] LABS: Basophils % (A) 0 %; Eosinophils % (A) 0 %; HCT 29.3 % (34.0-46.0); HGB 9.4 gm/dL (11.4-16.0); Lymphocytes # (A) 0.5 k/uL (1.0-4.8); Lymphocytes % (A) 5 %; MCH 31.7 pg (25.0-35.0); MCHC 32.2 g/dL (31.0-37.0); MCV 98.5 fL (80.0-100.0); Mean Platelet Volume 7.7; Monocytes # (A) 0.5 k/uL (0-1.0); Monocytes % (A) 5 %; Neutrophils # (A) 9.7 k/uL (1.3-7.7); Neutrophils % (A) 89 %; Platelet Count 154 k/uL (150-450); RBC 2.98 m/uL (3.80-5.40); RDW 13.3 % (11.5-15.5); WBC 10.8 k/uL (3.8-10.6)
--- NOTE | 2024-09-16 09:01 | CA ---
Transthoracic Echo Report Name: Keren Elias Age: 89 Gender: F : 1935 Exam Date: 09/15/2024 15:39 Exam Location: [facility] Ht (in): 60 Wt (lb): 120 Ordering Physician: Angelica Estrada Attending/Referring Phys: [id number], Sean Opera Singer Riya Jimenes RDCS Procedure CPT: Indications: LVF Cardiac Hx: Technical Quality: Fair Contrast 1: Total Dose (mL): Contrast 2: Total Dose (mL): MEASUREMENTS (Male / Female) Normal Values 2D ECHO LV Diastolic Diameter PLAX 3.6 cm 4.2 - 5.9 / 3.9 - 5.3 cm LV Systolic Diameter PLAX 2.3 cm IVS Diastolic Thickness 0.7 cm 0.6 - 1.0 / 0.6 - 0.9 cm LVPW Diastolic Thickness 0.7 cm 0.6 - 1.0 / 0.6 - 0.9 cm LV Relative Wall Thickness 0.4 LA Systolic Diameter LX 2.8 cm 3.0 - 4.0 / 2.7 - 3.8 cm LV Diastolic Volume MOD BP 73.3 cm??? 67 - 155 / 56 - 104 cm??? LV Systolic Volume MOD BP 47.5 cm??? 22 - 58 / 19 - 49 cm??? LV Ejection Fraction MOD BP 35.1 % >= 55 % LV Cardiac Index MOD BP 1448.4 cm???/min???m??? LV Diastolic Volume MOD 4C 66.4 cm??? LV Systolic Volume MOD 4C 45.7 cm??? LV Ejection Fraction MOD 4C 31.1 % LV Cardiac Index MOD 4C 1163.6 cm???/min???m??? LV Diastolic Length 4C 7.5 cm LV Systolic Length 4C 7.1 cm LV Diastolic Volume MOD 2C 79.4 cm??? LV Systolic Volume MOD 2C 47.9 cm??? LV Ejection Fraction MOD 2C 39.7 % LV Cardiac Index MOD 2C 1776.5 cm???/min???m??? LV Diastolic Length 2C 7.7 cm LV Systolic Length 2C 7.3 cm LA Volume 36.7 cm??? 18 - 58 / 22 - 52 cm??? LA Volume Index 24.0 cm???/m??? 16 - 28 cm???/m??? M-MODE Aortic Root Diameter MM 2.6 cm DOPPLER AV Peak Velocity 283.2 cm/s AV Peak Gradient 32.1 mmHg AV Mean Velocity 196.6 cm/s AV Mean Gradient 17.7 mmHg AV Velocity Time Integral 61.7 cm AI Peak Velocity 334.4 cm/s AI Peak Gradient 44.7 mmHg AI Pressure Half Time 355.5 ms LVOT Peak Velocity 216.6 cm/s LVOT Peak Gradient 18.8 mmHg LVOT Velocity Time Integral 52.4 cm MV Area PHT 5.7 cm??? Mitral E Point Velocity 95.9 cm/s Mitral A Point Velocity 103.8 cm/s Mitral E to A Ratio 0.9 MV Deceleration Time 133.5 ms TR Peak Velocity 263.3 cm/s TR Peak Gradient 27.7 mmHg Right Ventricular Systolic Press 32.3 mmHg FINDINGS Left Ventricle Left ventricular ejection fraction is estimated at 35-40 %. Moderately decreased left ventricular ejection fraction. Small left ventricular cavity. Left ventricular wall thickness normal. Apical carnes akinesis Right Ventricle Normal right ventricular size. Right ventricular systolic pressure within normal limits. Right Atrium Normal right atrial size. No right atrial thrombus or mass seen. Left Atrium Normal left atrial size. No left atrial thrombus or mass present. Mitral Valve Mild thickening/calcification of the anterior mitral valve leaflet. Moderate mitral annular calcification. [id number] mitral regurgitation. Aortic Valve Aortic valve sclerosis. Mild aortic stenosis with a peak gradient of 32 mmHg and a mean gradient of 18 mmHg. Tricuspid Valve Structurally normal tricuspid valve. Mild tricuspid regurgitation. Pulmonic Valve Structurally normal pulmonic valve. Trace pulmonic regurgitation. Pericardium No pericardial effusion. Aorta Normal size aortic root and proximal ascending aorta. CONCLUSIONS Left ventricular ejection fraction 35-40% with apical hypokinesis and basal sparing. May be consistent with Dr. Farzaneh Simpson versus multivessel CAD Moderate mitral annular calcification [id number] mitral regurgitation Mild aortic stenosis Mild tricuspid regurgitation Previewed by: Dr. Shai Spencer DO (Electronically Signed) Final Date: 16 September 2024 09:01
[2024-09-16 09:54] LABS: Chol/HDL Ratio 1.78 Ratio; LDL Cholesterol,Calculated 47.4 mg/dL (0.0-131.0)
--- NOTE | 2024-09-16 11:14 | P.HPIM ---
History of Present Illness 89-year-old female came in with complaints of generalized weakness. Patient was lightheaded and she believes her adrenal glands are not functioning patient has history of adrenal insufficiency but does not take any medications patient only uses holistic medicine she also believes she had tooth infection on the left side her tooth is supposed to be extracted. Patient only wants her ascorbic acid does not want any other antibiotics. The hospital patient was found to be hypotensive was started on hydrocortisone by cardiology better blood pressure today saturating well on room air. Patient denied any shortness of breath orthopnea paroxysmal nocturnal dyspnea patient denied any fever chills. Patient is found to have elevated troponin up to 4. On a 0.963 patient had an echocardiogram which showed decreased EF of around 35% cardiology evaluated the patient patient is not in heparin probably declined heparin. Cardiology is not planning any intervention patient had a previous echocardiogram in 2017 which showed normal ejection fraction. Patient is on 2 L of oxygen saturating 100%. Patient had ST elevations in lead I and aVL V4 V5 V6 REVIEW OF SYSTEMS: All other systems are negative except those mentioned in the HPI PHYSICAL EXAMINATION: GENERAL: The patient is alert and oriented x3, not in any acute distress. Thin built female HEENT: Pupils are round and equally reacting to light. EOMI. No scleral icterus. No conjunctival pallor. Normocephalic, atraumatic. No pharyngeal erythema. No thyromegaly. CARDIOVASCULAR: S1 and S2 present. No murmurs, rubs, or gallops. PULMONARY: Chest is clear to auscultation, no wheezing or crackles. ABDOMEN: Soft, nontender, nondistended, normoactive bowel sounds. No palpable organomegaly. MUSCULOSKELETAL: No joint swelling or deformity. EXTREMITIES: No cyanosis, clubbing, or pedal edema. NEUROLOGICAL: Gross neurological examination did not reveal any focal deficits. SKIN: No rashes. Assessment and plan -History elevation myocardial infarction: Patient declined any further intervention or any other medications cardiology is following the patient -No evidence of GI bleed at this time -Hypertension: Probably secondary to hypoadrenalism patient is receiving hydrocortisone at this time patient believes she has weak adrenals -Fall at home: Generalized weakness and sepsis probably secondary to myocardial infarction PT and OT evaluation -Possible infected tooth declined any antibiotics, ordered vitamin C as per patient's request DVT prophylaxis: Declined any medications at this time Past Medical History Past Medical History: Renal Disease Additional Past Medical History / Comment(s): Pt self medicates with homeopathic remedies and vitamins per Son. [place] left ear. acute renal failure, required temporary dialysis History of Any Multi-Drug Resistant Organisms: None Reported, Unobtainable Past Surgical History: Unable to Obtain Past Anesthesia/Blood Transfusion Reactions: No Reported Reaction, Unable to Obtain Past Psychological History: Unable to Obtain Past Alcohol Use History: None Reported Past Drug Use History: None Reported Medications and Allergies Home Medications Medication Instructions Recorded Confirmed Type Ascorbic Acid [Vitamin C] 500 mg PO TID-W/MEALS 09/15/24 09/15/24 History B5- Pantothenic Acid 250mg 1 tab PO HS 09/15/24 09/15/24 History Bio-3b-G Supplement 3 tab PO DAILY 09/15/24 09/15/24 History Ca+Mag Plus Supplement 3 tab PO DAILY 09/15/24 09/15/24 History Gammanol Forte Supplement 1 tab PO TID-W/MEALS 09/15/24 09/15/24 History Pyridoxine [Vitamin B-6] 50 mg PO DAILY 09/15/24 09/15/24 History Allergies Allergy/AdvReac Type Severity Reaction Status Date / Time No Known Allergies Allergy Verified 09/15/24 12:37 Physical Exam Vitals: Vital Signs Temp Pulse Resp BP Pulse Ox 09/16/24 09:34 99.2 F 109 H 18 118/70 100 09/16/24 08:37 112 H 18 108/67 09/16/24 06:17 100 16 112/60 09/16/24 04:54 90 16 108/56 09/16/24 02:10 109 H 135/45 95 09/15/24 20:28 89 16 115/60 96 09/15/24 18:17 98.1 F 89 18 124/67 97 09/15/24 16:00 97.9 F 86 18 112/62 98 09/15/24 14:23 65 18 104/60 100 09/15/24 13:48 97.4 F L 63 18 106/56 100 09/15/24 13:30 97.8 F 79 18 109/52 09/15/24 13:10 62 18 90/51 100 09/15/24 12:56 82 18 92/51 100 09/15/24 11:40 65 18 94/47 100 09/15/24 11:36 97.4 F L 71 18 87/53 100 09/15/24 11:16 97.3 F L 73 18 89/49 100 Results CBC & Chem 7: 09/15/24 19:39 09/15/24 10:59 Labs: Abnormal Lab Results - Last 24 Hours (Table) 09/15/24 09/15/24 09/15/24 Range/Units 10:58 10:59 10:59 WBC (3.8-10.6) k/uL RBC (3.80-5.40) m/uL Hgb (11.4-16.0) gm/dL Hct (34.0-46.0) % Neutrophils # (1.3-7.7) k/uL Lymphocytes # (1.0-4.8) k/uL APTT 19.0 L (22.0-30.0) sec Chloride 111 H (98-107) mmol/L Carbon Dioxide 17 L (22-30) mmol/L BUN 23 H (7-17) mg/dL Glucose 211 H (74-99) mg/dL Troponin I (0.000-0.034) ng/mL Total Protein 5.2 L (6.3-8.2) g/dL Albumin 3.0 L (3.5-5.0) g/dL HDL Cholesterol (40.00-60.00) mg/dL Crossmatch See Detail 09/15/24 09/15/24 09/15/24 Range/Units 10:59 10:59 14:34 WBC (3.8-10.6) k/uL RBC (3.80-5.40) m/uL Hgb (11.4-16.0) gm/dL Hct (34.0-46.0) % Neutrophils # (1.3-7.7) k/uL Lymphocytes # (1.0-4.8) k/uL APTT (22.0-30.0) sec Chloride (98-107) mmol/L Carbon Dioxide (22-30) mmol/L BUN (7-17) mg/dL Glucose (74-99) mg/dL Troponin I 0.963 H* 3.430 H* (0.000-0.034) ng/mL Total Protein (6.3-8.2) g/dL Albumin (3.5-5.0) g/dL HDL Cholesterol 68.50 H (40.00-60.00) mg/dL Crossmatch 09/15/24 09/15/24 09/15/24 Range/Units 14:34 17:53 19:39 WBC 12.7 H 10.8 H (3.8-10.6) k/uL RBC 3.16 L 2.98 L (3.80-5.40) m/uL Hgb 10.2 L 9.4 L (11.4-16.0) gm/dL Hct 31.1 L 29.3 L (34.0-46.0) % Neutrophils # 11.5 H 9.7 H (1.3-7.7) k/uL Lymphocytes # 0.4 L 0.5 L (1.0-4.8) k/uL APTT (22.0-30.0) sec Chloride (98-107) mmol/L Carbon Dioxide (22-30) mmol/L BUN (7-17) mg/dL Glucose (74-99) mg/dL Troponin I 4.810 H* (0.000-0.034) ng/mL Total Protein (6.3-8.2) g/dL Albumin (3.5-5.0) g/dL HDL Cholesterol (40.00-60.00) mg/dL Crossmatch
--- NOTE | 2024-09-16 11:55 | P.PN ---
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 We were called to NSTEMI. EMS was called to her home due to bleeding that was coming from her ankle area. The EKG was concerning for ST CHETAN in the lateral leads and STEMI alert was called overhead. Patient denies having any concerns for chest pain. She states she feels tired. No shortness of breath. No lightheadedness or dizziness. She did apparently have a fall at home. She states she has had diarrhea but not any blackness or tarriness to the stool. She usually ambulates with a walker. Patient was found to be afebrile, heart rate 88, blood pressure 78/60, pulse ox 92% on room air. -EKG: Sinus rhythm with ST elevation in leads I, aVL, V4, V5, V6. -Chest x-ray: No acute pulmonary disease. COPD. -Laboratory studies: WBC 14.2, hemoglobin 9.3. Sodium 139, potassium 3.6, BUN 23 and creatinine 0.6. Troponin 0.963. -Home cardiac medications: None -Echocardiogram performed in 2017 revealed EF of 55 to 60%, mild aortic valve sclerosis with mild aortic regurgitation. Mild mitral regurgitation. Mild tricuspid regurgitation. 3/2 Patient is seen in the emergency center waiting for a bed on the cardiac stepdown unit. Blood pressure 112/60, heart rate 100, pulse ox 95%. Patient's hemoglobin has been stable at 9.4, WBC 10.8. Troponins 0.963, 3.43, 4.81. Regarding the bleeding from the right leg, patient can not recall any injury to the leg. Patient denies chest pain or pressure. Dr. Spencer reviewed the results of troponins and echocardiogram with the patient as well as the recommendations for cardiac catheterization which the patient declined. Patient states that she is in a stressful situation at home as [place] Discussed starting metoprolol and patient refused. Also, recommended aspirin but patient refused. Patient is requesting that vitamin C be started for her. Echocardiogram reveals EF of 35 to 40% with apical hypokinesis and basal sparing. May be consistent with Takotsubo versus multivessel CAD. Moderate mitral annular calcification. Mild to moderate mitral regurgitation. Mild aortic stenosis. Mild tricuspid regurgitation. Physical examination: Gen: This is an 89-year-old frail cachectic appearing female in no acute respiratory distress. VS: reviewed HEENT: Head is atraumatic, normocephalic. Pupils equal, round. Sclerae is anicteric. NECK: Supple. No JVD. LUNGS: Clear to auscultation. No wheezes or rhonchi. No intercostal retractions. HEART: Regular rate and rhythm. Systolic murmur. ABDOMEN: Soft No tenderness. EXTREMITIES: No pedal edema. No calf tenderness. Dried blood bilateral lower extremities and hands. NEUROLOGICAL: Patient is awake, alert and oriented x3. Assessment: ST elevated AR most likely secondary to Takotsubo Cardiomyopathy most consistent with Takotsubo Acute blood loss from lower leg source Hypotension Fall at home Patient reported weak adrenals (patient refused Solu-Cortef) Plan: Recommend patient be on aspirin 81 mg and metoprolol but patient has refused Recommend cardiac catheterization which patient has declined No aggressive ischemic cardiac workup at this time Obtain cortisol level Further recommendations to follow based upon clinical course Nurse practitioner note has been reviewed, I agree with documented findings and plan of care. Patient was seen and examined. Objective - Vital Signs Vital signs: Vital Signs Temp 98.1 F 09/15/24 18:17 Pulse 100 09/16/24 06:17 Resp 16 09/16/24 06:17 BP 112/60 09/16/24 06:17 Pulse Ox 95 09/16/24 02:10 FiO2 Intake & Output 09/15/24 09/16/24 09/16/24 18:59 06:59 18:59 Intake Total 282 Balance 282 Weight 54.431 kg Intake: Blood Product 282 Rc Pheresis 2 As3 Unit 282 [id number] - Labs CBC & Chem 7: 09/15/24 19:39 09/15/24 10:59 Labs: Abnormal Lab Results - Last 24 Hours (Table) 09/15/24 09/15/24 09/15/24 Range/Units 10:58 10:59 10:59 WBC 14.2 H (3.8-10.6) k/uL RBC 2.87 L (3.80-5.40) m/uL Hgb 9.3 L (11.4-16.0) gm/dL Hct 29.3 L (34.0-46.0) % MCV 102.0 H (80.0-100.0) fL Neutrophils # 12.8 H (1.3-7.7) k/uL Lymphocytes # 0.7 L (1.0-4.8) k/uL APTT 19.0 L (22.0-30.0) sec Chloride (98-107) mmol/L Carbon Dioxide (22-30) mmol/L BUN (7-17) mg/dL Glucose (74-99) mg/dL Troponin I (0.000-0.034) ng/mL Total Protein (6.3-8.2) g/dL Albumin (3.5-5.0) g/dL Crossmatch See Detail 09/15/24 09/15/24 09/15/24 Range/Units 10:59 10:59 14:34 WBC (3.8-10.6) k/uL RBC (3.80-5.40) m/uL Hgb (11.4-16.0) gm/dL Hct (34.0-46.0) % MCV (80.0-100.0) fL Neutrophils # (1.3-7.7) k/uL Lymphocytes # (1.0-4.8) k/uL APTT (22.0-30.0) sec Chloride 111 H (98-107) mmol/L Carbon Dioxide 17 L (22-30) mmol/L BUN 23 H (7-17) mg/dL Glucose 211 H (74-99) mg/dL Troponin I 0.963 H* 3.430 H* (0.000-0.034) ng/mL Total Protein 5.2 L (6.3-8.2) g/dL Albumin 3.0 L (3.5-5.0) g/dL Crossmatch 09/15/24 09/15/24 09/15/24 Range/Units 14:34 17:53 19:39 WBC 12.7 H 10.8 H (3.8-10.6) k/uL RBC 3.16 L 2.98 L (3.80-5.40) m/uL Hgb 10.2 L 9.4 L (11.4-16.0) gm/dL Hct 31.1 L 29.3 L (34.0-46.0) % MCV (80.0-100.0) fL Neutrophils # 11.5 H 9.7 H (1.3-7.7) k/uL Lymphocytes # 0.4 L 0.5 L (1.0-4.8) k/uL APTT (22.0-30.0) sec Chloride (98-107) mmol/L Carbon Dioxide (22-30) mmol/L BUN (7-17) mg/dL Glucose (74-99) mg/dL Troponin I 4.810 H* (0.000-0.034) ng/mL Total Protein (6.3-8.2) g/dL Albumin (3.5-5.0) g/dL Crossmatch
[2024-09-16] MEDS: ASCORBIC ACID 500 MG TAB PO SCH (13:16)
[2024-09-17] MEDS: ASPIRIN 81 MG PO SCH (11:36)
[2024-09-17] MEDS: carvediloL 3.125 MG TAB PO SCH (11:36)
--- NOTE | 2024-09-17 13:18 | P.PN ---
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 We were called to NSTEMI. EMS was called to her home due to bleeding that was coming from her ankle area. The EKG was concerning for ST CHETAN in the lateral leads and STEMI alert was called overhead. Patient denies having any concerns for chest pain. She states she feels tired. No shortness of breath. No lightheadedness or dizziness. She did apparently have a fall at home. She states she has had diarrhea but not any blackness or tarriness to the stool. She usually ambulates with a walker. Patient was found to be afebrile, heart rate 88, blood pressure 78/60, pulse ox 92% on room air. -EKG: Sinus rhythm with ST elevation in leads I, aVL, V4, V5, V6. -Chest x-ray: No acute pulmonary disease. COPD. -Laboratory studies: WBC 14.2, hemoglobin 9.3. Sodium 139, potassium 3.6, BUN 23 and creatinine 0.6. Troponin 0.963. -Home cardiac medications: None -Echocardiogram performed in 2017 revealed EF of 55 to 60%, mild aortic valve sclerosis with mild aortic regurgitation. Mild mitral regurgitation. Mild tricuspid regurgitation. 3/2 Patient is seen in the emergency center waiting for a bed on the cardiac stepdown unit. Blood pressure 112/60, heart rate 100, pulse ox 95%. Patient's hemoglobin has been stable at 9.4, WBC 10.8. Troponins 0.963, 3.43, 4.81. Regarding the bleeding from the right leg, patient can not recall any injury to the leg. Patient denies chest pain or pressure. Dr. Spencer reviewed the results of troponins and echocardiogram with the patient as well as the recommendations for cardiac catheterization which the patient declined. Patient states that she is in a stressful situation at home as [place]. Discussed starting metoprolol and patient refused. Also, recommended aspirin but patient refused. Patient is requesting that vitamin C be started for her. Echocardiogram reveals EF of 35 to 40% with apical hypokinesis and basal sparing. May be consistent with Takotsubo versus multivessel CAD. Moderate mitral annular calcification. Mild to moderate mitral regurgitation. Mild aortic stenosis. Mild tricuspid regurgitation. 09/17/2024 Patient examined this morning at the bedside. Patient currently denies chest pain or pressure. She denies shortness of breath. She states she is under a lot of stress as she recently lost her son last week. Patient continues to refuse any invasive procedures. Telemetry reveals sinus mechanism. Vital signs are stable. PHYSICAL EXAM: VITAL SIGNS: Reviewed. GENERAL: Well-developed in no acute distress. NECK: Supple. No JVD or thyromegaly LUNGS: Respirations even and unlabored. Lungs essentially clear to auscultation bilaterally. HEART: Regular rate and rhythm. S1 and S2 heard. Systolic murmur noted. EXTREMITIES: Normal range of motion. No clubbing or cyanosis. Peripheral pulses intact. No lower extremity edema ASSESSMENT: Acute STEMI Cardiomyopathy, most consistent with Takotsubo Acute blood loss from lower leg source Hypotension Fall at home Patient reported weak adrenals (patient refused Solu-Cortef) PLAN: Dr. Andrade spoke with the patient at the bedside regarding addition of medications. Patient initially refusing stating that she only wants holistic remedies and organic food. Then with further discussion the patient was agreeable to take medications. However notified by nursing later on this morning that patient has refused all medications. Patient declining all medications Patient declining to undergo cardiac catheterization No further inpatient recommendations from a cardiac standpoint as patient is re fusing all treatment Discharge per medicine Nurse practitioner note has been reviewed by physician. Signing provider agrees with the documented findings, assessment, and plan of care documented by APPLICATIONS PROGRAMMER as a scribe. Objective - Vital Signs Vital signs: Vital Signs Temp 98.7 F 09/17/24 08:00 Pulse 104 H 09/17/24 08:00 Resp 18 09/17/24 08:00 BP 117/57 09/17/24 08:00 Pulse Ox 97 09/17/24 09:12 FiO2 Intake & Output 09/16/24 09/17/24 09/17/24 18:59 06:59 18:59 Output Total 300 350 Balance -300 -350 Weight 54.431 kg 53.4 kg Output: Urine 300 350 Other: Voiding Method Diaper Diaper Diaper External Catheter External Catheter External Catheter - Labs CBC & Chem 7: 09/15/24 19:39 09/15/24 10:59
[2024-09-17] MEDS: TAMSULOSIN 0.4 MG CAP.ER.24H PO STA (20:18)
[2024-09-17] MEDS: ATORVASTATIN 20 MG TAB PO SCH (20:18)
[2024-09-17 20:22] LABS: Basophils % (A) 0 %; Eosinophils % (A) 0 %; HCT 32.8 % (34.0-46.0); HGB 10.7 gm/dL (11.4-16.0); Lymphocytes # (A) 0.6 k/uL (1.0-4.8); Lymphocytes % (A) 6 %; MCH 32.4 pg (25.0-35.0); MCHC 32.6 g/dL (31.0-37.0); MCV 99.4 fL (80.0-100.0); Mean Platelet Volume 7.1; Monocytes # (A) 0.9 k/uL (0-1.0); Monocytes % (A) 9 %; Neutrophils # (A) 8.5 k/uL (1.3-7.7); Neutrophils % (A) 83 %; Platelet Count 154 k/uL (150-450); RDW 12.6 % (11.5-15.5); WBC 10.2 k/uL (3.8-10.6)
[2024-09-17 20:27] LABS: ALT 36 U/L (4-34); AST 65 U/L (14-36); African American GFR (CKD) >90 (>60 ml/min/1.73 sqM); Albumin 3.1 g/dL (3.5-5.0); Alkaline Phosphatase 53 U/L (38-126); Anion Gap 5 mmol/L; Blood Urea Nitrogen 16 mg/dL (7-17); Calcium 9.1 mg/dL (8.4-10.2); Carbon Dioxide 25 mmol/L (22-30); Chloride 103 mmol/L (98-107); Glucose 116 mg/dL (74-99); Magnesium 1.9 mg/dL (1.6-2.3); Non-African American GFR(CKD) >90 (>60 ml/min/1.73 sqM); Potassium 4.3 mmol/L (3.5-5.1); Sodium 133 mmol/L (137-145); Total Bilirubin 1.1 mg/dL (0.2-1.3); Total Protein 5.6 g/dL (6.3-8.2)
--- NOTE | 2024-09-18 02:19 | P.PN ---
Subjective Progress Note Date: 09/17/24 89-year-old female came in with complaints of generalized weakness. Patient was lightheaded and she believes her adrenal glands are not functioning patient has history of adrenal insufficiency but does not take any medications patient only uses holistic medicine she also believes she had tooth infection on the left side her tooth is supposed to be extracted. Patient only wants her ascorbic acid does not want any other antibiotics. The hospital patient was found to be hypotensive was started on hydrocortisone by cardiology better blood pressure today saturating well on room air. Patient denied any shortness of breath orthopnea paroxysmal nocturnal dyspnea patient denied any fever chills. Patient is found to have elevated troponin up to 4. On a 0.963 patient had an echocardiogram which showed decreased EF of around 35% cardiology evaluated the patient patient is not in heparin probably declined heparin. Cardiology is not planning any intervention patient had a previous echocardiogram in 2017 which showed normal ejection fraction. Patient is on 2 L of oxygen saturating 100%. Patient had ST elevations in lead I and aVL V4 V5 V6 09/17/2024 Patient is seen in follow-up today reports she is feeling well other than continues with weakness. Patient being evaluated by physical therapy and recommending rehab and has been accepted at [facility]. Patient does require 3 night hospitalization according to Medicare guidelines. Patient has been refusing certain treatment including the need for antibiotics for possible infected tooth. Patient does have elevated troponins although does not want any intervention regarding these. Patient is denying any chest pain at this time. Review of systems: Constitutional: No reports of fatigue, fever, or chills Cardiovascular: No reports of chest pain or palpitations Respiratory: No reports of shortness of breath or cough GI: No reports of nausea, vomiting, or diarrhea : No reports of dysuria or retention Neurovascular: reports of generalized weakness All medications have been reviewed All other systems are negative except those mentioned in the HPI PHYSICAL EXAMINATION: GENERAL: The patient is alert and oriented x3, not in any acute distress. Thin built female, elderly appearing HEENT: Pupils are round and equally reacting to light. EOMI. No scleral icterus. No conjunctival pallor. Normocephalic, atraumatic. No pharyngeal erythema. No thyromegaly. CARDIOVASCULAR: S1 and S2 present. No murmurs, rubs, or gallops. PULMONARY: Chest is clear to auscultation, no wheezing or crackles. ABDOMEN: Soft, nontender, nondistended, normoactive bowel sounds. No palpable organomegaly. MUSCULOSKELETAL: No joint swelling or deformity. EXTREMITIES: No cyanosis, clubbing, or pedal edema. NEUROLOGICAL: Gross neurological examination did not reveal any focal deficits. SKIN: No rashes. Assessment and plan -ST elevation myocardial infarction: Patient declined any further intervention or any other medications cardiology is following the patient -No evidence of GI bleed at this time -Hypertension: Probably secondary to hypoadrenalism patient is receiving hydrocortisone at this time patient believes she has weak adrenals -Fall at home: Generalized weakness and gait dysfunction -Possible infected tooth declined any antibiotics, ordered vitamin C as per patient's request DVT prophylaxis: Declined any medications at this time GI prophylaxis No code Plan: Patient has been accepted at [facility] and requires 3 night hospitalization according to Medicare guidelines. CODE STATUS was addressed and patient wishes to be no code Patient does not want any further cardiac workup or intervention at this time. Recommend to continue with maximizing medical management and close outpatient follow-up Patient is noted to have some urinary retention and will add Flomax, monitor and may need indwelling Trujillo catheter if continuing to retain Possible discharge planning in 24 hours to [facility] The impression and plan of care has been dictated by Clara Holt, Nurse Practitioner as directed. Dr. Kendal MD I have performed a history and examination and MDM of this patient, discussed the same with the dictator, and agree with the dictator's assessment and plan as written ,documented as a scribe. Based on total visit time, I have performed more than 50% of the visit. Objective - Vital Signs Vital signs: Vital Signs Temp 98.7 F 09/17/24 08:00 Pulse 104 H 09/17/24 08:00 Resp 18 09/17/24 08:00 BP 117/57 09/17/24 08:00 Pulse Ox 97 09/17/24 09:12 FiO2 Intake & Output 09/16/24 09/17/24 09/17/24 18:59 06:59 18:59 Output Total 300 350 Balance -300 -350 Weight 54.431 kg 53.4 kg Output: Urine 300 350 Other: Voiding Method Diaper Diaper External Catheter External Catheter - Labs CBC & Chem 7: 09/17/24 19:54 09/17/24 19:54 Labs: Abnormal Lab Results - Last 24 Hours (Table) 09/16/24 Range/Units 10:03 Cortisol 22.7 H (3.1-22.4) UG/DL
[2024-09-18] MEDS: TAMSULOSIN 0.4 MG CAP.ER.24H PO SCH (07:53)
--- NOTE | 2024-09-19 05:02 | P.PN ---
Subjective Progress Note Date: 09/18/24 89-year-old female came in with complaints of generalized weakness. Patient was lightheaded and she believes her adrenal glands are not functioning patient has history of adrenal insufficiency but does not take any medications patient only uses holistic medicine she also believes she had tooth infection on the left side her tooth is supposed to be extracted. Patient only wants her ascorbic acid does not want any other antibiotics. The hospital patient was found to be hypotensive was started on hydrocortisone by cardiology better blood pressure today saturating well on room air. Patient denied any shortness of breath orthopnea paroxysmal nocturnal dyspnea patient denied any fever chills. Patient is found to have elevated troponin up to 4. On a 0.963 patient had an echocardiogram which showed decreased EF of around 35% cardiology evaluated the patient patient is not in heparin probably declined heparin. Cardiology is not planning any intervention patient had a previous echocardiogram in 2017 which showed normal ejection fraction. Patient is on 2 L of oxygen saturating 100%. Patient had ST elevations in lead I and aVL V4 V5 V6 09/17/2024 Patient is seen in follow-up today reports she is feeling well other than continues with weakness. Patient being evaluated by physical therapy and recommending rehab and has been accepted at [facility]. Patient does require 3 night hospitalization according to Medicare guidelines. Patient has been refusing certain treatment including the need for antibiotics for possible infected tooth. Patient does have elevated troponins although does not want any intervention regarding these. Patient is denying any chest pain at this time. 09/18/2024 Patient is seen in follow-up today with no acute overnight issues noted. Patient continues to await authorization to [facility]. Patient denies chest pain, shortness of breath, palpitations. Patient tolerating diet and will continue current medications. Will follow-up with social work regarding discharge planning Review of systems: Constitutional: No reports of fatigue, fever, or chills Cardiovascular: No reports of chest pain or palpitations Respiratory: No reports of shortness of breath or cough GI: No reports of nausea, vomiting, or diarrhea : No reports of dysuria or retention Neurovascular: reports of generalized weakness All medications have been reviewed All other systems are negative except those mentioned in the HPI PHYSICAL EXAMINATION: GENERAL: The patient is alert and oriented x3, not in any acute distress. Thin built female, elderly appearing HEENT: Pupils are round and equally reacting to light. EOMI. No scleral icterus. No conjunctival pallor. Normocephalic, atraumatic. No pharyngeal erythema. No thyromegaly. CARDIOVASCULAR: S1 and S2 present. No murmurs, rubs, or gallops. PULMONARY: Chest is clear to auscultation, no wheezing or crackles. ABDOMEN: Soft, nontender, nondistended, normoactive bowel sounds. No palpable organomegaly. MUSCULOSKELETAL: No joint swelling or deformity. EXTREMITIES: No cyanosis, clubbing, or pedal edema. NEUROLOGICAL: Gross neurological examination did not reveal any focal deficits. SKIN: No rashes. 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 CODE STATUS was addressed and patient wishes to be no code Patient does not want any further cardiac workup or intervention at this time. Recommend to continue with maximizing medical management and close outpatient follow-up Patient was noted to have some urinary retention and will continue Flomax, continue with indwelling [place] catheter Possible discharge planning in 24 hours to [facility] once we have insurance authorization The impression and plan of care has been dictated by Clara Holt, Nurse Practitioner as directed. Dr. Kendal MD I have performed a history and examination and MDM of this patient, discussed the same with the dictator, and agree with the dictator's assessment and plan as written ,documented as a scribe. Based on total visit time, I have performed more than 50% of the visit. Objective - Vital Signs Vital signs: Vital Signs Temp 99.2 F 09/18/24 07:34 Pulse 99 09/18/24 07:34 Resp 15 09/18/24 07:34 BP 108/66 09/18/24 07:34 Pulse Ox 96 09/18/24 07:34 FiO2 Intake & Output 09/17/24 09/18/24 09/18/24 18:59 06:59 18:59 Output Total 1026 525 Balance -1026 -525 Output: Urine 700 525 Straight 700 Uretheral ([place]) 325 Post Void Residual 326 Other: Voiding Method Diaper Diaper External Catheter Indwelling Catheter # Voids 1 - Labs CBC & Chem 7: 09/17/24 19:54 09/17/24 19:54 Labs: Abnormal Lab Results - Last 24 Hours (Table) 09/17/24 09/17/24 Range/Units 19:54 19:54 RBC 3.30 L (3.80-5.40) m/uL Hgb 10.7 L (11.4-16.0) gm/dL Hct 32.8 L (34.0-46.0) % Neutrophils # 8.5 H (1.3-7.7) k/uL Lymphocytes # 0.6 L (1.0-4.8) k/uL Sodium 133 L (137-145) mmol/L Creatinine 0.44 L (0.52-1.04) mg/dL Glucose 116 H (74-99) mg/dL AST 65 H (14-36) U/L ALT 36 H (4-34) U/L Total Protein 5.6 L (6.3-8.2) g/dL Albumin 3.1 L (3.5-5.0) g/dL
[2024-09-19 13:02] VITALS: BP 127/64; PULSE 101; RESP 20; TEMP 98.5
--- NOTE | 2024-09-19 15:07 | P.DS ---
Providers Date of admission: 09/15/24 14:16 Expected date of discharge: 09/19/24 Attending physician: Rosibel Pires Consults: 09/15/24 13:58 Consult Physician Routine Consulting Provider: Shai Spencer Consult Reason/Comments: STEMI Do you want consulting provider notified?: Yes Primary care physician: Chandni Braun Hospital Course: Final diagnosis -ST elevation myocardial infarction: Patient declined any further intervention or any other medications cardiology is following the patient -No evidence of GI bleed at this time -Urinary retention requiring indwelling [place] catheter -Hypertension: Probably secondary to hypoadrenalism patient is receiving hydrocortisone -Fall at home: Generalized weakness and gait dysfunction -Possible infected tooth, declined any antibiotics, ordered vitamin C as per patient's request DVT prophylaxis: Declined any medications at this time GI prophylaxis No code Discharge disposition Patient is being discharged in a stable condition with guarded prognosis to [facility]. Patient will follow-up with Dr. Braun in the outpatient setting upon discharge. Patient is to follow-up with cardiology outpatient as scheduled. Total time taken is greater than 35 minutes. Hospital course This is a 89-year-old female who was recently admitted with generalized weakness feels that her adrenal glands are not functioning properly and uses only holistic medications and approaches. Patient was noted to have an EF of 35% and noted to have significantly elevated troponins although patient is refusing any type of intervention and does not want cardiac catheterization. Patient with generalized weakness denies any chest pain, palpitations, or shortness of breath and was evaluated by physical therapy recommending rehab and patient is agreeable. Patient will be going to [facility]. Patient has received insurance authorization. Please refer to other consultation notes for further HPI. Currently no reports of chest pain, shortness of breath, or palpitations. Patient is afebrile. No reports of nausea or vomiting and patient is tolerating diet. Patient will be going to [facility] today. Physical exam: Gen: This is a 89-year-old female who is awake, alert and oriented x 3, thin built, elderly appearing HEENT: Head is atraumatic, normocephalic. Pupils equal, round. Sclerae is anicteric. NECK: Supple. No JVD. No lymphadenopathy. No thyromegaly. LUNGS: Clear to auscultation. No wheezes or rhonchi. No intercostal retractions. HEART: Regular rate and rhythm. No murmur. ABDOMEN: Soft. Thin bowel sounds are present. No masses. No tenderness. EXTREMITIES: No pedal edema. No calf tenderness. NEUROLOGICAL: Patient is awake, alert and oriented x3. Cranial nerves 2 through 12 are grossly intact. Please refer to medication reconciliation sheet for a list of medications. The impression and plan of care has been dictated by Clara Holt, Nurse Practitioner as directed. Dr. Kendal MD I have performed a history and examination and MDM of this patient, discussed the same with the dictator, and agree with the dictator's assessment and plan as written ,documented as a scribe. Based on total visit time, I have performed more than 50% of the visit. Patient Condition at Discharge: Fair Plan - Discharge Summary New Discharge Prescriptions: New Aspirin 81 mg PO DAILY tab Atorvastatin [Lipitor] 20 mg PO HS tab Nitroglycerin Sl Tabs [Nitrostat] 0.4 mg SUBLINGUAL Q5M PRN tab PRN Reason: Chest Pain carvediloL [Coreg] 3.125 mg PO BID-W/MEALS tab Tamsulosin [Flomax] 0.4 mg PO PC-BRKFST cap Continue B5- Pantothenic Acid 250mg 1 tab PO HS Bio-3b-G Supplement 3 tab PO DAILY Pyridoxine [Vitamin B-6] 50 mg PO DAILY Gammanol Forte Supplement 1 tab PO TID-W/MEALS Ascorbic Acid [Vitamin C] 500 mg PO TID-W/MEALS Ca+Mag Plus Supplement 3 tab PO DAILY Discharge Medication List Ascorbic Acid [Vitamin C] 500 mg PO TID-W/MEALS 09/15/24 [History] B5- Pantothenic Acid 250mg 1 tab PO HS 09/15/24 [History] Bio-3b-G Supplement 3 tab PO DAILY 09/15/24 [History] Ca+Mag Plus Supplement 3 tab PO DAILY 09/15/24 [History] Gammanol Forte Supplement 1 tab PO TID-W/MEALS 09/15/24 [History] Pyridoxine [Vitamin B-6] 50 mg PO DAILY 09/15/24 [History] Aspirin 81 mg PO DAILY tab 09/19/24 [Rx] Atorvastatin [Lipitor] 20 mg PO HS tab 09/19/24 [Rx] Nitroglycerin Sl Tabs [Nitrostat] 0.4 mg SUBLINGUAL Q5M PRN tab 09/19/24 [Rx] Tamsulosin [Flomax] 0.4 mg PO PC-BRKFST cap 09/19/24 [Rx] carvediloL [Coreg] 3.125 mg PO BID-W/MEALS tab 09/19/24 [Rx] Follow up Appointment(s)/Referral(s): Chandni Braun MD [Primary Care Provider] - 1-2 days Shai Spencer DO [STAFF PHYSICIAN] - 2 Weeks Activity/Diet/Wound Care/Special [facility]ructions: [facility] Follow-up with primary care provider on discharge Follow-up with cardiology outpatient Discharge Disposition: TRANSFER TO SNF/ECF
== END 2024-09-19 16:29 | DRG 281 ==
LOC: EC 10:34 → 3SCARD 14:16 → 5NMEDONC 09-17 23:50
PROVIDERS: ADMIT Hospitalist; ATTEND Hospitalist
PROC: 6A550Z0 Pheresis of Erythrocytes, Single (ICD-10-PCS; principal; 2024-09-16)
DX: I21.3 ST elevation (STEMI) myocardial infarction of unspecified site (principal); D62 Acute posthemorrhagic anemia; R64 Cachexia; J44.9 Chronic obstructive pulmonary disease, unspecified; I10 Essential (primary) hypertension; I08.3 Combined rheumatic disorders of mitral, aortic and tricuspid valves; E27.40 Unspecified adrenocortical insufficiency; Z68.1 Body mass index [BMI] 19.9 or less, adult; I95.9 Hypotension, unspecified; H91.92 Unspecified hearing loss, left ear; R54 Age-related physical debility; R33.9 Retention of urine, unspecified; W19.XXXA Unspecified fall, initial encounter; Y92.009 Unspecified place in unspecified non-institutional (private) residence as the place of occurrence of the external cause
CPT/HCPCS: 36415; 36430; 71045; 80053; 80061; 82533; 83735; 84484; 85025; 85610; 85730; 86850; 86900; 86901; 86920; 93005; 93306; 94760; 99291